=== PATIENT | female | born 1945 | race Caucasian/White ===

== ENCOUNTER → 2016-12-22 | Outpatient (CLI) | payer MEDICARE ==
--- NOTE | 2016-12-23 13:48 | MM ---
Reason for exam: screening (asymptomatic). Last mammogram was performed 1 year and 2 months ago. History: Patient is postmenopausal and is nulliparous. Took hormonal contraceptives for 5 years beginning at age 26. Physical Findings: A clinical breast exam by your physician is recommended on an annual basis and results should be correlated with mammographic findings. MG 3D Screening Mammo W/Cad Bilateral CC and MLO view(s) were taken. Prior study comparison: November 01, 2015, bilateral MG screening mammo w CAD. October 30, 2014, bilateral MG screening mammo w CAD. There are scattered fibroglandular densities. There is no discrete abnormality. No significant changes when compared with prior studies. ASSESSMENT: Negative, BI-RAD 1 RECOMMENDATION: Routine screening mammogram of both breasts in 1 year.
== END | disposition home or self-care (01) ==
LOC: RADMAMWWP 07:40
PROVIDERS: ATTEND Family Medicine
DX: Z12.31 Encounter for screening mammogram for malignant neoplasm of breast (principal)
CPT/HCPCS: 77063; G0202

== ENCOUNTER → 2017-12-09 | Outpatient (CLI) | payer MEDICARE ==
--- NOTE | 2017-12-10 08:26 | XR ---
EXAMINATION TYPE: XR Hip Complete RT DATE OF EXAM: 12/09/2017 COMPARISON: None HISTORY: Inguinal pain, right hip pain TECHNIQUE: 2 view right hip FINDINGS: No acute fractures are evident. Femoral head articulates with the acetabulum. Joint space a ppears preserved. IMPRESSION: 1. Normal 2 view right hip.
== END | disposition home or self-care (01) ==
LOC: RADXRMAIN 15:51
PROVIDERS: ATTEND Family Medicine
DX: R10.2 Pelvic and perineal pain (principal)
CPT/HCPCS: 73502

== ENCOUNTER 2018-01-28 08:49 | Observation (INO) | payer MEDICARE ==
[2018-01-28] MEDS ORDERED: ASPIRIN 81 MG PO STA (09:08)
--- NOTE | 2018-01-28 09:11 | ED ---
General Adult HPI - General Chief complaint: Arrhythmia/Palpitations Stated complaint: irregular heart rate Time Seen by Provider: 01/28/18 09:01 Source: patient, RN notes reviewed Mode of arrival: wheelchair Limitations: no limitations - History of Present Illness Initial comments: Patient is a pleasant 72-year-old female presenting to the emergency department with complaints of reported irregular heartbeat. Patient denies any history of similar symptoms previously. Patient has no complaints except for her chronic lower back pain. Patient denies any palpitations. No chest pain. No dyspnea. No weakness or fatigue. Patient went to orthopedics today and was told to come to the emergency department. Patient was scheduled to have epidural however this was not done today. No change in the patient's chronic back pain. Patient states she just saw her new primary care physician Dr. Pickett yesterday. Patient states there is no mention yesterday as far as irregular heartbeat. Patient states EKG was not done at that time. - Related Data Home Medications Medication Instructions Recorded Confirmed Candesartan/Hydrochlorothiazid 1 tab PO DAILY 07/13/14 01/28/18 [Candesartan-Hctz 32-25 mg Tab] Ibuprofen [Motrin] 800 mg PO TID 07/13/14 01/28/18 Levothyroxine Sodium [Synthroid] 150 mcg PO DAILY 07/13/14 01/28/18 Atorvastatin [Lipitor] 20 mg PO HS 01/28/18 01/28/18 Cholecalciferol [Vitamin D3] 1,000 unit PO DAILY 01/28/18 01/28/18 Cyanocobalamin (Vitamin B-12) 1,000 mcg PO DAILY 01/28/18 01/28/18 [Vitamin B-12] Gabapentin [Neurontin] 100 mg PO TID 01/28/18 01/28/18 Magnesium Oxide [Mag-Ox] 400 mg PO DAILY 01/28/18 01/28/18 amLODIPine [Norvasc] 10 mg PO DAILY 01/28/18 01/28/18 metFORMIN HCL [Glucophage] 500 mg PO W/SUPPER 01/28/18 01/28/18 traMADol HCL [Ultram] 50 mg PO TID 01/28/18 01/28/18 Allergies Allergy/AdvReac Type Severity Reaction Status Date / Time No Known Allergies Allergy Verified 01/28/18 09:19 Review of Systems ROS Statement: Those systems with pertinent positive or pertinent negative responses have been documented in the HPI. ROS Other: All systems not noted in ROS Statement are negative. Constitutional: Denies: fever Eyes: Denies: eye pain ENT: Denies: ear pain, throat pain Respiratory: Denies: cough, dyspnea Cardiovascular: Denies: chest pain, palpitations Endocrine: Denies: fatigue Gastrointestinal: Denies: abdominal pain Genitourinary: Denies: dysuria Musculoskeletal: Reports: back pain (Chronic and unchanged) Skin: Denies: rash Neurological: Denies: weakness Past Medical History Past Medical History: Asthma, Hypertension History of Any Multi-Drug Resistant Organisms: None Reported Past Surgical History: Orthopedic Surgery Additional Past Surgical History / Comment(s): D&C, LEFT HEEL SPUR, LEFT TRIGGER THUMB Past Anesthesia/Blood Transfusion Reactions: Postoperative Nausea & Vomiting ( PONV) Past Psychological History: No Psychological Hx Reported Smoking Status: Never smoker Past Alcohol Use History: None Reported Past Drug Use History: None Reported General Exam Limitations: no limitations General appearance: alert, in no apparent distress, obese Head exam: Present: atraumatic Eye exam: Present: normal appearance, PERRL ENT exam: Present: normal oropharynx Neck exam: Present: normal inspection Respiratory exam: Present: normal lung sounds bilaterally Cardiovascular Exam: Present: regular rate, irregular rhythm, systolic murmur GI/Abdominal exam: Present: soft. Absent: tenderness Extremities exam: Present: normal inspection. Absent: pedal edema, calf tenderness Neurological exam: Present: alert Psychiatric exam: Present: normal affect, normal mood Skin exam: Present: normal color Course Vital Signs 01/28/18 01/28/18 01/28/18 08:56 10:00 10:30 Temperature 97.9 F Pulse Rate 69 60 72 Respiratory 16 12 13 Rate Blood Pressure 114/48 120/60 121/63 O2 Sat by Pulse 99 98 98 Oximetry 01/28/18 11:00 Temperature Pulse Rate 74 Respiratory 10 L Rate Blood Pressure 115/63 O2 Sat by Pulse 98 Oximetry EKG Findings - EKG Comments: EKG Findings:: Atrial fibrillation with rate of 69. QRS 82. QT 404. QTC 432. Left axis. Inferior Q waves. No acute ST change. Medical Decision Making - Medical Decision Making Patient reevaluated and resting comfortably in bed. Patient remains in atrial fibrillation with rate controlled. Patient updated on results and plan. Case was discussed in detail with Dr. Dillard, who will admit for Dr. Pickett. Cardiology will be consult - Lab Data Result diagrams: 01/28/18 09:19 01/28/18 09:19 Lab Results 01/28/18 01/28/18 01/28/18 Range/Units 09:19 09:19 09:19 WBC 13.6 H (3.8-10.6) k/uL RBC 3.99 (3.80-5.40) m/uL Hgb 12.0 (11.4-16.0) gm/dL Hct 36.1 (34.0-46.0) % MCV 90.5 (80.0-100.0) fL MCH 30.1 (25.0-35.0) pg MCHC 33.3 (31.0-37.0) g/dL RDW 13.3 (11.5-15.5) % Plt Count 315 (150-450) k/uL Neutrophils % 74 % Lymphocytes % 20 % Monocytes % 4 % Eosinophils % 1 % Basophils % 1 % Neutrophils # 10.1 H (1.3-7.7) k/uL Lymphocytes # 2.7 (1.0-4.8) k/uL Monocytes # 0.5 (0-1.0) k/uL Eosinophils # 0.1 (0-0.7) k/uL Basophils # 0.1 (0-0.2) k/uL PT (9.0-12.0) sec INR (<1.2) APTT (22.0-30.0) sec Sodium 140 (137-145) mmol/L Potassium 4.4 (3.5-5.1) mmol/L Chloride 106 (98-107) mmol/L Carbon Dioxide 25 (22-30) mmol/L Anion Gap 9 mmol/L BUN 26 H (7-17) mg/dL Creatinine 0.81 (0.52-1.04) mg/dL Est GFR (CKD-EPI)AfAm 85 (>60 ml/min/1.73 sqM) Est GFR (CKD-EPI)NonAf 74 (>60 ml/min/1.73 sqM) Glucose 131 H (74-99) mg/dL Calcium 9.8 (8.4-10.2) mg/dL Magnesium 1.9 (1.6-2.3) mg/dL Total Bilirubin 0.6 (0.2-1.3) mg/dL AST 21 (14-36) U/L ALT 24 (9-52) U/L Alkaline Phosphatase 122 (38-126) U/L Total Creatine Kinase 155 H (30-135) U/L CK-MB (CK-2) 1.5 (0.0-2.4) ng/mL CK-MB (CK-2) Rel Index 1.0 Troponin I <0.012 (0.000-0.034) ng/mL Total Protein 6.9 (6.3-8.2) g/dL Albumin 3.8 (3.5-5.0) g/dL TSH 6.500 H (0.465-4.680) mIU/L Free T4 1.75 (0.78-2.19) ng/dL Free T3 pg/mL 1.9 L (2.8-5.3) pg/ml 01/28/18 Range/Units 09:19 WBC (3.8-10.6) k/uL RBC (3.80-5.40) m/uL Hgb (11.4-16.0) gm/dL Hct (34.0-46.0) % MCV (80.0-100.0) fL MCH (25.0-35.0) pg MCHC (31.0-37.0) g/dL RDW (11.5-15.5) % Plt Count (150-450) k/uL Neutrophils % % Lymphocytes % % Monocytes % % Eosinophils % % Basophils % % Neutrophils # (1.3-7.7) k/uL Lymphocytes # (1.0-4.8) k/uL Monocytes # (0-1.0) k/uL Eosinophils # (0-0.7) k/uL Basophils # (0-0.2) k/uL PT 9.4 (9.0-12.0) sec INR 0.9 (<1.2) APTT 21.6 L (22.0-30.0) sec Sodium (137-145) mmol/L Potassium (3.5-5.1) mmol/L Chloride (98-107) mmol/L Carbon Dioxide (22-30) mmol/L Anion Gap mmol/L BUN (7-17) mg/dL Creatinine (0.52-1.04) mg/dL Est GFR (CKD-EPI)AfAm (>60 ml/min/1.73 sqM) Est GFR (CKD-EPI)NonAf (>60 ml/min/1.73 sqM) Glucose (74-99) mg/dL Calcium (8.4-10.2) mg/dL Magnesium (1.6-2.3) mg/dL Total Bilirubin (0.2-1.3) mg/dL AST (14-36) U/L ALT (9-52) U/L Alkaline Phosphatase (38-126) U/L Total Creatine Kinase (30-135) U/L CK-MB (CK-2) (0.0-2.4) ng/mL CK-MB (CK-2) Rel Index Troponin I (0.000-0.034) ng/mL Total Protein (6.3-8.2) g/dL Albumin (3.5-5.0) g/dL TSH (0.465-4.680) mIU/L Free T4 (0.78-2.19) ng/dL Free T3 pg/mL (2.8-5.3) pg/ml - Radiology Data Radiology results: image reviewed (Chest x-ray shows no acute process) Disposition Clinical Impression: New onset atrial fibrillation Disposition: ADMITTED IP TO THIS HOSP Is patient prescribed a controlled substance at d/c from ED?: No Referrals: Lila Pickett MD [Primary Care Provider] - 1-2 days Decision Time: 11:45
[2018-01-28 09:45] LABS: Basophils # (A) 0.1 k/uL (0-0.2); Basophils % (A) 1 %; Eosinophils # (A) 0.1 k/uL (0-0.7); Eosinophils % (A) 1 %; HCT 36.1 % (34.0-46.0); Lymphocytes # (A) 2.7 k/uL (1.0-4.8); Lymphocytes % (A) 20 %; MCH 30.1 pg (25.0-35.0); MCHC 33.3 g/dL (31.0-37.0); MCV 90.5 fL (80.0-100.0); Monocytes # (A) 0.5 k/uL (0-1.0); Monocytes % (A) 4 %; Neutrophils # (A) 10.1 k/uL (1.3-7.7); Neutrophils % (A) 74 %; Platelet Count 315 k/uL (150-450); RBC 3.99 m/uL (3.80-5.40); RDW 13.3 % (11.5-15.5); WBC 13.6 k/uL (3.8-10.6)
[2018-01-28 09:57] LABS: Albumin 3.8 g/dL (3.5-5.0); Calcium 9.8 mg/dL (8.4-10.2); Magnesium 1.9 mg/dL (1.6-2.3); Potassium 4.4 mmol/L (3.5-5.1); Total Bilirubin 0.6 mg/dL (0.2-1.3); Total Protein 6.9 g/dL (6.3-8.2)
--- NOTE | 2018-01-28 10:03 | XR ---
EXAMINATION TYPE: XR chest 2V DATE OF EXAM: 01/28/2018 COMPARISON: NONE HISTORY: Dysrhythmia TECHNIQUE: Frontal and lateral views of the chest are obtained. FINDINGS: There is no focal air space opacity, pleural effusion, or pneumothorax seen. The cardiac silhouette size is at upper normal limits, patient is rotated. The osseous structures are intact. T here are overlying cardiac leads. Arthropathy noted in the shoulders. IMPRESSION: No acute cardiopulmonary process.
[2018-01-28 10:08] LABS: Creatine Kinase 155 U/L (30-135)
[2018-01-28 10:09] LABS: INR 0.9 (<1.2); Prothrombin Time 9.4 sec (9.0-12.0)
[2018-01-28 10:14] LABS: T4, Free (Free Thyroxine) 1.75 ng/dL (0.78-2.19)
[2018-01-28 10:20] LABS: Creatine Kinase MB 1.5 ng/mL (0.0-2.4); Troponin I <0.012 ng/mL (0.000-0.034)
[2018-01-28 10:25] LABS: Partial Thromboplastin Time 21.6 sec (22.0-30.0)
[2018-01-28] MEDS ORDERED: NITROGLYCERIN SL TABS 0.4 MG TAB SUBLINGUAL PRN (11:46)
[2018-01-28] MEDS ORDERED: HEPARIN SODIUM,PORCINE 5,000 UNIT/ML 1 ML VIAL IV PRN (11:46)
[2018-01-28] MEDS ORDERED: HEPARIN SODIUM,PORCINE 5,000 UNIT/ML 1 ML VIAL IV ONE (11:46)
[2018-01-28] MEDS: HEPARIN SOD,PORK IN 0.45% NACL 25,000 UNIT in 0.45% NACL 1 500ML.BAG IV SCH (12:06)
[2018-01-28 16:15] LABS: Creatine Kinase 137 U/L (30-135)
[2018-01-28] MEDS ORDERED: DOCUSATE 100 MG CAP PO PRN (16:16)
[2018-01-28] MEDS ORDERED: MELATONIN 5 MG TABLET PO PRN (16:16)
[2018-01-28] MEDS ORDERED: ACETAMINOPHEN TAB 325 MG TAB PO PRN (16:16)
[2018-01-28] MEDS ORDERED: ONDANSETRON 4 MG/2 ML VIAL IVP PRN (16:16)
--- NOTE | 2018-01-28 16:21 | ECHOF ---
Referral Reason:New-onset A. fib MEASUREMENTS -------- HEIGHT: 132.1 cm WEIGHT: 104.3 kg BP: IVSd: 1.2 cm (0.6 - 1.1) LVIDd: 4.3 cm (3.9 - 5.3) LVPWd: 1.0 cm (0.6 - 1.1) IVSs: 1.4 cm LVIDs: 2.8 cm LVPWs: 1.4 cm LA Diam: 1.2 cm (2.7 - 3.8) RVIDd: 2.7 cm (< 3.3) Ao Diam: 2.8 cm (2.0 - 3.7) LA Diam: 2.9 cm (2.7 - 3.8) AV Cusp: 1.6 cm (1.5 - 2.6) EPSS: 0.8 cm MV E Cash: 0.87 m/s MV DecT: 142 ms MV A Cash: 0.73 m/s MV E/A Ratio: 1.18 RAP: 5.00 mmHg RVSP: 19.52 mmHg %FS: 54.89 % EDV(Teich): 98.13 ml EF(Teich): 85.63 % ESV(Teich): 14.10 ml IVSd: 1.35 cm (0.6 - 1.1) IVSs: 1.98 cm LVIDd: 4.62 cm (3.9 - 5.3) LVIDs: 2.08 cm LVPWd: 1.21 cm (0.6 - 1.1) LVPWs: 1.77 cm MV EF SLOPE: 105.32 mm/s (70 - 150) MV EXCURSION: 11.11 mm (> 18.000) SV(Teich): 84.03 ml FINDINGS -------- Atrial fibrillation. This was a technically difficult study with suboptimal views. The left ventricular size is normal. There is mild concentric left ventricular hypertrophy. Overa ll left ventricular systolic function is normal with, an EF between 55 - 60 %. The right ventricle is normal in size and function. The left atrium is normal in size. The right atrium is normal in size. 5.0mg of Lumason was utilized for enhancement of images Aortic valve is trileaflet and is mildly thickened. There is trace mitral regurgitation. Trace tricuspid regurgitation present. The right ventricular systolic pressure, as measured by Dopp ler, is 19.52mmHg. Pulmonic valve appears structurally normal. The aortic root size is normal. The pericardium is normal. CONCLUSIONS -------- 1. Atrial fibrillation. 2. This was a technically difficult study with suboptimal views. 3. The left ventricular size is normal. 4. There is mild concentric left ventricular hypertrophy. 5. Overall left ventricular systolic function is normal with, an EF between 55 - 60 %. 6. The right ventricle is normal in size and function. 7. The left atrium is normal in size. 8. The right atrium is normal in size. 9. 5.0mg of Lumason was utilized for enhancement of images 10. Aortic valve is trileaflet and is mildly thickened. 11. There is trace mitral regurgitation. 12. Trace tricuspid regurgitation present. 13. The right ventricular systolic pressure, as measured by Doppler, is 19.52mmHg. 14. Pulmonic valve appears structurally normal. 15. The aortic root size is normal. 16. The pericardium is normal. PERIOPERATIVE EDUCATOR: Bailey Puentes RDCS
[2018-01-28 16:29] LABS: Creatine Kinase MB 1.4 ng/mL (0.0-2.4); Troponin I <0.012 ng/mL (0.000-0.034)
--- NOTE | 2018-01-28 16:35 | P.HPIM ---
History of Present Illness H&P Date: 01/28/18 Chief Complaint: a fib Patient is a 72-year-old female with past medical history of hypertension, diabetes, hypothyroidism, dyslipidemia, and obesity who presented to the ER at the direction [facility] for newly discovered atrial fibrillation. In the ER she underwent an extensive evaluation. On arrival her vital signs were within normal limits. Initial laboratory analysis showed slightly elevated white blood cell count at 13.6. Slightly elevated BUN at 26. Glucose was slightly elevated 131. Initial TSH was slightly elevated at 6.5. On EKG she was found to have atrial fibrillation which was rate controlled. Arrangements were made for placement in observation status. Patient seen and examined at bedside. She denies any known history of atrial fibrillation. She has not noticed any palpitations, chest pain, shortness of breath, lightheadedness, dizziness, unusual fatigue, or decreased exercise tolerance. She's never needed to see a back tender cloth printing in the past. She recently established care with Dr. Pickett. She did decrease her Synthroid dosing approximately 2 weeks ago. She denies any recent cough, cold, fever, flu, nausea, vomiting, diarrhea, constipation, or dysuria. She has been asked anything increasing back pain over the last 2 months. She's been following with [facility]. She had MRI done which she states showed 2 "Pinched" nurse. She was schedule have an epidural injection today when she was noted to be in atrial fibrillation. They sent her to the hospital. They stated that she will need cardiac clearance prior to any future epidural injections. She states the Ultra is not currently helping with pain. She does have some chronic lower extremity edema which is worse in the morning and better at night. Review of Systems Pertinent positives and negatives as discussed in HPI, a complete review of systems was performed and all other systems are negative. Past Medical History Past Medical History: Asthma, Diabetes Mellitus, Hyperlipidemia, Hypertension, Osteoarthritis (OA), Thyroid Disorder History of Any Multi-Drug Resistant Organisms: None Reported Past Surgical History: Orthopedic Surgery Additional Past Surgical History / Comment(s): D&C(hysteroscopy,endometrial polyp removed), LEFT HEEL SPUR, LEFT TRIGGER THUMB, colonoscopy w/bx pt stated was neg. Past Anesthesia/Blood Transfusion Reactions: Motion Sickness, Postoperative Nausea & Vomiting (PONV) Additional Past Anesthesia/Blood Transfusion Reaction / Comment(s): clausterphobia Smoking Status: Former smoker - Past Family History Father History Unknown: Yes Additional Family Medical History / Comment(s): pt was adopted family Additional Family Medical History / Comment(s): 2 cousins with history of heart problems. Patient unable to quantify further. Medications and Allergies Home Medications Medication Instructions Recorded Confirmed Type Candesartan/Hydrochlorothiazid 1 tab PO DAILY 07/13/14 01/28/18 History [Candesartan-Hctz 32-25 mg Tab] Ibuprofen [Motrin] 800 mg PO TID 07/13/14 01/28/18 History Levothyroxine Sodium [Synthroid] 150 mcg PO DAILY 07/13/14 01/28/18 History Atorvastatin [Lipitor] 20 mg PO HS 01/28/18 01/28/18 History Cholecalciferol [Vitamin D3] 1,000 unit PO DAILY 01/28/18 01/28/18 History Cyanocobalamin (Vitamin B-12) 1,000 mcg PO DAILY 01/28/18 01/28/18 History [Vitamin B-12] Gabapentin [Neurontin] 100 mg PO TID 01/28/18 01/28/18 History Magnesium Oxide [Mag-Ox] 400 mg PO DAILY 01/28/18 01/28/18 History amLODIPine [Norvasc] 10 mg PO DAILY 01/28/18 01/28/18 History metFORMIN HCL [Glucophage] 500 mg PO W/SUPPER 01/28/18 01/28/18 History traMADol HCL [Ultram] 50 mg PO TID 01/28/18 01/28/18 History Allergies Allergy/AdvReac Type Severity Reaction Status Date / Time No Known Allergies Allergy Verified 01/28/18 09:19 Physical Exam Osteopathic Statement: *. No significant issues noted on an osteopathic structural exam other than those noted in the History and Physical/Consult. Vitals: Vital Signs Temp Pulse Resp BP Pulse Ox 01/28/18 14:46 98.5 F 01/28/18 14:00 66 13 120/70 01/28/18 13:00 70 107/62 97 01/28/18 12:36 98.7 F 01/28/18 12:00 70 11 L 140/83 98 01/28/18 11:00 74 10 L 115/63 98 01/28/18 10:30 72 13 121/63 98 01/28/18 10:00 60 12 120/60 98 01/28/18 08:56 97.9 F 69 16 114/48 99 Intake and Output 01/28/18 01/28/18 01/28/18 06:59 14:59 22:59 Other: # Voids 1 Weight 104.326 kg General: non toxic, no distress, appears at stated age, normal weight, obese Derm: no unusual rashes/lesions no unusual ecchymoses, warm, dry Head: atraumatic, normocephalic, symmetric Eyes: EOMI, no lid lag, anicteric sclera, pupils equal round reactive to light ENT: Nose and ears atraumatic, no thrush, no pharyngeal erythema Neck: No thyromegaly, no cervical lymphadenopathy, trachea midline, supple Mouth: no lip lesion, mucus membranes moist Cardiovascular: S1-S2 irregularly irregular, no murmur, positive posterior tibial pulse bilateral, trace edema, capillary refill less than 2 seconds Lungs: CTA bilateral, no rhonchi, no rales , no accessory muscle use Abdominal: soft, nontender to palpation, no guarding, no appreciable organomegaly, normal bowel sounds Ext: no gross muscle atrophy, muscle strength 5 out of 5 in all 4 extremities grossly, no contractures, Neuro: CN II-XI grossly intact, light touch intact all 4 extremities, finger to nose within normal limits, Psych: Alert, oriented, appropriate affect Results CBC & Chem 7: 01/28/18 09:19 01/28/18 09:19 Labs: Abnormal Lab Results - Last 24 Hours (Table) 01/28/18 01/28/18 01/28/18 Range/Units 09:19 09:19 09:19 WBC 13.6 H (3.8-10.6) k/uL Neutrophils # 10.1 H (1.3-7.7) k/uL APTT (22.0-30.0) sec BUN 26 H (7-17) mg/dL Glucose 131 H (74-99) mg/dL Total Creatine Kinase 155 H (30-135) U/L TSH 6.500 H (0.465-4.680) mIU/L Free T3 pg/mL 1.9 L (2.8-5.3) pg/ml 01/28/18 Range/Units 09:19 WBC (3.8-10.6) k/uL Neutrophils # (1.3-7.7) k/uL APTT 21.6 L (22.0-30.0) sec BUN (7-17) mg/dL Glucose (74-99) mg/dL Total Creatine Kinase (30-135) U/L TSH (0.465-4.680) mIU/L Free T3 pg/mL (2.8-5.3) pg/ml Chest x-ray: report reviewed Thrombosis Risk Factor Assmnt - DVT/VTE Prophylaxis DVT/VTE Prophylaxis: Mechanical Prophylaxis ordered - Choose All That Apply Each Factor Represents 1 point: Obesity (BMI >25) Each Risk Factor Represents 2 Points: Age 61-74 years Thrombosis Risk Factor Assessment Total Risk Factor Score: 3 Thrombosis Risk Factor Assessment Level: Moderate Risk Assessment and Plan Assessment: Atrial fibrillation, newly discovered -Telemetry -Will not start any rate controlling medications as patient is currently rate controlled -On heparin drip. Plan is transitioned to Xarelto or eliquis once a cough that is verified. -Echocardiogram -Check magnesium level Hypothyroidism -TSH is elevated consistent slightly hypothyroid. She is already on Synthroid and this medication will be adjusted Chronic low back pain -Trial of [place] -Continue outpatient follow-up for epidural injections Diabetes mellitus type 2 -Patient reports last A1c 2 months ago 6.1 -Check blood sugars -Maintain outpatient metformin Hypertension, currently controlled -Continue with home candesartan hydrochlorothiazide Dyslipidemia - Continue with Lipitor Morbid obesity with BMI 48.1 -Outpatient structured weight loss The patient is placed in observation with an anticipated less than 2 per night stay for evaluation of newly discovered atrial fibrillation. Surrogate decision-maker: Friend-John Salinas CODE STATUS: Full but would not want long-term ventilation DVT prophylaxis: Heparin gtt Discussed with: patient, nursing Anticipated discharge date: [address]: home A total of [75] minutes was spent on the care of this complex patient more than 50% of the time was spent in counseling and care coordination.
[2018-01-28 16:41] LABS: Glucose,Whole Blood 112 mg/dL (75-99)
[2018-01-28] MEDS: HYDROcodone/APAP 5-325MG 1 EACH TAB PO PRN (17:27)
[2018-01-28] MEDS ORDERED: metFORMIN 500 MG TAB PO SCH (17:30)
[2018-01-28 20:54] LABS: Creatine Kinase 168 U/L (30-135)
[2018-01-28] MEDS ORDERED: ATORVASTATIN 20 MG TAB PO SCH (21:00)
[2018-01-28 21:04] LABS: Glucose,Whole Blood 114 mg/dL (75-99)
[2018-01-28 21:06] LABS: Creatine Kinase MB 1.5 ng/mL (0.0-2.4); Troponin I <0.012 ng/mL (0.000-0.034)
[2018-01-28] MEDS: GABAPENTIN 100 MG CAP PO SCH (21:26)
[2018-01-29] MEDS: HYDROcodone/APAP 5-325MG 1 EACH TAB PO PRN ×2 (00:27→08:57)
[2018-01-29 05:59] LABS: Glucose,Whole Blood 124 mg/dL (75-99)
[2018-01-29] MEDS ORDERED: LEVOTHYROXINE 100 MCG TAB PO SCH (06:30)
[2018-01-29] MEDS ORDERED: LEVOTHYROXINE 75 MCG TAB PO SCH (06:30)
[2018-01-29] MEDS ORDERED: LEVOTHYROXINE 88 MCG TAB PO SCH (06:30)
[2018-01-29 07:11] LABS: Mean Platelet Volume 7.1; Platelet Count 314 k/uL (150-450)
[2018-01-29 07:21] VITALS: PULSE 61; RESP 16
[2018-01-29 07:46] LABS: Cholesterol 142 mg/dL (<200); HDL Cholesterol 56 mg/dL (40-60); LDL Cholesterol,Calculated 61 mg/dL (0-99); Triglycerides 126 mg/dL (<150)
[2018-01-29] MEDS: GABAPENTIN 100 MG CAP PO SCH (08:56)
[2018-01-29] MEDS ORDERED: LOSARTAN 50 MG TAB PO SCH (09:00)
[2018-01-29] MEDS ORDERED: HYDROCHLOROTHIAZIDE 25 MG TAB PO SCH (09:00)
[2018-01-29] MEDS ORDERED: CYANOCOBALAMIN 500 MCG TAB PO SCH (09:00)
[2018-01-29] MEDS ORDERED: CHOLECALCIFEROL 1,000 UNIT TAB PO SCH (09:00)
[2018-01-29] MEDS ORDERED: MAGNESIUM OXIDE 400 MG TAB PO SCH (09:00)
[2018-01-29] MEDS ORDERED: ASPIRIN 325 MG TAB PO SCH (09:00)
[2018-01-29] MEDS ORDERED: amLODIPine 10 MG TAB PO SCH (09:00)
[2018-01-29 11:09] LABS: HCT 35.4 % (34.0-46.0); HGB 11.8 gm/dL (11.4-16.0); MCH 30.7 pg (25.0-35.0); MCHC 33.4 g/dL (31.0-37.0); Mean Platelet Volume 8.7; Platelet Count 314 k/uL (150-450); RBC 3.85 m/uL (3.80-5.40); RDW 13.2 % (11.5-15.5); WBC 11.1 k/uL (3.8-10.6)
--- NOTE | 2018-01-29 11:23 | P.CRDCN ---
History of Present Illness Consult date: 01/29/18 Requesting physician: Juana Dillard Consult reason: atrial fibrillation History of present illness: this is a pleasant 72-year-old female with past medical history significant for hypertension, deep diabetes, hypothyroidism, hyperlipidemia, obesity, who states that she was scheduled to have an epidural injection, and EKG was performed just prior to that was interpreted to be in atrial fibrillation, therefore the procedure was not performed and patient was 5 to come to the emergency room for observation.EKG performed on arrival here was read as atrial fibrillation, however appears to be in normal sinus rhythm with occasional PACs. Rhythm strips were reviewed which show normal sinus rhythm. Cyclic EKG continues to show normal sinus rhythm, sinus bradycardia with PACs. There is no evidence of atrial fibrillation.blood pressure 125/70 with a heart rate in the 60s, 98% on room air.White blood cell count 13.6, hemoglobin 12, platelet count 314. Sodium 140, potassium 4.4, BUN 26, creatinine 0.8.troponins are negative 3.an echo cardiac gram with Doppler study was performed which revealed an ejection fraction of 55-60%. Chest x-ray does not reveal any acute process.TSH is elevated at 6.5, free T4 is 1.7 and free T3 1.9. Patient's dose of Synthroid has been increased. Past Medical History Past Medical History: Asthma, Diabetes Mellitus, Hyperlipidemia, Hypertension, Osteoarthritis (OA), Thyroid Disorder History of Any Multi-Drug Resistant Organisms: None Reported Past Surgical History: Orthopedic Surgery Additional Past Surgical History / Comment(s): D&C(hysteroscopy,endometrial polyp removed), LEFT HEEL SPUR, LEFT TRIGGER THUMB, colonoscopy w/bx pt stated was neg. Past Anesthesia/Blood Transfusion Reactions: Motion Sickness, Postoperative Nausea & Vomiting (PONV) Additional Past Anesthesia/Blood Transfusion Reaction / Comment(s): clausterphobia Smoking Status: Former smoker - Past Family History Father History Unknown: Yes Additional Family Medical History / Comment(s): pt was adopted family Additional Family Medical History / Comment(s): 2 cousins with history of heart problems. Patient unable to quantify further. Medications and Allergies Home Medications Medication Instructions Recorded Confirmed Type Candesartan/Hydrochlorothiazid 1 tab PO DAILY 07/13/14 01/28/18 History [Candesartan-Hctz 32-25 mg Tab] Ibuprofen [Motrin] 800 mg PO TID 07/13/14 01/28/18 History Levothyroxine Sodium [Synthroid] 150 mcg PO DAILY 07/13/14 01/28/18 History Atorvastatin [Lipitor] 20 mg PO HS 01/28/18 01/28/18 History Cholecalciferol [Vitamin D3] 1,000 unit PO DAILY 01/28/18 01/28/18 History Cyanocobalamin (Vitamin B-12) 1,000 mcg PO DAILY 01/28/18 01/28/18 History [Vitamin B-12] Gabapentin [Neurontin] 100 mg PO TID 01/28/18 01/28/18 History Magnesium Oxide [Mag-Ox] 400 mg PO DAILY 01/28/18 01/28/18 History amLODIPine [Norvasc] 10 mg PO DAILY 01/28/18 01/28/18 History metFORMIN HCL [Glucophage] 500 mg PO W/SUPPER 01/28/18 01/28/18 History traMADol HCL [Ultram] 50 mg PO TID 01/28/18 01/28/18 History Allergies Allergy/AdvReac Type Severity Reaction Status Date / Time No Known Allergies Allergy Verified 01/28/18 09:19 Physical Exam Vitals: Vital Signs Temp Pulse Pulse Resp BP BP Pulse Ox 01/29/18 07:17 97.1 F L 61 16 125/72 98 01/29/18 04:00 97.3 F L 59 L 18 144/67 97 01/29/18 00:00 97.0 F L 64 18 106/54 97 01/28/18 20:00 67 18 01/28/18 19:37 97.3 F L 57 L 18 136/63 95 01/28/18 17:00 55 L 18 01/28/18 16:00 97 F L 55 L 18 133/59 01/28/18 14:46 98.5 F 01/28/18 14:00 66 13 120/70 01/28/18 13:00 70 107/62 97 01/28/18 12:36 98.7 F 01/28/18 12:00 70 11 L 140/83 98 Intake and Output 01/28/18 01/29/18 01/29/18 22:59 06:59 14:59 Intake Total 720 397.782 416.157 Balance 720 397.782 416.157 Intake: IV 180 0.9 180 Intake, IV Titration 217.782 176.157 Amount Heparin Sod,Pork in 0.45% 217.782 176.157 NaCl 25,000 unit In 0.45 % NaCl 1 500ml.bag @ 9.58 UNITS/KG/HR 19.98 mls/hr IV .Q24H [facility] Rx#: [id number] Oral 720 240 Other: Voiding Method Toilet Toilet # Voids 1 2 Weight 103.1 kg PHYSICAL EXAMINATION: GENERAL:72-year-old female in no acute distress at the time of my examination HEENT: Head is atraumatic, normocephalic. Pupils equal, round. Sclera anicteric. Conjunctiva are clear. Mucous membranes of the mouth are moist. Neck is supple. There is no elevated jugular venous pressure.no carotid bruit is heard. HEART EXAMINATION: [Heart S1, S2 normal. No murmur or gallop heard.] CHEST EXAMINATION:[ Lungs are clear to auscultation and precussion. No chest wall tenderness is noted on palpation or with deep breathing.] ABDOMEN: [ Soft, nontender. Bowel sounds are heard. No organomegaly noted]. EXTREMITIES:[ 2+ peripheral pulses with no evidence of peripheral edema and no calf tenderness noted]. NEUROLOGIC [patient is awake, alert and oriented X3.] . Results 01/29/18 06:56 01/28/18 09:19 Cardiac Enzymes 01/28/18 01/28/18 Range/Units 15:29 19:59 CK-MB (CK-2) 1.4 1.5 (0.0-2.4) ng/mL Troponin I <0.012 <0.012 (0.000-0.034) ng/mL Coagulation 01/28/18 01/29/18 Range/Units 19:59 06:56 APTT 43.4 H 38.8 H (22.0-30.0) sec Lipids 01/29/18 Range/Units 06:56 Triglycerides 126 (<150) mg/dL Cholesterol 142 (<200) mg/dL HDL Cholesterol 56 (40-60) mg/dL CBC 01/29/18 01/29/18 Range/Units 06:56 06:56 WBC 11.1 H (3.8-10.6) k/uL RBC 3.85 (3.80-5.40) m/uL Hgb 11.8 (11.4-16.0) gm/dL Hct 35.4 (34.0-46.0) % Plt Count 314 314 (150-450) k/uL Current Medications Generic Name Dose Route Start Last Admin Trade Name Freq PRN Reason Stop Dose Admin Acetaminophen 650 mg 01/28/18 16:16 Tylenol Tab PO Q6HR PRN Fever and/ or Pain Hydrocodone Bitart/Acetaminophen 1 each 01/28/18 16:16 01/29/18 08:57 [place] 5-325 PO 1 each Q6HR PRN Administration Pain Amlodipine Besylate 10 mg 01/29/18 09:00 01/29/18 08:56 Norvasc PO 10 mg DAILY JEF Administration Aspirin 81 mg 01/30/18 09:00 Aspirin PO DAILY JEF Atorvastatin Calcium 20 mg 01/28/18 21:00 01/28/18 21:26 Lipitor PO 20 mg HS JEF Administration Cholecalciferol 1,000 unit 01/29/18 09:00 01/29/18 08:56 Vitamin D3 PO 1,000 unit DAILY JEF Administration Cyanocobalamin 1,000 mcg 01/29/18 09:00 01/29/18 08:56 Vitamin B-12 PO 1,000 mcg DAILY JEF Administration Docusate Sodium 100 mg 01/28/18 16:16 Colace PO BID PRN Constipation Gabapentin 100 mg 01/28/18 22:00 01/29/18 08:56 Neurontin PO 100 mg TID JEF Administration Heparin Sodium (Porcine) 0 unit 01/28/18 11:46 Heparin IV Q6HR PRN Low PTT Protocol Hydrochlorothiazide 25 mg 01/29/18 09:00 01/29/18 08:56 Hydrodiuril PO 25 mg DAILY JEF Administration Heparin Sodium/Sodium Chloride 500 mls @ 19.98 mls/hr 01/28/18 12:00 07:49 25,000 unit/ Sodium Chloride IV 14.58 units/kg/hr .Q24H JEF 30.42 mls/hr Titration Protocol 9.58 UNITS/KG/HR Levothyroxine Sodium 100 mcg 01/29/18 06:30 01/29/18 05:54 Synthroid PO 100 mcg DAILY@0630 JEF Administration Levothyroxine Sodium 88 mcg 01/29/18 06:30 01/29/18 05:54 Synthroid PO 88 mcg DAILY@0630 JEF Administration Losartan Potassium 150 mg 01/29/18 09:00 01/29/18 08:56 Cozaar PO 150 mg DAILY JEF Administration Magnesium Oxide 400 mg 01/29/18 09:00 01/29/18 08:56 Mag-Ox PO 400 mg DAILY JEF Administration Melatonin 5 mg 01/28/18 16:16 Melatonin PO HS PRN Insomnia Metformin HCl 500 mg 01/28/18 17:30 01/28/18 17:24 Glucophage PO 500 mg W/SUPPER JEF Administration Nitroglycerin 0.4 mg 01/28/18 11:46 Nitrostat SUBLINGUAL Q5M PRN Chest Pain Ondansetron HCl 4 mg 01/28/18 16:16 Zofran IVP Q6H PRN Nausea Sodium Chloride 10 ml 01/28/18 21:00 01/29/18 08:59 Saline Flush IV 10 ml BID JEF Administration Intake and Output 01/28/18 01/29/18 01/29/18 22:59 06:59 14:59 Intake Total 720 397.782 416.157 Balance 720 397.782 416.157 Intake: IV 180 0.9 180 Intake, IV Titration 217.782 176.157 Amount Heparin Sod,Pork in 0.45% 217.782 176.157 NaCl 25,000 unit In 0.45 % NaCl 1 500ml.bag @ 9.58 UNITS/KG/HR 19.98 mls/hr IV .Q24H JEF Rx#: [id number] Oral 720 240 Other: Voiding Method Toilet Toilet # Voids 1 2 Weight 103.1 kg 01/29/18 06:56 01/28/18 09:19 EKG Interpretations (text) EKG shows a sinus bradycardia with PACs. Assessment and Plan Plan: Assessment and plan #1 arrhythmia, it was felt that the patient may have atrial fibrillation, however on review of the EKGs it appears the patient is in normal sinus rhythm with PACs. IV heparin will be discontinued. TSH level was also elevated and dose of Synthroid increased. #2 hyperlipidemia #3 hypertension #4 diabetes #5 hypothyroidism #6 chronic back pain Plan Echocardiogram with Doppler study was performed which revealed a normal left ventricular systolic function. TSH level was elevated and dose of Synthroid adjusted. We will discontinue the patient's IV heparin. Patient does have significant cardiac risk factors, we do recommend a follow-up appointment in the office, she does not require anticoagulation, no evidence of atrial fibrillation. DNP note has been reviewed, I agree with a documented findings and plan of care. Patient was seen and examined.
[2018-01-29] MEDS: HEPARIN SOD,PORK IN 0.45% NACL 25,000 UNIT in 0.45% NACL 1 500ML.BAG IV SCH (11:27)
[2018-01-29 11:45] VITALS: BP 136/59; TEMP 98.1
[2018-01-29 12:06] LABS: Glucose,Whole Blood 104 mg/dL (75-99)
--- NOTE | 2018-01-29 18:00 | P.DS ---
Providers Date of admission: 01/28/18 11:46 Expected date of discharge: 01/29/18 Attending physician: Juana Dillard DO Consults: 01/28/18 11:46 Consult Physician Urgent Consulting Provider: Jade Castro Consult Reason/Comments: new onset a fib Do you want consulting provider notified?: Yes Primary care physician: Lila Pickett MD Hospital Course: Discharge Diagnosis: Frequent PACs Hypothyroidism with elevated TSH Chronic low back pain Diabetes mellitus type 2 Hypertension Discussed the management Morbid obesity with BMI 47.5 Hospital Course: Patient is a 72-year-old female with past medical history of hypertension, diabetes, hypothyroidism, dyslipidemia, and obesity who presented to the ER at [facility] for newly discovered atrial fibrillation. In the ER she underwent an extensive evaluation. On arrival her vital signs were within normal limits. Initial laboratory analysis showed slightly elevated white blood cell count at 13.6. Slightly elevated BUN at 26. Glucose was slightly elevated 131. Initial TSH was slightly elevated at 6.5. On EKG she was found to have atrial fibrillation which was rate controlled. Arrangements were made for placement in observation status.je FUrther review of EKG revealed that she was in normal sinus rhythm with PACs. She was monitored on telemetry overnight to ensure there was no evidence of Paroxysmal A. fib. She was seen by cardio the next morning and had no evidence of A. fib. She was taken off heparin gtt. Her TSH was elevated and she was transitioned to Synthroid 188 mcg daily. Her pain was not controlled by ultram and she was tried on [place] which gave her adaquate pain releif. She will stay on this until she has her epidural injection. She was detemined stable for discharge home. She will have repeat TSH in 4-6 weeks. She will also follow with Dr. Bose in the office. Patient seen and examined at bedside. Patient denies any chest pain, shortness breath, nausea, vomiting, dizziness, or lightheadedness. She is feeling fine. Vital signs reviewed and stable. General: non toxic, no distress, appears at stated age, o Derm: warm, dry Head: atraumatic, normocephalic, symmetric Eyes: EOMI, no lid lag, anicteric sclera Mouth: no lip lesion, mucus membranes moist Cardiovascular: S1S2 reg, no murmur, positive posterior tibial pulse bilateral, Lungs: CTA bilateral, no rhonchi, no rales , no accessory muscle use Abdominal: soft, nontender to palpation, no guarding, no appreciable organomegaly Ext: no gross muscle atrophy, no edema, no contractures Neuro: CN II-XI grossly intact, no focal neuro deficits Psych: Alert, oriented, appropriate affect A total of 25 minutes of time were spent preparing this complex discharge summary . Pertinent Studies: Echo- EF 50-55%, no significant valvular dysfunction Patient Condition at Discharge: Good Plan - Discharge Summary Discharge Rx Participant: No New Discharge Prescriptions: New HYDROcodone/APAP 5-325MG [[place] 5-325] 1 each PO Q6HR PRN #28 tab PRN Reason: Pain Levothyroxine Sodium [Synthroid] 88 mcg PO DAILY@0630 #30 tab Levothyroxine Sodium [Synthroid] 100 mcg PO DAILY@0630 #30 tab Continue Ibuprofen [Motrin] 800 mg PO TID Candesartan/Hydrochlorothiazid [Candesartan-Hctz 32-25 mg Tab] 1 tab PO DAILY amLODIPine [Norvasc] 10 mg PO DAILY Cyanocobalamin (Vitamin B-12) [Vitamin B-12] 1,000 mcg PO DAILY metFORMIN HCL [Glucophage] 500 mg PO W/SUPPER Magnesium Oxide [Mag-Ox] 400 mg PO DAILY Gabapentin [Neurontin] 100 mg PO TID Cholecalciferol [Vitamin D3] 1,000 unit PO DAILY Atorvastatin [Lipitor] 20 mg PO HS Discontinued Levothyroxine Sodium [Synthroid] 150 mcg PO DAILY traMADol HCL [Ultram] 50 mg PO TID Discharge Medication List Candesartan/Hydrochlorothiazid [Candesartan-Hctz 32-25 mg Tab] 1 tab PO DAILY [History] Ibuprofen [Motrin] 800 mg PO TID 07/13/14 [History] Atorvastatin [Lipitor] 20 mg PO HS 01/28/18 [History] Cholecalciferol [Vitamin D3] 1,000 unit PO DAILY 01/28/18 [History] Cyanocobalamin (Vitamin B-12) [Vitamin B-12] 1,000 mcg PO DAILY 01/28/18 [ History] Gabapentin [Neurontin] 100 mg PO TID 01/28/18 [History] Magnesium Oxide [Mag-Ox] 400 mg PO DAILY 01/28/18 [History] amLODIPine [Norvasc] 10 mg PO DAILY 01/28/18 [History] metFORMIN HCL [Glucophage] 500 mg PO W/SUPPER 01/28/18 [History] HYDROcodone/APAP 5-325MG [[place] 5-325] 1 each PO Q6HR PRN #28 tab 01/29/18 [Rx] Levothyroxine Sodium [Synthroid] 88 mcg PO DAILY@0630 #30 tab 01/29/18 [Rx] Levothyroxine Sodium [Synthroid] 100 mcg PO DAILY@0630 #30 tab 01/29/18 [Rx] Follow up Appointment(s)/Referral(s): Dereck Bose MD [STAFF PHYSICIAN] - 02/16/18 9:30 am (THURSDAY) Lila Pickett MD [Primary Care Provider] - 1-2 days (Office is closed on Fridays. Please call to schedule appointment) Ambulatory/Diagnostic Orders: TSH, 3rd Generation [LAB.AMB] Time Frame: 6 Weeks, Location: None Selected Activity/Diet/Wound Care/Special Instructions: heart healthy carb consistent diet Activity as tolerated Discharge Disposition: HOME SELF-CARE
[2018-01-30] MEDS ORDERED: ASPIRIN 81 MG PO SCH (09:00)
== END 2018-01-29 13:24 | disposition home or self-care (01) ==
LOC: EC 08:49 → 3SCARD 11:46
PROVIDERS: ADMIT Internal Medicine; ATTEND Internal Medicine
DX: I49.1 Atrial premature depolarization (principal); E03.9 Hypothyroidism, unspecified; G89.29 Other chronic pain; M54.5 Low back pain; E11.9 Type 2 diabetes mellitus without complications; I10 Essential (primary) hypertension; E66.01 Morbid (severe) obesity due to excess calories; Z68.42 Body mass index [BMI] 45.0-49.9, adult; E78.5 Hyperlipidemia, unspecified; D72.829 Elevated white blood cell count, unspecified; R94.4 Abnormal results of kidney function studies; R94.6 Abnormal results of thyroid function studies; J45.909 Unspecified asthma, uncomplicated; M19.90 Unspecified osteoarthritis, unspecified site; Z87.891 Personal history of nicotine dependence; Z79.899 Other long term (current) drug therapy; Z79.890 Hormone replacement therapy; Z79.1 Long term (current) use of non-steroidal anti-inflammatories (NSAID); Z79.84 Long term (current) use of oral hypoglycemic drugs; Z79.891 Long term (current) use of opiate analgesic
CPT/HCPCS: 99285; 96376 ×2; 96365 ×2; 96366 ×5; 36415; 93005; 84439; 84481; 80061; 80053; 82550; 82553; 83735; 84443; 84484; 85025; 85027; 85049; 85610; 85730 ×2; 71046; G0378 ×2; C8929; J1644 ×2; Q9950; 93306

== ENCOUNTER → 2018-03-29 | Outpatient (CLI) | payer MEDICARE ==
--- NOTE | 2018-04-01 11:10 | MM ---
Reason for exam: screening (asymptomatic). Last mammogram was performed 1 year and 3 months ago. History: Patient is postmenopausal and is nulliparous. Took hormonal contraceptives for 5 years beginning at age 26. Physical Findings: A clinical breast exam by your physician is recommended on an annual basis and results should be correlated with mammographic findings. MG Screening Mammo w CAD Bilateral CC and MLO view(s) were taken. Prior study comparison: December 22, 2016, bilateral MG 3d screening mammo w/cad. November 01, 2015, bilateral MG screening mammo w CAD. There are scattered fibroglandular densities. Finding: There are typically benign round, linear calcifications in both breasts. There is a chronic nodularity in the right breast. There is no discrete abnormality. ASSESSMENT: Benign, BI-RAD 2 RECOMMENDATION: Routine screening mammogram of both breasts in 1 year.
== END ==
LOC: RADMAMWWP 08:09
PROVIDERS: ATTEND Family Medicine
DX: Z12.31 Encounter for screening mammogram for malignant neoplasm of breast (principal)
CPT/HCPCS: 77067

== ENCOUNTER → 2018-09-13 | Outpatient (CLI) | payer MEDICARE ==
--- NOTE | 2018-09-13 11:15 | BD ---
EXAMINATION TYPE: Axial Bone Density DATE OF EXAM: 09/13/2018 COMPARISON: NONE CLINICAL HISTORY: Postmenopausal female. Osteoporosis screening. Height: 4 FT 10 IN Weight: 245 FRAX RISK QUESTIONS: History of Fracture in Adulthood: YES Secondary Osteoporosis: 3. Menopause before 45: YES RISK FACTORS HISTORY OF: Active: SOMEWHAT Postmenopausal woman: AGE 51 MEDICATIONS: Thyroid Medications: YES Which medication: LEVOTHYROXINE How Lon PLUS YEARS Additional Medications: LEVOTHYROXINE,ATORVASTATIN, WARFARIN, H2O PILL, Additional History: EXAM MEASUREMENTS: Bone mineral densitometry was performed using the [employer] System. Bone mineral density as measured about the Lumbar spine is: ----- L1-L4(G/cm2): 1.470 T Score Values are as follows: ----- L2: 0.9 ----- L3: 3.4 ----- L4: 4.2 ----- L1-L4: 2.4 BASELINE Bone mineral density about the R hip (g/cm2): 0.991 Bone mineral density about the L hip (g/cm2): 1.025 T Score values are as follows: -----R Neck: -0.3 -----L Neck: -0.1 -----R Total: 0.3 -----L Total: 0.3 BASELINE IMPRESSION: Osteopenia (T Score between -2.5 and -1). There is slightly increased risk of fracture and the patient may be considered for treatment. Re-Screen 2-5 years. Normal (Values between +1 and -1 indicate normal bone mass). Consider repeating this study in 5 years or sooner if there is some new clinical indication. NOTE: T-SCORE=SD OF THE YOUNG ADULT MEAN.
== END ==
LOC: RADBDWWP 07:12
PROVIDERS: ATTEND Family Medicine
DX: M85.80 Other specified disorders of bone density and structure, unspecified site (principal); Z78.0 Asymptomatic menopausal state
CPT/HCPCS: 77080

== ENCOUNTER → 2018-11-15 | Outpatient (CLI) | payer MEDICARE ==
[2018-11-15 18:55] LABS: Hemoglobin A1C 7.2 % (4.0-6.0)
== END | disposition home or self-care (01) ==
LOC: LABWHC1 10:15
PROVIDERS: ATTEND Family Medicine
DX: E11.9 Type 2 diabetes mellitus without complications (principal)
CPT/HCPCS: 36415; 83036

== ENCOUNTER → 2019-03-08 | Outpatient (CLI) | payer MEDICARE ==
[2019-03-08 07:46] LABS: INR 1.2 (<1.2); Partial Thromboplastin Time 26.3 sec (22.0-30.0); Prothrombin Time 12.3 sec (9.0-12.0)
== END | disposition home or self-care (01) ==
LOC: LABWHC1 07:08
PROVIDERS: ATTEND Physical Medicine & Rehabilitation
DX: Z51.81 Encounter for therapeutic drug level monitoring (principal); Z79.01 Long term (current) use of anticoagulants
CPT/HCPCS: 36415; 85610; 85730

== ENCOUNTER → 2019-05-26 | Outpatient (CLI) | payer MEDICARE ==
[2019-05-26 16:23] LABS: HCT 36.4 % (34.0-46.0); HGB 11.7 gm/dL (11.4-16.0); MCH 28.7 pg (25.0-35.0); MCHC 32.1 g/dL (31.0-37.0); MCV 89.5 fL (80.0-100.0); Mean Platelet Volume 7.5; Platelet Count 350 k/uL (150-450); RBC 4.07 m/uL (3.80-5.40); RDW 14.8 % (11.5-15.5); WBC 13.7 k/uL (3.8-10.6)
[2019-05-26 16:33] LABS: Albumin 3.8 g/dL (3.5-5.0); Calcium 9.5 mg/dL (8.4-10.2); Potassium 3.9 mmol/L (3.5-5.1); Total Bilirubin 0.6 mg/dL (0.2-1.3); Total Protein 6.6 g/dL (6.3-8.2)
[2019-05-26 16:50] LABS: Partial Thromboplastin Time 32.1 sec (22.0-30.0); Prothrombin Time 19.1 sec (9.0-12.0)
[2019-05-26 19:47] LABS: Appearance,Urine Clear (Clear); Bilirubin,Urine Negative (Negative); Blood,Urine Negative (Negative); Color,Urine Yellow; Glucose,Urine (UA) Negative (Negative); Hyaline Casts,Urine 3 /lpf (0-2); Ketones,Urine Negative (Negative); Leukocyte Esterase,Urine Small (Negative); Mucus,Urine Occasional /hpf; Nitrite,Urine Negative (Negative); Protein,Urine Negative (Negative); RBC,Urine <1 /hpf (0-5); Squamous Epithelial Cell,Urine 4 /hpf (0-4); WBC,Urine 3 /hpf (0-5)
== END | disposition home or self-care (01) ==
LOC: LABPAT 15:08
PROVIDERS: ATTEND Orthopaedic Surgery
DX: Z01.812 Encounter for preprocedural laboratory examination (principal); M16.11 Unilateral primary osteoarthritis, right hip; Z51.81 Encounter for therapeutic drug level monitoring; Z79.01 Long term (current) use of anticoagulants
CPT/HCPCS: 36415; 80053; 81001; 85027; 85610; 85730; 87070

== ENCOUNTER → 2019-06-03 | Outpatient (CLI) | payer MEDICARE ==
[2019-06-03 10:40] LABS: Appearance,Urine Clear (Clear); Bilirubin,Urine Negative (Negative); Blood,Urine Negative (Negative); Color,Urine Yellow; Glucose,Urine (UA) Negative (Negative); Ketones,Urine Negative (Negative); Leukocyte Esterase,Urine Negative (Negative); Nitrite,Urine Negative (Negative); Protein,Urine Negative (Negative); Specific Gravity,Urine 1.015 (1.001-1.035); Urobilinogen,Urine <2.0 mg/dL (<2.0)
== END | disposition home or self-care (01) ==
LOC: LABPAT 10:09
PROVIDERS: ATTEND Orthopaedic Surgery
DX: Z01.812 Encounter for preprocedural laboratory examination (principal)
CPT/HCPCS: 81003

== ENCOUNTER 2019-06-06 05:37 | Day surgery (SDC) | payer MEDICARE ==
[2019-06-02 15:49] VITALS: BMI 48.6
[~2019-06-06 05:37] MED LIST: ACETAMINOPHEN TAB 500 MG TAB PO ONE; GABAPENTIN 300 MG CAP PO ONE; HYDROmorphone 0.5 MG/0.5 ML SYRINGE IVP PRN; MELOXICAM 7.5 MG TAB PO ONE; ONDANSETRON 4 MG/2 ML VIAL IVP ONE; TRANEXAMIC ACID 1,000 MG in SODIUM CHLORIDE 0.9% 100 ML IVPB ONE
[2019-06-06] MEDS ORDERED: LACTATED RINGERS 1,000 ML IV ONE ×3 (06:08→12:25)
[2019-06-06] MEDS ORDERED: LIDOCAINE 1% (10MG/ML) FOR IV START INTRADERMA ONE (06:08)
[2019-06-06 06:18] LABS: Glucose,Whole Blood 151 mg/dL (75-99)
[2019-06-06 06:49] LABS: INR 0.9 (<1.2); Prothrombin Time 9.8 sec (9.0-12.0)
[2019-06-06] MEDS ORDERED: HEPARIN SODIUM,PORCINE 10,000 UNIT/ML 1 ML VIAL ONE (06:51)
[2019-06-06] MEDS ORDERED: MIDAZOLAM 2 MG/2 ML VIAL ONE (06:51)
[2019-06-06] MEDS ORDERED: TRANEXAMIC ACID 1,000 MG/10 ML VIAL ONE (06:51)
[2019-06-06] MEDS ORDERED: SODIUM CHLORIDE 0.9% 100 ML BAG ONE (06:51)
[2019-06-06] MEDS ORDERED: ePHEDrine SULFATE/0.9% NACL/PF 50 MG/5 ML SYRINGE IV ONE (06:51)
[2019-06-06] MEDS ORDERED: PHENYLEPHRINE-0.9% NACL SYG 1 MG/10 ML SYRINGE ONE (06:51)
[2019-06-06] MEDS ORDERED: fentaNYL (PF) 50 MCG/ML 2 ML AMP ONE (06:51)
[2019-06-06] MEDS ORDERED: LACTATED RINGERS 1,000 ML BAG IV ONE (06:51)
[2019-06-06] MEDS ORDERED: ceFAZolin 3,000 MG in SODIUM CHLORIDE 0.9% IRRIGATIO 3,000 ML IRRIGATION ONE (06:56)
[2019-06-06] MEDS: ROPIVACAINE 246.25 MG, EPINEPHrine 0.5 MG, KETOROLAC 30 MG, cloNIDine HCL/PF 80 MCG, WA... MISCELLANE ONE ×10 (07:15→08:05)
--- NOTE | 2019-06-06 08:22 | P.OP ---
Date of Procedure: 06/06/19 Preoperative Diagnosis: Severe osteoarthritis right hip Postoperative Diagnosis: Severe osteoarthritis right hip Procedure(s) Performed: Right total hip arthroplasty with a direct anterior approach Implants: Rogers and nephew Polarstem size 1 standard Rogers [employer] Nephew R3, 3 hole acetabular shell, 48 mm [employer] Nephew reflection 6.5 mm cancellus screw, 20 mm 2 Rogers [employer]hew R3, XLPE 20 acetabular liner Rogers [employer] Nephew Oxinium femoral head 32 m, +0 All components were press-fit. The articulation is Oxinium on polyethylene. Anesthesia: spinal Surgeon: Rohit Strauss Foreign [employer] Student Coordinator #1: Bailey Glasgow Estimated Blood Loss (ml): 150 Pathology: other (Femoral head) Condition: stable Disposition: PACU Indications for Procedure: After failure of conservative treatment we discussed the surgical and nonsurgical treatment options at length. Patient wishes to proceed with a total hip arthroplasty with a direct anterior approach. Complications specific to this procedure were discussed at length, including but not limited to infection, leg length discrepancy, dislocation, and nerve injury. Patient is aware of all these complications and informed consent was obtained Operative Findings: The operative findings are consistent with severe osteoarthritis of the right hip Description of Procedure: Patient was seen and evaluated in the preoperative area, consent was reviewed, and the surgical site was marked with a skin marker. Patient was then brought to the operating room and given prophylactic antibiotics intravenously. 1 g of Tranexamic acid was also given. A spinal anesthetic was administered by the anesthesia department. The patient was then placed on the [place] table with the bony prominences well-padded. The hip area was then prepped and draped in usual sterile fashion. A universal timeout was then performed, which confirmed the patient's name, surgical site, ALLERGIES, and procedure being performed. Next the incision site was located at 1 cm distal and 1 cm lateral to the anterior superior iliac spine. The skin and subcutaneous tissues were sharply incised. Incision was carefully dissected down to the fascia overlying the tensor fascia marcos muscle. This fascia was then incised in line with the incision. Next, using blunt finger dissection, the tensor fascia marcos muscle was dissected off its investing fascia. The muscle was then carefully retracted laterally with a cobra retractor over the lateral neck of the femur. Next, the circumflex vessels were identified and cauterized using the AquaMantis device. The anterior hip capsule was then exposed. The capsule was then opened and an inverted T fashion. Cobra retractors were then placed intracapsularly. The proximal femur was then visualized. The femoral neck was then osteotomized appropriate level above the lesser trochanter. Small amount of traction was placed with the [place] table. A small wedge of bone was then removed from the remaining femoral head. Next, using a corkscrew femoral head was easily removed from the acetabulum. On gross visual inspection, the femoral head had complete loss of articular cartilage in multiple periarticular osteophytes. Attention was then turned to the acetabulum. the acetabulum was exposed and any remaining labrum was excised. Sequential reaming of the acetabulum was performed using fluoroscopic guidance. When the appropriate size was reached, a trial was then placed. The position and fit of the trial was checked with fluoroscopy. The trial was then removed. Then, using fluoroscopic guidance, the final implant was impacted at 20 of anteversion and 40 of abduction, and fully seated in the acetabulum. 2 screws were then placed in the acetabulum. Again fluoroscopy was used to check position of the screws. Next, the liner was then impacted, with a 20 elevated liner located in the anterior superior quadrant. Component locking was confirmed. Attention was then directed to the femur. With the aid of the [place] table, the femur was externally rotated to approximately 130, extended, and abducted under the opposite leg. A side hook was then placed under the proximal femur, and the side hook elevator was used to elevate the proximal femur. Retractors were then placed. A capsular release was performed, as well as a release of the conjoined tendon, which afforded excellent visualization of the proximal femur. Next, a box osteotome was used to lateralize the proximal femur. A kiss setter hand was then used to locate the femoral canal. Sequential broaching was then performed with appropriate size which afforded excellent fixation in the proximal femur. A trial was then placed with appropriate head and neck, and the hip was gently reduced with the aid of the [place] table. Fluoroscopy was then used to check position of the components, as well as to ensure equal leg lengths. The hip was then gently dislocated and the trials were then removed. Final implants were then impacted and the hip was again reduced. Final fluoroscopic x-rays confirmed that the components were in anatomic position, as well as equal leg lengths. The hip was also taken through range of motion, and found to be s table. The hip was then copiously irrigated with antibiotic solution with pulsatile lavage. The hip was then irrigated with Irrisept solution. The soft tissues were then injected with a ropivacaine solution, which consisted of 246.25 mg of ropivacaine, 0.5 mg of epinephrine, 30 mg of Toradol, 80 g of clonidine, and 48.45 mL of sterile water, for a total of 100 mL of fluid injected. A second d ose of 1 g of Tranexamic acid was also given. the fascia was then closed with 2-0 strata fix suture. The subcutaneous tissue was closed with 3-0 Vicryl. The subcuticular tissue was closed with 3-0 strata fix suture. The skin was then closed with Dermabond glue and a sterile silver dressing. The patient was then transferred to the recovery room in stable condition. The players assistant MERCY Del Rosario was required due to the complexity of surgery, and the need for skilled surgical technology instructor for positioning, draping, exposure, retraction, and closure of the wound.
--- NOTE | 2019-06-06 08:32 | FL ---
EXAMINATION TYPE: FL guidance operating room, XR Hip Limited RT DATE OF EXAM: 06/06/2019 CLINICAL HISTORY: Right hip pain. TECHNIQUE: Fluoroscopy. COMPARISON: None. FINDINGS: Fluoroscopic guidance was provided during pain relief procedure performed by Dr. Strauss . A total of 50 seconds of fluoroscopic time was utilized during the procedure and two spot images a re acquired during right hip arthroplasty. IMPRESSION: As Above.
[2019-06-06] MEDS ORDERED: ONDANSETRON 4 MG/2 ML VIAL IVP PRN (08:41)
[2019-06-06] MEDS ORDERED: HYDROmorphone 0.5 MG/0.5 ML SYRINGE IVP PRN ×3 (08:41)
[2019-06-06] MEDS ORDERED: HYDROcodone/APAP 5-325MG 1 EACH TAB PO PRN (08:41)
[2019-06-06] MEDS ORDERED: ACETAMINOPHEN TAB 325 MG TAB PO PRN (08:41)
[2019-06-06] MEDS ORDERED: NALOXONE 0.4 MG/ML 1 ML VIAL IV PRN (08:41)
[2019-06-06] MEDS ORDERED: MAGNESIUM HYDROXIDE 2,400 MG/10 ML CUP PO PRN (08:41)
--- NOTE | 2019-06-06 09:16 | XR ---
EXAMINATION TYPE: XR Hip Limited RT DATE OF EXAM: 06/06/2019 CLINICAL HISTORY: Right hip pain and osteoarthritis. TECHNIQUE: Single AP portable view of right hip is obtained immediately postoperatively. COMPARISON: None. FINDINGS: Metallic hardware from right hip arthroplasty is seen and appears satisfactory in alignment and position. There is evidence of recent surgery with subcutaneous gas noted laterally. IMPRESSION: Metallic hardware from right hip arthroplasty is satisfactory in position.
[2019-06-06] MEDS: LACTATED RINGERS 1,000 ML IV SCH ×4 (12:57→22:38)
[2019-06-06] MEDS: MELOXICAM 7.5 MG TAB PO SCH (12:57)
[2019-06-06 15:07] VITALS: RESP 18
[2019-06-06] MEDS ORDERED: FUROSEMIDE 20 MG TAB PO PRN (15:09)
--- NOTE | 2019-06-06 16:40 | P.CONS ---
History of Present Illness - Reason for Consult Consult date: 06/06/19 Medical management Requesting physician: Rohit Strauss - Chief Complaint Right hip pain - History of Present Illness 73-year-old female with PMH of hypothyroidism, hypertension, atrial fibrillation, asthma presents to [facility] for elective surgery. She underwent right total hip arthroplasty. [facility] physicians has been consulted for medical management of this patient. Patient reports 5 out of 10 pain in her right hip at this time. Patient states that she has been able to urinate freely after her surgery. She is passing gas but has not had a bowel movement. Patient denies any headache, lower extremity edema, nausea or vomiting, fever chills, cough, chest pain, shortness breath, palpitations, changes in appetite or weight. She denies any dizziness, numbness/weakness/tingling of the extremities. Review of Systems Pertinent positives and negatives as discussed in HPI, a complete review of sys tems was performed and all other systems are negative. ROS unobtainable: due to endotracheal tube Past Medical History Past Medical History: Asthma, Diabetes Mellitus, Hyperlipidemia, Hypertension, Osteoarthritis (OA), Thyroid Disorder Additional Past Medical History / Comment(s): urinary incontinence-wears depends History of Any Multi-Drug Resistant Organisms: None Reported Past Surgical History: Orthopedic Surgery Additional Past Surgical History / Comment(s): D&C(hysteroscopy,endometrial polyp removed), LEFT HEEL SPUR, LEFT TRIGGER THUMB, colonoscopy w/bx pt stated was neg. Past Anesthesia/Blood Transfusion Reactions: Motion Sickness, Postoperative Nausea & Vomiting (PONV) Additional Past Anesthesia/Blood Transfusion Reaction / Comm: clausterphobia Past Psychological History: No Psychological Hx Reported Additional Psychological History / Comment(s): pt lives alone, uses cane when up and has glucometer. Smoking Status: Former smoker Past Alcohol Use History: None Reported Additional Past Alcohol Use History / Comment(s): started smoking age 24 sonly smoked for 6 months then quit Past Drug Use History: None Reported - Past Family History Father History Unknown: Yes Additional Family Medical History / Comment(s): pt was adopted family Additional Family Medical History / Comment(s): 2 cousins with history of heart problems. Patient unable to quantify further. Medications and Allergies Home Medications Medication Instructions Recorded Confirmed Type Albuterol Sulfate [Proair Hfa] 1 - 2 puff INHALATION Q6HR PRN 06/02/19 06/02/19 History Atorvastatin [Lipitor] 20 mg PO HS 06/02/19 06/02/19 History Candesartan/Hydrochlorothiazid 1 each PO DAILY 06/02/19 06/02/19 History [Candesartan/Hydrochlorothiazid 32-25 mg] Cholecalciferol [Vitamin D3 (25 1,000 unit PO DAILY 06/02/19 06/02/19 History Mcg = 1000 Iu)] Cyanocobalamin (Vitamin B-12) 1,000 mcg PO DAILY 06/02/19 06/02/19 History [Vitamin B-12] Furosemide [Lasix] 20 mg PO DAILY PRN 06/02/19 06/02/19 History Levothyroxine Sodium [Synthroid] 175 mcg PO DAILY 06/02/19 06/02/19 History Magnesium 500 mg PO DAILY 06/02/19 06/02/19 History Montelukast Sodium [Singulair] 10 mg PO HS 06/02/19 06/02/19 History Nystatin 100,000 Unit/gm Powd 1 applic TOPICAL BID PRN 06/02/19 06/02/19 History [Mycostatin Powder] Potassium Gluconate 99 mg PO DAILY PRN 06/02/19 06/02/19 History SILVER sulfADIAZINE Cream 1 applic TOPICAL DAILY PRN 06/02/19 06/02/19 History [Silvadene 1% Cream] Warfarin Sodium [Coumadin] 5 mg PO DAILY 06/02/19 06/02/19 History amLODIPine [Norvasc] 10 mg PO DAILY 06/02/19 06/02/19 History metFORMIN HCL [Glucophage] 1,000 mg PO BID 06/02/19 06/02/19 History traMADol HCL [Ultram] 50 mg PO BID PRN 06/02/19 06/02/19 History Meloxicam [Mobic] 1 - 2 tab PO DAILY PRN #30 tab 06/06/19 Rx Sennosides-Docusate Sodium 1 tab PO BID #60 tablet 06/06/19 Rx [Senokot-S] Allergies Allergy/AdvReac Type Severity Reaction Status Date / Time No Known Allergies Allergy Verified 06/02/19 15:35 Physical Exam Vitals: Vital Signs Temp Pulse Pulse Pulse Resp BP Pulse Ox 06/06/19 15:00 98.0 F 88 18 108/61 97 06/06/19 12:55 98.2 F 16 117/55 92 L 06/06/19 12:02 96 24 97/60 94 L 06/06/19 11:01 80 18 110/68 95 06/06/19 10:31 81 18 108/48 96 06/06/19 10:01 82 18 105/54 98 06/06/19 09:32 79 18 111/55 95 06/06/19 09:16 75 18 119/59 95 06/06/19 09:01 71 18 111/60 96 06/06/19 08:46 81 18 115/56 97 06/06/19 08:39 96.8 F L 87 16 118/63 98 06/06/19 06:07 98.1 F 90 20 131/57 98 Intake and Output 06/06/19 06/06/19 06/06/19 06:59 14:59 22:59 Intake Total 1051 800 Output Total 150 200 Balance 1051 650 -200 Intake: IV 1051 800 Output: Urine 200 Estimated Blood Loss 150 Other: # Voids 3 1 Weight 103.6 kg 103.6 kg General: [non toxic], [no distress], [appears at stated age] Derm: [warm], [dry] Head: [atraumatic], [normocephalic], [symmetric] Eyes: [EOMI], [no lid lag], [anicteric sclera] Mouth: [no lip lesion], [mucus membranes moist] Cardiovascular: [S1S2 irreg], [no murmur], [positive DP pulse bilateral], Lungs: [CTA bilateral], [no rhonchi, no rales] , [no accessory muscle use] Abdominal: [soft], [ nontender to palpation], [no guarding], [no appreciable organomegaly] Ext: [no gross muscle atrophy], [no edema], [no contractures], [right hip anterior dressing clean dry and intact] Neuro: [ CN II-XI grossly intact], [no focal neuro deficits] Psych: [Alert], [oriented], [appropriate affect] Results Labs: Abnormal Lab Results - Last 24 Hours (Table) 06/06/19 Range/Units 06:17 POC Glucose (mg/dL) 151 H (75-99) mg/dL Assessment and Plan Assessment: Atrial fibrillation Hypertension Hypothyroidism Asthma Morbid obesity with BMI 47.7 Patient's heart rate is currently controlled. She will be started on Coumadin dosed by pharmacy. Her blood pressure is currently within normal limits. We will restart amlodipine, Lasix, hydrochlorothiazide and losartan for hypertension. Synthroid has been resumed for hypothyroidism. Singulair has been resumed for asthma. She has POD 0 right total hip arthroplasty. PT and OT has been consulted. Plan is for patient to be discharged home tomorrow if she is able to tolerate working with PT. Patient would benefit from structured weight loss program regarding her morbid obesity. DVT prophylaxis: [Coumadin] Discussed with: [Patient] Anticipated discharge: [1-2 days] Anticipated discharge place: [Home] A total of [45] minutes was spent on the care of this complex patient more than 50% of the time was spent in counseling and care coordination. Patient names her friend Geovany decision maker if she can't make decisions for herself. Patient like to be full code.
[2019-06-06] MEDS ORDERED: WARFARIN 5 MG TAB PO SCH (18:00)
[2019-06-06] MEDS: HYDROcodone/APAP 5-325MG 1 EACH TAB PO PRN (20:05)
[2019-06-06] MEDS ORDERED: MONTELUKAST 10 MG TAB PO SCH (21:00)
[2019-06-06] MEDS ORDERED: ATORVASTATIN 20 MG TAB PO SCH (21:00)
[2019-06-06] MEDS ORDERED: SENNOSIDES-DOCUSATE SODIUM 1 EACH TAB PO SCH (21:00)
[2019-06-07 03:20] VITALS: TEMP 98.4
[2019-06-07] MEDS: LACTATED RINGERS 1,000 ML IV SCH (05:31)
[2019-06-07] MEDS: HYDROcodone/APAP 5-325MG 1 EACH TAB PO PRN (05:34)
[2019-06-07] MEDS ORDERED: LEVOTHYROXINE 100 MCG TAB PO SCH (06:30)
[2019-06-07] MEDS ORDERED: LEVOTHYROXINE 75 MCG TAB PO SCH (06:30)
[2019-06-07 07:58] VITALS: BP 119/67; PULSE 67
[2019-06-07 08:03] LABS: Basophils % (A) 0 %; Eosinophils % (A) 0 %; HCT 29.2 % (34.0-46.0); Lymphocytes # (A) 1.8 k/uL (1.0-4.8); Lymphocytes % (A) 14 %; MCHC 32.6 g/dL (31.0-37.0); MCV 89.1 fL (80.0-100.0); Mean Platelet Volume 7.5; Monocytes # (A) 0.5 k/uL (0-1.0); Monocytes % (A) 4 %; Neutrophils # (A) 10.2 k/uL (1.3-7.7); Neutrophils % (A) 81 %; Platelet Count 272 k/uL (150-450); RBC 3.28 m/uL (3.80-5.40); RDW 14.9 % (11.5-15.5); WBC 12.7 k/uL (3.8-10.6)
[2019-06-07 08:06] LABS: HGB 9.5 gm/dL (11.4-16.0)
[2019-06-07] MEDS ORDERED: amLODIPine 10 MG TAB PO SCH (09:00)
[2019-06-07] MEDS ORDERED: LOSARTAN 50 MG TAB PO SCH (09:00)
[2019-06-07] MEDS ORDERED: HYDROCHLOROTHIAZIDE 25 MG TAB PO SCH (09:00)
[2019-06-07] MEDS: MELOXICAM 7.5 MG TAB PO SCH (09:28)
[2019-06-07 10:25] LABS: Prothrombin Time 10.2 sec (9.0-12.0)
--- NOTE | 2019-06-07 12:10 | P.PN ---
Subjective Progress Note Date: 06/07/19 Principal diagnosis: Medical management Patient was seen and examined. No acute events overnight. Patient with no complaints. Patient has been able to work with physical therapy without any difficulties. She denies any chest pain, shortness of breath or palpitations. Objective - Vital Signs Vital signs: Vital Signs Temp 98.4 F 06/07/19 07:35 Pulse 67 06/07/19 07:35 Resp 18 06/07/19 07:35 BP 119/67 06/07/19 07:35 Pulse Ox 97 06/07/19 07:35 Intake & Output 06/06/19 06/07/19 06/07/19 18:59 06:59 18:59 Intake Total 800 Output Total 350 Balance 450 Weight 103.6 kg Intake: IV 800 Output: Urine 200 Estimated Blood Loss 150 Other: # Voids 1 1 - Exam General: [non toxic], [no distress], [appears at stated age] Derm: [warm], [dry] Head: [atraumatic], [normocephalic], [symmetric] Eyes: [EOMI], [no lid lag], [anicteric sclera] Mouth: [no lip lesion], [mucus membranes moist] Cardiovascular: [S1S2 irreg], [no murmur], [positive DP pulse bilateral], Lungs: [CTA bilateral], [no rhonchi, no rales] , [no accessory muscle use] Abdominal: [soft], [ nontender to palpation], [no guarding], [no appreciable organomegaly] Ext: [no gross muscle atrophy], [no edema], [no contractures], [right hip anterior dressing clean dry and intact] Neuro: [ CN II-XI grossly intact], [no focal neuro deficits] Psych: [Alert], [oriented], [appropriate affect] - Labs CBC & Chem 7: 06/07/19 07:18 Labs: Abnormal Lab Results - Last 24 Hours (Table) 06/07/19 Range/Units 07:18 WBC 12.7 H (3.8-10.6) k/uL RBC 3.28 L (3.80-5.40) m/uL Hgb 9.5 L D (11.4-16.0) gm/dL Hct 29.2 L (34.0-46.0) % Neutrophils # 10.2 H (1.3-7.7) k/uL Assessment and Plan Assessment: Leukocytosis Anemia from acute blood loss Atrial fibrillation Hypertension Hypothyroidism Asthma Morbid obesity with BMI 47.7 Her leukocytosis is likely reactive from surgery. There are no signs of infection and she has been afebrile. Hemoglobin this morning is 9.5 which is likely an expected result from acute blood loss from surgery. Patient's heart rate is currently controlled. She will be started on Coumadin dosed by pharmacy. Her blood pressure is currently within normal limits. We will restart amlodipine, Lasix, hydrochlorothiazide and losartan for hypertension. Synthroid has been resumed for hypothyroidism. Singulair has been resumed for asthma. She has POD 1 right total hip arthroplasty. PT and OT has been consulted and has been working with the patient effectively. Patient would benefit from structured weight loss program regarding her morbid obesity. There are plans to discharge patient home today.
[2019-06-07] MEDS ORDERED: TEMAZEPAM 15 MG CAP PO PRN (22:00)
--- NOTE | 2019-06-08 14:19 | P.DS ---
Providers Expected date of discharge: 06/07/19 Attending physician: Rohit Strauss Consults: 06/06/19 08:41 Consult Physician Routine Consulting Provider: Janis Aguilera Consult Reason/Comments: Medical management Do you want consulting provider notified?: Yes Primary care physician: Rafat Mcgee - Discharge Diagnosis(es) (1) Osteoarthritis of right hip Status: Acute (2) S/P total hip arthroplasty Status: Acute Hospital Course: This is a 73-year-old female with known history of degenerative arthritis of the right hip. The patient presents for evaluation. After discussion and consideration patient elects to proceed with total hip arthroplasty. The patient is seen preoperatively by her primary care physician and cleared for surgery. Patient is admitted to [facility] on 06/06/2019 for right anterior total hip arthroplasty. The procedures performed without complication or sequelae. The patient is doing well postoperatively. Labs and vital signs are stable on day of discharge. On day of discharge patient's hip incision is healing well. There is minimal e rythema. There is no drainage noted at this time. There is minimal soft tissue swelling to the hip and thigh. Patient has full foot and ankle motion without difficulty or pain. Neurovascular status to the right lower extremity is intact. Patient was discharged to home in stable condition. Pertinent Studies: Laboratory Tests 06/06/19 06/07/19 06/07/19 06:17 07:18 09:56 WBC 12.7 H RBC 3.28 L Hgb 9.5 L D Hct 29.2 L Neutrophils # 10.2 H PT 10.2 INR 1.0 POC Glucose (mg/dL) 151 H Patient Condition at Discharge: Stable Plan - Discharge Summary Discharge Rx Participant: No New Discharge Prescriptions: New Sennosides-Docusate Sodium [Senokot-S] 1 tab PO BID #60 tablet HYDROcodone/APAP 5-325MG [[place] 5] 1 - 2 each PO Q4-6H PRN #56 tab PRN Reason: Pain Meloxicam [Mobic] 7.5 mg PO DAILY PRN #30 tab PRN Reason: Pain No Action Cholecalciferol [Vitamin D3 (25 Mcg = 1000 Iu)] 1,000 unit PO DAILY traMADol HCL [Ultram] 50 mg PO BID PRN PRN Reason: Pain SILVER sulfADIAZINE Cream [Silvadene 1% Cream] 1 applic TOPICAL DAILY PRN PRN Reason: Skin Irritation Albuterol Sulfate [Proair Hfa] 1 - 2 puff INHALATION Q6HR PRN PRN Reason: Dyspnea metFORMIN HCL [Glucophage] 1,000 mg PO BID Nystatin 100,000 Unit/gm Powd [Mycostatin Powder] 1 applic TOPICAL BID PRN PRN Reason: Skin Irritation Montelukast Sodium [Singulair] 10 mg PO HS Furosemide [Lasix] 20 mg PO DAILY PRN PRN Reason: Edema Atorvastatin [Lipitor] 20 mg PO HS amLODIPine [Norvasc] 10 mg PO DAILY Warfarin Sodium [Coumadin] 5 mg PO DAILY Potassium Gluconate 99 mg PO DAILY PRN PRN Reason: takes w/Lasix only Magnesium 500 mg PO DAILY Levothyroxine Sodium [Synthroid] 175 mcg PO DAILY Cyanocobalamin (Vitamin B-12) [Vitamin B-12] 1,000 mcg PO DAILY Candesartan/Hydrochlorothiazid [Candesartan/Hydrochlorothiazid 32-25 mg] 1 each PO DAILY Discharge Medication List Albuterol Sulfate [Proair Hfa] 1 - 2 puff INHALATION Q6HR PRN 06/02/19 [History] Atorvastatin [Lipitor] 20 mg PO HS 06/02/19 [History] Candesartan/Hydrochlorothiazid [Candesartan/Hydrochlorothiazid 32-25 mg] 1 each PO DAILY 06/02/19 [History] Cholecalciferol [Vitamin D3 (25 Mcg = 1000 Iu)] 1,000 unit PO DAILY 06/02/19 [History] Cyanocobalamin (Vitamin B-12) [Vitamin B-12] 1,000 mcg PO DAILY 06/02/19 [History] Furosemide [Lasix] 20 mg PO DAILY PRN 06/02/19 [History] Levothyroxine Sodium [Synthroid] 175 mcg PO DAILY 06/02/19 [History] Magnesium 500 mg PO DAILY 06/02/19 [History] Montelukast Sodium [Singulair] 10 mg PO HS 06/02/19 [History] Nystatin 100,000 Unit/gm Powd [Mycostatin Powder] 1 applic TOPICAL BID PRN 06/02/19 [History] Potassium Gluconate 99 mg PO DAILY PRN 06/02/19 [History] SILVER sulfADIAZINE Cream [Silvadene 1% Cream] 1 applic TOPICAL DAILY PRN 06/02/19 [History] Warfarin Sodium [Coumadin] 5 mg PO DAILY 06/02/19 [History] amLODIPine [Norvasc] 10 mg PO DAILY 06/02/19 [History] metFORMIN HCL [Glucophage] 1,000 mg PO BID 06/02/19 [History] traMADol HCL [Ultram] 50 mg PO BID PRN 06/02/19 [History] Sennosides-Docusate Sodium [Senokot-S] 1 tab PO BID #60 tablet 06/06/19 [Rx] HYDROcodone/APAP 5-325MG [[place] 5] 1 - 2 each PO Q4-6H PRN #56 tab 06/07/19 [Rx] Meloxicam [Mobic] 7.5 mg PO DAILY PRN #30 tab 06/07/19 [Rx] Follow up Appointment(s)/Referral(s): [facility], [NON-STAFF] - As Needed Rohit Strauss DO [Doctor of Osteopathic Medicine] - 06/17/19 9:25 am Rafat Mcgee [Primary Care Provider] - 06/14/19 10:00 am Patient Instructions/Handouts: Total Hip Replacement (DC) Activity/Diet/Wound Care/Special Instructions: May bear weight as tolerated with walker May shower after 2 days Leave Optifoam dressing in place for 10 days Discharge Disposition: HOME WITH HOME HEALTH SERVICES
== END 2019-06-07 11:07 | disposition home health service (06) ==
LOC: OR 05:37 → EDSTATUS 07:00 → 4SSUR 12:22 → OR 06-07 11:07
PROVIDERS: ATTEND Orthopaedic Surgery
DX: M16.11 Unilateral primary osteoarthritis, right hip (principal); I10 Essential (primary) hypertension; E03.9 Hypothyroidism, unspecified; E78.5 Hyperlipidemia, unspecified; E11.9 Type 2 diabetes mellitus without complications; F40.240 Claustrophobia; E66.01 Morbid (severe) obesity due to excess calories; I48.91 Unspecified atrial fibrillation; D72.829 Elevated white blood cell count, unspecified; D62 Acute posthemorrhagic anemia; J45.909 Unspecified asthma, uncomplicated; Z82.49 Family history of ischemic heart disease and other diseases of the circulatory system; Z79.899 Other long term (current) drug therapy; Z79.891 Long term (current) use of opiate analgesic; Z79.890 Hormone replacement therapy; Z98.890 Other specified postprocedural states; Z87.891 Personal history of nicotine dependence; Z79.01 Long term (current) use of anticoagulants; Z79.84 Long term (current) use of oral hypoglycemic drugs; Z68.42 Body mass index [BMI] 45.0-49.9, adult
CPT/HCPCS: 97116; 97161; 97535; 97165; 86891; 86900; 86901; 85025; 85610 ×2; 86850; 88300; 73501; 27130; C1776; J0171; J0690 ×2; J2405; J1885; J2795; J0735

== ENCOUNTER → 2019-09-19 | Outpatient (CLI) | payer MEDICARE ==
[2019-09-19 14:04] LABS: Prothrombin Time 10.2 sec (9.0-12.0)
== END | disposition home or self-care (01) ==
LOC: LABWHC1 12:16
PROVIDERS: ATTEND Physical Medicine & Rehabilitation
DX: E11.9 Type 2 diabetes mellitus without complications (principal); M47.817 Spondylosis without myelopathy or radiculopathy, lumbosacral region; M43.16 Spondylolisthesis, lumbar region; M48.062 Spinal stenosis, lumbar region with neurogenic claudication; M25.551 Pain in right hip; E78.5 Hyperlipidemia, unspecified; E03.9 Hypothyroidism, unspecified; Z79.01 Long term (current) use of anticoagulants; I48.91 Unspecified atrial fibrillation
CPT/HCPCS: 36415; 85610

== ENCOUNTER → 2019-10-10 | Outpatient (CLI) | payer MEDICARE ==
[2019-10-10 14:21] LABS: Prothrombin Time 10.3 sec (9.0-12.0)
== END | disposition home or self-care (01) ==
LOC: LABWHC1 10:22
PROVIDERS: ATTEND Physical Medicine & Rehabilitation
DX: M25.551 Pain in right hip (principal); M43.16 Spondylolisthesis, lumbar region; M48.062 Spinal stenosis, lumbar region with neurogenic claudication; E11.9 Type 2 diabetes mellitus without complications; I10 Essential (primary) hypertension; E78.5 Hyperlipidemia, unspecified; E03.9 Hypothyroidism, unspecified
CPT/HCPCS: 36415; 85610

== ENCOUNTER → 2019-11-14 | Outpatient (CLI) | payer MEDICARE ==
[2019-11-14 20:30] LABS: INR 1.02 (0.90-1.11); Prothrombin Time 10.9 sec (9.9-11.9)
== END | disposition home or self-care (01) ==
LOC: LABWHC1 11:52
PROVIDERS: ATTEND Physical Medicine & Rehabilitation
DX: E11.9 Type 2 diabetes mellitus without complications (principal); M48.062 Spinal stenosis, lumbar region with neurogenic claudication; M43.16 Spondylolisthesis, lumbar region; M47.817 Spondylosis without myelopathy or radiculopathy, lumbosacral region; M25.551 Pain in right hip; E78.5 Hyperlipidemia, unspecified; E03.9 Hypothyroidism, unspecified; Z79.01 Long term (current) use of anticoagulants
CPT/HCPCS: 36415; 85610

== ENCOUNTER → 2019-12-18 | Outpatient (CLI) | payer MEDICARE ==
[2019-12-18 14:51] LABS: Prothrombin Time 10.5 sec (9.0-12.0)
[2019-12-18 14:52] LABS: Partial Thromboplastin Time 22.8 sec (22.0-30.0)
== END | disposition home or self-care (01) ==
LOC: LABMAIN 14:25
PROVIDERS: ATTEND Physical Medicine & Rehabilitation
DX: I48.91 Unspecified atrial fibrillation (principal); Z79.01 Long term (current) use of anticoagulants; Z86.39 Personal history of other endocrine, nutritional and metabolic disease
CPT/HCPCS: 36415; 85610; 85730

== ENCOUNTER → 2019-12-22 | Outpatient (CLI) | payer MEDICARE ==
--- NOTE | 2019-12-26 09:12 | MM ---
Reason for exam: screening (asymptomatic). Last mammogram was performed 1 year and 9 months ago. History: Patient is postmenopausal and is nulliparous. Took hormonal contraceptives for 5 years beginning at age 26. Physical Findings: A clinical breast exam by your physician is recommended on an annual basis and results should be correlated with mammographic findings. MG 3D Screening Mammo W/Cad Bilateral CC and MLO view(s) were taken. Prior study comparison: March 29, 2018, bilateral MG screening mammo w CAD. December 22, 2016, bilateral MG 3d screening mammo w/cad. There are scattered fibroglandular densities. There is chronic nodularity in the right breast. No significant changes when compared with prior studies. ASSESSMENT: Benign, BI-RAD 2 RECOMMENDATION: Routine screening mammogram of both breasts in 1 year.
== END | disposition home or self-care (01) ==
LOC: RADMAMWWP 09:15
PROVIDERS: ATTEND Family Medicine
DX: Z12.31 Encounter for screening mammogram for malignant neoplasm of breast (principal)
CPT/HCPCS: 77063; 77067

== ENCOUNTER → 2020-05-02 | Outpatient (CLI) | payer MEDICARE ==
[2020-05-02 23:01] LABS: INR 0.98 (0.90-1.11); Prothrombin Time 10.6 sec (9.9-11.9)
== END | disposition home or self-care (01) ==
LOC: LABWHC1 16:09
PROVIDERS: ATTEND Physical Medicine & Rehabilitation
DX: M47.817 Spondylosis without myelopathy or radiculopathy, lumbosacral region (principal); M43.16 Spondylolisthesis, lumbar region; M48.062 Spinal stenosis, lumbar region with neurogenic claudication; E11.9 Type 2 diabetes mellitus without complications; I10 Essential (primary) hypertension; M25.551 Pain in right hip; E78.5 Hyperlipidemia, unspecified; E03.9 Hypothyroidism, unspecified
CPT/HCPCS: 36415; 85610

== ENCOUNTER 2020-07-24 12:56 | Inpatient (IN) | payer MEDICARE ==
[2020-07-24] MEDS ORDERED: ONDANSETRON 4 MG/2 ML VIAL IVP STA (13:08)
[2020-07-24] MEDS: SODIUM CHLORIDE 0.9% 500 ML 500 ML IV SCH (13:18)
--- NOTE | 2020-07-24 13:26 | ED ---
Weakness HPI - General Chief complaint: Weakness Stated complaint: weakness Time Seen by Provider: 07/24/20 13:01 Source: EMS Mode of arrival: EMS Limitations: no limitations - History of Present Illness Initial comments: 74 year-old female patient presents to the emergency department for evaluation of weakness, dizziness, and near syncope. Patient states that she has been feeling poorly for the last three days. States she has had three falls over the last three days. State she has hit her head. Denies any complete loss of consciousness. Denies headache, blurred vision, or double vision. She does take a blood thinning medication. States she has had vomiting for the last three days as well. Denies any diarrhea. Denies any hematochezia, melena, or hematemesis. Denies chest pain or shortness of breath. Patient denies any recent rash, cough, abdominal pain, back pain, numbness, tingling, dizziness, weakness, hematuria, dysuria, urinary urgency, urinary frequency, or any other complaints. - Related Data Home Medications Medication Instructions Recorded Confirmed Atorvastatin [Lipitor] 20 mg PO HS 06/02/19 07/24/20 Candesartan/Hydrochlorothiazid 1 tab PO DAILY 06/02/19 07/24/20 [Candesartan/Hydrochlorothiazid 32-25 mg] Furosemide [Lasix] 20 mg PO DAILY 06/02/19 07/24/20 Levothyroxine Sodium [Synthroid] 175 mcg PO DAILY 06/02/19 07/24/20 Montelukast Sodium [Singulair] 10 mg PO HS 06/02/19 07/24/20 Warfarin Sodium [Coumadin] 5 mg PO SUMOTUTHFRSA 06/02/19 07/24/20 amLODIPine [Norvasc] 10 mg PO DAILY 06/02/19 07/24/20 metFORMIN HCL [Glucophage] 1,000 mg PO BID 06/02/19 07/24/20 traMADol HCL [Ultram] 50 mg PO TID 06/02/19 07/24/20 Gabapentin [Neurontin] 300 mg PO TID 07/24/20 07/24/20 Warfarin [Coumadin] 7.5 mg PO WE 07/24/20 07/24/20 Allergies Allergy/AdvReac Type Severity Reaction Status Date / Time No Known Allergies Allergy Verified 07/24/20 14:07 Review of Systems ROS Statement: Those systems with pertinent positive or pertinent negative responses have been documented in the HPI. ROS Other: All systems not noted in ROS Statement are negative. Past Medical History Past Medical History: Asthma, Diabetes Mellitus, Hyperlipidemia, Hypertension, Osteoarthritis (OA), Thyroid Disorder History of Any Multi-Drug Resistant Organisms: None Reported Past Surgical History: Orthopedic Surgery Additional Past Surgical History / Comment(s): D&C(hysteroscopy,endometrial polyp removed), LEFT HEEL SPUR, LEFT TRIGGER THUMB, colonoscopy w/bx pt stated was neg. Past Anesthesia/Blood Transfusion Reactions: Motion Sickness, Postoperative Nausea & Vomiting (PONV) Additional Past Anesthesia/Blood Transfusion Reaction / Comment(s): clausterphobia Past Psychological History: No Psychological Hx Reported Smoking Status: Former smoker Past Alcohol Use History: None Reported Past Drug Use History: None Reported - Past Family History Father History Unknown: Yes Additional Family Medical History / Comment(s): pt was adopted family Additional Family Medical History / Comment(s): 2 cousins with history of heart problems. Patient unable to quantify further. General Exam Limitations: no limitations General appearance: alert, in no apparent distress, other (This is a well- developed, well-nourished elderly female patient in no acute distress. Vital signs upon presentation are temperature 97.9F, pulse 64, respirations 20, blood pressure 79/50, pulse ox 91% on room air.) Head exam: Present: atraumatic, normocephalic, normal inspection Eye exam: Present: normal appearance, PERRL, EOMI. Absent: scleral icterus, conjunctival injection, nystagmus, periorbital swelling ENT exam: Present: normal exam, normal oropharynx, mucous membranes moist Respiratory exam: Present: normal lung sounds bilaterally. Absent: respiratory distress, wheezes, rales, rhonchi, stridor Cardiovascular Exam: Present: regular rate, normal rhythm, normal heart sounds. Absent: systolic murmur, diastolic murmur, rubs, gallop, clicks GI/Abdominal exam: Present: soft, normal bowel sounds. Absent: distended, tenderness, guarding, rebound, rigid Neurological exam: Present: alert, oriented X3, CN II-XII intact Psychiatric exam: Present: normal affect, normal mood Skin exam: Present: warm, dry, intact, normal color. Absent: rash Course Vital Signs 0407/24/20 07/24/20 12:57 13:20 14:22 Temperature 97.9 F Pulse Rate 64 66 72 Respiratory 20 18 18 Rate Blood Pressure 79/50 103/69 O2 Sat by Pulse 91 L 96 97 Oximetry 07/24/20 16:35 Temperature 97.8 F Pulse Rate 68 Respiratory 18 Rate Blood Pressure 101/45 O2 Sat by Pulse 95 Oximetry - Reevaluation(s) Reevaluation #1: 07/24/20 15:03 Sepsis diagnosed based off wbc, lactic, and initial vital signs. Antibiotics ordered. Fluids infusing. EKG Findings - EKG Comments: EKG Findings:: EKG #1 obtained at 1330 shows A. fib with ventricular rate of 64, QRS duration 94, QT 404, QTC 416. No evidence of ST elevation or depression. #2 obtained at 1517 showed ventricular rate is 67, QRS duration 84, QT 380, QTc 41. Medical Decision Making - Medical Decision Making 74-year-old female patient presents to the emergency department today for evaluation of nausea vomiting, weakness and dizziness. His had 3 falls over the last few days. Labs reviewed and did reveal elevated white blood cell count of 15.0, neutrophils 12.0, d-dimer was 2.22, potassium 3.4. BUN 37, creatinine 6.06, lactic acid 5.8, troponin 0.038. LDH is 952, CRP is 6.9. Acute kidney injury and elevated lactic acid are most likely due to severe dehydration. She did test positive for COVID-19. Patient did go down for VQ scan. Given el evated troponin we will start heparin. She is continued on IV fluids. She will receive bamlanivimab since she is being admitted mainly for the acute kidney injury. Vital signs did improve. She agrees to admission. Case is discussed in my attending Dr. Mccabe. - Lab Data Result diagrams: 07/24/20 13:17 07/24/20 16:44 Lab Results 07/24/20 07/24/20 07/24/20 Range/Units 13:17 13:17 13:17 WBC 15.0 H (3.8-10.6) k/uL RBC 4.46 (3.80-5.40) m/uL Hgb 12.8 (11.4-16.0) gm/dL Hct 39.5 (34.0-46.0) % MCV 88.5 (80.0-100.0) fL MCH 28.8 (25.0-35.0) pg MCHC 32.6 (31.0-37.0) g/dL RDW 16.1 H (11.5-15.5) % Plt Count 302 (150-450) k/uL MPV 7.9 Neutrophils % 80 % Lymphocytes % 11 % Monocytes % 5 % Eosinophils % 2 % Basophils % 1 % Neutrophils # 12.0 H (1.3-7.7) k/uL Lymphocytes # 1.7 (1.0-4.8) k/uL Monocytes # 0.8 (0-1.0) k/uL Eosinophils # 0.3 (0-0.7) k/uL Basophils # 0.1 (0-0.2) k/uL Anisocytosis Slight PT 12.2 H (9.0-12.0) sec INR 1.2 H (<1.2) APTT 21.0 L (22.0-30.0) sec D-Dimer (<0.60) mg/L FEU Sodium 137 (137-145) mmol/L Potassium 3.4 L (3.5-5.1) mmol/L Chloride 103 (98-107) mmol/L Carbon Dioxide 15 L (22-30) mmol/L Anion Gap 19 mmol/L BUN 37 H (7-17) mg/dL Creatinine 6.06 H (0.52-1.04) mg/dL Est GFR (CKD-EPI)AfAm 7 (>60 ml/min/1.73 sqM) Est GFR (CKD-EPI)NonAf 6 (>60 ml/min/1.73 sqM) Glucose 172 H (74-99) mg/dL Lactic Ac Sepsis Rflx Plasma Lactic Acid Humble (0.7-2.0) mmol/L Calcium 9.4 (8.4-10.2) mg/dL Magnesium (1.6-2.3) mg/dL Total Bilirubin 1.1 (0.2-1.3) mg/dL AST 57 H (14-36) U/L ALT 31 (4-34) U/L Alkaline Phosphatase 87 (38-126) U/L Lactate Dehydrogenase (313-618) U/L Troponin I (0.000-0.034) ng/mL C-Reactive Protein (<1.0) mg/dL Total Protein 6.5 (6.3-8.2) g/dL Albumin 3.6 (3.5-5.0) g/dL Urine Color Urine Appearance (Clear) Urine pH (5.0-8.0) Ur Specific Colt (1.001-1.035) Urine Protein (Negative) Urine Glucose (UA) (Negative) Urine Ketones (Negative) Urine Blood (Negative) Urine Nitrite (Negative) Urine Bilirubin (Negative) Urine Urobilinogen (<2.0) mg/dL Ur Leukocyte Esterase (Negative) Urine RBC (0-5) /hpf Urine WBC (0-5) /hpf Amorphous Sediment (None) /hpf Urine Bacteria (None) /hpf Hyaline Casts (0-2) /lpf Urine Mucus (None) /hpf Coronavirus (PCR) (Not Detectd) 07/24/20 07/24/20 07/24/20 Range/Units 13:17 13:17 13:17 WBC (3.8-10.6) k/uL RBC (3.80-5.40) m/uL Hgb (11.4-16.0) gm/dL Hct (34.0-46.0) % MCV (80.0-100.0) fL MCH (25.0-35.0) pg MCHC (31.0-37.0) g/dL RDW (11.5-15.5) % Plt Count (150-450) k/uL MPV Neutrophils % % Lymphocytes % % Monocytes % % Eosinophils % % Basophils % % Neutrophils # (1.3-7.7) k/uL Lymphocytes # (1.0-4.8) k/uL Monocytes # (0-1.0) k/uL Eosinophils # (0-0.7) k/uL Basophils # (0-0.2) k/uL Anisocytosis PT (9.0-12.0) sec INR (<1.2) APTT (22.0-30.0) sec D-Dimer (<0.60) mg/L FEU Sodium (137-145) mmol/L Potassium (3.5-5.1) mmol/L Chloride (98-107) mmol/L Carbon Dioxide (22-30) mmol/L Anion Gap mmol/L BUN (7-17) mg/dL Creatinine (0.52-1.04) mg/dL Est GFR (CKD-EPI)AfAm (>60 ml/min/1.73 sqM) Est GFR (CKD-EPI)NonAf (>60 ml/min/1.73 sqM) Glucose (74-99) mg/dL Lactic Ac Sepsis Rflx Plasma Lactic Acid Humble 5.8 H* (0.7-2.0) mmol/L Calcium (8.4-10.2) mg/dL Magnesium (1.6-2.3) mg/dL Total Bilirubin (0.2-1.3) mg/dL AST (14-36) U/L ALT (4-34) U/L Alkaline Phosphatase (38-126) U/L Lactate Dehydrogenase (313-618) U/L Troponin I 0.038 H* (0.000-0.034) ng/mL C-Reactive Protein (<1.0) mg/dL Total Protein (6.3-8.2) g/dL Albumin (3.5-5.0) g/dL Urine Color Urine Appearance (Clear) Urine pH (5.0-8.0) Ur Specific Colt (1.001-1.035) Urine Protein (Negative) Urine Glucose (UA) (Negative) Urine Ketones (Negative) Urine Blood (Negative) Urine Nitrite (Negative) Urine Bilirubin (Negative) Urine Urobilinogen (<2.0) mg/dL Ur Leukocyte Esterase (Negative) Urine RBC (0-5) /hpf Urine WBC (0-5) /hpf Amorphous Sediment (None) /hpf Urine Bacteria (None) /hpf Hyaline Casts (0-2) /lpf Urine Mucus (None) /hpf Coronavirus (PCR) Detected A (Not Detectd) 07/24/20 07/24/20 07/24/20 Range/Units 13:17 13:17 13:17 WBC (3.8-10.6) k/uL RBC (3.80-5.40) m/uL Hgb (11.4-16.0) gm/dL Hct (34.0-46.0) % MCV (80.0-100.0) fL MCH (25.0-35.0) pg MCHC (31.0-37.0) g/dL RDW (11.5-15.5) % Plt Count (150-450) k/uL MPV Neutrophils % % Lymphocytes % % Monocytes % % Eosinophils % % Basophils % % Neutrophils # (1.3-7.7) k/uL Lymphocytes # (1.0-4.8) k/uL Monocytes # (0-1.0) k/uL Eosinophils # (0-0.7) k/uL Basophils # (0-0.2) k/uL Anisocytosis PT (9.0-12.0) sec INR (<1.2) APTT (22.0-30.0) sec D-Dimer 3.22 H (<0.60) mg/L FEU Sodium (137-145) mmol/L Potassium (3.5-5.1) mmol/L Chloride (98-107) mmol/L Carbon Dioxide (22-30) mmol/L Anion Gap mmol/L BUN (7-17) mg/dL Creatinine (0.52-1.04) mg/dL Est GFR (CKD-EPI)AfAm (>60 ml/min/1.73 sqM) Est GFR (CKD-EPI)NonAf (>60 ml/min/1.73 sqM) Glucose (74-99) mg/dL Lactic Ac Sepsis Rflx Plasma Lactic Acid Humble (0.7-2.0) mmol/L Calcium (8.4-10.2) mg/dL Magnesium 2.0 (1.6-2.3) mg/dL Total Bilirubin (0.2-1.3) mg/dL AST (14-36) U/L ALT (4-34) U/L Alkaline Phosphatase (38-126) U/L Lactate Dehydrogenase 952 H (313-618) U/L Troponin I (0.000-0.034) ng/mL C-Reactive Protein 6.9 H (<1.0) mg/dL Total Protein (6.3-8.2) g/dL Albumin (3.5-5.0) g/dL Urine Color Urine Appearance (Clear) Urine pH (5.0-8.0) Ur Specific Colt (1.001-1.035) Urine Protein (Negative) Urine Glucose (UA) (Negative) Urine Ketones (Negative) Urine Blood (Negative) Urine Nitrite (Negative) Urine Bilirubin (Negative) Urine Urobilinogen (<2.0) mg/dL Ur Leukocyte Esterase (Negative) Urine RBC (0-5) /hpf Urine WBC (0-5) /hpf Amorphous Sediment (None) /hpf Urine Bacteria (None) /hpf Hyaline Casts (0-2) /lpf Urine Mucus (None) /hpf Coronavirus (PCR) (Not Detectd) 07/24/20 07/24/20 07/24/20 Range/Units 14:05 16:34 16:44 WBC (3.8-10.6) k/uL RBC (3.80-5.40) m/uL Hgb (11.4-16.0) gm/dL Hct (34.0-46.0) % MCV (80.0-100.0) fL MCH (25.0-35.0) pg MCHC (31.0-37.0) g/dL RDW (11.5-15.5) % Plt Count (150-450) k/uL MPV Neutrophils % % Lymphocytes % % Monocytes % % Eosinophils % % Basophils % % Neutrophils # (1.3-7.7) k/uL Lymphocytes # (1.0-4.8) k/uL Monocytes # (0-1.0) k/uL Eosinophils # (0-0.7) k/uL Basophils # (0-0.2) k/uL Anisocytosis PT (9.0-12.0) sec INR (<1.2) APTT (22.0-30.0) sec D-Dimer (<0.60) mg/L FEU Sodium 135 L (137-145) mmol/L Potassium 3.2 L (3.5-5.1) mmol/L Chloride 106 (98-107) mmol/L Carbon Dioxide 17 L (22-30) mmol/L Anion Gap 12 mmol/L BUN 35 H (7-17) mg/dL Creatinine 5.56 H (0.52-1.04) mg/dL Est GFR (CKD-EPI)AfAm 8 (>60 ml/min/1.73 sqM) Est GFR (CKD-EPI)NonAf 7 (>60 ml/min/1.73 sqM) Glucose 126 H (74-99) mg/dL Lactic Ac Sepsis Rflx Y Plasma Lactic Acid Humble (0.7-2.0) mmol/L Calcium 8.3 L (8.4-10.2) mg/dL Magnesium (1.6-2.3) mg/dL Total Bilirubin (0.2-1.3) mg/dL AST (14-36) U/L ALT (4-34) U/L Alkaline Phosphatase (38-126) U/L Lactate Dehydrogenase (313-618) U/L Troponin I (0.000-0.034) ng/mL C-Reactive Protein (<1.0) mg/dL Total Protein (6.3-8.2) g/dL Albumin (3.5-5.0) g/dL Urine Color Yellow Urine Appearance Cloudy H (Clear) Urine pH 5.5 (5.0-8.0) Ur Specific Colt 1.020 (1.001-1.035) Urine Protein 1+ H (Negative) Urine Glucose (UA) Negative (Negative) Urine Ketones Negative (Negative) Urine Blood Negative (Negative) Urine Nitrite Negative (Negative) Urine Bilirubin Negative (Negative) Urine Urobilinogen <2.0 (<2.0) mg/dL Ur Leukocyte Esterase Negative (Negative) Urine RBC 1 (0-5) /hpf Urine WBC 3 (0-5) /hpf Amorphous Sediment Rare H (None) /hpf Urine Bacteria Many H (None) /hpf Hyaline Casts 12 H (0-2) /lpf Urine Mucus Rare H (None) /hpf Coronavirus (PCR) (Not Detectd) 07/24/20 Range/Units 16:47 WBC (3.8-10.6) k/uL RBC (3.80-5.40) m/uL Hgb (11.4-16.0) gm/dL Hct (34.0-46.0) % MCV (80.0-100.0) fL MCH (25.0-35.0) pg MCHC (31.0-37.0) g/dL RDW (11.5-15.5) % Plt Count (150-450) k/uL MPV Neutrophils % % Lymphocytes % % Monocytes % % Eosinophils % % Basophils % % Neutrophils # (1.3-7.7) k/uL Lymphocytes # (1.0-4.8) k/uL Monocytes # (0-1.0) k/uL Eosinophils # (0-0.7) k/uL Basophils # (0-0.2) k/uL Anisocytosis PT (9.0-12.0) sec INR (<1.2) APTT (22.0-30.0) sec D-Dimer (<0.60) mg/L FEU Sodium (137-145) mmol/L Potassium (3.5-5.1) mmol/L Chloride (98-107) mmol/L Carbon Dioxide (22-30) mmol/L Anion Gap mmol/L BUN (7-17) mg/dL Creatinine (0.52-1.04) mg/dL Est GFR (CKD-EPI)AfAm (>60 ml/min/1.73 sqM) Est GFR (CKD-EPI)NonAf (>60 ml/min/1.73 sqM) Glucose (74-99) mg/dL Lactic Ac Sepsis Rflx Plasma Lactic Acid Humble 4.0 H* (0.7-2.0) mmol/L Calcium (8.4-10.2) mg/dL Magnesium (1.6-2.3) mg/dL Total Bilirubin (0.2-1.3) mg/dL AST (14-36) U/L ALT (4-34) U/L Alkaline Phosphatase (38-126) U/L Lactate Dehydrogenase (313-618) U/L Troponin I (0.000-0.034) ng/mL C-Reactive Protein (<1.0) mg/dL Total Protein (6.3-8.2) g/dL Albumin (3.5-5.0) g/dL Urine Color Urine Appearance (Clear) Urine pH (5.0-8.0) Ur Specific Colt (1.001-1.035) Urine Protein (Negative) Urine Glucose (UA) (Negative) Urine Ketones (Negative) Urine Blood (Negative) Urine Nitrite (Negative) Urine Bilirubin (Negative) Urine Urobilinogen (<2.0) mg/dL Ur Leukocyte Esterase (Negative) Urine RBC (0-5) /hpf Urine WBC (0-5) /hpf Amorphous Sediment (None) /hpf Urine Bacteria (None) /hpf Hyaline Casts (0-2) /lpf Urine Mucus (None) /hpf Coronavirus (PCR) (Not Detectd) - Radiology Data Radiology results: report reviewed, image reviewed Disposition Clinical Impression: COVID-19, Acute renal failure, Lactic acidosis, Dehydration Disposition: ADMITTED IP TO THIS [facility] Condition: Serious Referrals: Minh Castro MD [Primary Care Provider] - 1-2 days Decision to Admit Reason: Admit from EC Decision Date: 07/24/20 Decision Time: 18:00
[2020-07-24 13:37] LABS: HCT 39.5 % (34.0-46.0); HGB 12.8 gm/dL (11.4-16.0); MCV 88.5 fL (80.0-100.0); RBC 4.46 m/uL (3.80-5.40)
[2020-07-24 13:38] LABS: Anisocytosis Slight; Basophils # (A) 0.1 k/uL (0-0.2); Basophils % (A) 1 %; Eosinophils # (A) 0.3 k/uL (0-0.7); Eosinophils % (A) 2 %; Lymphocytes # (A) 1.7 k/uL (1.0-4.8); Lymphocytes % (A) 11 %; MCH 28.8 pg (25.0-35.0); MCHC 32.6 g/dL (31.0-37.0); Mean Platelet Volume 7.9; Monocytes # (A) 0.8 k/uL (0-1.0); Monocytes % (A) 5 %; Neutrophils % (A) 80 %; Platelet Count 302 k/uL (150-450); RDW 16.1 % (11.5-15.5)
[2020-07-24 13:54] LABS: INR 1.2 (<1.2); Prothrombin Time 12.2 sec (9.0-12.0)
[2020-07-24 14:00] LABS: Albumin 3.6 g/dL (3.5-5.0); Calcium 9.4 mg/dL (8.4-10.2); Potassium 3.4 mmol/L (3.5-5.1); Total Bilirubin 1.1 mg/dL (0.2-1.3); Total Protein 6.5 g/dL (6.3-8.2)
--- NOTE | 2020-07-24 14:54 | CT ---
EXAMINATION TYPE: CT brain debbie cheung DATE OF EXAM: 07/24/2020 COMPARISON: HISTORY: Fall CT DLP: 1639.4 mGycm Automated exposure control for dose reduction was used. TECHNIQUE: CT scan of the head and cervical spine are performed without contrast. FINDINGS: There is no acute intracranial hemorrhage, mass effect, or midline shift identified. The ventricles and sulci are within normal limits in size. The globes are intact and the visualized sin uses are clear. Periventricular white matter shows patchy low attenuation. There are cerebral vascula r and basal ganglia calcifications. Cervical spine is visualized in its entirety from C1 through upper thoracic levels and demonstrates n ear-anatomic alignment without evidence of acute fracture or dislocation. Prevertebral soft tissue a ppears within normal limits. The C1-C2 articulation is unremarkable. There is multilevel spondylosi s. Loss of disc height is present at multiple levels, there is multilevel foraminal encroachment. The re are facet arthropathy changes. IMPRESSION: 1. There is no acute fracture or dislocation evident in the cervical spine. 2. No acute intracranial hemorrhage, mass effect, or midline shift is seen.
--- NOTE | 2020-07-24 14:59 | XR ---
EXAMINATION TYPE: XR chest 1V portable DATE OF EXAM: 07/24/2020 COMPARISON: Chest x-ray dated 01/28/2018 HISTORY: Fever and weakness TECHNIQUE: Single frontal view of the chest is obtained. FINDINGS: There is no focal air space opacity, pleural effusion, or pneumothorax seen. The cardiac silhouette size is within normal limits, heart size may be accentuated by technique. There is persis tent elevation of the right hemidiaphragm. The osseous structures are intact. There are overlying art ifacts. IMPRESSION: No acute process.
[2020-07-24] MEDS ORDERED: cefTRIAXone IN SWFI 1,000 MG/10 ML SYRINGE IVP STA (15:03)
[2020-07-24] MEDS ORDERED: POTASSIUM CHLORIDE ER 20 MEQ TAB.ER PO STA (15:09)
[2020-07-24] MEDS: SODIUM CHLORIDE 0.9% 1,000 ML IV SCH ×2 (16:36→23:00)
[2020-07-24 16:55] LABS: C Reactive Protein 6.9 mg/dL (<1.0)
[2020-07-24 16:55] LABS: Amorphous Sediment,Urine Rare /hpf; Appearance,Urine Cloudy (Clear); Bacteria,Urine Many /hpf; Bilirubin,Urine Negative (Negative); Blood,Urine Negative (Negative); Color,Urine Yellow; Glucose,Urine (UA) Negative (Negative); Hyaline Casts,Urine 12 /lpf (0-2); Ketones,Urine Negative (Negative); Leukocyte Esterase,Urine Negative (Negative); Mucus,Urine Rare /hpf; Nitrite,Urine Negative (Negative); PH, Urine 5.5 (5.0-8.0); Protein,Urine 1+ (Negative); RBC,Urine 1 /hpf (0-5); Urobilinogen,Urine <2.0 mg/dL (<2.0); WBC,Urine 3 /hpf (0-5)
[2020-07-24 17:05] LABS: Calcium 8.3 mg/dL (8.4-10.2); Potassium 3.2 mmol/L (3.5-5.1)
[2020-07-24] MEDS ORDERED: NALOXONE 0.4 MG/ML 1 ML VIAL IV PRN (17:56)
[2020-07-24] MEDS ORDERED: ONDANSETRON 4 MG/2 ML VIAL IVP PRN (17:56)
[2020-07-24] MEDS ORDERED: ACETAMINOPHEN TAB 325 MG TAB PO PRN (17:56)
[2020-07-24] MEDS ORDERED: HEPARIN SODIUM 1,000 UN/ML (10ML VL) IV PRN (17:59)
[2020-07-24] MEDS ORDERED: HEPARIN SODIUM 1,000 UN/ML (10ML VL) IV ONE (17:59)
[2020-07-24] MEDS ORDERED: BAMLANIVIMAB (EUA) 700 MG, ETESEVIMAB (EUA) 1,400 MG in SODIUM CHLORIDE 0.9% 50 ML IVPB ONE (18:30)
[2020-07-24] MEDS: HEPARIN SOD,PORK IN 0.45% NACL 25,000 UNIT in 0.45% NACL 1 250ML.BAG IV SCH (20:11)
--- NOTE | 2020-07-24 20:17 | NM ---
EXAMINATION TYPE: NM pul perfusion DATE OF EXAM: 07/24/2020 COMPARISON: Same day chest radiograph HISTORY: Elevated d-dimer. Covid. Following administration of 5.0 mCi Tc 99m MAA. Images obtained post injection. FINDINGS: Same-day chest radiograph demonstrated low lung volumes accentuating the cardiac silhouette, with no focal airspace opacity or pleural effusion. Perfusion images demonstrate homogenous activity of the bilateral lungs. There are nonsegmental perfu rachel defects of the bilateral lungs in the region of the leroy. IMPRESSION: Perfusion defects appear nonsegmental in the region of the bilateral leroy. Low probability for PE.
[2020-07-25 00:55] LABS: Ferritin 267.6 ng/mL (10.0-291.0)
--- NOTE | 2020-07-25 02:08 | P.HPIM ---
History of Present Illness H&P Date: 07/24/20 Chief Complaint: Weakness and dizziness 74-year-old female with diabetes mellitus, hypertension, hypothyroid, A. fib on Coumadin Patient reports over the past couple weeks she has been feeling progressively weak she had symptoms of decreased smell and taste sensation along with nonproductive cough denies any chest pain or trouble breathing she also been having diarrhea off and on nonbloody no melena. She was also having increased body aches and chills but no fevers. She recalls positive sick contact with Covid patient's one was a coworker who eventually and she also had contact with friends with confirmed Covid. Patient is not vaccinated yet Over the past few days, she's been feeling increasingly dizzy and weak and over the past 3 days she had 3 episodes of near syncope with falls she also noticed decreased urine output. She has not been taking her medications as she spending most of her day sleeping in bed with these falls she denies any loss of con sciousness but she recalls a head injury today when she fell and bumped her head she is on a blood thinner on Coumadin however she denies any focal neuro deficits at this time. Otherwise she denies any recent traveling or recent surgeries. She denies any recent use of antibiotics. She currently denies any chest pain or trouble breathing. In the ED blood work showed acute kidney injury with elevated creatinine, leukocytosis elevated d-dimer hypokalemia and anion gap metabolic acidosis with lactic acidosis. She tested positive for Covid Chest x-ray was unremarkable she had a VQ scan which showed low probability for PE She had elevated troponin for which she was started on heparin drip patient was maintaining at least 95% oxygen saturations on room air Patient was given monoclonal antibodies in ED Review of Systems Pertinent positives as noted in HPI. All other systems were reviewed and are negative Past Medical History Past Medical History: Asthma, Diabetes Mellitus, Hyperlipidemia, Hypertension, Osteoarthritis (OA), Thyroid Disorder History of Any Multi-Drug Resistant Organisms: None Reported Past Surgical History: Orthopedic Surgery Additional Past Surgical History / Comment(s): D&C(hysteroscopy,endometrial polyp removed), LEFT HEEL SPUR, LEFT TRIGGER THUMB, colonoscopy w/bx pt stated was neg. Past Anesthesia/Blood Transfusion Reactions: Motion Sickness, Postoperative Nausea & Vomiting (PONV) Additional Past Anesthesia/Blood Transfusion Reaction / Comment(s): clausterphobia Past Psychological History: No Psychological Hx Reported Smoking Status: Former smoker Past Alcohol Use History: None Reported Past Drug Use History: None Reported - Past Family History Father History Unknown: Yes Additional Family Medical History / Comment(s): pt was adopted family Additional Family Medical History / Comment(s): 2 cousins with history of heart problems. Patient unable to quantify further. Medications and Allergies Home Medications Medication Instructions Recorded Confirmed Type Atorvastatin [Lipitor] 20 mg PO HS 06/02/19 07/24/20 History Candesartan/Hydrochlorothiazid 1 tab PO DAILY 06/02/19 07/24/20 History [Candesartan/Hydrochlorothiazid 32-25 mg] Furosemide [Lasix] 20 mg PO DAILY 06/02/19 07/24/20 History Levothyroxine Sodium [Synthroid] 175 mcg PO DAILY 06/02/19 07/24/20 History Montelukast Sodium [Singulair] 10 mg PO HS 06/02/19 07/24/20 History Warfarin Sodium [Coumadin] 5 mg PO SUMOTUTHFRSA 06/02/19 07/24/20 History amLODIPine [Norvasc] 10 mg PO DAILY 06/02/19 07/24/20 History metFORMIN HCL [Glucophage] 1,000 mg PO BID 06/02/19 07/24/20 History traMADol HCL [Ultram] 50 mg PO TID 06/02/19 07/24/20 History Gabapentin [Neurontin] 300 mg PO TID 07/24/20 07/24/20 History Warfarin [Coumadin] 7.5 mg PO WE 07/24/20 07/24/20 History Allergies Allergy/AdvReac Type Severity Reaction Status Date / Time No Known Allergies Allergy Verified 07/24/20 14:07 Physical Exam Vitals: Vital Signs Temp Pulse Resp BP Pulse Ox 07/24/20 20:07 97.8 F 67 18 96/45 96 07/24/20 16:35 97.8 F 68 18 101/45 95 07/24/20 14:22 72 18 103/69 97 07/24/20 13:20 66 18 96 07/24/20 12:57 97.9 F 64 20 79/50 91 L Intake and Output 07/24/20 07/24/20 07/24/20 06:59 14:59 22:59 Other: Weight 103.419 kg Constitutional: No acute distress, conversant, pleasant Eyes: Anicteric sclerae, moist conjunctiva, Pupils equal round reactive to light ENMT: NC/AT Oropharynx clear, no erythema, or exudates Neck: Supple, FROM, no masses, or JVD No carotid bruits No thyromegaly Lungs: Clear to auscultation Clear to percussion Normal respiratory effort, no accessory muscle use Cardiovascular: Heart regular in rate and rhythm, No murmurs, gallops, or rubs No peripheral edema Abdominal: Soft Nontender, no guarding, rebound or rigidity Abdomen moving with respiration Normoactive bowel sounds No hepatomegaly, No splenomegaly No palpable mass No abdominal wall hernia noted Skin: Normal temperature, tone, texture, turgor No induration No subcutaneous nodules No rash, lesions No ulcers Extremities: No digital cyanosis No clubbing Pedal pulses intact and symmetrical Radial pulses intact and symmetrical No calf tenderness Psychiatric: Alert and oriented to person, place and time Appropriate affect fair judgement Neuro Muscles Strength 4/5 in bilateral upper extremities, 3/5 in bilateral lower extremities Sensation to light touch grossly present throughout Cranial nerves II-XII grossly intact No focal sensory deficits Lymphatics: no palpable cervical or supraclavicular , or inguinal lymph no janee Results CBC & Chem 7: 07/24/20 13:17 07/24/20 16:44 Labs: Abnormal Lab Results - Last 24 Hours (Table) 07/24/20 07/24/20 07/24/20 Range/Units 13:17 13:17 13:17 WBC 15.0 H (3.8-10.6) k/uL RDW 16.1 H (11.5-15.5) % Neutrophils # 12.0 H (1.3-7.7) k/uL PT 12.2 H (9.0-12.0) sec INR 1.2 H (<1.2) APTT 21.0 L (22.0-30.0) sec D-Dimer (<0.60) mg/L FEU Sodium (137-145) mmol/L Potassium 3.4 L (3.5-5.1) mmol/L Carbon Dioxide 15 L (22-30) mmol/L BUN 37 H (7-17) mg/dL Creatinine 6.06 H (0.52-1.04) mg/dL Glucose 172 H (74-99) mg/dL Plasma Lactic Acid Humble (0.7-2.0) mmol/L Calcium (8.4-10.2) mg/dL AST 57 H (14-36) U/L Lactate Dehydrogenase (313-618) U/L Troponin I (0.000-0.034) ng/mL C-Reactive Protein (<1.0) mg/dL Urine Appearance (Clear) Urine Protein (Negative) Amorphous Sediment (None) /hpf Urine Bacteria (None) /hpf Hyaline Casts (0-2) /lpf Urine Mucus (None) /hpf Coronavirus (PCR) (Not Detectd) 07/24/20 07/24/20 07/24/20 Range/Units 13:17 13:17 13:17 WBC (3.8-10.6) k/uL RDW (11.5-15.5) % Neutrophils # (1.3-7.7) k/uL PT (9.0-12.0) sec INR (<1.2) APTT (22.0-30.0) sec D-Dimer (<0.60) mg/L FEU Sodium (137-145) mmol/L Potassium (3.5-5.1) mmol/L Carbon Dioxide (22-30) mmol/L BUN (7-17) mg/dL Creatinine (0.52-1.04) mg/dL Glucose (74-99) mg/dL Plasma Lactic Acid Humble 5.8 H* (0.7-2.0) mmol/L Calcium (8.4-10.2) mg/dL AST (14-36) U/L Lactate Dehydrogenase (313-618) U/L Troponin I 0.038 H* (0.000-0.034) ng/mL C-Reactive Protein (<1.0) mg/dL Urine Appearance (Clear) Urine Protein (Negative) Amorphous Sediment (None) /hpf Urine Bacteria (None) /hpf Hyaline Casts (0-2) /lpf Urine Mucus (None) /hpf Coronavirus (PCR) Detected A (Not Detectd) 07/24/20 07/24/20 07/24/20 Range/Units 13:17 13:17 16:34 WBC (3.8-10.6) k/uL RDW (11.5-15.5) % Neutrophils # (1.3-7.7) k/uL PT (9.0-12.0) sec INR (<1.2) APTT (22.0-30.0) sec D-Dimer 3.22 H (<0.60) mg/L FEU Sodium (137-145) mmol/L Potassium (3.5-5.1) mmol/L Carbon Dioxide (22-30) mmol/L BUN (7-17) mg/dL Creatinine (0.52-1.04) mg/dL Glucose (74-99) mg/dL Plasma Lactic Acid Humble (0.7-2.0) mmol/L Calcium (8.4-10.2) mg/dL AST (14-36) U/L Lactate Dehydrogenase 952 H (313-618) U/L Troponin I (0.000-0.034) ng/mL C-Reactive Protein 6.9 H (<1.0) mg/dL Urine Appearance Cloudy H (Clear) Urine Protein 1+ H (Negative) Amorphous Sediment Rare H (None) /hpf Urine Bacteria Many H (None) /hpf Hyaline Casts 12 H (0-2) /lpf Urine Mucus Rare H (None) /hpf Coronavirus (PCR) (Not Detectd) 07/24/20 07/24/20 07/24/20 Range/Units 16:44 16:47 19:11 WBC (3.8-10.6) k/uL RDW (11.5-15.5) % Neutrophils # (1.3-7.7) k/uL PT (9.0-12.0) sec INR (<1.2) APTT (22.0-30.0) sec D-Dimer (<0.60) mg/L FEU Sodium 135 L (137-145) mmol/L Potassium 3.2 L (3.5-5.1) mmol/L Carbon Dioxide 17 L (22-30) mmol/L BUN 35 H (7-17) mg/dL Creatinine 5.56 H (0.52-1.04) mg/dL Glucose 126 H (74-99) mg/dL Plasma Lactic Acid Humble 4.0 H* 3.6 H* (0.7-2.0) mmol/L Calcium 8.3 L (8.4-10.2) mg/dL AST (14-36) U/L Lactate Dehydrogenase (313-618) U/L Troponin I (0.000-0.034) ng/mL C-Reactive Protein (<1.0) mg/dL Urine Appearance (Clear) Urine Protein (Negative) Amorphous Sediment (None) /hpf Urine Bacteria (None) /hpf Hyaline Casts (0-2) /lpf Urine Mucus (None) /hpf Coronavirus (PCR) (Not Detectd) 07/24/20 Range/Units 19:30 WBC (3.8-10.6) k/uL RDW (11.5-15.5) % Neutrophils # (1.3-7.7) k/uL PT (9.0-12.0) sec INR (<1.2) APTT (22.0-30.0) sec D-Dimer (<0.60) mg/L FEU Sodium (137-145) mmol/L Potassium (3.5-5.1) mmol/L Carbon Dioxide (22-30) mmol/L BUN (7-17) mg/dL Creatinine (0.52-1.04) mg/dL Glucose (74-99) mg/dL Plasma Lactic Acid Humble (0.7-2.0) mmol/L Calcium (8.4-10.2) mg/dL AST (14-36) U/L Lactate Dehydrogenase (313-618) U/L Troponin I 0.035 H* (0.000-0.034) ng/mL C-Reactive Protein (<1.0) mg/dL Urine Appearance (Clear) Urine Protein (Negative) Amorphous Sediment (None) /hpf Urine Bacteria (None) /hpf Hyaline Casts (0-2) /lpf Urine Mucus (None) /hpf Coronavirus (PCR) (Not Detectd) Assessment and Plan Assessment: Near syncope, most likely orthostatic hypotension secondary to dehydration and decreased by mouth intake Covert infection with GI symptoms of vomiting and diarrhea Acute kidney injury and oliguric And gap metabolic acidosis Lactic acidosis Elevated troponins Hypokalemia Hypotension Hypothyroid Diabetes mellitus Chronic A. fib on Coumadin Plan Close monitoring of vital signs Droplet and contact precautions Patient received on a clonal antibodies in the ED Monitor oxygen requirement, supplemental oxygen as needed currently on room air IV fluid hydration with normal saline Follow-up renal function Follow-up urine output Patient was started on heparin drip for elevated troponin Patient has elevated d-dimer most likely inflammatory marker secondary to covert. Patient had a V/Q scan showed low probability for PE Insulin sliding scale for diabetes mellitus Resume levothyroxine Replace potassium follow-up levels Hold ARB and diuretics due to a cataract Hold parameters on Norvasc Check daily orthostatic vital signs IV fluid hydration with normal saline continue to monitor lactic acid Fall precautions PT eval Coumadin dosing by pharmacy for A. fib Check creatinine kinase in the morning follow-up inflammatory markers CODE STATUS: Full code DVT prophylaxis: On heparin drip Discussed with: Patient, ER, RN Anticipated length of stay more than [address]: Home A total of 75 minutes was spent on the care of this complex patient more than 50% of the time was spent in counseling and care coordination.
[2020-07-25] MEDS ORDERED: WARFARIN 5 MG TAB PO ONE (06:00)
[2020-07-25 07:04] LABS: Glucose,Whole Blood 111 mg/dL (75-99)
[2020-07-25 07:24] LABS: D-Dimer 1.78 mg/L FEU (<0.60); INR 1.4 (<1.2); Prothrombin Time 14.2 sec (9.0-12.0)
[2020-07-25] MEDS: LEVOTHYROXINE 88 MCG TAB PO SCH (08:05)
[2020-07-25 08:10] LABS: Glucose,Whole Blood 113 mg/dL (75-99)
[2020-07-25] MEDS: INSULIN ASPART (NovoLOG) 100 UNIT/ML VIAL SQ SCH ×4 (08:11→23:22)
[2020-07-25] MEDS ORDERED: amLODIPine 10 MG TAB PO SCH (09:00)
[2020-07-25 09:53] LABS: Basophils # (A) 0.04 X 10*3/uL (0.00-0.10); Basophils % (A) 0.3 %; Eosinophils # (A) 0.08 X 10*3/uL (0.04-0.35); Eosinophils % (A) 0.6 %; HCT 32.4 % (37.2-46.3); HGB 10.1 g/dL (12.0-15.0); Lymphocytes # (A) 2.19 X 10*3/uL (0.90-5.00); Lymphocytes % (A) 15.5 %; MCHC 31.2 g/dL (32.0-37.0); MCV 89.8 fL (80.0-97.0); Mean Platelet Volume 10.9 fL (9.5-12.2); Monocytes # (A) 0.91 X 10*3/uL (0.20-1.00); Monocytes % (A) 6.4 %; Neutrophils # (A) 10.87 X 10*3/uL (1.80-7.70); Neutrophils % (A) 76.8 %; Platelet Count 281 X 10*3/uL (140-440); RBC 3.61 X 10*6/uL (4.10-5.20); RDW 16.8 % (11.5-14.5); WBC 14.15 X 10*3/uL (4.50-10.00)
[2020-07-25 10:24] LABS: Ferritin 207.4 ng/mL (10.0-291.0)
--- NOTE | 2020-07-25 10:37 | P.CRDCN ---
History of Present Illness Consult date: 07/25/20 Chief complaint: Shortness of breath History of present illness: This is a 74-year-old female patient who requested to see in the emergency depar [facility] for further evaluation of abnormal cardiac enzymes. She was tested positive for COVID-19 infection. The patient is a 74-year-old with a past medical history significant for diabetes and hypertension and dyslipidemia and paroxysmal atrial fibrillation. She presented mainly because of progressive weakness and fatigue. The symptoms started a few weeks ago. For the last several days she has not been able to keep anything down. She has been experiencing intermittent episodes of diarrhea as well as nausea and vomiting but no abdominal pain or abdominal discomfort or cramping. No blood in the stool and no melena. She was definitely in contact with one her friend who was positive for COVID-19 infection. And the patient was not vaccinated yet. She was feeling dizzy and lightheaded but no presyncope or syncope. No chest pain or chest discomfort. She was feeling also slightly short of breath. When she presented to the emergency department she was in acute renal failure with a c reatinine about 5 and she was dehydrated. She was started on IV fluid with a slight improvement in the creatinine. The EKG showed what it seems to be sinus rhythm with diffuse nonspecific ST and T wave abnormalities. The cardiac enzymes were checked and came in to be slightly abnormal. As a mentioned earlier no sign of ischemia clinically or by EKG. We'll obtain an echocardiogram to assess the ejection fraction and assess for any wall motion abnormalities concerning for severe underlying coronary artery disease. D-dimer came in to be elevated but VQ scan came in to be unremarkable for PE and the patient was already receiving Coumadin for anticoagulation for the atrial fibrillation. Past Medical History Past Medical History: Asthma, Diabetes Mellitus, Hyperlipidemia, Hypertension, Osteoarthritis (OA), Thyroid Disorder History of Any Multi-Drug Resistant Organisms: None Reported Past Surgical History: Orthopedic Surgery Additional Past Surgical History / Comment(s): D&C(hysteroscopy,endometrial polyp removed), LEFT HEEL SPUR, LEFT TRIGGER THUMB, colonoscopy w/bx pt stated was neg. Past Anesthesia/Blood Transfusion Reactions: Motion Sickness, Postoperative Nausea & Vomiting (PONV) Additional Past Anesthesia/Blood Transfusion Reaction / Comment(s): clausterphobia Past Psychological History: No Psychological Hx Reported Smoking Status: Former smoker Past Alcohol Use History: None Reported Past Drug Use History: None Reported - Past Family History Father History Unknown: Yes Additional Family Medical History / Comment(s): pt was adopted family Additional Family Medical History / Comment(s): 2 cousins with history of heart problems. Patient unable to quantify further. Medications and Allergies Home Medications Medication Instructions Recorded Confirmed Type Atorvastatin [Lipitor] 20 mg PO HS 06/02/19 07/24/20 History Candesartan/Hydrochlorothiazid 1 tab PO DAILY 06/02/19 07/24/20 History [Candesartan/Hydrochlorothiazid 32-25 mg] Furosemide [Lasix] 20 mg PO DAILY 06/02/19 07/24/20 History Levothyroxine Sodium [Synthroid] 175 mcg PO DAILY 06/02/19 07/24/20 History Montelukast Sodium [Singulair] 10 mg PO HS 06/02/19 07/24/20 History Warfarin Sodium [Coumadin] 5 mg PO SUMOTUTHFRSA 06/02/19 07/24/20 History amLODIPine [Norvasc] 10 mg PO DAILY 06/02/19 07/24/20 History metFORMIN HCL [Glucophage] 1,000 mg PO BID 06/02/19 07/24/20 History traMADol HCL [Ultram] 50 mg PO TID 06/02/19 07/24/20 History Gabapentin [Neurontin] 300 mg PO TID 07/24/20 07/24/20 History Warfarin [Coumadin] 7.5 mg PO WE 07/24/20 07/24/20 History Allergies Allergy/AdvReac Type Severity Reaction Status Date / Time No Known Allergies Allergy Verified 07/24/20 14:07 Physical Exam Vitals: Vital Signs Temp Pulse Resp BP Pulse Ox 07/25/20 10:10 76 20 128/74 97 07/25/20 07:57 98.3 F 70 22 128/74 97 07/25/20 06:00 78 16 97/38 97 07/24/20 23:26 98.1 F 78 18 110/64 97 07/24/20 21:41 66 18 93/68 99 07/24/20 20:07 97.8 F 67 18 96/45 96 07/24/20 16:35 97.8 F 68 18 101/45 95 07/24/20 14:22 72 18 103/69 97 07/24/20 13:20 66 18 96 04/20/21 12:57 97.9 F 64 20 79/50 91 L Intake and Output 07/24/20 07/25/20 07/25/20 22:59 06:59 14:59 Intake Total 64.768 Balance 64.768 Intake: Intake, IV Titration 64.768 Amount Heparin Sod,Pork in 0.45% 64.768 NaCl 25,000 unit In 0.45 % NaCl 1 250ml.bag @ 9.66 UNITS/KG/HR 9.99 mls/hr IV .Q24H [facility] Rx#: [id number] - Constitutional General appearance: no acute distress - Respiratory Respiratory: bilateral: diminished - Cardiovascular Rhythm: regular Heart sounds: normal: S1, S2 Results 07/25/20 05:55 07/24/20 16:44 Cardiac Enzymes 07/24/20 07/24/20 07/24/20 Range/Units 13:17 13:17 13:17 AST 57 H (14-36) U/L Lactate Dehydrogenase 952 H (313-618) U/L Troponin I 0.038 H* (0.000-0.034) ng/mL 07/24/20 07/24/20 Range/Units 19:30 20:11 AST (14-36) U/L Lactate Dehydrogenase (313-618) U/L Troponin I 0.035 H* 0.034 (0.000-0.034) ng/mL Coagulation 07/24/20 07/25/20 07/25/20 Range/Units 13:17 01:15 05:55 PT 12.2 H 14.2 H (9.0-12.0) sec APTT 21.0 L 120.3 H* (22.0-30.0) sec CBC 07/24/20 07/25/20 Range/Units 13:17 05:55 WBC 15.0 H 14.15 H (3.8-10.6) k/uL RBC 4.46 3.61 L (3.80-5.40) m/uL Hgb 12.8 10.1 L (11.4-16.0) gm/dL Hct 39.5 32.4 L (34.0-46.0) % Plt Count 302 281 (150-450) k/uL Comprehensive Metabolic Panel 07/24/20 07/24/20 Range/Units 13:17 16:44 Sodium 137 135 L (137-145) mmol/L Potassium 3.4 L 3.2 L (3.5-5.1) mmol/L Chloride 103 106 (98-107) mmol/L Carbon Dioxide 15 L 17 L (22-30) mmol/L BUN 37 H 35 H (7-17) mg/dL Creatinine 6.06 H 5.56 H (0.52-1.04) mg/dL Glucose 172 H 126 H (74-99) mg/dL Calcium 9.4 8.3 L (8.4-10.2) mg/dL AST 57 H (14-36) U/L ALT 31 (4-34) U/L Alkaline Phosphatase 87 (38-126) U/L Total Protein 6.5 (6.3-8.2) g/dL Albumin 3.6 (3.5-5.0) g/dL Current Medications Generic Name Dose Route Start Last Admin Trade Name Freq PRN Reason Stop Dose Admin Acetaminophen 650 mg 07/24/20 17:56 Acetaminophen Tab 325 Mg Tab PO Q6HR PRN Mild Pain or Fever > 100.5 Atorvastatin Calcium 20 mg 07/25/20 21:00 Atorvastatin 20 Mg Tab PO HS JEF Gabapentin 300 mg 07/25/20 09:00 Gabapentin 300 Mg Cap PO TID JEF Heparin Sodium (Porcine) 0 unit 07/24/20 17:59 Heparin Sodium 1,000 Un/Ml (10ml Vl) IV PER PROTOCOL PRN Low PTT Protocol Sodium Chloride 1,000 mls @ 130 mls/hr 07/24/20 15:15 07/24/20 23:00 Saline 0.9% IV 130 mls/hr .[id number] JEF Administration Heparin Sodium/Sodium Chloride 250 mls @ 9.99 mls/hr 07/24/20 18:00 07/25/20 03:56 25,000 unit/ Sodium Chloride IV 6.66 units/kg/hr .Q24H JEF 6.888 mls/hr Titration Protocol 9.66 UNITS/KG/HR Insulin Aspart 0 unit 07/25/20 07:30 07/25/20 08:11 Insulin Aspart (Novolog) 100 Unit/Ml Vial SQ Not Given ACHS [facility] Protocol Levothyroxine Sodium 176 mcg 07/25/20 06:30 07/25/20 08:05 Levothyroxine 88 Mcg Tab PO 176 mcg DAILY@0630 [facility] Administration Miscellaneous Information 1 each 07/25/20 02:02 Warfarin Per Pharmacy MISCELLANE DIRECTED PRN Per Protocol Protocol Montelukast Sodium 10 mg 07/25/20 21:00 Montelukast 10 Mg Tab PO HS [facility] Naloxone HCl 0.2 mg 07/24/20 17:56 Naloxone 0.4 Mg/Ml 1 Ml Vial IV Q2M PRN Opioid Reversal Ondansetron HCl 4 mg 07/24/20 17:56 Ondansetron 4 Mg/2 Ml Vial IVP Q8HR PRN Nausea And Vomiting Warfarin Sodium 7.5 mg 07/25/20 18:00 Warfarin 7.5 Mg Tab PO 07/25/20 18:01 ONCE ONE Intake and Output 07/24/20 07/25/20 07/25/20 22:59 06:59 14:59 Intake Total 64.768 Balance 64.768 Intake: Intake, IV Titration 64.768 Amount Heparin Sod,Pork in 0.45% 64.768 NaCl 25,000 unit In 0.45 % NaCl 1 250ml.bag @ 9.66 UNITS/KG/HR 9.99 mls/hr IV .Q24H [facility] Rx#: [id number] 07/25/20 05:55 07/24/20 16:44 Assessment and Plan Assessment: Assessment #1 COVID-19 infection with a predominantly gastrointestinal symptoms #2 dehydration secondary to nausea and vomiting and diarrhea #3 acute renal failure secondary to dehydration #4 elevated troponin/cardiac injury without any evidence of ischemia clinically or by EKG #5 electrolytes imbalance #6 paroxysmal atrial fibrillation Plan #1 continue monitor the kidney function and electrolytes #2 she is on droplet and contact isolation #3 COVID-19 treatment #4 medical treatment for the abnormal troponin #5 obtain an echocardiogram was Doppler #6 IV hydration was 0.9 normal saline #7 multiple comorbid conditions #8 follow-up with the patient
[2020-07-25 11:40] LABS: African American GFR (CKD) 6.4 (60.0-200.0); Anion Gap 13.2 mmol/L (4.00-12.00); BUN/Creat Ratio 5.59 Ratio (12.00-20.00); Calcium 8.4 mg/dL (8.7-10.3); Carbon Dioxide 19.8 mmol/L (21.6-31.8); Non-African American GFR(CKD) 5.5 (60.0-200.0); Potassium 3.5 mmol/L (3.5-5.5)
[2020-07-25] MEDS: SODIUM CHLORIDE 0.9% 1,000 ML IV SCH (12:06)
[2020-07-25] MEDS: GABAPENTIN 300 MG CAP PO SCH ×3 (12:13→23:17)
[2020-07-25 12:18] LABS: Glucose,Whole Blood 210 mg/dL (75-99)
--- NOTE | 2020-07-25 12:24 | US ---
EXAMINATION TYPE: US kidneys/renal and bladder DATE OF EXAM: 07/25/2020 COMPARISON: NONE CLINICAL HISTORY: rf. Renal Failure EXAM MEASUREMENTS: Right Kidney: 9.9 x 4.47 x 4.9 cm Left Kidney: 10.3 x 5.7 x 5.0 cm Morbidly obese, immobile pt/ very difficult, limited exam Right Kidney: Limited views show no evidence of hydro, difficult to visualize due to overlying bowel gas and large pt body habitus Left Kidney: Limited views show no evidence of hydro, difficult to visualize due to overlying bowel g as and large pt body habitus Bladder: Unable to visualize There is no evidence for hydronephrosis at this point in time. No nephrolithiasis is seen. No topher s are identified. IMPRESSION: Limited examination without definite hydronephrosis seen.
[2020-07-25] MEDS: DEXTROSE 5% IN WATER 1,000 ML with SODIUM BICARB (1 MEQ/ML) 150 ML IV SCH (13:15)
--- NOTE | 2020-07-25 14:39 | CONS ---
CONSULTATION REASON FOR CONSULT: Renal failure. HISTORY OF PRESENT ILLNESS: Patient is a 74-year-old female who was admitted to the hospital yesterday with complaints of increased weakness, not feeling well. She was dizzy and lightheaded as well. The patient has been having diarrhea on and off. She admits to decreased oral intake for 4-5 days prior to admission. She did admit to decreased smell and taste sensation and has tested positive for coronavirus PCR. The patient denies any previous history of kidney diseases. Serum creatinine was 6.8 mg/dL. The patient's previous creatinine is noted to be 1.1 on 09/22/2019. The patient has not taken any nonsteroidal anti-inflammatory agents prior to admission. When she was admitted, her blood pressure was significantly low with systolic in the 70s. Currently maintained on IV fluids and blood pressure has improved to a systolic of about 128 mmHg. The patient's troponin was elevated and she is maintained on heparin drip. She states she has not voided at all today. PAST MEDICAL HISTORY: Significant for type 2 diabetes, hypertension, hyperlipidemia, osteoarthritis, asthma, hypothyroidism. PAST SURGICAL HISTORY: D and C, left heel spur surgery, colonoscopy. SOCIAL HISTORY: Negative for smoking, drug abuse or alcohol abuse. Patient is a former smoker. MEDICATIONS: Medications prior to admission included Lipitor, candesartan, hydrochlorothiazide, Lasix, Synthroid, Coumadin, Norvasc, Singulair, Glucophage, Ultram, Neurontin, Coumadin. ALLERGIES: None. PHYSICAL EXAMINATION: Patient is comfortable, awake, alert, oriented x3. She is not in any acute distress. Blood pressure was 128/74, heart rate 76 per minute. She is afebrile. Examination of the lower extremities shows no significant edema. Abdomen is soft, obese, nontender. [employer] exam grossly intact. Lungs and heart are not examined. LABS: Labs show sodium 140, potassium 3.5, chloride 107, CO2 is 19.8, BUN 38, serum creatinine 6.8, hemoglobin 10.1 g/dL. Troponin 0.042. ASSESSMENT: 1. Acute kidney injury, acute tubular necrosis, secondary to hypotension, underlying COVID infection, use of angiotensin receptor blockers in the setting of significant hypotension and volume depletion. Rule out urine retention. A bladder scan will be done. We will check ultrasound of the kidneys. Maintain IV hydration. Avoid any nephrotoxic medications and monitor urine output closely. The patient does not need dialysis at this point. We will continue to monitor on a daily basis. 2. COVID-19 infection with chest x-ray showing no acute process. 3. Severe volume depletion. 4. Metabolic acidosis secondary to renal failure and diarrhea. 5. Anemia, rule out iron deficiency. 6. Elevated troponin being followed by Cardiology, maintained on IV heparin. PLAN: Continue IV fluids. I will change IV fluids to IV bicarb. Repeat labs in a.m. Monitor urine output accurately. Check bladder scan. Check ultrasound of the kidneys. Avoid any nephrotoxic medications. Thank you for this consultation. Will continue to follow the patient with you during her hospitalization. MMODL / IJN: [id number] /
--- NOTE | 2020-07-25 14:40 | P.PN ---
Subjective Progress Note Date: 07/25/20 Patient is doing fairly well today. She denies any chest pain or shortness of breath. No acute events overnight. Objective - Vital Signs Vital signs: Vital Signs Temp 98.3 F 07/25/20 07:57 Pulse 76 07/25/20 10:10 Resp 20 07/25/20 10:10 BP 128/74 07/25/20 10:10 Pulse Ox 97 07/25/20 10:10 Intake & Output 07/24/20 07/25/20 07/25/20 18:59 06:59 18:59 Intake Total 64.768 55.334 Balance 64.768 55.334 Weight 103.419 kg Intake: Intake, IV Titration 64.768 55.334 Amount Heparin Sod,Pork in 0.45% 64.768 55.334 NaCl 25,000 unit In 0.45 % NaCl 1 250ml.bag @ 9.66 UNITS/KG/HR 9.99 mls/hr IV .Q24H [facility] Rx#: [id number] - Exam General: The patient is awake and alert, in no distress Eye: there is normal conjunctiva bilaterally. Neck: The neck is supple, there is no JVD. Cardiovascular: Normal S1-S2, no S3-S4, no murmurs. Respiratory: Lungs clear to auscultation bilaterally Gastrointestinal: Abdomen is soft, nontender Musculoskeletal: There is no pedal edema. Neurological:. Speech is normal. Skin: Skin is warm and dry - Labs CBC & Chem 7: 07/25/20 05:55 07/25/20 05:55 Labs: Abnormal Lab Results - Last 24 Hours (Table) 07/24/20 07/24/20 07/24/20 Range/Units 13:17 13:17 13:17 WBC (4.50-10.00) X 10*3/uL RBC (4.10-5.20) X 10*6/uL Hgb (12.0-15.0) g/dL Hct (37.2-46.3) % MCHC (32.0-37.0) g/dL RDW (11.5-14.5) % Immature Gran # (0.00-0.04) X 10*3/uL Neutrophils # (1.80-7.70) X 10*3/uL PT (9.0-12.0) sec INR (<1.2) APTT (22.0-30.0) sec D-Dimer 3.22 H (<0.60) mg/L FEU Sodium (137-145) mmol/L Potassium (3.5-5.1) mmol/L Carbon Dioxide (22-30) mmol/L Anion Gap (4.00-12.00) mmol/L BUN (7-17) mg/dL Creatinine (0.52-1.04) mg/dL Est GFR (CKD-EPI)AfAm (60.0-200.0) Est GFR (CKD-EPI)NonAf (60.0-200.0) BUN/Creatinine Ratio (12.00-20.00) Ratio Glucose (74-99) mg/dL POC Glucose (mg/dL) (75-99) mg/dL Plasma Lactic Acid Humble (0.7-2.0) mmol/L Calcium (8.4-10.2) mg/dL Lactate Dehydrogenase (313-618) U/L Creatine Kinase (26-186) U/L Troponin I 0.038 H* (0.000-0.034) ng/mL C-Reactive Protein (<1.0) mg/dL Urine Appearance (Clear) Urine Protein (Negative) Amorphous Sediment (None) /hpf Urine Bacteria (None) /hpf Hyaline Casts (0-2) /lpf Urine Mucus (None) /hpf Coronavirus (PCR) Detected A (Not Detectd) 07/24/20 07/24/20 07/24/20 Range/Units 13:17 16:34 16:44 WBC (4.50-10.00) X 10*3/uL RBC (4.10-5.20) X 10*6/uL Hgb (12.0-15.0) g/dL Hct (37.2-46.3) % MCHC (32.0-37.0) g/dL RDW (11.5-14.5) % Immature Gran # (0.00-0.04) X 10*3/uL Neutrophils # (1.80-7.70) X 10*3/uL PT (9.0-12.0) sec INR (<1.2) APTT (22.0-30.0) sec D-Dimer (<0.60) mg/L FEU Sodium 135 L (137-145) mmol/L Potassium 3.2 L (3.5-5.1) mmol/L Carbon Dioxide 17 L (22-30) mmol/L Anion Gap (4.00-12.00) mmol/L BUN 35 H (7-17) mg/dL Creatinine 5.56 H (0.52-1.04) mg/dL Est GFR (CKD-EPI)AfAm (60.0-200.0) Est GFR (CKD-EPI)NonAf (60.0-200.0) BUN/Creatinine Ratio (12.00-20.00) Ratio Glucose 126 H (74-99) mg/dL POC Glucose (mg/dL) (75-99) mg/dL Plasma Lactic Acid Humble (0.7-2.0) mmol/L Calcium 8.3 L (8.4-10.2) mg/dL Lactate Dehydrogenase 952 H (313-618) U/L Creatine Kinase (26-186) U/L Troponin I (0.000-0.034) ng/mL C-Reactive Protein 6.9 H (<1.0) mg/dL Urine Appearance Cloudy H (Clear) Urine Protein 1+ H (Negative) Amorphous Sediment Rare H (None) /hpf Urine Bacteria Many H (None) /hpf Hyaline Casts 12 H (0-2) /lpf Urine Mucus Rare H (None) /hpf Coronavirus (PCR) (Not Detectd) 07/24/20 07/24/20 07/24/20 Range/Units 16:47 19:11 19:30 WBC (4.50-10.00) X 10*3/uL RBC (4.10-5.20) X 10*6/uL Hgb (12.0-15.0) g/dL Hct (37.2-46.3) % MCHC (32.0-37.0) g/dL RDW (11.5-14.5) % Immature Gran # (0.00-0.04) X 10*3/uL Neutrophils # (1.80-7.70) X 10*3/uL PT (9.0-12.0) sec INR (<1.2) APTT (22.0-30.0) sec D-Dimer (<0.60) mg/L FEU Sodium (137-145) mmol/L Potassium (3.5-5.1) mmol/L Carbon Dioxide (22-30) mmol/L Anion Gap (4.00-12.00) mmol/L BUN (7-17) mg/dL Creatinine (0.52-1.04) mg/dL Est GFR (CKD-EPI)AfAm (60.0-200.0) Est GFR (CKD-EPI)NonAf (60.0-200.0) BUN/Creatinine Ratio (12.00-20.00) Ratio Glucose (74-99) mg/dL POC Glucose (mg/dL) (75-99) mg/dL Plasma Lactic Acid Humble 4.0 H* 3.6 H* (0.7-2.0) mmol/L Calcium (8.4-10.2) mg/dL Lactate Dehydrogenase (313-618) U/L Creatine Kinase (26-186) U/L Troponin I 0.035 H* (0.000-0.034) ng/mL C-Reactive Protein (<1.0) mg/dL Urine Appearance (Clear) Urine Protein (Negative) Amorphous Sediment (None) /hpf Urine Bacteria (None) /hpf Hyaline Casts (0-2) /lpf Urine Mucus (None) /hpf Coronavirus (PCR) (Not Detectd) 07/24/20 07/25/20 07/25/20 Range/Units 22:03 01:15 05:55 WBC 14.15 H (4.50-10.00) X 10*3/uL RBC 3.61 L (4.10-5.20) X 10*6/uL Hgb 10.1 L (12.0-15.0) g/dL Hct 32.4 L (37.2-46.3) % MCHC 31.2 L (32.0-37.0) g/dL RDW 16.8 H (11.5-14.5) % Immature Gran # 0.06 H (0.00-0.04) X 10*3/uL Neutrophils # 10.87 H (1.80-7.70) X 10*3/uL PT (9.0-12.0) sec INR (<1.2) APTT 120.3 H* (22.0-30.0) sec D-Dimer (<0.60) mg/L FEU Sodium (137-145) mmol/L Potassium (3.5-5.1) mmol/L Carbon Dioxide (22-30) mmol/L Anion Gap (4.00-12.00) mmol/L BUN (7-17) mg/dL Creatinine (0.52-1.04) mg/dL Est GFR (CKD-EPI)AfAm (60.0-200.0) Est GFR (CKD-EPI)NonAf (60.0-200.0) BUN/Creatinine Ratio (12.00-20.00) Ratio Glucose (74-99) mg/dL POC Glucose (mg/dL) (75-99) mg/dL Plasma Lactic Acid Humble 2.5 H* (0.7-2.0) mmol/L Calcium (8.4-10.2) mg/dL Lactate Dehydrogenase (313-618) U/L Creatine Kinase (26-186) U/L Troponin I (0.000-0.034) ng/mL C-Reactive Protein (<1.0) mg/dL Urine Appearance (Clear) Urine Protein (Negative) Amorphous Sediment (None) /hpf Urine Bacteria (None) /hpf Hyaline Casts (0-2) /lpf Urine Mucus (None) /hpf Coronavirus (PCR) (Not Detectd) 07/25/20 07/25/20 07/25/20 Range/Units 05:55 05:55 07:02 WBC (4.50-10.00) X 10*3/uL RBC (4.10-5.20) X 10*6/uL Hgb (12.0-15.0) g/dL Hct (37.2-46.3) % MCHC (32.0-37.0) g/dL RDW (11.5-14.5) % Immature Gran # (0.00-0.04) X 10*3/uL Neutrophils # (1.80-7.70) X 10*3/uL PT 14.2 H (9.0-12.0) sec INR 1.4 H (<1.2) APTT (22.0-30.0) sec D-Dimer 1.78 H (<0.60) mg/L FEU Sodium (137-145) mmol/L Potassium (3.5-5.1) mmol/L Carbon Dioxide 19.8 L (22-30) mmol/L Anion Gap 13.20 H (4.00-12.00) mmol/L BUN 38.0 H (7-17) mg/dL Creatinine 6.8 H (0.52-1.04) mg/dL Est GFR (CKD-EPI)AfAm 6.4 L (60.0-200.0) Est GFR (CKD-EPI)NonAf 5.5 L (60.0-200.0) BUN/Creatinine Ratio 5.59 L (12.00-20.00) Ratio Glucose 125 H (74-99) mg/dL POC Glucose (mg/dL) 111 H (75-99) mg/dL Plasma Lactic Acid Humble (0.7-2.0) mmol/L Calcium 8.4 L (8.4-10.2) mg/dL Lactate Dehydrogenase 316 H (313-618) U/L Creatine Kinase 750 H (26-186) U/L Troponin I (0.000-0.034) ng/mL C-Reactive Protein (<1.0) mg/dL Urine Appearance (Clear) Urine Protein (Negative) Amorphous Sediment (None) /hpf Urine Bacteria (None) /hpf Hyaline Casts (0-2) /lpf Urine Mucus (None) /hpf Coronavirus (PCR) (Not Detectd) 07/25/20 07/25/20 07/25/20 Range/Units 08:08 10:05 10:05 WBC (4.50-10.00) X 10*3/uL RBC (4.10-5.20) X 10*6/uL Hgb (12.0-15.0) g/dL Hct (37.2-46.3) % MCHC (32.0-37.0) g/dL RDW (11.5-14.5) % Immature Gran # (0.00-0.04) X 10*3/uL Neutrophils # (1.80-7.70) X 10*3/uL PT (9.0-12.0) sec INR (<1.2) APTT 69.6 H (22.0-30.0) sec D-Dimer (<0.60) mg/L FEU Sodium (137-145) mmol/L Potassium (3.5-5.1) mmol/L Carbon Dioxide (22-30) mmol/L Anion Gap (4.00-12.00) mmol/L BUN (7-17) mg/dL Creatinine (0.52-1.04) mg/dL Est GFR (CKD-EPI)AfAm (60.0-200.0) Est GFR (CKD-EPI)NonAf (60.0-200.0) BUN/Creatinine Ratio (12.00-20.00) Ratio Glucose (74-99) mg/dL POC Glucose (mg/dL) 113 H (75-99) mg/dL Plasma Lactic Acid Humble (0.7-2.0) mmol/L Calcium (8.4-10.2) mg/dL Lactate Dehydrogenase (313-618) U/L Creatine Kinase (26-186) U/L Troponin I 0.042 H* (0.000-0.034) ng/mL C-Reactive Protein (<1.0) mg/dL Urine Appearance (Clear) Urine Protein (Negative) Amorphous Sediment (None) /hpf Urine Bacteria (None) /hpf Hyaline Casts (0-2) /lpf Urine Mucus (None) /hpf Coronavirus (PCR) (Not Detectd) 07/25/20 Range/Units 12:12 WBC (4.50-10.00) X 10*3/uL RBC (4.10-5.20) X 10*6/uL Hgb (12.0-15.0) g/dL Hct (37.2-46.3) % MCHC (32.0-37.0) g/dL RDW (11.5-14.5) % Immature Gran # (0.00-0.04) X 10*3/uL Neutrophils # (1.80-7.70) X 10*3/uL PT (9.0-12.0) sec INR (<1.2) APTT (22.0-30.0) sec D-Dimer (<0.60) mg/L FEU Sodium (137-145) mmol/L Potassium (3.5-5.1) mmol/L Carbon Dioxide (22-30) mmol/L Anion Gap (4.00-12.00) mmol/L BUN (7-17) mg/dL Creatinine (0.52-1.04) mg/dL Est GFR (CKD-EPI)AfAm (60.0-200.0) Est GFR (CKD-EPI)NonAf (60.0-200.0) BUN/Creatinine Ratio (12.00-20.00) Ratio Glucose (74-99) mg/dL POC Glucose (mg/dL) 210 H (75-99) mg/dL Plasma Lactic Acid Humble (0.7-2.0) mmol/L Calcium (8.4-10.2) mg/dL Lactate Dehydrogenase (313-618) U/L Creatine Kinase (26-186) U/L Troponin I (0.000-0.034) ng/mL C-Reactive Protein (<1.0) mg/dL Urine Appearance (Clear) Urine Protein (Negative) Amorphous Sediment (None) /hpf Urine Bacteria (None) /hpf Hyaline Casts (0-2) /lpf Urine Mucus (None) /hpf Coronavirus (PCR) (Not Detectd) Assessment and Plan Assessment: 74-year-old female with past medical history noted below that presented to the emergency room with generalized weakness and presyncope. Patient was evaluated in the hospital for further management of her medical problems noted below. 1. Acute kidney injury, may be related to dehydration with possible ATN. Patient was started on IV fluid hydration. Nephrology consulted for further evaluation. Hold nephrotoxic secluding diuretics and ARB 2. COVID-19 positive screening test: Patient is a symptomatic. Patient was given monoclonal antibodies in the ER. Continue droplet precautions 3. Troponin elevation, most likely non-thrombolytic leak secondary to kidney failure and dehydration. 12-lead EKG showed no acute ischemic changes. Patient denies any chest pain. She was seen and evaluated by cardiology. Echocardiogram for further evaluation. 4. Acute metabolic acidosis secondary to #1: Started on bicarb drip as directed by nephrology 5. Elevated d-dimer, VQ scan with low probability for PE 6. Chronic atrial fibrillation on anticoagulation with Coumadin. Subtherapeutic INR. Coumadin dose managed by pharmacy 7. Essential hypertension: Blood pressure borderline low. Continue to hold home medications for now and monitor 8. Chronic medical problems, hypothyroidism, type 2 diabetes Today, I reviewed her medication list and lab work results. Patient is currently on IV heparin. ACS ruled out. INR subtherapeutic. Continue supportive care otherwise. His lab work in the morning. PT/OT evaluation. Appreciate telecommunications consultant's recommendations.
--- NOTE | 2020-07-25 16:39 | ECHOF ---
Referral Reason:abnormal troponin MEASUREMENTS -------- HEIGHT: 147.3 cm WEIGHT: 103.4 kg BP: 128/74 RVIDd: 3.0 cm (< 3.3) IVSd: 1.4 cm (0.6 - 1.1) LVIDd: 3.6 cm (3.9 - 5.3) LVPWd: 1.3 cm (0.6 - 1.1) IVSs: 1.8 cm LVIDs: 2.2 cm LVPWs: 1.6 cm LA Diam: 3.1 cm (2.7 - 3.8) LAESV Index (A-L): 21.06 ml/m Ao Diam: 2.5 cm (2.0 - 3.7) AV Cusp: 1.8 cm (1.5 - 2.6) MV EXCURSION: 18.525 mm (> 18.000) MV EF SLOPE: 108 mm/s (70 - 150) EPSS: 0.3 cm MV E Cash: 1.12 m/s MV DecT: 188 ms MV A Cash: 0.76 m/s MV E/A Ratio: 1.49 AV maxP.87 mmHg AV meanP.71 mmHg RAP: 5.00 mmHg RVSP: 29.49 mmHg FINDINGS -------- Sinus rhythm. This was a technically difficult study with suboptimal apical views. The left ventricular size is normal. There is moderate concentric left ventricular hypertrophy. O verall left ventricular systolic function is mildly impaired with, an EF between 45 - 50 %. Basal i nferior LV wall motion is hypokinetic. The right ventricle is normal in size. Normal LA size by volume 22+/-6 ml/m2. The right atrium is normal in size. 4 ml of Lumason was utilized for enhancement of images. Interatrial and interventricular septum intact. There is mild aortic valve sclerosis. Mild mitral annular calcification present. Mild mitral regurgitation is present. Mild tricuspid regurgitation present. Right ventricular systolic pressure is normal at < 35 mmHg. Trace/mild (physiologic) pulmonic regurgitation. The aortic root size is normal. IVC Not well visulized. There is no pericardial effusion. CONCLUSIONS -------- 1. The left ventricular size is normal. 2. There is moderate concentric left ventricular hypertrophy. 3. Overall left ventricular systolic function is mildly impaired with, an EF between 45 - 50 %. 4. Basal inferior LV wall motion is hypokinetic. 5. 4 ml of Lumason was utilized for enhancement of images. 6. There is mild aortic valve sclerosis. 7. Mild mitral annular calcification present. 8. Mild mitral regurgitation is present. 9. Mild tricuspid regurgitation present. 10. Trace/mild (physiologic) pulmonic regurgitation. 11. There is no pericardial effusion. [employer]OR: Margo Khan RDCS
[2020-07-25 16:49] LABS: Glucose,Whole Blood 166 mg/dL (75-99)
[2020-07-25] MEDS ORDERED: WARFARIN 7.5 MG TAB PO ONE (18:00)
[2020-07-25] MEDS: HEPARIN SOD,PORK IN 0.45% NACL 25,000 UNIT in 0.45% NACL 1 250ML.BAG IV SCH (23:17)
[2020-07-25] MEDS: MONTELUKAST 10 MG TAB PO SCH (23:17)
[2020-07-25] MEDS: ATORVASTATIN 20 MG TAB PO SCH (23:17)
[2020-07-25 23:24] LABS: Glucose,Whole Blood 138 mg/dL (75-99)
[2020-07-26] MEDS: DEXTROSE 5% IN WATER 1,000 ML with SODIUM BICARB (1 MEQ/ML) 150 ML IV SCH ×2 (02:49→12:13)
[2020-07-26] MEDS: LEVOTHYROXINE 88 MCG TAB PO SCH (06:25)
[2020-07-26 07:44] LABS: Glucose,Whole Blood 151 mg/dL (75-99)
[2020-07-26] MEDS: ZINC SULFATE 220 MG CAP PO SCH (07:48)
[2020-07-26] MEDS: INSULIN ASPART (NovoLOG) 100 UNIT/ML VIAL SQ SCH ×4 (07:48→20:51)
[2020-07-26] MEDS: CHOLECALCIFEROL 25 MCG (1000 IU) TABLET PO SCH (07:48)
[2020-07-26] MEDS: ASCORBIC ACID 500 MG TAB PO SCH (07:49)
[2020-07-26] MEDS: GABAPENTIN 100 MG CAP PO SCH ×3 (07:49→21:18)
[2020-07-26 07:51] LABS: Anisocytosis Slight; Basophils % (A) 0 %; Eosinophils # (A) 0.1 k/uL (0-0.7); Eosinophils % (A) 1 %; HCT 28.6 % (34.0-46.0); Lymphocytes # (A) 1.6 k/uL (1.0-4.8); Lymphocytes % (A) 14 %; MCH 28.4 pg (25.0-35.0); MCHC 32.7 g/dL (31.0-37.0); Mean Platelet Volume 7.8; Monocytes # (A) 0.6 k/uL (0-1.0); Monocytes % (A) 5 %; Neutrophils # (A) 9.3 k/uL (1.3-7.7); Neutrophils % (A) 80 %; Platelet Count 222 k/uL (150-450); RBC 3.29 m/uL (3.80-5.40); RDW 17.2 % (11.5-15.5); WBC 11.7 k/uL (3.8-10.6)
[2020-07-26 08:06] LABS: Calcium 7.8 mg/dL (8.4-10.2); INR 1.4 (<1.2); Magnesium 1.6 mg/dL (1.6-2.3); Phosphorus 4.7 mg/dL (2.5-4.5); Potassium 3.5 mmol/L (3.5-5.1)
[2020-07-26 08:10] LABS: HGB 9.3 gm/dL (11.4-16.0)
[2020-07-26 11:10] LABS: Glucose,Whole Blood 137 mg/dL (75-99)
[2020-07-26] MEDS: MIDODRINE 5 MG TAB PO SCH ×2 (12:14→16:48)
[2020-07-26] MEDS: HEPARIN SOD,PORK IN 0.45% NACL 25,000 UNIT in 0.45% NACL 1 250ML.BAG IV SCH (12:15)
--- NOTE | 2020-07-26 14:16 | P.PN ---
Subjective Progress Note Date: 07/26/20 Patient is awake and alert today. She does not have any complaints. Her creatinine is worsening and patient is not making any urine. Objective - Vital Signs Vital signs: Vital Signs Temp 97.6 F 07/26/20 13:22 Pulse 73 07/26/20 13:22 Resp 16 07/26/20 13:22 BP 94/43 07/26/20 13:22 Pulse Ox 98 07/26/20 13:22 Intake & Output 07/25/20 07/26/20 07/26/20 18:59 06:59 18:59 Intake Total 55.334 1574.535 74.019 Output Total 0 Balance 55.334 1574.535 74.019 Weight 103.419 kg Intake: Intake, IV Titration 55.334 1254.535 74.019 Amount Dextrose 5% in Water 1, 1200 000 ml @ 100 mls/hr IV . [id number] [facility] with Sodium Bicarb (1 Meq/ml) 150 ml Rx#:[id number] Heparin Sod,Pork in 0.45% 55.334 54.535 74.019 NaCl 25,000 unit In 0.45 % NaCl 1 250ml.bag @ 9.66 UNITS/KG/HR 9.99 mls/hr IV .Q24H [facility] Rx#: [id number] Oral 320 Output: Urine 0 - Exam General: The patient is awake and alert, in no distress Eye: there is normal conjunctiva bilaterally. Neck: The neck is supple, there is no JVD. Cardiovascular: Normal S1-S2, no S3-S4, no murmurs. Respiratory: Lungs clear to auscultation bilaterally Gastrointestinal: Abdomen is soft, nontender Musculoskeletal: There is no pedal edema. Neurological:. Speech is normal. Skin: Skin is warm and dry - Labs CBC & Chem 7: 07/26/20 07:30 07/26/20 07:30 Labs: Abnormal Lab Results - Last 24 Hours (Table) 07/24/20 07/25/20 07/25/20 Range/Units 13:17 16:48 18:15 WBC (3.8-10.6) k/uL RBC (3.80-5.40) m/uL Hgb (11.4-16.0) gm/dL Hct (34.0-46.0) % RDW (11.5-15.5) % Neutrophils # (1.3-7.7) k/uL PT (9.0-12.0) sec INR (<1.2) APTT 46.9 H (22.0-30.0) sec Sodium (137-145) mmol/L BUN (7-17) mg/dL Creatinine (0.52-1.04) mg/dL Glucose (74-99) mg/dL POC Glucose (mg/dL) 166 H (75-99) mg/dL Calcium (8.4-10.2) mg/dL Phosphorus (2.5-4.5) mg/dL Procalcitonin 0.43 H (0.02-0.09) ng/mL 07/25/20 07/26/20 07/26/20 Range/Units 23:16 07:30 07:30 WBC 11.7 H (3.8-10.6) k/uL RBC 3.29 L (3.80-5.40) m/uL Hgb 9.3 L D (11.4-16.0) gm/dL Hct 28.6 L (34.0-46.0) % RDW 17.2 H (11.5-15.5) % Neutrophils # 9.3 H (1.3-7.7) k/uL PT 14.0 H (9.0-12.0) sec INR 1.4 H (<1.2) APTT (22.0-30.0) sec Sodium (137-145) mmol/L BUN (7-17) mg/dL Creatinine (0.52-1.04) mg/dL Glucose (74-99) mg/dL POC Glucose (mg/dL) 138 H (75-99) mg/dL Calcium (8.4-10.2) mg/dL Phosphorus (2.5-4.5) mg/dL Procalcitonin (0.02-0.09) ng/mL 07/26/20 07/26/20 07/26/20 Range/Units 07:30 07:30 07:38 WBC (3.8-10.6) k/uL RBC (3.80-5.40) m/uL Hgb (11.4-16.0) gm/dL Hct (34.0-46.0) % RDW (11.5-15.5) % Neutrophils # (1.3-7.7) k/uL PT (9.0-12.0) sec INR (<1.2) APTT 32.9 H (22.0-30.0) sec Sodium 132 L (137-145) mmol/L BUN 45 H (7-17) mg/dL Creatinine 8.31 H* (0.52-1.04) mg/dL Glucose 147 H (74-99) mg/dL POC Glucose (mg/dL) 151 H (75-99) mg/dL Calcium 7.8 L (8.4-10.2) mg/dL Phosphorus 4.7 H (2.5-4.5) mg/dL Procalcitonin (0.02-0.09) ng/mL 07/26/20 Range/Units 11:02 WBC (3.8-10.6) k/uL RBC (3.80-5.40) m/uL Hgb (11.4-16.0) gm/dL Hct (34.0-46.0) % RDW (11.5-15.5) % Neutrophils # (1.3-7.7) k/uL PT (9.0-12.0) sec INR (<1.2) APTT (22.0-30.0) sec Sodium (137-145) mmol/L BUN (7-17) mg/dL Creatinine (0.52-1.04) mg/dL Glucose (74-99) mg/dL POC Glucose (mg/dL) 137 H (75-99) mg/dL Calcium (8.4-10.2) mg/dL Phosphorus (2.5-4.5) mg/dL Procalcitonin (0.02-0.09) ng/mL Microbiology - Last 24 Hours (Table) 07/24/20 14:59 Blood Culture - Preliminary Blood No Growth after 24 hours 07/24/20 14:59 Blood Culture - Preliminary Blood No Growth after 24 hours Assessment and Plan Assessment: 74-year-old female with past medical history noted below that presented to the emergency room with generalized weakness and presyncope. Patient was evaluated in the hospital for further management of her medical problems noted below. 1. Acute kidney injury, oliguric, may be related to dehydration with possible ATN. Plan for dialysis tomorrow. Patient was started on IV fluid hydration with no improvement. Nephrology consulted for further evaluation. Hold nephrotoxic secluding diuretics and ARB. Kidney ultrasound with no evidence of hydronephrosis 2. COVID-19 positive screening test: Patient is a symptomatic. Patient was given monoclonal antibodies in the ER. Continue droplet precautions and vitamins 3. Troponin elevation, most likely non-thrombolytic leak secondary to kidney failure and dehydration. 12-lead EKG showed no acute ischemic changes. Patient denies any chest pain. She was seen and evaluated by cardiology, appreciate recommendation. Echocardiogram showed mildly impaired ejection fraction of 45- 50% 4. Acute metabolic acidosis secondary to #1: Started on bicarb drip as directed by nephrology 5. Elevated d-dimer, VQ scan with low probability for PE 6. Chronic atrial fibrillation on anticoagulation with Coumadin. Subtherapeutic INR. Coumadin dose managed by pharmacy 7. Essential hypertension: Blood pressure borderline low. Continue to hold home medications for now and monitor 8. Chronic medical problems, hypothyroidism, type 2 diabetes Today, I reviewed her medication list and lab work results. Patient is currently on IV heparin. ACS ruled out. INR subtherapeutic. Continue supportive care otherwise. His lab work in the morning. PT/OT evaluation. Appreciate siebel consultant's recommendations.
--- NOTE | 2020-07-26 15:17 | P.PN ---
Subjective This is a 74-year-old female with a past medical history significant for diabetes and hypertension and dyslipidemia and paroxysmal atrial fibrillation (on coumadin). She follows in the office with Dr. Bose. . We are on consult for elevated troponin. She was tested positive for COVID-19 infection. She presented mainly because of progressive weakness and fatigue. The symptoms started a few weeks ago. For the last several days she has not been able to keep anything down. She has been experiencing intermittent episodes of diarrhea, nausea and vomiting, feeling dizzy and lightheaded but no presyncope or syncope. No chest pain or chest discomfort. When she presented to the emergency department she was in acute renal failure with a creatinine about 5 and she was dehydrated. She was started on IV fluid with a slight improvement in the creatinine. 09/2019 serum creatinine was 1.1 -Covid-19 positive -Cdiff negative -EKG sinus rhythm with diffuse nonspecific ST and T wave abnormalities. No sign of ischemia clinically or by EKG -Troponin 0.03-->0.035-->0.03--0.04 -D-dimer came in to be elevated but VQ scan came in to be unremarkable for PE -Echocardiogram 07/25/20: EF between 45-50%, basal inferior LV wall motion is hypokinetic, mild MR, mild TR -Previous echocardiogram in the office 05/2019: EF 55%, no regional wall motion abnormalities, mild TR, mild MR. -07/26/19- ultrasound the kidneys- Limited exam due to patient being immobile, unable to visualize bladder, Limited exam without definite hydronephrosis seen. 07/26/20: Patient seen and examined at bedside, no complaints. states her breathing has improved. BP 94/43, heart rate 73, afebrile, oxygen saturation is 98% on 2 L nasal cannula. Laboratory data reviewed, sodium 132, potassium 3.5, renal function worsening serum creatinine 8.3, BUN 45, magnesium 1.6, WBC 11.7, hemoglobin 9.3 (10.1 yesterday) platelets 222 GENERAL: Well-appearing, well-nourished and in no acute distress. NECK: Supple without JVD or thyromegaly. LUNGS: Breath sounds diminished to auscultation bilaterally. HEART: Regular rate and rhythm without murmurs, rubs or gallops. S1 and S2 heard. EXTREMITIES: Normal range of motion, no edema. No clubbing or cyanosis. Peripheral pulses intact. ASSESSMENT: Covid-19 Acute kidney injury, nephrology is following Decreased EF most likely related to Covid-19 infection Mildly elevated troponin- acute coronary syndrome not likely, most likely rel ated to covid-19 infection and acute renal failure Type 2 Diabetes History Hypertension- currently hypotensive, started on midodrine Dyslipidemia Paroxysmal atrial fibrillation- on coumadin outpatient, currently on heparin drip PLAN: -Nephrology following for [place] -Plan for patient to have dialysis catheter placed tomorrow, coumadin on hold for tonight -Covid-19 treatment per primary -Medical treatment for abnormal troponin Objective - Vital Signs Vital signs: Vital Signs Temp 97.6 F 07/26/20 13:22 Pulse 73 07/26/20 13:22 Resp 16 07/26/20 13:22 BP 94/43 07/26/20 13:22 Pulse Ox 98 07/26/20 13:22 Intake & Output 07/25/20 07/26/20 07/26/20 18:59 06:59 18:59 Intake Total 55.334 1574.535 74.019 Output Total 0 Balance 55.334 1574.535 74.019 Weight 103.419 kg Intake: Intake, IV Titration 55.334 1254.535 74.019 Amount Dextrose 5% in Water 1, 1200 000 ml @ 100 mls/hr IV . [id number] [facility] with Sodium Bicarb (1 Meq/ml) 150 ml Rx#:[id number] Heparin Sod,Pork in 0.45% 55.334 54.535 74.019 NaCl 25,000 unit In 0.45 % NaCl 1 250ml.bag @ 9.66 UNITS/KG/HR 9.99 mls/hr IV .Q24H [facility] Rx#: [id number] Oral 320 Output: Urine 0 - Labs CBC & Chem 7: 07/26/20 07:30 07/26/20 07:30 Labs: Abnormal Lab Results - Last 24 Hours (Table) 07/24/20 07/25/20 07/25/20 Range/Units 13:17 16:48 18:15 WBC (3.8-10.6) k/uL RBC (3.80-5.40) m/uL Hgb (11.4-16.0) gm/dL Hct (34.0-46.0) % RDW (11.5-15.5) % Neutrophils # (1.3-7.7) k/uL PT (9.0-12.0) sec INR (<1.2) APTT 46.9 H (22.0-30.0) sec Sodium (137-145) mmol/L BUN (7-17) mg/dL Creatinine (0.52-1.04) mg/dL Glucose (74-99) mg/dL POC Glucose (mg/dL) 166 H (75-99) mg/dL Calcium (8.4-10.2) mg/dL Phosphorus (2.5-4.5) mg/dL Procalcitonin 0.43 H (0.02-0.09) ng/mL 07/25/20 07/26/20 07/26/20 Range/Units 23:16 07:30 07:30 WBC 11.7 H (3.8-10.6) k/uL RBC 3.29 L (3.80-5.40) m/uL Hgb 9.3 L D (11.4-16.0) gm/dL Hct 28.6 L (34.0-46.0) % RDW 17.2 H (11.5-15.5) % Neutrophils # 9.3 H (1.3-7.7) k/uL PT 14.0 H (9.0-12.0) sec INR 1.4 H (<1.2) APTT (22.0-30.0) sec Sodium (137-145) mmol/L BUN (7-17) mg/dL Creatinine (0.52-1.04) mg/dL Glucose (74-99) mg/dL POC Glucose (mg/dL) 138 H (75-99) mg/dL Calcium (8.4-10.2) mg/dL Phosphorus (2.5-4.5) mg/dL Procalcitonin (0.02-0.09) ng/mL 07/26/20 07/26/20 07/26/20 Range/Units 07:30 07:30 07:38 WBC (3.8-10.6) k/uL RBC (3.80-5.40) m/uL Hgb (11.4-16.0) gm/dL Hct (34.0-46.0) % RDW (11.5-15.5) % Neutrophils # (1.3-7.7) k/uL PT (9.0-12.0) sec INR (<1.2) APTT 32.9 H (22.0-30.0) sec Sodium 132 L (137-145) mmol/L BUN 45 H (7-17) mg/dL Creatinine 8.31 H* (0.52-1.04) mg/dL Glucose 147 H (74-99) mg/dL POC Glucose (mg/dL) 151 H (75-99) mg/dL Calcium 7.8 L (8.4-10.2) mg/dL Phosphorus 4.7 H (2.5-4.5) mg/dL Procalcitonin (0.02-0.09) ng/mL 07/26/20 Range/Units 11:02 WBC (3.8-10.6) k/uL RBC (3.80-5.40) m/uL Hgb (11.4-16.0) gm/dL Hct (34.0-46.0) % RDW (11.5-15.5) % Neutrophils # (1.3-7.7) k/uL PT (9.0-12.0) sec INR (<1.2) APTT (22.0-30.0) sec Sodium (137-145) mmol/L BUN (7-17) mg/dL Creatinine (0.52-1.04) mg/dL Glucose (74-99) mg/dL POC Glucose (mg/dL) 137 H (75-99) mg/dL Calcium (8.4-10.2) mg/dL Phosphorus (2.5-4.5) mg/dL Procalcitonin (0.02-0.09) ng/mL Microbiology - Last 24 Hours (Table) 07/24/20 14:59 Blood Culture - Preliminary Blood No Growth after 24 hours 07/24/20 14:59 Blood Culture - Preliminary Blood No Growth after 24 hours
--- NOTE | 2020-07-26 16:16 | PN ---
PROGRESS NOTE Patient is seen for followup for acute kidney injury. She was admitted to the hospital with weakness, shortness of breath with history of some diarrhea. She was found to be COVID-positive. Serum creatinine was at 6.0 mg/dL on admission. The patient has been maintained on IV fluids. Her creatinine has actually worsened and is up to 8.3 today. Patient denies any previous history of kidney diseases. She has not had any urine retention. Her ultrasound was unremarkable. There is no history of use of NSAIDs prior to admission. The patient was maintained on angiotensin receptor blockers. Her blood pressure is currently on the lower side with systolic in the 80s and 90s. Patient is maintained on 2 L nasal cannula. Her O2 sats are about 98%. PHYSICAL EXAMINATION: On examination today, blood pressure 94/43, heart rate 73 per minute. She is afebrile. Examination of lower extremities shows no evidence of edema. Abdomen is soft, obese, nontender. MACHINE PECAN GATHERER exam grossly intact. LABS: Labs show sodium of 132, potassium 3.5, chloride 102, BUN 45, creatinine 8.3, hemoglobin 9.3 g/dL. ASSESSMENT: 1. Acute kidney injury most likely acute tubular necrosis associated with decreased blood pressure, hypoperfusion in the setting of use of angiotensin receptor blockers as well as underlying COVID infection currently nonoliguric. No evidence of retention. Given the significant increase in creatinine, patient will likely need renal replacement therapy. At this time her potassium is within range and she is not severely acidotic. We will continue to monitor on a daily basis for need for dialysis. I will also add midodrine to help with the hypotension. 2. COVID infection with chest x-ray not showing any significant abnormalities on initial admission. 3. Elevated troponins being followed by Cardiology. The patient was maintained on IV heparin. 4. Metabolic acidosis currently maintained on sodium bicarb. PLAN: Continue with the sodium bicarb for now. Consult Vascular Surgery for dialysis catheter placement. However, patient does not need to be dialyzed at this time. She may need a treatment tomorrow since her creatinine has increased significantly. Continue to avoid nephrotoxic agents. Add midodrine to help with the hypotension. Check random cortisol level. MMODL / IJN: [id number] /
[2020-07-26] MEDS ORDERED: SODIUM CHLORIDE 0.9% 500 ML 500 ML IV ONE (16:20)
--- NOTE | 2020-07-26 16:38 | P.GSCN ---
History of Present Illness History of present illness: 74-year-old old white female, I was consulted for placement of dialysis catheter. Patient has history of acute tubular necrosis and also patient has been on Coumadin INR is 1.4 and patient is on a heparin. Her be on is 45 creatinine is 8.3 potassium 3.5 sodium 132 Neck examination neck is supple no bruit appreciated Chest patient has a crackles bilateral pulses second sound normal Abdomen soft nontender Vascular brachial radial 1+ femorals are 1+ and Plan is we will repeat the T INR in the morning and hold the heparin in the morning we will arrange for dialysis catheter placement follow with you thank you Past Medical History Past Medical History: Asthma, Diabetes Mellitus, Hyperlipidemia, Hypertension, Osteoarthritis (OA), Thyroid Disorder History of Any Multi-Drug Resistant Organisms: None Reported Past Surgical History: Orthopedic Surgery Additional Past Surgical History / Comment(s): D&C(hysteroscopy,endometrial polyp removed), LEFT HEEL SPUR, LEFT TRIGGER THUMB, colonoscopy w/bx pt stated was neg. Past Anesthesia/Blood Transfusion Reactions: Motion Sickness, Postoperative Nausea & Vomiting (PONV) Additional Past Anesthesia/Blood Transfusion Reaction / Comm: clausterphobia Past Psychological History: No Psychological Hx Reported Additional Psychological History / Comment(s): pt lives alone, uses cane when up and has glucometer. Smoking Status: Former smoker Past Alcohol Use History: None Reported Additional Past Alcohol Use History / Comment(s): started smoking age 24 sonly smoked for 6 months then quit Past Drug Use History: None Reported - Past Family History Father History Unknown: Yes Additional Family Medical History / Comment(s): pt was adopted family Additional Family Medical History / Comment(s): 2 cousins with history of heart problems. Patient unable to quantify further. Medications and Allergies Home Medications Medication Instructions Recorded Confirmed Type Atorvastatin [Lipitor] 20 mg PO HS 06/02/19 07/24/20 History Candesartan/Hydrochlorothiazid 1 tab PO DAILY 06/02/19 07/24/20 History [Candesartan/Hydrochlorothiazid 32-25 mg] Furosemide [Lasix] 20 mg PO DAILY 06/02/19 07/24/20 History Levothyroxine Sodium [Synthroid] 175 mcg PO DAILY 06/02/19 07/24/20 History Montelukast Sodium [Singulair] 10 mg PO HS 06/02/19 07/24/20 History Warfarin Sodium [Coumadin] 5 mg PO SUMOTUTHFRSA 06/02/19 07/24/20 History amLODIPine [Norvasc] 10 mg PO DAILY 06/02/19 07/24/20 History metFORMIN HCL [Glucophage] 1,000 mg PO BID 06/02/19 07/24/20 History traMADol HCL [Ultram] 50 mg PO TID 06/02/19 07/24/20 History Gabapentin [Neurontin] 300 mg PO TID 07/24/20 07/24/20 History Warfarin [Coumadin] 7.5 mg PO WE 07/24/20 07/24/20 History Allergies Allergy/AdvReac Type Severity Reaction Status Date / Time No Known Allergies Allergy Verified 07/24/20 14:07 Surgical - Exam Vital Signs Temp Pulse Resp BP Pulse Ox 97.9 F 64 20 79/50 91 L 07/24/20 12:57 07/24/20 12:57 07/24/20 12:57 07/24/20 12:57 07/24/20 12:57 Results - Labs 07/26/20 07:30 07/26/20 07:30 Abnormal Lab Results - Last 24 Hours (Table) 07/24/20 07/25/20 07/25/20 Range/Units 13:17 16:48 18:15 WBC (3.8-10.6) k/uL RBC (3.80-5.40) m/uL Hgb (11.4-16.0) gm/dL Hct (34.0-46.0) % RDW (11.5-15.5) % Neutrophils # (1.3-7.7) k/uL PT (9.0-12.0) sec INR (<1.2) APTT 46.9 H (22.0-30.0) sec Sodium (137-145) mmol/L BUN (7-17) mg/dL Creatinine (0.52-1.04) mg/dL Glucose (74-99) mg/dL POC Glucose (mg/dL) 166 H (75-99) mg/dL Calcium (8.4-10.2) mg/dL Phosphorus (2.5-4.5) mg/dL Procalcitonin 0.43 H (0.02-0.09) ng/mL 07/25/20 07/26/20 07/26/20 Range/Units 23:16 07:30 07:30 WBC 11.7 H (3.8-10.6) k/uL RBC 3.29 L (3.80-5.40) m/uL Hgb 9.3 L D (11.4-16.0) gm/dL Hct 28.6 L (34.0-46.0) % RDW 17.2 H (11.5-15.5) % Neutrophils # 9.3 H (1.3-7.7) k/uL PT 14.0 H (9.0-12.0) sec INR 1.4 H (<1.2) APTT (22.0-30.0) sec Sodium (137-145) mmol/L BUN (7-17) mg/dL Creatinine (0.52-1.04) mg/dL Glucose (74-99) mg/dL POC Glucose (mg/dL) 138 H (75-99) mg/dL Calcium (8.4-10.2) mg/dL Phosphorus (2.5-4.5) mg/dL Procalcitonin (0.02-0.09) ng/mL 07/26/20 07/26/20 07/26/20 Range/Units 07:30 07:30 07:38 WBC (3.8-10.6) k/uL RBC (3.80-5.40) m/uL Hgb (11.4-16.0) gm/dL Hct (34.0-46.0) % RDW (11.5-15.5) % Neutrophils # (1.3-7.7) k/uL PT (9.0-12.0) sec INR (<1.2) APTT 32.9 H (22.0-30.0) sec Sodium 132 L (137-145) mmol/L BUN 45 H (7-17) mg/dL Creatinine 8.31 H* (0.52-1.04) mg/dL Glucose 147 H (74-99) mg/dL POC Glucose (mg/dL) 151 H (75-99) mg/dL Calcium 7.8 L (8.4-10.2) mg/dL Phosphorus 4.7 H (2.5-4.5) mg/dL Procalcitonin (0.02-0.09) ng/mL 07/26/20 07/26/20 Range/Units 11:02 15:19 WBC (3.8-10.6) k/uL RBC (3.80-5.40) m/uL Hgb (11.4-16.0) gm/dL Hct (34.0-46.0) % RDW (11.5-15.5) % Neutrophils # (1.3-7.7) k/uL PT (9.0-12.0) sec INR (<1.2) APTT 51.3 H (22.0-30.0) sec Sodium (137-145) mmol/L BUN (7-17) mg/dL Creatinine (0.52-1.04) mg/dL Glucose (74-99) mg/dL POC Glucose (mg/dL) 137 H (75-99) mg/dL Calcium (8.4-10.2) mg/dL Phosphorus (2.5-4.5) mg/dL Procalcitonin (0.02-0.09) ng/mL Microbiology - Last 24 Hours (Table) 07/24/20 14:59 Blood Culture - Preliminary Blood No Growth after 24 hours 07/24/20 14:59 Blood Culture - Preliminary Blood No Growth after 24 hours Diabetes panel 07/26/20 Range/Units 07:30 Sodium 132 L (137-145) mmol/L Potassium 3.5 (3.5-5.1) mmol/L Chloride 102 (98-107) mmol/L Carbon Dioxide 23 (22-30) mmol/L BUN 45 H (7-17) mg/dL Creatinine 8.31 H* (0.52-1.04) mg/dL Glucose 147 H (74-99) mg/dL Calcium 7.8 L (8.4-10.2) mg/dL Calcium panel 07/26/20 Range/Units 07:30 Calcium 7.8 L (8.4-10.2) mg/dL Phosphorus 4.7 H (2.5-4.5) mg/dL Pituitary panel 07/26/20 Range/Units 07:30 Sodium 132 L (137-145) mmol/L Potassium 3.5 (3.5-5.1) mmol/L Chloride 102 (98-107) mmol/L Carbon Dioxide 23 (22-30) mmol/L BUN 45 H (7-17) mg/dL Creatinine 8.31 H* (0.52-1.04) mg/dL Glucose 147 H (74-99) mg/dL Calcium 7.8 L (8.4-10.2) mg/dL Adrenal panel 07/26/20 Range/Units 07:30 Sodium 132 L (137-145) mmol/L Potassium 3.5 (3.5-5.1) mmol/L Chloride 102 (98-107) mmol/L Carbon Dioxide 23 (22-30) mmol/L BUN 45 H (7-17) mg/dL Creatinine 8.31 H* (0.52-1.04) mg/dL Glucose 147 H (74-99) mg/dL Calcium 7.8 L (8.4-10.2) mg/dL
[2020-07-26 16:42] LABS: Glucose,Whole Blood 264 mg/dL (75-99)
[2020-07-26] MEDS ORDERED: WARFARIN 5 MG TAB PO ONE (18:00)
[2020-07-26 20:39] LABS: Glucose,Whole Blood 120 mg/dL (75-99)
[2020-07-26] MEDS: MONTELUKAST 10 MG TAB PO SCH (21:18)
[2020-07-26] MEDS: ATORVASTATIN 20 MG TAB PO SCH (21:18)
[2020-07-27] MEDS: DEXTROSE 5% IN WATER 1,000 ML with SODIUM BICARB (1 MEQ/ML) 150 ML IV SCH ×2 (02:22→10:58)
[2020-07-27] MEDS: LEVOTHYROXINE 88 MCG TAB PO SCH (06:26)
[2020-07-27 06:34] LABS: Glucose,Whole Blood 133 mg/dL (75-99)
[2020-07-27] MEDS: INSULIN ASPART (NovoLOG) 100 UNIT/ML VIAL SQ SCH ×4 (07:49→20:25)
[2020-07-27] MEDS: MIDODRINE 5 MG TAB PO SCH ×3 (07:49→16:52)
[2020-07-27] MEDS: CHOLECALCIFEROL 25 MCG (1000 IU) TABLET PO SCH (07:57)
[2020-07-27] MEDS: ASCORBIC ACID 500 MG TAB PO SCH (07:57)
[2020-07-27] MEDS: ZINC SULFATE 220 MG CAP PO SCH (07:57)
[2020-07-27] MEDS: GABAPENTIN 100 MG CAP PO SCH ×3 (07:57→20:26)
[2020-07-27 10:02] LABS: Calcium 7.8 mg/dL (8.4-10.2); Magnesium 1.6 mg/dL (1.6-2.3); Potassium 3.3 mmol/L (3.5-5.1)
[2020-07-27 10:03] LABS: INR 1.6 (<1.2); Partial Thromboplastin Time 46.4 sec (22.0-30.0); Prothrombin Time 15.9 sec (9.0-12.0)
[2020-07-27 11:24] LABS: Glucose,Whole Blood 131 mg/dL (75-99)
--- NOTE | 2020-07-27 13:46 | P.PN ---
Subjective This is a 74-year-old female with a past medical history significant for diabetes and hypertension and dyslipidemia and paroxysmal atrial fibrillation (on coumadin). She follows in the office with Dr. Bose. . We are on consult for elevated troponin. She was tested positive for COVID-19 infection. She presented mainly because of progressive weakness and fatigue. The symptoms started a few weeks ago. For the last several days she has not been able to keep anything down. She has been experiencing intermittent episodes of diarrhea, nausea and vomiting, feeling dizzy and lightheaded but no presyncope or syncope. No chest pain or chest discomfort. When she presented to the emergency department she was in acute renal failure with a creatinine about 5 and she was dehydrated. She was started on IV fluid with a slight improvement in the creatinine. 09/2019 serum creatinine was 1.1 -Covid-19 positive -Cdiff negative -EKG sinus rhythm with diffuse nonspecific ST and T wave abnormalities. No sign of ischemia clinically or by EKG -Troponin 0.03-->0.035-->0.03--0.04 -D-dimer came in to be elevated but VQ scan came in to be unremarkable for PE -Echocardiogram 07/25/20: EF between 45-50%, basal inferior LV wall motion is hypokinetic, mild MR, mild TR -Previous echocardiogram in the office 05/2019: EF 55%, no regional wall motion abnormalities, mild TR, mild MR. -07/26/19- ultrasound the kidneys- Limited exam due to patient being immobile, unable to visualize bladder, Limited exam without definite hydronephrosis seen. 07/27/20: Patient seen and examined at bedside, no complaints. states her breathing has improved. She is currently rate controlled. BP 100/67, heart rate 50-70s on monitor, afebrile, oxygen saturation is 99% on 2 L nasal cannula. Laboratory data reviewed, sodium 131, potassium 3.3, renal function worsening serum creatinine 8.56, BUN 55, magnesium 1.6 GENERAL: no acute distress. NECK: Supple without JVD or thyromegaly. LUNGS: Breath sounds diminished to auscultation bilaterally. HEART: Regular rate and rhythm without murmurs, rubs or gallops. S1 and S2 heard. EXTREMITIES: Normal range of motion, no edema. No clubbing or cyanosis. Peripheral pulses intact. ASSESSMENT: Covid-19 Acute kidney injury, nephrology is following Decreased EF most likely related to Covid-19 infection Mildly elevated troponin- acute coronary syndrome not likely, most likely related to covid-19 infection and acute renal failure Type 2 Diabetes History Hypertension- currently hypotensive, started on midodrine Dyslipidemia Paroxysmal atrial fibrillation- on coumadin outpatient, currently on heparin drip PLAN: -Nephrology following, Plan for patient to have dialysis catheter today, coumadin and heparin on hold -Covid-19 treatment per primary -Elevated troponin, acute coronary sydrome not likely, patient continues to have no chest pain, no ischemic changes on EKG. Will treat medically -Recommend restarting coumadin for thromboembolic protection for patient's atrial fibrillation when nephrology approves -We will sign off at this time, Please reach out with any further questions or c oncerns -Patient can follow up with Dr. Bose outpatient Objective - Vital Signs Vital signs: Vital Signs Temp 98.3 F 07/27/20 08:00 Pulse 55 L 07/27/20 08:00 Resp 18 07/27/20 08:00 BP 128/72 07/27/20 08:00 Pulse Ox 98 07/27/20 08:00 Intake & Output 07/26/20 07/27/20 07/27/20 18:59 06:59 18:59 Intake Total 74.019 1400 Output Total 50 190 Balance 24.019 1210 Intake: Intake, IV Titration 74.019 1200 Amount Dextrose 5% in Water 1, 1000 000 ml @ 100 mls/hr IV . [id number] JEF with Sodium Bicarb (1 Meq/ml) 150 ml Rx#:[id number] Heparin Sod,Pork in 0.45% 74.019 NaCl 25,000 unit In 0.45 % NaCl 1 250ml.bag @ 9.66 UNITS/KG/HR 9.99 mls/hr IV .Q24H JEF Rx#: [id number] Sodium Chloride 0.9% 500 200 ml 500 ml @ 999 mls/hr IV .Q31M ONE Rx#:[id number] Oral 200 Output: Urine 50 190 - Labs CBC & Chem 7: 07/26/20 07:30 07/27/20 08:53 Labs: Abnormal Lab Results - Last 24 Hours (Table) 07/26/20 07/26/20 07/26/20 Range/Units 15:19 16:40 20:37 PT (9.0-12.0) sec INR (<1.2) APTT 51.3 H (22.0-30.0) sec Sodium (137-145) mmol/L Potassium (3.5-5.1) mmol/L Chloride (98-107) mmol/L BUN (7-17) mg/dL Creatinine (0.52-1.04) mg/dL Glucose (74-99) mg/dL POC Glucose (mg/dL) 264 H 120 H (75-99) mg/dL Calcium (8.4-10.2) mg/dL 07/27/20 07/27/20 07/27/20 Range/Units 06:32 08:53 08:53 PT 15.9 H (9.0-12.0) sec INR 1.6 H (<1.2) APTT 46.4 H (22.0-30.0) sec Sodium 131 L (137-145) mmol/L Potassium 3.3 L (3.5-5.1) mmol/L Chloride 95 L (98-107) mmol/L BUN 55 H (7-17) mg/dL Creatinine 8.56 H* (0.52-1.04) mg/dL Glucose 111 H (74-99) mg/dL POC Glucose (mg/dL) 133 H (75-99) mg/dL Calcium 7.8 L (8.4-10.2) mg/dL 07/27/20 Range/Units 11:17 PT (9.0-12.0) sec INR (<1.2) APTT (22.0-30.0) sec Sodium (137-145) mmol/L Potassium (3.5-5.1) mmol/L Chloride (98-107) mmol/L BUN (7-17) mg/dL Creatinine (0.52-1.04) mg/dL Glucose (74-99) mg/dL POC Glucose (mg/dL) 131 H (75-99) mg/dL Calcium (8.4-10.2) mg/dL Microbiology - Last 24 Hours (Table) 07/24/20 14:59 Blood Culture - Preliminary Blood No Growth after 48 hours 07/24/20 14:59 Blood Culture - Preliminary Blood No Growth after 48 hours
--- NOTE | 2020-07-27 13:57 | P.PN ---
Subjective Progress Note Date: 07/27/20 Patient is doing fairly well today. She is complaining of constipation as she did not have a bowel movement for the past couple of days. She denies any abdominal pain. Minimal urine output. Creatinine is not improving. Plan for dialysis today. Objective - Vital Signs Vital signs: Vital Signs Temp 97.7 F 07/27/20 12:34 Pulse 50 L 07/27/20 12:34 Resp 18 07/27/20 08:00 BP 105/67 07/27/20 12:34 Pulse Ox 99 07/27/20 12:34 Intake & Output 07/26/20 07/27/20 07/27/20 18:59 06:59 18:59 Intake Total 74.019 1400 Output Total 50 190 Balance 24.019 1210 Intake: Intake, IV Titration 74.019 1200 Amount Dextrose 5% in Water 1, 1000 000 ml @ 100 mls/hr IV . [id number] JEF with Sodium Bicarb (1 Meq/ml) 150 ml Rx#:[id number] Heparin Sod,Pork in 0.45% 74.019 NaCl 25,000 unit In 0.45 % NaCl 1 250ml.bag @ 9.66 UNITS/KG/HR 9.99 mls/hr IV .Q24H JEF Rx#: [id number] Sodium Chloride 0.9% 500 200 ml 500 ml @ 999 mls/hr IV .Q31M ONE Rx#:[id number] Oral 200 Output: Urine 50 190 - Exam General: The patient is awake and alert, in no distress Eye: there is normal conjunctiva bilaterally. Neck: The neck is supple, there is no JVD. Cardiovascular: Normal S1-S2, no S3-S4, no murmurs. Respiratory: Lungs clear to auscultation bilaterally Gastrointestinal: Abdomen is soft, nontender Musculoskeletal: There is no pedal edema. Neurological:. Speech is normal. Skin: Skin is warm and dry - Labs CBC & Chem 7: 07/26/20 07:30 07/27/20 08:53 Labs: Abnormal Lab Results - Last 24 Hours (Table) 07/26/20 07/26/20 07/26/20 Range/Units 15:19 16:40 20:37 PT (9.0-12.0) sec INR (<1.2) APTT 51.3 H (22.0-30.0) sec Sodium (137-145) mmol/L Potassium (3.5-5.1) mmol/L Chloride (98-107) mmol/L BUN (7-17) mg/dL Creatinine (0.52-1.04) mg/dL Glucose (74-99) mg/dL POC Glucose (mg/dL) 264 H 120 H (75-99) mg/dL Calcium (8.4-10.2) mg/dL 07/27/20 07/27/20 07/27/20 Range/Units 06:32 08:53 08:53 PT 15.9 H (9.0-12.0) sec INR 1.6 H (<1.2) APTT 46.4 H (22.0-30.0) sec Sodium 131 L (137-145) mmol/L Potassium 3.3 L (3.5-5.1) mmol/L Chloride 95 L (98-107) mmol/L BUN 55 H (7-17) mg/dL Creatinine 8.56 H* (0.52-1.04) mg/dL Glucose 111 H (74-99) mg/dL POC Glucose (mg/dL) 133 H (75-99) mg/dL Calcium 7.8 L (8.4-10.2) mg/dL 07/27/20 Range/Units 11:17 PT (9.0-12.0) sec INR (<1.2) APTT (22.0-30.0) sec Sodium (137-145) mmol/L Potassium (3.5-5.1) mmol/L Chloride (98-107) mmol/L BUN (7-17) mg/dL Creatinine (0.52-1.04) mg/dL Glucose (74-99) mg/dL POC Glucose (mg/dL) 131 H (75-99) mg/dL Calcium (8.4-10.2) mg/dL Microbiology - Last 24 Hours (Table) 07/24/20 14:59 Blood Culture - Preliminary Blood No Growth after 48 hours 07/24/20 14:59 Blood Culture - Preliminary Blood No Growth after 48 hours Assessment and Plan Assessment: 74-year-old female with past medical history noted below that presented to the emergency room with generalized weakness and presyncope. Patient was evaluated in the hospital for further management of her medical problems noted below. 1. Acute kidney injury, oliguric, may be related to dehydration with possible ATN. Plan for dialysis per nephrology. Patient was started on IV fluid hydration with no improvement. Nephrology consulted for further evaluation. Hold nephrotoxic secluding diuretics and ARB. Kidney ultrasound with no evidence of hydronephrosis 2. COVID-19 positive screening test: Patient is asymptomatic. Patient was given monoclonal antibodies in the ER. Continue droplet precautions and vitamins 3. Troponin elevation, most likely non-thrombolytic leak secondary to kidney failure and dehydration. 12-lead EKG showed no acute ischemic changes. Patient denies any chest pain. She was seen and evaluated by cardiology, appreciate recommendation. Echocardiogram showed mildly impaired ejection fraction of 45- 50% 4. Acute metabolic acidosis secondary to #1: Started on bicarb drip as directed by nephrology 5. Elevated d-dimer, VQ scan with low probability for PE 6. Chronic atrial fibrillation on anticoagulation with Coumadin. Subtherapeutic INR. Coumadin dose managed by pharmacy 7. Essential hypertension: Blood pressure borderline low. Continue to hold home medications for now and monitor 8. Chronic medical problems, hypothyroidism, type 2 diabetes Today, I reviewed her medication list and lab work results. Patient is currently on IV heparin. ACS ruled out. INR subtherapeutic. Continue supportive care otherwise. lab work in the morning. PT/OT evaluation. Appreciate system sales consultant's recommendations.
[2020-07-27] MEDS ORDERED: IV FLUID CONTINUATION 1,000 ML IV ONE (14:25)
[2020-07-27] MEDS ORDERED: fentaNYL (PF) 50 MCG/ML 2 ML AMP IVP ONE (14:31)
[2020-07-27] MEDS: LIDOCAINE 1% INJ 10MG/ML (20 ML MDV) SQ ONE ×2 (14:31→14:45)
[2020-07-27] MEDS ORDERED: MIDAZOLAM 2 MG/2 ML VIAL IVP ONE (14:31)
--- NOTE | 2020-07-27 15:51 | XR ---
EXAMINATION TYPE: XR chest 1V portable DATE OF EXAM: 07/27/2020 HISTORY: Hemodialysis placement COMPARISON: 07/24/2020 TECHNIQUE: Single view of the chest is submitted. FINDINGS: Right-sided IJ hemodialysis catheter is noted to be in place with its distal tip overlying the SVC. N o evidence for pneumothorax. Pulmonary venous congestion noted. Cardiomegaly seen. There is no evidence for focal infiltrate. Hilar and mediastinal structures are within normal limits. Degenerative changes are seen of the dorsal spine. IMPRESSION: 1. Right-sided IJ hemodialysis catheter is noted to be in place with its distal tip overlying the SV C. No evidence for pneumothorax.
[2020-07-27 16:23] LABS: Glucose,Whole Blood 136 mg/dL (75-99)
--- NOTE | 2020-07-27 17:35 | PN ---
PROGRESS NOTE Patient is seen for followup for acute kidney injury. The patient is a 74-year-old female. She was admitted to the hospital with complaints of weakness, history of vomiting and diarrhea prior to admission with no previous history of kidney disease. She tested positive for coronavirus. Her creatinine was 6.8 on initial admission and increased to 8 yesterday. Previous creatinine was 1.1 on 09/22/2019. Patient has been voiding. There is no evidence of urine retention. Her blood pressure had been on the lower side on initial admission. Currently it is improved. She is maintained on IV fluids. There is no evidence of obstruction on the ultrasound. Patient is scheduled for hemodialysis today since her serum creatinine continues to worsen and she does have asterixis. PHYSICAL EXAMINATION: On examination today, patient this morning was comfortable, awake, not in any acute distress. Blood pressure 128/72, heart rate 55 per minute. She is afebrile. Examination shows no evidence of edema in bilateral lower extremities. Abdomen is soft, nontender. Asterixis noted. GROUP DIRECTOR exam is otherwise intact. LABS: Sodium 131, potassium 3.3, chloride 95, BUN 55, serum creatinine 8.56. ASSESSMENT: 1. Acute kidney injury, most likely acute tubular necrosis associated with severe hypotension, hypovolemia. No evidence of obstruction. Patient also has underlying COVID-19 infection. She is currently nonoliguric. Urine output seems to have improved. I will continue with the IV fluids. However, given the significant increase in the creatinine and the asterixis, I will proceed with dialysis. Patient will have her first treatment today. She is agreeable. We will plan for another treatment tomorrow as well. 2. Hypovolemia, maintained on IV fluids. 3. Hypokalemia associated with decreased intake and GI loss, status post replacement. 4. COVID-19 infection with chest x-ray not showing any significant abnormalities on initial admission. 5. Elevated troponins, being followed by Cardiology, maintained on IV heparin. 6. Metabolic acidosis associated with acute kidney injury, maintained on IV bicarb. PLAN: Continue with IV bicarb for now. Continue with the midodrine. Hemodialysis today and then again in a.m. Continue to avoid nephrotoxic agents. Monitor respiratory status. MMODL / IJN: [id number] /
[2020-07-27] MEDS: WARFARIN 5 MG TAB PO SCH (18:20)
--- NOTE | 2020-07-27 18:34 | IR ---
Fluoroscopy HISTORY: Renal failure 0.2 minutes fluoroscopy time supplied to the referring clinician. 137 intraoperative C-arm images do cument the procedure. See dictated report from vascular surgery.
[2020-07-27 20:22] LABS: Glucose,Whole Blood 168 mg/dL (75-99)
[2020-07-27] MEDS: ATORVASTATIN 20 MG TAB PO SCH (20:27)
[2020-07-27] MEDS: MONTELUKAST 10 MG TAB PO SCH (20:27)
[2020-07-27] MEDS: polyethylene glycoL 3350 17 GM POWD.PACK PO SCH (21:01)
[2020-07-28] MEDS: DEXTROSE 5% IN WATER 1,000 ML with SODIUM BICARB (1 MEQ/ML) 150 ML IV SCH ×2 (01:24→04:49)
[2020-07-28] MEDS: LEVOTHYROXINE 88 MCG TAB PO SCH (05:25)
[2020-07-28 06:35] LABS: Hepatitis B Surface AB- Quant 3.5 mIU/mL; Hepatitis B Surface Antibody Non-Reactive (Non-Reactive); Hepatitis B Surface Antigen Non-Reactive (Non-Reactive)
[2020-07-28 07:23] LABS: Glucose,Whole Blood 171 mg/dL (75-99)
[2020-07-28] MEDS: ASCORBIC ACID 500 MG TAB PO SCH (07:45)
[2020-07-28] MEDS: CHOLECALCIFEROL 25 MCG (1000 IU) TABLET PO SCH ×2 (07:45→07:46)
[2020-07-28] MEDS: GABAPENTIN 100 MG CAP PO SCH ×3 (07:45→20:32)
[2020-07-28] MEDS: ZINC SULFATE 220 MG CAP PO SCH (07:45)
[2020-07-28] MEDS: INSULIN ASPART (NovoLOG) 100 UNIT/ML VIAL SQ SCH ×4 (07:47→20:26)
[2020-07-28 09:59] LABS: INR 1.9 (<1.2); Prothrombin Time 18.3 sec (9.0-12.0)
[2020-07-28 10:20] LABS: Calcium 7.8 mg/dL (8.4-10.2); Potassium 2.8 mmol/L (3.5-5.1)
[2020-07-28] MEDS: MIDODRINE 5 MG TAB PO SCH ×3 (10:32→17:10)
[2020-07-28 12:03] LABS: Glucose,Whole Blood 164 mg/dL (75-99)
--- NOTE | 2020-07-28 14:18 | P.PN ---
Subjective Progress Note Date: 07/28/20 Principal diagnosis: Viridiana Baker is a 74-year-old female seen in consultation because of acute kidney injury secondary to COVID 19. She is on dialysis started yesterday, and further had dialysis this morning She is feeling much better no fever chills cough no nausea vomiting. Her appetite is good No dizziness. Patient was admitted for somnolence for the last 2-3 weeks prior to admission generalized weakness and decreased intake and dry cough. Although chest x-ray has been normal both on admission and more recently yesterday She didn't make urine output of 15 25 mL yesterday and 550 earlier this morning shift. Objective - Vital Signs Vital signs: Vital Signs Temp 98.6 F 07/28/20 13:54 Pulse 70 07/28/20 13:54 Resp 16 07/28/20 13:54 BP 90/66 07/28/20 13:54 Pulse Ox 96 07/28/20 13:54 Intake & Output 07/27/20 07/28/20 07/28/20 18:59 06:59 18:59 Intake Total 700 400 300 Output Total 425 1100 1850 Balance 275 -700 -1550 Intake: IV 700 Dextrose 5% in Water 1, 600 000 ml @ 100 mls/hr IV . [id number] JEF with Sodium Bicarb (1 Meq/ml) 150 ml Rx#:[id number] Intake, IV Titration 400 Amount IV Fluid Continuation 1, 400 000 ml @ 0 mls/hr IV .STK -MED ONE Rx#:[id number] Hemodialysis 300 Output: Urine 425 1100 550 Hemodialysis 0 1300 Examination she is awake alert oriented comfortable on nasal cannula HEENT exam no JVP neck is supple no facial asymmetry Lungs are clear to auscultation good air entry bilaterally Heart sounds unremarkable for any murmur rub or gallop Abdomen soft nontender somewhat obese Extreme exam was trace edema Neurologically awake alert oriented no evidence of any encephalopathy - Labs CBC & Chem 7: 07/26/20 07:30 07/28/20 09:34 Labs: Abnormal Lab Results - Last 24 Hours (Table) 07/27/20 07/27/20 07/28/20 Range/Units 16:20 20:20 07:19 PT (9.0-12.0) sec INR (<1.2) Sodium (137-145) mmol/L Potassium (3.5-5.1) mmol/L Carbon Dioxide (22-30) mmol/L BUN (7-17) mg/dL Creatinine (0.52-1.04) mg/dL Glucose (74-99) mg/dL POC Glucose (mg/dL) 136 H 168 H 171 H (75-99) mg/dL Calcium (8.4-10.2) mg/dL 07/28/20 07/28/20 07/28/20 Range/Units 09:34 09:34 12:01 PT 18.3 H (9.0-12.0) sec INR 1.9 H (<1.2) Sodium 135 L (137-145) mmol/L Potassium 2.8 L (3.5-5.1) mmol/L Carbon Dioxide 35 H (22-30) mmol/L BUN 28 H (7-17) mg/dL Creatinine 3.49 H (0.52-1.04) mg/dL Glucose 141 H (74-99) mg/dL POC Glucose (mg/dL) 164 H (75-99) mg/dL Calcium 7.8 L (8.4-10.2) mg/dL Microbiology - Last 24 Hours (Table) 07/24/20 14:59 Blood Culture - Preliminary Blood No Growth after 72 hours 07/24/20 14:59 Blood Culture - Preliminary Blood No Growth after 72 hours Assessment and Plan Assessment: Impression 1. Acute kidney injury with ATN requiring dialysis had dialysis twice now yesterday and today is making urine therefore probably recovering 2. Covid positive but normal chest x-ray. 3. History of diabetes. 4 history of asthma 5. Obesity 6. Hypertension Recommendation We will hold off dialysis and reassess tomorrow and on a daily basis regarding need for dialysis. She may be recovering we'll monitor her labs also
--- NOTE | 2020-07-28 15:31 | P.PN ---
Subjective Progress Note Date: 07/28/20 Patient received dialysis this morning. She is doing fairly well. She started making more urine Objective - Vital Signs Vital signs: Vital Signs Temp 98.8 F 07/28/20 14:10 Pulse 67 07/28/20 14:10 Resp 18 07/28/20 14:10 BP 117/53 07/28/20 14:10 Pulse Ox 97 07/28/20 14:10 Intake & Output 07/27/20 07/28/20 07/28/20 18:59 06:59 18:59 Intake Total 700 400 300 Output Total 425 1100 1850 Balance 275 -700 -1550 Intake: IV 700 Dextrose 5% in Water 1, 600 000 ml @ 100 mls/hr IV . [id number] JEF with Sodium Bicarb (1 Meq/ml) 150 ml Rx#:[id number] Intake, IV Titration 400 Amount IV Fluid Continuation 1, 400 000 ml @ 0 mls/hr IV .STK -MED ONE Rx#:[id number] Hemodialysis 300 Output: Urine 425 1100 550 Hemodialysis 0 1300 - Exam General: The patient is awake and alert, in no distress Eye: there is normal conjunctiva bilaterally. Neck: The neck is supple, there is no JVD. Cardiovascular: Normal S1-S2, no S3-S4, no murmurs. Respiratory: Lungs clear to auscultation bilaterally Gastrointestinal: Abdomen is soft, nontender Musculoskeletal: There is no pedal edema. Neurological:. Speech is normal. Skin: Skin is warm and dry - Labs CBC & Chem 7: 07/26/20 07:30 07/28/20 09:34 Labs: Abnormal Lab Results - Last 24 Hours (Table) 07/27/20 07/27/20 07/28/20 Range/Units 16:20 20:20 07:19 PT (9.0-12.0) sec INR (<1.2) Sodium (137-145) mmol/L Potassium (3.5-5.1) mmol/L Carbon Dioxide (22-30) mmol/L BUN (7-17) mg/dL Creatinine (0.52-1.04) mg/dL Glucose (74-99) mg/dL POC Glucose (mg/dL) 136 H 168 H 171 H (75-99) mg/dL Calcium (8.4-10.2) mg/dL 07/28/20 07/28/20 07/28/20 Range/Units 09:34 09:34 12:01 PT 18.3 H (9.0-12.0) sec INR 1.9 H (<1.2) Sodium 135 L (137-145) mmol/L Potassium 2.8 L (3.5-5.1) mmol/L Carbon Dioxide 35 H (22-30) mmol/L BUN 28 H (7-17) mg/dL Creatinine 3.49 H (0.52-1.04) mg/dL Glucose 141 H (74-99) mg/dL POC Glucose (mg/dL) 164 H (75-99) mg/dL Calcium 7.8 L (8.4-10.2) mg/dL Microbiology - Last 24 Hours (Table) 07/24/20 14:59 Blood Culture - Preliminary Blood No Growth after 72 hours 07/24/20 14:59 Blood Culture - Preliminary Blood No Growth after 72 hours Assessment and Plan Assessment: 74-year-old female with past medical history noted below that presented to the emergency room with generalized weakness and presyncope. Patient was evaluated in the hospital for further management of her medical problems noted below. 1. Acute kidney injury, oliguric, requiring initiation of hemodialysis during this admission. may be related to dehydration with possible ATN. Nephrology following closely. Started on midodrine to help with her blood pressure. Hold nephrotoxic secluding diuretics and ARB. Kidney ultrasound with no evidence of hydronephrosis 2. COVID-19 positive screening test: Patient is asymptomatic. Patient was given monoclonal antibodies in the ER. Continue droplet precautions and vitamins 3. Troponin elevation, most likely non-thrombolytic leak secondary to kidney failure and dehydration. 12-lead EKG showed no acute ischemic changes. Patient denies any chest pain. She was seen and evaluated by cardiology, appreciate recommendation. Echocardiogram showed mildly impaired ejection fraction of 45- 50% 4. Acute metabolic acidosis secondary to #1: Started on bicarb drip as directed by nephrology 5. Elevated d-dimer, VQ scan with low probability for PE 6. Chronic atrial fibrillation on anticoagulation with Coumadin. Continue to monitor INR daily 7. Essential hypertension: Blood pressure borderline low. Continue to hold home medications for now and monitor 8. Chronic medical problems, hypothyroidism, type 2 diabetes Today, I reviewed her medication list and lab work results. Awaiting repeat potassium and magnesium level and replace as needed. Patient has dialysis this morning. Continue supportive care otherwise. lab work in the morning. PT/OT evaluation. Appreciate application support consultant's recommendations.
[2020-07-28 15:58] LABS: Magnesium 1.6 mg/dL (1.6-2.3); Potassium 3.5 mmol/L (3.5-5.1)
[2020-07-28 16:38] LABS: Glucose,Whole Blood 308 mg/dL (75-99)
[2020-07-28] MEDS ORDERED: POTASSIUM CHLORIDE ER 20 MEQ TAB.ER PO STA (17:08)
[2020-07-28] MEDS: WARFARIN 5 MG TAB PO SCH (17:10)
[2020-07-28] MEDS: MAGNESIUM SULFATE-D5W PMX 1 GM in DEXTROSE/WATER 1 100ML.BAG IVPB SCH ×2 (17:18→19:45)
[2020-07-28] MEDS: MONTELUKAST 10 MG TAB PO SCH (19:46)
[2020-07-28] MEDS: ATORVASTATIN 20 MG TAB PO SCH (19:46)
[2020-07-28] MEDS: polyethylene glycoL 3350 17 GM POWD.PACK PO SCH (19:46)
[2020-07-28 20:26] LABS: Glucose,Whole Blood 139 mg/dL (75-99)
[2020-07-29] MEDS: LEVOTHYROXINE 88 MCG TAB PO SCH (06:09)
[2020-07-29 07:02] LABS: Glucose,Whole Blood 142 mg/dL (75-99)
[2020-07-29] MEDS: MIDODRINE 5 MG TAB PO SCH ×3 (07:25→17:10)
[2020-07-29] MEDS: INSULIN ASPART (NovoLOG) 100 UNIT/ML VIAL SQ SCH ×4 (07:25→20:58)
[2020-07-29] MEDS: ASCORBIC ACID 500 MG TAB PO SCH (07:25)
[2020-07-29] MEDS: GABAPENTIN 100 MG CAP PO SCH ×3 (07:25→20:57)
[2020-07-29] MEDS: ZINC SULFATE 220 MG CAP PO SCH (07:25)
[2020-07-29 07:54] LABS: Anisocytosis Slight; Basophils % (A) 0 %; Eosinophils # (A) 0.2 k/uL (0-0.7); Eosinophils % (A) 2 %; HGB 9.8 gm/dL (11.4-16.0); Lymphocytes # (A) 1.8 k/uL (1.0-4.8); Lymphocytes % (A) 19 %; MCH 29.4 pg (25.0-35.0); MCHC 33.8 g/dL (31.0-37.0); MCV 87.1 fL (80.0-100.0); Mean Platelet Volume 7.5; Monocytes # (A) 0.8 k/uL (0-1.0); Monocytes % (A) 9 %; Neutrophils # (A) 6.3 k/uL (1.3-7.7); Neutrophils % (A) 67 %; Platelet Count 222 k/uL (150-450); RBC 3.33 m/uL (3.80-5.40); RDW 16.5 % (11.5-15.5); WBC 9.5 k/uL (3.8-10.6)
[2020-07-29 08:04] LABS: African American GFR (CKD) 20 (>60 ml/min/1.73 sqM); Anion Gap 3 mmol/L; Blood Urea Nitrogen 24 mg/dL (7-17); Calcium 8.1 mg/dL (8.4-10.2); Carbon Dioxide 33 mmol/L (22-30); Chloride 100 mmol/L (98-107); Glucose 118 mg/dL (74-99); INR 1.5 (<1.2); Non-African American GFR(CKD) 18 (>60 ml/min/1.73 sqM); Potassium 3.7 mmol/L (3.5-5.1); Prothrombin Time 15.5 sec (9.0-12.0); Sodium 136 mmol/L (137-145)
[2020-07-29] MEDS ORDERED: LACTULOSE 20 GM/30 ML CUP PO ONE (11:33)
--- NOTE | 2020-07-29 11:38 | P.PN ---
Subjective Progress Note Date: 07/29/20 Patient is doing well today. She is having good urine output. She did not have a bowel movement as of yet. She denies abdominal pain and is having good appetite. She is not getting out of bed Objective - Vital Signs Vital signs: Vital Signs Temp 98.5 F 07/29/20 10:00 Pulse 55 L 07/29/20 10:00 Resp 16 07/29/20 10:00 BP 112/58 07/29/20 10:00 Pulse Ox 96 07/29/20 10:00 Intake & Output 07/28/20 07/29/20 07/29/20 18:59 06:59 18:59 Intake Total 300 Output Total 1850 1450 300 Balance -1550 -1450 -300 Intake: Hemodialysis 300 Output: Urine 550 1450 300 Hemodialysis 1300 Other: Voiding Method Indwelling Catheter - Exam General: The patient is awake and alert, in no distress Eye: there is normal conjunctiva bilaterally. Neck: The neck is supple, there is no JVD. Cardiovascular: Normal S1-S2, no S3-S4, no murmurs. Respiratory: Lungs clear to auscultation bilaterally Gastrointestinal: Abdomen is soft, nontender Musculoskeletal: There is no pedal edema. Neurological:. Speech is normal. Skin: Skin is warm and dry - Labs CBC & Chem 7: 07/29/20 07:15 07/29/20 07:15 Labs: Abnormal Lab Results - Last 24 Hours (Table) 07/28/20 07/28/20 07/28/20 Range/Units 12:01 16:33 20:25 RBC (3.80-5.40) m/uL Hgb (11.4-16.0) gm/dL Hct (34.0-46.0) % RDW (11.5-15.5) % PT (9.0-12.0) sec INR (<1.2) Sodium (137-145) mmol/L Carbon Dioxide (22-30) mmol/L BUN (7-17) mg/dL Creatinine (0.52-1.04) mg/dL Glucose (74-99) mg/dL POC Glucose (mg/dL) 164 H 308 H 139 H (75-99) mg/dL Calcium (8.4-10.2) mg/dL 07/29/20 07/29/20 07/29/20 Range/Units 07:01 07:15 07:15 RBC (3.80-5.40) m/uL Hgb (11.4-16.0) gm/dL Hct (34.0-46.0) % RDW (11.5-15.5) % PT 15.5 H (9.0-12.0) sec INR 1.5 H (<1.2) Sodium 136 L (137-145) mmol/L Carbon Dioxide 33 H (22-30) mmol/L BUN 24 H (7-17) mg/dL Creatinine 2.59 H (0.52-1.04) mg/dL Glucose 118 H (74-99) mg/dL POC Glucose (mg/dL) 142 H (75-99) mg/dL Calcium 8.1 L (8.4-10.2) mg/dL 07/29/20 Range/Units 07:15 RBC 3.33 L (3.80-5.40) m/uL Hgb 9.8 L (11.4-16.0) gm/dL Hct 29.0 L (34.0-46.0) % RDW 16.5 H (11.5-15.5) % PT (9.0-12.0) sec INR (<1.2) Sodium (137-145) mmol/L Carbon Dioxide (22-30) mmol/L BUN (7-17) mg/dL Creatinine (0.52-1.04) mg/dL Glucose (74-99) mg/dL POC Glucose (mg/dL) (75-99) mg/dL Calcium (8.4-10.2) mg/dL Microbiology - Last 24 Hours (Table) 07/24/20 14:59 Blood Culture - Preliminary Blood No Growth after 96 hours 07/24/20 14:59 Blood Culture - Preliminary Blood No Growth after 96 hours Assessment and Plan Assessment: 74-year-old female with past medical history noted below that presented to the emergency room with generalized weakness and presyncope. Patient was evaluated in the hospital for further management of her medical problems noted below. 1. Acute kidney injury, oliguric, requiring initiation of hemodialysis during this admission. may be related to dehydration with possible ATN. Nephrology following closely. Started on midodrine to help with her blood pressure. Hold nephrotoxic secluding diuretics and ARB. Kidney ultrasound with no evidence of hydronephrosis 2. COVID-19 positive screening test: Patient is asymptomatic. Patient was given monoclonal antibodies in the ER. Continue droplet precautions and vitamins 3. Troponin elevation, most likely non-thrombolytic leak secondary to kidney failure and dehydration. 12-lead EKG showed no acute ischemic changes. Patient denies any chest pain. She was seen and evaluated by cardiology, appreciate recommendation. Echocardiogram showed mildly impaired ejection fraction of 45- 50% 4. Acute metabolic acidosis secondary to #1: Started on bicarb drip as directed by nephrology 5. Elevated d-dimer, VQ scan with low probability for PE 6. Chronic atrial fibrillation on anticoagulation with Coumadin. Continue to monitor INR daily 7. Essential hypertension: Blood pressure borderline low. Continue to hold home medications for now and monitor 8. Chronic medical problems, hypothyroidism, type 2 diabetes Today, I reviewed her medication list and lab work results. Patient has dialysis this morning. Continue supportive care otherwise. lab work in the morning. PT/OT evaluation. Appreciate fashion consultant sales's recommendations.
[2020-07-29 11:46] LABS: Glucose,Whole Blood 160 mg/dL (75-99)
--- NOTE | 2020-07-29 13:49 | P.PN ---
Subjective Progress Note Date: 07/29/20 Principal diagnosis: Viridiana Baker is a 74-year-old female seen in consultation because of acute kidney injury secondary to COVID 19. She is on dialysis started on 423 and on for 24 yesterday. She is doing very well she is on room air. She is feeling much better no fever chills cough no nausea vomiting. Her appetite is good No dizziness. Patient was admitted for somnolence for the last 2-3 weeks prior to admission generalized weakness and decreased intake and dry cough. Although chest x-ray has been normal both on admission and more recently yesterday Objective - Vital Signs Vital signs: Vital Signs Temp 98.5 F 07/29/20 10:00 Pulse 55 L 07/29/20 10:00 Resp 16 07/29/20 10:00 BP 112/58 07/29/20 10:00 Pulse Ox 96 07/29/20 10:00 Intake & Output 07/28/20 07/29/20 07/29/20 18:59 06:59 18:59 Intake Total 300 Output Total 1850 1450 300 Balance -1550 -1450 -300 Intake: Hemodialysis 300 Output: Urine 550 1450 300 Hemodialysis 1300 Other: Voiding Method Indwelling Catheter Exam general awake alert oriented comfortable HEENT exam no JVP neck is supple no facial asymmetry Lungs clear to auscultation good air entry bilaterally Heart sounds unremarkable for any murmur rub gallop or abdomen soft nontender Extreme exam was no edema Neurologically awake alert oriented comfortable. - Labs CBC & Chem 7: 07/29/20 07:15 07/29/20 07:15 Labs: Abnormal Lab Results - Last 24 Hours (Table) 07/28/20 07/28/20 07/29/20 Range/Units 16:33 20:25 07:01 RBC (3.80-5.40) m/uL Hgb (11.4-16.0) gm/dL Hct (34.0-46.0) % RDW (11.5-15.5) % PT (9.0-12.0) sec INR (<1.2) Sodium (137-145) mmol/L Carbon Dioxide (22-30) mmol/L BUN (7-17) mg/dL Creatinine (0.52-1.04) mg/dL Glucose (74-99) mg/dL POC Glucose (mg/dL) 308 H 139 H 142 H (75-99) mg/dL Calcium (8.4-10.2) mg/dL 07/29/20 07/29/20 07/29/20 Range/Units 07:15 07:15 07:15 RBC 3.33 L (3.80-5.40) m/uL Hgb 9.8 L (11.4-16.0) gm/dL Hct 29.0 L (34.0-46.0) % RDW 16.5 H (11.5-15.5) % PT 15.5 H (9.0-12.0) sec INR 1.5 H (<1.2) Sodium 136 L (137-145) mmol/L Carbon Dioxide 33 H (22-30) mmol/L BUN 24 H (7-17) mg/dL Creatinine 2.59 H (0.52-1.04) mg/dL Glucose 118 H (74-99) mg/dL POC Glucose (mg/dL) (75-99) mg/dL Calcium 8.1 L (8.4-10.2) mg/dL 07/29/20 Range/Units 11:45 RBC (3.80-5.40) m/uL Hgb (11.4-16.0) gm/dL Hct (34.0-46.0) % RDW (11.5-15.5) % PT (9.0-12.0) sec INR (<1.2) Sodium (137-145) mmol/L Carbon Dioxide (22-30) mmol/L BUN (7-17) mg/dL Creatinine (0.52-1.04) mg/dL Glucose (74-99) mg/dL POC Glucose (mg/dL) 160 H (75-99) mg/dL Calcium (8.4-10.2) mg/dL Microbiology - Last 24 Hours (Table) 07/24/20 14:59 Blood Culture - Preliminary Blood No Growth after 96 hours 07/24/20 14:59 Blood Culture - Preliminary Blood No Growth after 96 hours Assessment and Plan Assessment: Impression 1. Acute kidney injury with ATN requiring dialysis had dialysis twice on 423 and 07/28/2020. She is making fair amount of urine and may be able to come off of dialysis 2. Covid positive but normal chest x-ray. 3. History of diabetes. 4 history of asthma 5. Obesity 6. Hypertension Recommendation We will hold off dialysis and reassess tomorrow and on a daily basis regarding need for dialysis. She may be recovering we'll monitor her labs also
[2020-07-29 16:46] LABS: Glucose,Whole Blood 190 mg/dL (75-99)
[2020-07-29] MEDS ORDERED: WARFARIN 7.5 MG TAB PO ONE (18:00)
[2020-07-29 20:28] LABS: Glucose,Whole Blood 178 mg/dL (75-99)
[2020-07-29] MEDS: ATORVASTATIN 20 MG TAB PO SCH (20:57)
[2020-07-29] MEDS: MONTELUKAST 10 MG TAB PO SCH (20:58)
[2020-07-29] MEDS: polyethylene glycoL 3350 17 GM POWD.PACK PO SCH (20:58)
[2020-07-30] MEDS: LEVOTHYROXINE 88 MCG TAB PO SCH (06:22)
[2020-07-30 06:50] LABS: Glucose,Whole Blood 126 mg/dL (75-99)
[2020-07-30] MEDS: INSULIN ASPART (NovoLOG) 100 UNIT/ML VIAL SQ SCH ×4 (07:17→20:32)
[2020-07-30] MEDS: ZINC SULFATE 220 MG CAP PO SCH (07:32)
[2020-07-30] MEDS: ASCORBIC ACID 500 MG TAB PO SCH (07:32)
[2020-07-30] MEDS: MIDODRINE 5 MG TAB PO SCH ×2 (07:32→13:23)
[2020-07-30] MEDS: GABAPENTIN 100 MG CAP PO SCH ×3 (07:32→20:33)
[2020-07-30] MEDS: CHOLECALCIFEROL 25 MCG (1000 IU) TABLET PO SCH (07:33)
[2020-07-30 09:00] LABS: African American GFR (CKD) 30 (>60 ml/min/1.73 sqM); Carbon Dioxide 25 mmol/L (22-30); Non-African American GFR(CKD) 26 (>60 ml/min/1.73 sqM)
[2020-07-30 09:05] LABS: Anion Gap 5 mmol/L; Blood Urea Nitrogen 27 mg/dL (7-17); Calcium 8.2 mg/dL (8.4-10.2); Chloride 105 mmol/L (98-107); Glucose 89 mg/dL (74-99); Sodium 135 mmol/L (137-145)
[2020-07-30 09:09] LABS: INR 1.7 (<1.2); Prothrombin Time 17.2 sec (9.0-12.0)
[2020-07-30 09:11] LABS: Potassium 4.9 mmol/L (3.5-5.1)
[2020-07-30 11:43] LABS: Glucose,Whole Blood 165 mg/dL (75-99)
--- NOTE | 2020-07-30 13:51 | P.PN ---
Subjective Patient is seen in follow-up for acute kidney injury. Last hemodialysis on 07/28/2020. Urine output. Creatinine 1.87 today. Oral intake fair. No vomiting or diarrhea. Vital signs are stable. General: The patient appeared well nourished and normally developed. HEENT: Head exam is unremarkable. Neck is without jugular venous distension. LUNGS: Breath sounds decreased. HEART: Rate and Rhythm are regular. ABDOMEN: Soft, nontender. EXTREMITITES: Trace edema. Objective - Vital Signs Vital signs: Vital Signs Temp 98.3 F 07/30/20 10:00 Pulse 54 L 07/30/20 10:00 Resp 17 07/30/20 10:00 BP 153/61 07/30/20 10:00 Pulse Ox 97 07/30/20 10:00 Intake & Output 07/29/20 07/30/20 07/30/20 18:59 06:59 18:59 Intake Total 354 200 Output Total 500 1200 Balance -146 -1000 Intake: Oral 354 200 Output: Urine 500 1200 Other: Voiding Method Indwelling Catheter Indwelling Catheter Indwelling Catheter - Labs CBC & Chem 7: 07/29/20 07:15 07/30/20 07:30 Labs: Abnormal Lab Results - Last 24 Hours (Table) 07/29/20 07/29/20 07/30/20 Range/Units 16:45 20:27 06:48 PT (9.0-12.0) sec INR (<1.2) Sodium (137-145) mmol/L BUN (7-17) mg/dL Creatinine (0.52-1.04) mg/dL POC Glucose (mg/dL) 190 H 178 H 126 H (75-99) mg/dL Calcium (8.4-10.2) mg/dL 07/30/20 07/30/20 07/30/20 Range/Units 07:30 07:30 11:39 PT 17.2 H (9.0-12.0) sec INR 1.7 H (<1.2) Sodium 135 L (137-145) mmol/L BUN 27 H (7-17) mg/dL Creatinine 1.87 H (0.52-1.04) mg/dL POC Glucose (mg/dL) 165 H (75-99) mg/dL Calcium 8.2 L (8.4-10.2) mg/dL Microbiology - Last 24 Hours (Table) 07/24/20 14:59 Blood Culture - Preliminary Blood No Growth after 120 hours 07/24/20 14:59 Blood Culture - Preliminary Blood No Growth after 120 hours Assessment and Plan Plan: Assessment: 1. Acute kidney injury secondary to ATN secondary to COVID-19 infection. Last hemodialysis 07/28/2020. Creatinine 1.87 today. Baseline creatinine near 1. Nonoliguric. 2. COVID-19 infection. 3. Benign hypertension. 4. Diabetes mellitus. Plan: Hold off on hemodialysis. If renal function continues to improve, will discontinue dialysis catheter tomorrow. Encouraged oral intake. Avoid nephrotoxins. Stop midodrine.
[2020-07-30 16:26] LABS: Glucose,Whole Blood 161 mg/dL (75-99)
--- NOTE | 2020-07-30 17:23 | P.PN ---
Subjective Progress Note Date: 07/30/20 Patient is doing well today. She is having good urine output. She did have a bowel movement this morning. Creatinine is trending down. Objective - Vital Signs Vital signs: Vital Signs Temp 98.5 F 07/30/20 13:52 Pulse 61 07/30/20 13:52 Resp 17 07/30/20 13:52 BP 143/56 07/30/20 13:52 Pulse Ox 98 07/30/20 13:52 Intake & Output 07/29/20 07/30/20 07/30/20 18:59 06:59 18:59 Intake Total 354 200 Output Total 500 1200 850 Balance -146 -1000 -850 Intake: Oral 354 200 Output: Urine 500 1200 850 Other: Voiding Method Indwelling Catheter Indwelling Catheter Indwelling Catheter - Exam General: The patient is awake and alert, in no distress Eye: there is normal conjunctiva bilaterally. Neck: The neck is supple, there is no JVD. Cardiovascular: Normal S1-S2, no S3-S4, no murmurs. Respiratory: Lungs clear to auscultation bilaterally Gastrointestinal: Abdomen is soft, nontender Musculoskeletal: There is no pedal edema. Neurological:. Speech is normal. Skin: Skin is warm and dry - Labs CBC & Chem 7: 07/29/20 07:15 07/30/20 07:30 Labs: Abnormal Lab Results - Last 24 Hours (Table) 07/29/20 07/30/20 07/30/20 Range/Units 20:27 06:48 07:30 PT 17.2 H (9.0-12.0) sec INR 1.7 H (<1.2) Sodium (137-145) mmol/L BUN (7-17) mg/dL Creatinine (0.52-1.04) mg/dL POC Glucose (mg/dL) 178 H 126 H (75-99) mg/dL Calcium (8.4-10.2) mg/dL 07/30/20 07/30/20 07/30/20 Range/Units 07:30 11:39 16:24 PT (9.0-12.0) sec INR (<1.2) Sodium 135 L (137-145) mmol/L BUN 27 H (7-17) mg/dL Creatinine 1.87 H (0.52-1.04) mg/dL POC Glucose (mg/dL) 165 H 161 H (75-99) mg/dL Calcium 8.2 L (8.4-10.2) mg/dL Microbiology - Last 24 Hours (Table) 07/24/20 14:59 Blood Culture - Final Blood No Growth after 144 hours 07/24/20 14:59 Blood Culture - Final Blood No Growth after 144 hours Assessment and Plan Assessment: 74-year-old female with past medical history noted below that presented to the emergency room with generalized weakness and presyncope. Patient was evaluated in the hospital for further management of her medical problems noted below. 1. Acute kidney injury, oliguric, requiring initiation of hemodialysis during this admission. may be related to dehydration with possible ATN. Nephrology following closely. Started on midodrine to help with her blood pressure. Hold nephrotoxic secluding diuretics and ARB. Kidney ultrasound with no evidence of hydronephrosis 2. COVID-19 positive screening test: Patient is asymptomatic. Patient was given monoclonal antibodies in the ER. Continue droplet precautions and vitamins 3. Troponin elevation, most likely non-thrombolytic leak secondary to kidney failure and dehydration. 12-lead EKG showed no acute ischemic changes. Patient denies any chest pain. She was seen and evaluated by cardiology, appreciate recommendation. Echocardiogram showed mildly impaired ejection fraction of 45- 50% 4. Acute metabolic acidosis secondary to #1: Started on bicarb drip as directed by nephrology 5. Elevated d-dimer, VQ scan with low probability for PE 6. Chronic atrial fibrillation on anticoagulation with Coumadin. Continue to monitor INR daily 7. Essential hypertension: Blood pressure borderline low. Continue to hold home medications for now and monitor 8. Chronic medical problems, hypothyroidism, type 2 diabetes Today, I reviewed her medication list and lab work results. Kidney function and urine output improving daily. Dialysis on hold. May discontinue dialysis catheter tomorrow if continued to improve. Discharge planning.
[2020-07-30] MEDS ORDERED: WARFARIN 7.5 MG TAB PO ONE (18:00)
[2020-07-30] MEDS: polyethylene glycoL 3350 17 GM POWD.PACK PO SCH (20:07)
[2020-07-30 20:26] LABS: Glucose,Whole Blood 150 mg/dL (75-99)
[2020-07-30] MEDS: MONTELUKAST 10 MG TAB PO SCH (20:33)
[2020-07-30] MEDS: ATORVASTATIN 20 MG TAB PO SCH (20:33)
[2020-07-31] MEDS: LEVOTHYROXINE 88 MCG TAB PO SCH (06:03)
[2020-07-31 08:19] LABS: Glucose,Whole Blood 142 mg/dL (75-99)
[2020-07-31 08:19] LABS: INR 2.2 (<1.2); Prothrombin Time 21.5 sec (9.0-12.0)
[2020-07-31] MEDS: ASCORBIC ACID 500 MG TAB PO SCH (08:47)
[2020-07-31] MEDS: INSULIN ASPART (NovoLOG) 100 UNIT/ML VIAL SQ SCH ×4 (08:47→20:34)
[2020-07-31] MEDS: ZINC SULFATE 220 MG CAP PO SCH (08:48)
[2020-07-31] MEDS: GABAPENTIN 100 MG CAP PO SCH ×3 (08:48→20:15)
[2020-07-31] MEDS: CHOLECALCIFEROL 25 MCG (1000 IU) TABLET PO SCH (08:48)
[2020-07-31 11:43] LABS: Glucose,Whole Blood 108 mg/dL (75-99)
--- NOTE | 2020-07-31 12:19 | P.PN ---
Subjective Patient is seen in follow-up for acute kidney injury. Last hemodialysis on 07/28/2020. Good urine output. Creatinine 1.87 as of yesterday. Oral intake fair. No vomiting or diarrhea. Vital signs are stable. General: The patient appeared well nourished and normally developed. HEENT: Head exam is unremarkable. Neck is without jugular venous distension. LUNGS: Breath sounds decreased. HEART: Rate and Rhythm are regular. ABDOMEN: Soft, nontender. EXTREMITITES: Trace edema. Objective - Vital Signs Vital signs: Vital Signs Temp 98.8 F 07/31/20 09:55 Pulse 68 07/31/20 09:55 Resp 18 07/31/20 09:55 BP 127/76 07/31/20 09:55 Pulse Ox 96 07/31/20 09:55 Intake & Output 07/30/20 07/31/20 07/31/20 18:59 06:59 18:59 Output Total 850 750 Balance -850 -750 Output: Urine 850 750 Other: Voiding Method Indwelling Catheter Indwelling Catheter Indwelling Catheter - Labs CBC & Chem 7: 07/29/20 07:15 07/30/20 07:30 Labs: Abnormal Lab Results - Last 24 Hours (Table) 07/30/20 07/30/20 07/31/20 Range/Units 16:24 20:25 06:54 PT 21.5 H (9.0-12.0) sec INR 2.2 H (<1.2) POC Glucose (mg/dL) 161 H 150 H (75-99) mg/dL 07/31/20 07/31/20 Range/Units 06:57 11:41 PT (9.0-12.0) sec INR (<1.2) POC Glucose (mg/dL) 142 H 108 H (75-99) mg/dL Microbiology - Last 24 Hours (Table) 07/24/20 14:59 Blood Culture - Final Blood No Growth after 144 hours 07/24/20 14:59 Blood Culture - Final Blood No Growth after 144 hours Assessment and Plan Plan: Assessment: 1. Acute kidney injury secondary to ATN secondary to COVID-19 infection. Last hemodialysis 07/28/2020. Creatinine 1.87 as of yesterday. Baseline creatinine near 1. Nonoliguric. 2. COVID-19 infection. 3. Benign hypertension. Controlled. 4. Diabetes mellitus. Plan: Hold off on hemodialysis. Encouraged oral intake. Avoid nephrotoxins. Follow-up morning labs. If renal function improving, discontinue dialysis catheter.
[2020-07-31 13:34] VITALS: BMI 47.6
[2020-07-31 14:49] LABS: African American GFR (CKD) 40 (>60 ml/min/1.73 sqM); Anion Gap 5 mmol/L; Blood Urea Nitrogen 26 mg/dL (7-17); Calcium 8.1 mg/dL (8.4-10.2); Carbon Dioxide 26 mmol/L (22-30); Chloride 107 mmol/L (98-107); Glucose 177 mg/dL (74-99); Magnesium 1.2 mg/dL (1.6-2.3); Non-African American GFR(CKD) 35 (>60 ml/min/1.73 sqM); Potassium 4.1 mmol/L (3.5-5.1); Sodium 138 mmol/L (137-145)
--- NOTE | 2020-07-31 14:55 | P.PN ---
Subjective Progress Note Date: 07/31/20 Patient is doing well today. She is having good urine output. Creatinine is trending down. Objective - Vital Signs Vital signs: Vital Signs Temp 99 F 07/31/20 13:37 Pulse 69 07/31/20 13:37 Resp 19 07/31/20 13:37 BP 120/78 07/31/20 13:37 Pulse Ox 96 07/31/20 13:37 Intake & Output 07/30/20 07/31/20 07/31/20 18:59 06:59 18:59 Output Total 850 750 Balance -850 -750 Weight 103.419 kg Output: Urine 850 750 Other: Voiding Method Indwelling Catheter Indwelling Catheter Indwelling Catheter - Exam General: The patient is awake and alert, in no distress Eye: there is normal conjunctiva bilaterally. Neck: The neck is supple, there is no JVD. Cardiovascular: Normal S1-S2, no S3-S4, no murmurs. Respiratory: Lungs clear to auscultation bilaterally Gastrointestinal: Abdomen is soft, nontender Musculoskeletal: There is no pedal edema. Neurological:. Speech is normal. Skin: Skin is warm and dry - Labs CBC & Chem 7: 07/29/20 07:15 07/31/20 14:02 Labs: Abnormal Lab Results - Last 24 Hours (Table) 07/30/20 07/30/20 07/31/20 Range/Units 16:24 20:25 06:54 PT 21.5 H (9.0-12.0) sec INR 2.2 H (<1.2) BUN (7-17) mg/dL Creatinine (0.52-1.04) mg/dL Glucose (74-99) mg/dL POC Glucose (mg/dL) 161 H 150 H (75-99) mg/dL Calcium (8.4-10.2) mg/dL Magnesium (1.6-2.3) mg/dL 07/31/20 07/31/20 07/31/20 Range/Units 06:57 11:41 14:02 PT (9.0-12.0) sec INR (<1.2) BUN 26 H (7-17) mg/dL Creatinine 1.49 H (0.52-1.04) mg/dL Glucose 177 H (74-99) mg/dL POC Glucose (mg/dL) 142 H 108 H (75-99) mg/dL Calcium 8.1 L (8.4-10.2) mg/dL Magnesium 1.2 L (1.6-2.3) mg/dL Microbiology - Last 24 Hours (Table) 07/24/20 14:59 Blood Culture - Final Blood No Growth after 144 hours 07/24/20 14:59 Blood Culture - Final Blood No Growth after 144 hours Assessment and Plan Assessment: 74-year-old female with past medical history noted below that presented to the emergency room with generalized weakness and presyncope. Patient was evaluated in the hospital for further management of her medical problems noted below. 1. Acute kidney injury, oliguric, requiring initiation of hemodialysis during this admission. may be related to dehydration with possible ATN. Nephrology following closely. Started on midodrine to help with her blood pressure. Hold nephrotoxic secluding diuretics and ARB. Kidney ultrasound with no evidence of hydronephrosis 2. COVID-19 positive screening test: Patient is asymptomatic. Patient was given monoclonal antibodies in the ER. Continue droplet precautions and vitamins 3. Troponin elevation, most likely non-thrombolytic leak secondary to kidney failure and dehydration. 12-lead EKG showed no acute ischemic changes. Patient denies any chest pain. She was seen and evaluated by cardiology, appreciate recommendation. Echocardiogram showed mildly impaired ejection fraction of 45- 50% 4. Acute metabolic acidosis secondary to #1: Started on bicarb drip as directed by nephrology 5. Elevated d-dimer, VQ scan with low probability for PE 6. Chronic atrial fibrillation on anticoagulation with Coumadin. Continue to monitor INR daily 7. Essential hypertension: Blood pressure borderline low. Continue to hold home medications for now and monitor 8. Chronic medical problems, hypothyroidism, type 2 diabetes Today, I reviewed her medication list and lab work results. Kidney function and urine output improving daily. Dialysis on hold. May discontinue dialysis catheter. Discharge planning.
[2020-07-31] MEDS: MAGNESIUM SULFATE-D5W PMX 1 GM in DEXTROSE/WATER 1 100ML.BAG IVPB SCH ×2 (15:18→17:04)
[2020-07-31 16:39] LABS: Glucose,Whole Blood 156 mg/dL (75-99)
[2020-07-31 17:48] LABS: African American GFR (CKD) 39.6 (60.0-200.0); Anion Gap 8.1 mmol/L (4.00-12.00); BUN/Creat Ratio 16.67 Ratio (12.00-20.00); Calcium 7.8 mg/dL (8.7-10.3); Carbon Dioxide 24.9 mmol/L (21.6-31.8); Magnesium 1.1 mg/dL (1.5-2.4); Non-African American GFR(CKD) 34.2 (60.0-200.0); Potassium 4.5 mmol/L (3.5-5.5)
[2020-07-31] MEDS ORDERED: WARFARIN 5 MG TAB PO ONE (18:00)
[2020-07-31] MEDS: polyethylene glycoL 3350 17 GM POWD.PACK PO SCH (20:14)
[2020-07-31] MEDS: MONTELUKAST 10 MG TAB PO SCH (20:15)
[2020-07-31] MEDS: ATORVASTATIN 20 MG TAB PO SCH (20:15)
[2020-07-31 20:21] LABS: Glucose,Whole Blood 173 mg/dL (75-99)
[2020-08-01] MEDS: LEVOTHYROXINE 88 MCG TAB PO SCH (05:50)
[2020-08-01 07:09] LABS: African American GFR (CKD) 44 (>60 ml/min/1.73 sqM); Anion Gap 4 mmol/L; Blood Urea Nitrogen 24 mg/dL (7-17); Carbon Dioxide 26 mmol/L (22-30); Chloride 108 mmol/L (98-107); Glucose 171 mg/dL (74-99); Magnesium 1.5 mg/dL (1.6-2.3); Non-African American GFR(CKD) 38 (>60 ml/min/1.73 sqM); Sodium 138 mmol/L (137-145)
[2020-08-01 07:12] LABS: Prothrombin Time 19.4 sec (9.0-12.0)
[2020-08-01 07:38] LABS: Glucose,Whole Blood 154 mg/dL (75-99)
[2020-08-01] MEDS ORDERED: MAGNESIUM SULFATE-D5W PMX 1 GM in DEXTROSE/WATER 1 100ML.BAG IVPB SCH (07:45)
[2020-08-01] MEDS: GABAPENTIN 100 MG CAP PO SCH ×2 (08:05→15:55)
[2020-08-01] MEDS: CHOLECALCIFEROL 25 MCG (1000 IU) TABLET PO SCH (08:05)
[2020-08-01] MEDS: INSULIN ASPART (NovoLOG) 100 UNIT/ML VIAL SQ SCH ×3 (08:05→16:52)
[2020-08-01] MEDS: ASCORBIC ACID 500 MG TAB PO SCH (08:05)
[2020-08-01] MEDS: ZINC SULFATE 220 MG CAP PO SCH (08:05)
[2020-08-01] MEDS ORDERED: MAGNESIUM OXIDE 400 MG TAB PO SCH (09:00)
[2020-08-01 10:03] VITALS: RESP 17
[2020-08-01 11:49] LABS: Glucose,Whole Blood 128 mg/dL (75-99)
--- NOTE | 2020-08-01 12:26 | P.PN ---
Subjective Patient is seen in follow-up for acute kidney injury. Last hemodialysis on 07/28/2020. Good urine output. Renal function improving. Creatinine 1.3 today. Oral intake fair. No vomiting or diarrhea. Vital signs are stable. General: The patient appeared well nourished and normally developed. HEENT: Head exam is unremarkable. Neck is without jugular venous distension. LUNGS: Breath sounds decreased. HEART: Rate and Rhythm are regular. ABDOMEN: Soft, nontender. EXTREMITITES: Trace edema. Objective - Vital Signs Vital signs: Vital Signs Temp 98.4 F 08/01/20 10:00 Pulse 76 08/01/20 10:00 Resp 17 08/01/20 10:00 BP 123/60 08/01/20 10:00 Pulse Ox 96 08/01/20 10:00 Intake & Output 07/31/20 08/01/20 08/01/20 18:59 06:59 18:59 Weight 103.419 kg Other: Voiding Method Indwelling Catheter Toilet Diaper # Voids 5 1 2 # Bowel Movements 1 - Labs CBC & Chem 7: 07/29/20 07:15 08/01/20 06:40 Labs: Abnormal Lab Results - Last 24 Hours (Table) 07/31/20 07/31/20 07/31/20 Range/Units 06:54 14:02 16:37 PT (9.0-12.0) sec INR (<1.2) Chloride (98-107) mmol/L BUN 26 H (7-17) mg/dL Creatinine 1.49 H (0.52-1.04) mg/dL Est GFR (CKD-EPI)AfAm 39.6 L (60.0-200.0) Est GFR (CKD-EPI)NonAf 34.2 L (60.0-200.0) Glucose 113 H 177 H (70-110) mg/dL POC Glucose (mg/dL) 156 H (75-99) mg/dL Calcium 7.8 L 8.1 L (8.7-10.3) mg/dL Magnesium 1.1 L 1.2 L (1.5-2.4) mg/dL 07/31/20 08/01/20 08/01/20 Range/Units 20:20 06:40 06:40 PT 19.4 H (9.0-12.0) sec INR 2.0 H (<1.2) Chloride 108 H (98-107) mmol/L BUN 24 H (7-17) mg/dL Creatinine 1.38 H (0.52-1.04) mg/dL Est GFR (CKD-EPI)AfAm (60.0-200.0) Est GFR (CKD-EPI)NonAf (60.0-200.0) Glucose 171 H (70-110) mg/dL POC Glucose (mg/dL) 173 H (75-99) mg/dL Calcium 8.0 L (8.7-10.3) mg/dL Magnesium 1.5 L (1.5-2.4) mg/dL 08/01/20 08/01/20 Range/Units 07:27 11:48 PT (9.0-12.0) sec INR (<1.2) Chloride (98-107) mmol/L BUN (7-17) mg/dL Creatinine (0.52-1.04) mg/dL Est GFR (CKD-EPI)AfAm (60.0-200.0) Est GFR (CKD-EPI)NonAf (60.0-200.0) Glucose (70-110) mg/dL POC Glucose (mg/dL) 154 H 128 H (75-99) mg/dL Calcium (8.7-10.3) mg/dL Magnesium (1.5-2.4) mg/dL Assessment and Plan Plan: Assessment: 1. Acute kidney injury secondary to ATN secondary to COVID-19 infection. Last hemodialysis 07/28/2020. Creatinine 1.87 as of yesterday. Baseline creatinine near 1. Nonoliguric. 2. COVID-19 infection. 3. Benign hypertension. Controlled. 4. Diabetes mellitus.1.38 today. 5. Hypomagnesemia from poor intake. Plan: No further need for renal replacement therapy. Dialysis catheter to be discontinued today. Encouraged oral intake. Avoid nephrotoxins. Add oral magnesium oxide. Repeat BMP and magnesium level to 3 days postdischarge. Follow up outpatient in 1 week.
[2020-08-01 14:08] VITALS: BP 120/66; PULSE 98; TEMP 98.3
--- NOTE | 2020-08-01 14:45 | P.DS ---
Providers Date of admission: 07/24/20 18:39 Expected date of discharge: 08/01/20 Attending physician: Parviz Paris Consults: 07/24/20 17:58 Consult Physician Routine Consulting Provider: [facility] Consult Reason/Comments: elevated trop Do you want consulting provider notified?: Yes 07/25/20 08:04 Consult Physician Routine Consulting Provider: Shreya Arita Consult Reason/Comments: [place] Do you want consulting provider notified?: Yes 07/26/20 08:59 Consult Physician Urgent Consulting Provider: Maans Gutierrez Consult Reason/Comments: Hemodiaylsis catheter Do you want consulting provider notified?: Yes Primary care physician: [facility] Course: Hospital course: Chief Complaint: Weakness and dizziness 74-year-old female with diabetes mellitus, hypertension, hypothyroid, A. fib on Coumadin Patient reports over the past couple weeks she has been feeling progressively weak she had symptoms of decreased smell and taste sensation along with nonproductive cough denies any chest pain or trouble breathing she also been having diarrhea off and on nonbloody no melena. She was also having increased body aches and chills but no fevers. She recalls positive sick contact with Covid patient's one was a coworker who eventually and she also had contact with friends with confirmed Covid. Patient is not vaccinated yet Over the past few days, she's been feeling increasingly dizzy and weak and over the past 3 days she had 3 episodes of near syncope with falls she also noticed decreased urine output. She has not been taking her medications as she spending most of her day sleeping in bed with these falls she denies any loss of consciousness but she recalls a head injury today when she fell and bumped her head she is on a blood thinner on Coumadin however she denies any focal neuro deficits at this time. Otherwise she denies any recent traveling or recent surgeries. She denies any recent use of antibiotics. She currently denies any chest pain or trouble breathing. Admitted with acute kidney injury secondary to ATN secondary to COVID 19 infection. She was hemodialyzed. Last hemodialysis on July 28. Creatinine had climbed up to 8.56 now down to 1.38. Elevated troponin is felt to be from a number dilated mismatch. No acute coronary syndrome. Patient received monoclonal antibodies in the ER. Today: Sitting up in a chair. Oral intake fair. Good urine output. Hemodialysis catheter will be removed. We'll go to rehab. Care was discussed with the patient. Discussion and discharge planning more than 35 minutes Consultation: [facility] Dr. Abran Gutierrez from vascular Investigations: INR 2 potassium 4 bun 24 creatinine 1.38 WBC 9.5 hemoglobin 9.8 platelets 222 2-D echo: EF 45-50%. Moderate concentric LVH. Assessment and Plan 1. Acute kidney injury, oliguric, requiring initiation of hemodialysis during this admission./ ATN. Nephrology following closely. Started on midodrine . Last hemodialysis on July 28. 2. COVID-19 positive screening test: Patient is asymptomatic. Patient was given monoclonal antibodies in the ER. Continue droplet precautions and vitamins 3. Troponin elevation, most likely non-thrombolytic leak secondary to kidney failure and dehydration. 12-lead EKG showed no acute ischemic changes. Patient denies any chest pain. She was seen and evaluated by cardiology, appreciate recommendation. Echocardiogram showed mildly impaired ejection fraction of 45- 50% 4. Acute metabolic acidosis secondary to #1: Started on bicarb drip as directed by nephrology. Improved 5. Elevated d-dimer, VQ scan with low probability for PE 6. Persistent atrial fibrillation on anticoagulation with Coumadin. Continue to monitor INR daily 7. Essential hypertension: Continue current medications 8. Chronic medical problems, hypothyroidism, type 2 diabetes Disposition: ECF/[facility] Plan - Discharge Summary Discharge Rx Participant: No New Discharge Prescriptions: New polyethylene glycoL 3350 [Miralax] 17 gm PO HS powd.pack Cholecalciferol [Vitamin D3 (25 Mcg = 1000 Iu)] 50 mcg PO DAILY tablet Zinc Sulfate [Orazinc] 220 mg PO DAILY cap Acetaminophen Tab [Tylenol] 650 mg PO Q6HR PRN tab PRN Reason: Mild Pain Or Fever > 100.5 Ascorbic Acid [Vitamin C] 1,000 mg PO DAILY tab Continue metFORMIN HCL [Glucophage] 1,000 mg PO BID Montelukast Sodium [Singulair] 10 mg PO HS Atorvastatin [Lipitor] 20 mg PO HS Warfarin Sodium [Coumadin] 5 mg PO SUMOTUTHFRSA Levothyroxine Sodium [Synthroid] 175 mcg PO DAILY Warfarin [Coumadin] 7.5 mg PO WE Changed Gabapentin [Neurontin] 300 mg PO HS #3 Discontinued traMADol HCL [Ultram] 50 mg PO TID Furosemide [Lasix] 20 mg PO DAILY amLODIPine [Norvasc] 10 mg PO DAILY Candesartan/Hydrochlorothiazid [Candesartan/Hydrochlorothiazid 32-25 mg] 1 tab PO DAILY Discharge Medication List Atorvastatin [Lipitor] 20 mg PO HS 06/02/19 [History] Levothyroxine Sodium [Synthroid] 175 mcg PO DAILY 06/02/19 [History] Montelukast Sodium [Singulair] 10 mg PO HS 06/02/19 [History] Warfarin Sodium [Coumadin] 5 mg PO SUMOTUTHFRSA 06/02/19 [History] metFORMIN HCL [Glucophage] 1,000 mg PO BID 06/02/19 [History] Warfarin [Coumadin] 7.5 mg PO WE 07/24/20 [History] Acetaminophen Tab [Tylenol] 650 mg PO Q6HR PRN tab 08/01/20 [Rx] Ascorbic Acid [Vitamin C] 1,000 mg PO DAILY tab 08/01/20 [Rx] Cholecalciferol [Vitamin D3 (25 Mcg = 1000 Iu)] 50 mcg PO DAILY tablet 08/01/20 [Rx] Gabapentin [Neurontin] 300 mg PO HS #3 08/01/20 [Rx] Zinc Sulfate [Orazinc] 220 mg PO DAILY cap 08/01/20 [Rx] polyethylene glycoL 3350 [Miralax] 17 gm PO HS powd.pack 08/01/20 [Rx] Follow up Appointment(s)/Referral(s): Lan Cantu MD [STAFF PHYSICIAN] - 1-2 Days Minh Castro MD [Primary Care Provider] - As Needed
[2020-08-01] MEDS ORDERED: WARFARIN 7.5 MG TAB PO ONE (18:00)
--- NOTE | 2020-08-01 21:58 | PCN ---
PROCEDURE NOTE PROCEDURE: Removal of dialysis catheter, right jugular approach. PROCEDURE DESCRIPTION: The patient was seen. The right side of the neck was prepped and drapes were applied in usual sterile manner. Stitches were removed and dialysis catheter was removed. Pressure dressing was applied. Patient tolerated the procedure. WILIAM / VLADIMIR: [id number] /
--- NOTE | 2020-08-02 14:11 | CDI ---
Documentation Clarification Form Date: 08/02/20 From: Kimmy Steven Phone: Admit Date: 07/24/2020 06:39:00 PM Patient Name: Viridiana Baker Visit Number: [id number] Discharge Date: 08/01/2020 05:29:00 PM ATTENTION: The Clinical Documentation Specialists (CDI) and [facility] Coding Staff appreciate your assistance in clarifying documentation. Please respond to the clarification below the line at the bottom and electronically sign. The CDI & [facility] Coding staff will review the response and follow-up if needed. Please note: Queries are made part of the Legal Health Record. If you have any questions, please contact the author of this message via ITS. Dr. Parviz Paris, The patient presented with the following clinical indicators: lactic acid 5.8, WBC 15.0, Neutrophils 12.0, BP-79/50, R-20, O2 sat 91 & Temp 97.9 with chills. Additional clarification regarding the etiology/cause of the clinical indicators is requested. History/Risk Factors: COVID w diarrhea, ATN, acidosis Clinical Indicators: She was also having increased body aches and chills but no fevers. WBC: 15.0 Lactic acid: 5.8 Blood cultures: no growth Vitals signs: BP-79/50, R-20, O2 sat 91 & Temp 97.9 with chills Treatment: IV Rocephin, IV fluids In your professional opinion, please clarify if these findings signify one of the following conditions: [ ] Sepsis POA [ ] Sepsis, Not POA [ ] Sepsis ruled out [ ] Severe Sepsis with organ failure [ ] Septic Shock [ ] SIRS, without underlying infectious process [ ] Other, please specify [ ] Unable to determine SIRS Criteria: 2 or more of the following may indicate SIRS -Temperature < 96.8F (36C) or > 101.0F (38.3C) -Heart Rate > 90 bpm -Respiratory Rate > 20 breaths/min or PaCO2 < 32 mmHg -White Blood Cell Count > 12,000 or < 4,000 cells/mm3 or > 10% bands _Sepsis ruled out MTDD
--- NOTE | 2020-08-16 10:55 | PCN ---
PROCEDURE NOTE DATE OF SERVICE: 07/27/2020 PREOPERATIVE DIAGNOSIS: Acute on chronic renal failure. POSTOPERATIVE DIAGNOSIS: Acute on chronic renal failure. PROCEDURE PERFORMED: Ultrasound-guided dialysis catheter created right jugular approach. SEDATION TIME: 20 minute. PROCEDURE: This patient brought to the lab head. Right side of the neck and chest was prepped and draped in a sterile manner. 1% lidocaine was infiltrated into the neck area and IV sedation was given. Ultrasound-guided micropuncture into the right jugular vein. Micropuncture guidewire was passed and 4-Latvian dilator advanced on top of the guidewire. After that, we passed a regular guidewire which was parked in the inferior vena cava. Dilator was advanced on the top of the guidewire. A tunnel was created. Through the tunnel we brought the dialysis catheter. Sheath was advanced on the top of the guidewire. Through the sheath we introduced the dialysis catheter. Tip of the catheter was in the superior vena cava at the atrial junction, flushed with heparin saline and hep-locked, secured with 3-0 nylon and Vicryl. Dressing applied. Patient tolerated the procedure well. MMODL / IJN: [id number] /
== END 2020-08-01 17:29 | DRG 177 ==
LOC: EC 12:56 → 4SSUR 18:39 → 1SOBS 07-25 18:18 → 4SSUR 07-28 13:38
PROVIDERS: ADMIT Hospitalist; ATTEND Hospitalist
PROC: XW033F6 Introduction of Bamlanivimab Monoclonal Antibody into Peripheral Vein, Percutaneous Approach, New Technology Group 6 (ICD-10-PCS; principal; 2020-07-24)
PROC: 5A1D70Z Performance of Urinary Filtration, Intermittent, Less than 6 Hours Per Day (ICD-10-PCS; 2020-07-26)
PROC: 02HV33Z Insertion of Infusion Device into Superior Vena Cava, Percutaneous Approach (ICD-10-PCS; 2020-07-27 22:00)
PROC: 05PYX3Z Removal of Infusion Device from Upper Vein, External Approach (ICD-10-PCS; 2020-08-01)
DX: U07.1 COVID-19 (principal); N17.0 Acute kidney failure with tubular necrosis; E87.2 Acidosis; A08.39 Other viral enteritis; I48.19 Other persistent atrial fibrillation; Z68.42 Body mass index [BMI] 45.0-49.9, adult; E11.36 Type 2 diabetes mellitus with diabetic cataract; S09.90XA Unspecified injury of head, initial encounter; I95.9 Hypotension, unspecified; I95.1 Orthostatic hypotension; E66.9 Obesity, unspecified; I10 Essential (primary) hypertension; E86.0 Dehydration; E87.6 Hypokalemia; E86.1 Hypovolemia; E83.42 Hypomagnesemia; K59.00 Constipation, unspecified; E78.5 Hyperlipidemia, unspecified; J45.909 Unspecified asthma, uncomplicated; E03.9 Hypothyroidism, unspecified; R77.8 Other specified abnormalities of plasma proteins; H26.9 Unspecified cataract; R79.1 Abnormal coagulation profile; T45.515A Adverse effect of anticoagulants, initial encounter; T50.916A Underdosing of multiple unspecified drugs, medicaments and biological substances, initial encounter; Z91.128 Patient's intentional underdosing of medication regimen for other reason; M19.90 Unspecified osteoarthritis, unspecified site; Z79.890 Hormone replacement therapy; Z79.01 Long term (current) use of anticoagulants; Z79.84 Long term (current) use of oral hypoglycemic drugs; Z79.891 Long term (current) use of opiate analgesic; Z79.899 Other long term (current) drug therapy; Z87.39 Personal history of other diseases of the musculoskeletal system and connective tissue; Z87.891 Personal history of nicotine dependence; Z87.42 Personal history of other diseases of the female genital tract; Z91.81 History of falling; Z98.890 Other specified postprocedural states; W19.XXXA Unspecified fall, initial encounter; Z82.49 Family history of ischemic heart disease and other diseases of the circulatory system; D72.829 Elevated white blood cell count, unspecified
CPT/HCPCS: 36415; 36558; 70450; 71045; 72125; 76770; 76937; 77001; 78580; 80048; 80053; 81001; 82272; 82533; 82550; 82728; 83605; 83615; 83735; 84100; 84132; 84145; 84484; 85025; 85379; 85610; 85730; 86140; 86706; 87040; 87324; 87340; 87635; 90935; 93005; 93306; 94760; 96361; 96374; 96375; 99285

== ENCOUNTER → 2020-10-10 | Outpatient (CLI) | payer MEDICARE ==
[2020-10-10 12:49] LABS: INR 2.49 (0.90-1.11); Prothrombin Time 25.6 sec (9.9-11.9)
== END | disposition home or self-care (01) ==
LOC: LABWHC1 07:42
PROVIDERS: ATTEND Physical Medicine & Rehabilitation
DX: M48.062 Spinal stenosis, lumbar region with neurogenic claudication (principal); M47.817 Spondylosis without myelopathy or radiculopathy, lumbosacral region; M43.16 Spondylolisthesis, lumbar region; E11.9 Type 2 diabetes mellitus without complications; E78.5 Hyperlipidemia, unspecified; E03.9 Hypothyroidism, unspecified; Z79.01 Long term (current) use of anticoagulants; I10 Essential (primary) hypertension
CPT/HCPCS: 36415; 85610

== ENCOUNTER → 2020-10-15 | Outpatient (CLI) | payer MEDICARE ==
[2020-10-15 19:12] LABS: INR 0.94 (0.90-1.11); Prothrombin Time 10.3 sec (9.9-11.9)
== END | disposition home or self-care (01) ==
LOC: LABWHC1 10:34
PROVIDERS: ATTEND Physical Medicine & Rehabilitation
DX: I10 Essential (primary) hypertension (principal); E11.9 Type 2 diabetes mellitus without complications; E78.5 Hyperlipidemia, unspecified; E03.9 Hypothyroidism, unspecified; M48.062 Spinal stenosis, lumbar region with neurogenic claudication; M43.16 Spondylolisthesis, lumbar region; M47.817 Spondylosis without myelopathy or radiculopathy, lumbosacral region; M25.551 Pain in right hip; Z79.01 Long term (current) use of anticoagulants
CPT/HCPCS: 36415; 85610

== ENCOUNTER → 2020-11-26 | Outpatient (CLI) | payer MEDICARE ==
[2020-11-26 10:33] VITALS: BP 110/64; PULSE 66; RESP 18; TEMP 98.1
--- NOTE | 2020-11-26 10:37 | P.PAINCN ---
History of Present Illness - Reason for Consult Consult date: 11/26/20 - History of Present Illness This is a 74-year-old patient referred by Dr. Eagle. Has a past medical history of DM, atrial fibrillation on coumadin, and CKD after recent COVID19 induced [place]. Pain is located in her low back with radiation into the right lateral thigh and henao and occasional bilateral lower extremity weakness. She walks with a 4 wheeled walker and is only really able to walk for about half a block before she needs to stop and rest. Pain is described as sharp and stabbing mostly constantly aching. There are really no alleviating factors outside of her tramadol and exacerbating factors include physical activity. Currently a 5 out of 10. In terms of management, patient takes Tramadol 50 mg TID. She has been seeing Dr. Caldwell and most recently got a right L5 transforaminal epidural steroid injection in October of this year with 70% relief. She also got radiofrequency ablations bilaterally in December of last year with greater than 80% relief. Patient denies adverse drug effects from medications. Patient also denies new- onset weakness, bowel/bladder incontinence, or any other signs or symptoms of cauda equina syndrome. There are no signs of acute intoxication, and no indications of medication diversion or overuse. In addition to above, 13-point review of systems is also negative for chest pain, shortness of breath, changes in vision, changes in hearing, new onset weakness, abdominal pain, diarrhea, extreme fatigue, malaise, fever, skin changes, homicidal or suicidal ideation, or bowel or bladder incontinence. Physical exam: Vital Signs: Reviewed in EMR GENERAL: Well appearing, in no acute distress PSYCH: Mood and affect is appropriate. Awake, alert, and oriented SKIN: Skin color, texture, turgor normal, no rashes or lesions HEENT: Normocephalic, atraumatic. EOM intact CV: No pedal edema RESP: Respirations are unlabored, no audible wheezing GI: Abdomen non-distended MUSCULOSKELETAL: Bilateral plantarflexion 3/5, right EHL 4/5.. Lumbar muscle atr ophy present Lumbar spine: Straight leg raising in the sitting position is negative for radicular pain. pain to palpation over the lumbar spine and paraspinous muscles. positive for pain with facet loading and back extension/rotation. Limited lumbar extension due to pain Extremities: Peripheral joint ROM is full and pain free without obvious instability or laxity in all four extremities. No edema or skin discolorations noted. Gait: Gait is antalgic, uses walker NEUR: Bilateral upper and lower extremity coordination and muscle stretch reflexes are physiologic and symmetric. Negative clonus. No loss of sensation is noted. Cranial nerves are grossly intact. Imaging: Lumbar MRI [facility], she had an MRI done last year which showed central stenosis which is moderate to severe L3-L4 with contacting of the left L4 nerve root. Also severe canal stenosis with bilateral foraminal narrowing at L4-L5 contacting bilateral L4 nerve roots. Also small moderate emy tral canal and severe foraminal narrowing at L5-S1. Assessment: 1. Lumbar spondylosis 2. Lumbar disc herniation Plan: - We will perform a bilateral L4-L5 and L5-S1 conceivably ablation for her. She is on Coumadin so she will have to hold this for 5 days as well as establish normal INR level. We can repeat L5 transforaminal epidural steroid injections for her in the future. I spent 50 minutes on patient care today. The time was used to review medical records including relevant urine studies and prescription history (MAPs), review of the available imaging, evaluation and examination the patient, coordination of care at the medical staff and if applicable referring physicians, as well as creation of the medical record. Past Medical History Past Medical History: Atrial Fibrillation, Asthma, Diabetes Mellitus, Hyperlipidemia, Hypertension, Osteoarthritis (OA), Thyroid Disorder Additional Past Medical History / Comment(s): HAD COVID VACCINE-MODERNA AUGUST/SEP 2020 History of Any Multi-Drug Resistant Organisms: None Reported Past Surgical History: Orthopedic Surgery Additional Past Surgical History / Comment(s): D&C(hysteroscopy,endometrial polyp removed), LEFT HEEL SPUR, LEFT TRIGGER THUMB, colonoscopy w/bx pt stated was neg., BILAT CATARACTS REMOVED WITH LENS IMPLANTS Past Anesthesia/Blood Transfusion Reactions: Motion Sickness, Postoperative Nausea & Vomiting (PONV) Additional Past Anesthesia/Blood Transfusion Reaction / Comm: claustrophobia Smoking Status: Former smoker - Past Family History Father History Unknown: Yes Additional Family Medical History / Comment(s): pt was adopted family Additional Family Medical History / Comment(s): 2 cousins with history of heart problems. Patient unable to quantify further. Medications and Allergies Home Medications Medication Instructions Recorded Confirmed Type Atorvastatin [Lipitor] 20 mg PO HS 06/02/19 11/21/20 History Levothyroxine Sodium [Synthroid] 175 mcg PO DAILY 06/02/19 11/21/20 History Montelukast Sodium [Singulair] 10 mg PO HS 06/02/19 11/21/20 History Warfarin Sodium [Coumadin] 5 mg PO SUMOTUTHFRSA 06/02/19 11/21/20 History metFORMIN HCL [Glucophage] 1,000 mg PO BID 06/02/19 11/21/20 History Warfarin [Coumadin] 7.5 mg PO WE 07/24/20 11/21/20 History Acetaminophen Tab [Tylenol] 650 mg PO Q6HR PRN tab 08/01/20 11/21/20 Rx Ascorbic Acid [Vitamin C] 1,000 mg PO DAILY tab 08/01/20 11/21/20 Rx Cholecalciferol [Vitamin D3 (25 50 mcg PO DAILY tablet 08/01/20 11/21/20 Rx Mcg = 1000 Iu)] Gabapentin [Neurontin] 300 mg PO HS #3 08/01/20 11/21/20 Rx Zinc Sulfate [Orazinc] 220 mg PO DAILY cap 08/01/20 11/21/20 Rx polyethylene glycoL 3350 [Miralax] 17 gm PO HS powd.pack 08/01/20 11/21/20 Rx Allergies Allergy/AdvReac Type Severity Reaction Status Date / Time No Known Allergies Allergy Verified 11/21/20 11:52 PQRS Measure Charge Sheet PQRS Narrative: Smoking Status Former smoker Pain Intensity [Lower Back] 6 Scale Used Numeric (1 - 10) Hx Alcohol Use (MH) No Home Medications: Ambulatory Orders Atorvastatin [Lipitor] 20 mg PO HS 06/02/19 Levothyroxine Sodium [Synthroid] 175 mcg PO DAILY 06/02/19 Montelukast Sodium [Singulair] 10 mg PO HS 06/02/19 Warfarin Sodium [Coumadin] 5 mg PO SUMOTUTHFRSA 06/02/19 metFORMIN HCL [Glucophage] 1,000 mg PO BID 06/02/19 Warfarin [Coumadin] 7.5 mg PO WE 07/24/20 Acetaminophen Tab [Tylenol] 650 mg PO Q6HR PRN tab 08/01/20 Ascorbic Acid [Vitamin C] 1,000 mg PO DAILY tab 08/01/20 Cholecalciferol [Vitamin D3 (25 Mcg = 1000 Iu)] 50 mcg PO DAILY tablet 08/01/20 Gabapentin [Neurontin] 300 mg PO HS #3 08/01/20 Zinc Sulfate [Orazinc] 220 mg PO DAILY cap 08/01/20 polyethylene glycoL 3350 [Miralax] 17 gm PO HS powd.pack 08/01/20
== END | disposition home or self-care (01) ==
LOC: PNWHC3 10:13
PROVIDERS: ATTEND Anesthesiology
DX: M47.896 Other spondylosis, lumbar region (principal); M51.26 Other intervertebral disc displacement, lumbar region
CPT/HCPCS: 99211

== ENCOUNTER → 2020-12-25 | Outpatient (CLI) | payer MEDICARE ==
--- NOTE | 2020-12-25 13:45 | MM ---
Reason for exam: screening (asymptomatic). Last mammogram was performed 1 year ago. History: Patient is postmenopausal and is nulliparous. Took hormonal contraceptives for 5 years beginning at age 26. Physical Findings: A clinical breast exam by your physician is recommended on an annual basis and results should be correlated with mammographic findings. MG 3D Screening Mammo W/Cad Bilateral CC and MLO view(s) were taken. Prior study comparison: December 22, 2019, bilateral MG 3d screening mammo w/cad. March 29, 2018, bilateral MG screening mammo w CAD. There are scattered fibroglandular densities. There are benign appearing round, linear, vascular calcifications bilaterally. There is no discrete abnormality. ASSESSMENT: Benign, BI-RAD 2 RECOMMENDATION: Routine screening mammogram of both breasts in 1 year.
== END | disposition home or self-care (01) ==
LOC: RADMAMWWP 10:55
PROVIDERS: ATTEND Family Medicine
DX: Z12.31 Encounter for screening mammogram for malignant neoplasm of breast (principal)
CPT/HCPCS: 77063; 77067

== ENCOUNTER 2021-01-04 11:47 | Day surgery (SDC) | payer MEDICARE ==
[2021-01-02 14:06] VITALS: BMI 42.3
[~2021-01-04 11:47] MED LIST changes: -ACETAMINOPHEN TAB 500 MG TAB PO ONE; -GABAPENTIN 300 MG CAP PO ONE; -HYDROmorphone 0.5 MG/0.5 ML SYRINGE IVP PRN; +LACTATED RINGERS 1,000 ML IV SCH; -MELOXICAM 7.5 MG TAB PO ONE; -ONDANSETRON 4 MG/2 ML VIAL IVP ONE; -TRANEXAMIC ACID 1,000 MG in SODIUM CHLORIDE 0.9% 100 ML IVPB ONE
[2021-01-04 12:17] VITALS: TEMP 98.2
[2021-01-04 12:27] LABS: Glucose,Whole Blood 121 mg/dL (75-99)
[2021-01-04 12:49] LABS: INR 1.1 (<1.2); Prothrombin Time 11.6 sec (9.0-12.0)
[2021-01-04] MEDS ORDERED: LACTATED RINGERS 1,000 ML IV ONE (13:00)
[2021-01-04] MEDS ORDERED: MIDAZOLAM 2 MG/2 ML VIAL ONE (13:22)
[2021-01-04] MEDS ORDERED: fentaNYL (PF) 50 MCG/ML 2 ML AMP ONE (13:22)
[2021-01-04] MEDS ORDERED: TRIAMCINOLONE ACETONIDE 40 MG/ML 1 ML VIAL ONE (13:23)
[2021-01-04] MEDS ORDERED: ROPIVACAINE 5MG/ML 20ML VIAL ONE (13:23)
--- NOTE | 2021-01-04 14:03 | P.PCN ---
Date of Procedure: 01/04/21 Procedure(s) Performed: PREOPERATIVE DIAGNOSIS: 1-Lumbar Spondylosis with Facet Arthropathy without myelopathy. 2- Lumber degenerative disc disease. POSTOPERATIVE DIAGNOSIS: 1- Lumbar Spondylosis with Facet Arthropathy without myelopathy. 2- Lumber degenerative disc disease. PROCEDURES : Bilateral Radiofrequency thermocoagulation, L3 , L4 , and L5 medial branch, with fluoroscopic guidance (fluoroscopy images available in the radiology department) ( to denervate the facet joint at Bilateral L4-5 ,and L5-S1 levels ). ANESTHESIA: Monitored anesthesia care . EBL: Minimal PROCEDURE INDICATION: The patient with low back pain secondary to lumbar facet arthropathy who had more than 50% relief of her pain with previous diagnostic lumbar medial branch block with bupivacaine. PROCEDURE DESCRIPTION / TECHNIQUE: The patient was seen and identified in the preoperative area. Risks, benefits, complications, including but not limited to risk of infection ,bleeding , allergic reactions to the medications and no complete pain releife , and alternatives were discussed with the patient, the patient agreed to proceed with the procedure and signed the consent. IV was started. Vital signs remained stable throughout the procedure. Patient was taken to the OR and time out was completed. The patient was placed in the prone position on the procedure table. The lumber area was prepped and draped in the usual sterile fashion. . Vital signs were closely monitored during the procedure .IV sedation was used during the procedure to decrease patients anxiety. Using AP and then oblique fluoroscopy, the ``eye of the Didier dog corresponding to the connection between the superior and transverse articular processes of right L3, L4, and L5 were identified, marked, and localized with 1% lidocaine. Subsequently, a 18 [id number] (VENUM )radiofrequency cannula with a 10-mm active tip was advanced guided by fluoroscopy to each of the``eyes of the Didier dog at right L3, L4, and L5. Each site then underwent sensory testing at 50 Hz and 0 to 1 volt and motor testing at 2.5 Hz and 0 to 3 volt with local stimulation, but no radicular symptoms down the legs. Thereafter each sites underwent radiofrequency thermocoagulation at 80 degrees celsius for 90 seconds after injecting 0.5 ml of PF Ropivacaine 1ml, then after the thermocoagulation done , 1 ml of the block solution containing Kenalog 20 mg and 3 ml of Ropivacaine 0.5% was injected at the right L3 , L4 , and L5 , levels after negative aspiration of CSF and blood and with no paresthesias. Cannulas were retracted while injecting lidocaine 1% until the needle is out. The same procedure was repeated at the level of Left L3, L4, and L5 levels. At the end of the procedure, the skin was cleansed and bandages were applied. COMPLICATIONS: No acute complications. DISPOSITION / PLANS: The patient was placed in a supine position and transferred to the recovery area in a stable condition for observation and was discharged from the recovery room after meeting discharge criteria. Home discharge instructions given to the patient by the staff. The patient was reexamined prior to discharge. The patient will schedule a follow up in the clinic in 2-4 weeks.
[2021-01-04] MEDS ORDERED: FLUID CONTINUATION IV ONE (14:04)
[2021-01-04 14:08] VITALS: RESP 16
[2021-01-04 14:29] VITALS: BP 109/70; PULSE 71
--- NOTE | 2021-01-04 14:32 | FL ---
Fluoroscopy INDICATION: Pain FINDINGS: Fluoroscopy time: 1 minute 19 seconds. Images obtained: 6. IMPRESSIONS: 1. Documentation of fluoroscopy.
[2021-01-04] MEDS ORDERED: ONDANSETRON 4 MG/2 ML VIAL ONE (14:39)
[2021-01-04] MEDS ORDERED: ONDANSETRON 4 MG/2 ML VIAL IVP ONE (14:41)
== END 2021-01-04 15:07 | disposition home or self-care (01) ==
LOC: ORPAIN 11:47
PROVIDERS: ATTEND Specialist
DX: M47.816 Spondylosis without myelopathy or radiculopathy, lumbar region (principal); I48.91 Unspecified atrial fibrillation; E11.9 Type 2 diabetes mellitus without complications; I10 Essential (primary) hypertension; J45.909 Unspecified asthma, uncomplicated
CPT/HCPCS: 85610; 64635; 64636; J2250; J3301; J2405; J3010; J2795

== ENCOUNTER → 2021-01-30 | Outpatient (CLI) | payer MEDICARE ==
[2021-01-30 15:04] VITALS: BP 109/68; PULSE 89; RESP 18; TEMP 98.2
--- NOTE | 2021-01-30 15:42 | P.PN ---
Subjective Progress Note Date: 01/30/21 Principal diagnosis: Lumbar spondylosis with arthropathy without myelopathy Mr. Baker is a 75-year-old male presenting to clinic today for follow-up appointment after his 01/04/2021 lumbar radiofrequency ablation. He had a bilateral radiofrequency ablation at L4 5 and L5-S1. Since that procedure is reported greater than 50% relief in his pain reduction as well as increased activity during the day. When he does have pain he describes a pain in his lower back that is worse with bending over. Pain is relieved with rest today he rates his pain as 2 out of 10 on a 0-to-10 scale. Consider future phase if his pain returns for significant amount. He denies any bowel or bladder dysfunction, saddle anesthesia, oriented red flag symptoms. Objective - Vital Signs Vital signs: Vital Signs Temp 98.2 F 01/30/21 13:15 Pulse 89 01/30/21 13:15 Resp 18 01/30/21 13:15 BP 109/68 01/30/21 13:15 Pulse Ox - Exam Physical Examinations : -Constitutiona : Cooperative , not in acute distress . -HEENT : nech : supple , no Lymphadenopathy , normal thyroid size . : eyes : no ptosis , no icterus, no photophobia . - neurologic : Cranial nerve II to XII intact , no focal neurological deffecit . -psychatric : alert , oriented X 3 , appropriate affect , intact judgment and insight . -Lymphatic : no Lymphadenopathy . - musculoskeltal : moter stegnth lower extremities ,thigh and legs 5/5 Right side , 5/5 Left side deep tendon reflexes : normal Knee Jerk , normal ankle Jerk lumber facet Loading Test =positive Right , positive Left Range of motion of the lumbar spine Flexion 30 degrees, extension 10 degrees strait leg raising test = positive at 40 degree Assessment and Plan Assessment: Assessment: Lumbar spondylosis and arthropathy without myelopathy Plan: Consider repeat bilateral RFA at L4 5 and L5-S1 in the future if his pain returns to significant levels. - PQRS measures = - Patient's medications are documented in the chart. -Tobacco use is negative -Patient's has received pneumococcal vaccine. -Advanced care planning discussed, patient not eligible. -Opiate contract not signed. -Pain positive and follow-up visit/procedure is scheduled. -Patient's blood pressure measured [109/68 ] , and documented in the record ,and patient will follow up with the primary care. -Patient was not identified as an unhealthy alcohol user Time with Patient: Less than 30
== END | disposition home or self-care (01) ==
LOC: PNWHC3 12:10
PROVIDERS: ATTEND Family Medicine
DX: M47.896 Other spondylosis, lumbar region (principal); M46.96 Unspecified inflammatory spondylopathy, lumbar region
CPT/HCPCS: 99211

== ENCOUNTER → 2021-07-24 | Outpatient (CLI) | payer MEDICARE ==
[2021-07-24 21:23] LABS: INR 0.94 (0.90-1.11); Prothrombin Time 10.7 sec (9.9-11.9)
== END | disposition home or self-care (01) ==
LOC: LABWHC1 11:32
PROVIDERS: ATTEND Physical Medicine & Rehabilitation
DX: M43.16 Spondylolisthesis, lumbar region (principal); M47.817 Spondylosis without myelopathy or radiculopathy, lumbosacral region; M48.062 Spinal stenosis, lumbar region with neurogenic claudication; E11.9 Type 2 diabetes mellitus without complications; M25.551 Pain in right hip; I10 Essential (primary) hypertension; E78.5 Hyperlipidemia, unspecified; E03.9 Hypothyroidism, unspecified; Z79.01 Long term (current) use of anticoagulants; Z68.41 Body mass index [BMI] 40.0-44.9, adult
CPT/HCPCS: 36415; 85610

== ENCOUNTER → 2021-10-30 | Outpatient (CLI) | payer MEDICARE ==
[2021-10-30 15:32] LABS: INR 1.08 (0.90-1.11); Prothrombin Time 11.8 sec (9.9-11.9)
== END | disposition home or self-care (01) ==
LOC: LABWHC1 09:23
PROVIDERS: ATTEND Physical Medicine & Rehabilitation
DX: M47.817 Spondylosis without myelopathy or radiculopathy, lumbosacral region (principal); M43.16 Spondylolisthesis, lumbar region; E11.9 Type 2 diabetes mellitus without complications; E78.5 Hyperlipidemia, unspecified; M48.062 Spinal stenosis, lumbar region with neurogenic claudication; E03.9 Hypothyroidism, unspecified
CPT/HCPCS: 36415; 85610

== ENCOUNTER → 2022-03-20 | Outpatient (CLI) | payer MEDICARE ==
--- NOTE | 2022-03-21 09:22 | MM ---
Reason for Exam: Screening (asymptomatic). Last mammogram was performed 1 year(s) and 3 month(s) ago. Patient History: Menarche at age 10. Patient has no children. Postmenopausal. Hormonal Contraceptives, starting at age 26 for 5 years. Risk Values: Allison 5 year model risk: 2.2%. NCI Lifetime model risk: 4.7%. Prior Study Comparison: 03/29/2018 Bilateral Screening Mammogram, [facility]. 12/22/2019 Bilateral Screening Mammogram, [facility]. 12/25/2020 Bilateral Screening Mammogram, [facility]. Tissue Density: There are scattered fibroglandular densities. Findings: Analyzed By CAD. Benign vascular punctate and round calcifications are present bilaterally. No significant interval change is evident No suspicious groups of microcalcifications, spiculated or lobular masses, architectural distortion or other secondary signs of malignancy are mammographically apparent. Overall Assessment: Benign, BI-RAD 2 Management: Screening Mammogram of both breasts in 1 year. A negative mammogram report should not preclude additional follow up of suspicious palpable abnormalities. Patient should continue monthly self breast exam. A clinical breast exam by your physician is recommended on an annual basis and results should be correlated with mammographic findings. Electronically signed and approved by: Matthew He D.O. Radiologis
== END | disposition home or self-care (01) ==
LOC: RADMAMWWP 08:00
PROVIDERS: ATTEND Family Medicine
DX: Z12.31 Encounter for screening mammogram for malignant neoplasm of breast (principal); Z78.0 Asymptomatic menopausal state
CPT/HCPCS: 77063; 77067

== ENCOUNTER 2023-02-24 12:27 | Emergency (ER) | payer MEDICARE ==
[2023-02-24 12:49] LABS: Glucose,Whole Blood 182 mg/dL (70-110)
--- NOTE | 2023-02-24 13:08 | ED ---
General Adult HPI - General Chief complaint: Weakness Stated complaint: WEAKNESS Time Seen by Provider: 02/24/23 12:39 Source: patient, RN notes reviewed Mode of arrival: EMS Limitations: no limitations - History of Present Illness Initial comments: Patient is a pleasant 77-year-old female presenting to the emergency department with concerns with general weakness. Onset of symptoms was yesterday. Patient was unable to get out of her recliner. Patient is still unable to get out of it today without assistance. Patient feels weak all over. No history of similar symptoms previously. Patient was in the recliner all night. Patient amiss to having mild upper respiratory symptoms. No fevers. Mild cough. Patient does not feel short of breath. - Related Data Home Medications Medication Instructions Recorded Confirmed Atorvastatin [Lipitor] 20 mg PO HS 06/02/19 05/16/21 Levothyroxine Sodium [Synthroid] 175 mcg PO DAILY 06/02/19 05/16/21 Montelukast Sodium [Singulair] 10 mg PO HS 06/02/19 05/16/21 Warfarin Sodium [Coumadin] 5 mg PO SUMOTUTHFRSA 06/02/19 05/16/21 metFORMIN HCL [Glucophage] 1,000 mg PO BID 06/02/19 05/16/21 Warfarin [Coumadin] 7.5 mg PO WE 07/24/20 05/16/21 Gabapentin [Neurontin] 300 mg PO BID 01/02/21 05/16/21 Previous Rx's Medication Instructions Recorded Acetaminophen Tab [Tylenol] 650 mg PO Q6HR PRN tab 08/01/20 Ascorbic Acid [Vitamin C] 1,000 mg PO DAILY tab 08/01/20 Cholecalciferol [Vitamin D3 (25 50 mcg PO DAILY tablet 08/01/20 Mcg = 1000 Iu)] Allergies Allergy/AdvReac Type Severity Reaction Status Date / Time No Known Allergies Allergy Verified 02/24/23 12:33 Review of Systems ROS Statement: Those systems with pertinent positive or pertinent negative responses have been documented in the HPI. ROS Other: All systems not noted in ROS Statement are negative. Constitutional: Denies: fever, chills Eyes: Denies: eye pain ENT: Reports: congestion Respiratory: Reports: cough. Denies: dyspnea Cardiovascular: Denies: chest pain Endocrine: Reports: fatigue Gastrointestinal: Denies: abdominal pain Musculoskeletal: Denies: back pain Skin: Denies: rash Neurological: Reports: as per HPI, weakness. Denies: headache, confusion Past Medical History Past Medical History: Atrial Fibrillation, Asthma, Diabetes Mellitus, Hyp erlipidemia, Hypertension, Osteoarthritis (OA), Thyroid Disorder Additional Past Medical History / Comment(s): HAD COVID VACCINE-MODERNA SEP 2020 History of Any Multi-Drug Resistant Organisms: None Reported Past Surgical History: Orthopedic Surgery Additional Past Surgical History / Comment(s): D&C(hysteroscopy,endometrial polyp removed), LEFT HEEL SPUR, LEFT TRIGGER THUMB, colonoscopy w/bx pt stated was neg., BILAT CATARACTS REMOVED WITH LENS IMPLANTS Past Anesthesia/Blood Transfusion Reactions: Motion Sickness, Postoperative Nausea & Vomiting (PONV) Additional Past Anesthesia/Blood Transfusion Reaction / Comment(s): claustrophobia Past Psychological History: No Psychological Hx Reported Smoking Status: Former smoker Past Alcohol Use History: None Reported Past Drug Use History: None Reported - Past Family History Father History Unknown: Yes Additional Family Medical History / Comment(s): Pt was adopted. family Additional Family Medical History / Comment(s): 2 cousins with history of heart problems. Patient unable to quantify further. General Exam Limitations: no limitations General appearance: alert, in no apparent distress Head exam: Present: normocephalic Eye exam: Present: normal appearance ENT exam: Present: normal oropharynx Neck exam: Present: normal inspection. Absent: tenderness, meningismus Respiratory exam: Present: rhonchi Cardiovascular Exam: Present: regular rate, irregular rhythm GI/Abdominal exam: Present: soft. Absent: tenderness Extremities exam: Present: normal inspection. Absent: pedal edema, calf tenderness Neurological exam: Present: alert Psychiatric exam: Present: normal affect, normal mood Skin exam: Present: normal color Course Vital Signs 02/24/23 02/24/23 12:31 14:29 Temperature 98 F Pulse Rate 88 Respiratory 18 Rate Blood Pressure 157/82 O2 Sat by Pulse 86 L 96 Oximetry EKG Findings - EKG Results: EKG: interpreted by ERMD (Superior axis. Precordial Q waves. Inferior Q waves. No acute ST change.) EKG shows: atrial fibrillation Medical Decision Making - Medical Decision Making Was pt. sent in by a medical professional or institution (, PA, UNIT AIDE, urgent care, hospital, or senior living...) When possible be specific @ -No Did you speak to anyone other than the patient for history (EMS, parent, family, police, friend...)? What history was obtained from this source @ -No Did you review nursing and triage notes (agree or disagree)? Why? @ -I reviewed and agree with nursing and triage notes Were old charts reviewed (outside hosp., previous admission, EMS record, old EK G, old radiological studies, urgent care reports/EKG's, senior living records)? Report findings @ -No old charts were reviewed Differential Diagnosis (chest pain, altered mental status, abdominal pain women, abdominal pain men, vaginal bleeding, weakness, fever, dyspnea, syncope, headache, dizziness, GI bleed, back pain, seizure, CVA, palpatations, mental health, musculoskeletal)? @ -Differential Weakness: Hypoglycemia, shock, sepsis, hyponatremia, anemia, infection, NE, ETOH, adverse medicine reaction, overdose, stroke, this is not meant to be an all-inclusive list. EKG interpreted by me (3pts min.). @ -As above X-rays interpreted by me (1pt min.). @ -Chest x-ray shows minimal interstitial changes, nonspecific CT interpreted by me (1pt min.). @ -CT brain without obvious large mass or hemorrhage U/S interpreted by me (1pt. min.). @ -None done What testing was considered but not performed or refused? (CT, X-rays, U/S, labs)? Why? @ -None What meds were considered but not given or refused? Why? @ -Considered antiviral therapy however patient states her symptoms have been actually over a week with upper respiratory cough and therefore patient is not a candidate. Did you discuss the management of the patient with other professionals (professionals i.e. , PA, UNIT AIDE, lab, RT, psych nurse, social service worker, senior enlisted advisor, teacher, crime prevention police officer, correctional casework specialist)? Give summary @ -No Was smoking cessation discussed for >3mins.? @ -No Was critical care preformed (if so, how long)? @ -No Were there social determinants of health that impacted care today? How? (Homelessness, low income, unemployed, alcoholism, drug addiction, transportation, low edu. Level, literacy, decrease access to med. care, long term, rehab)? @ -No Was there de-escalation of care discussed even if they declined (Discuss DNR or withdrawal of care, Hospice)? DNR status @ -No What co-morbidities impacted this encounter? (DM, HTN, Smoking, COPD, CAD, Cancer, CVA, ARF, Chemo, Hep., AIDS, mental health diagnosis, sleep apnea, morbid obesity)? @ -None Was patient admitted / discharged? Hospital course, mention meds given and route, prescriptions, significant lab abnormalities, going to OR and other pertinent info. @ -Patient reevaluated and feeling much better. Repeat pulse ox by myself 98% on room air. Patient is unable to get up and ambulate without difficulty. Althea ron states she is comfortable with discharge home. Patient does normally use a walker at home. Patient is made aware of results. Undiagnosed new problem with uncertain prognosis? @ -No Drug Therapy requiring intensive monitoring for toxicity (Heparin, Nitro, Insulin, Cardizem)? @ -No Were any procedures done? @ -No Diagnosis/symptom? @ -COVID-19 Acute, or Chronic, or Acute on Chronic? @ -Acute Uncomplicated (without systemic symptoms) or Complicated (systemic symptoms)? @ -default Side effects of treatment? @ -No Exacerbation, Progression, or Severe Exacerbation? @ -No Poses a threat to life or bodily function? How? (Chest pain, USA, NE, pneumonia, PE, COPD, DKA, ARF, appy, cholecystitis, CVA, Diverticulitis, Homicidal, Suicidal, threat to staff... and all critical care pts) @ -No - Lab Data Result diagrams: 02/24/23 13:08 02/24/23 13:08 Lab Results 02/24/23 02/24/23 02/24/23 Range/Units 12:48 13:08 13:08 WBC 8.3 (3.8-10.6) k/uL RBC 3.78 L (3.80-5.40) m/uL Hgb 11.4 (11.4-16.0) gm/dL Hct 34.7 (34.0-46.0) % MCV 92.0 (80.0-100.0) fL MCH 30.2 (25.0-35.0) pg MCHC 32.8 (31.0-37.0) g/dL RDW 14.3 (11.5-15.5) % Plt Count 269 (150-450) k/uL MPV 7.8 Neutrophils % 79 % Lymphocytes % 11 % Monocytes % 8 % Eosinophils % 0 % Basophils % 0 % Neutrophils # 6.5 (1.3-7.7) k/uL Lymphocytes # 0.9 L (1.0-4.8) k/uL Monocytes # 0.6 (0-1.0) k/uL Eosinophils # 0.0 (0-0.7) k/uL Basophils # 0.0 (0-0.2) k/uL PT 15.9 H (10.0-12.5) sec INR 1.5 H (<1.2) APTT 28.9 (22.0-30.0) sec Sodium (137-145) mmol/L Potassium (3.5-5.1) mmol/L Chloride (98-107) mmol/L Carbon Dioxide (22-30) mmol/L Anion Gap mmol/L BUN (7-17) mg/dL Creatinine (0.52-1.04) mg/dL Est GFR (CKD-EPI)AfAm (>60 ml/min/1.73 sqM) Est GFR (CKD-EPI)NonAf (>60 ml/min/1.73 sqM) Glucose (74-99) mg/dL POC Glucose (mg/dL) 182 H (70-110) mg/dL POC Glu Page Makeup System Operator ID Dominique Flores Lactic Ac Sepsis Rflx Plasma Lactic Acid Humble (0.7-2.0) mmol/L Calcium (8.4-10.2) mg/dL Magnesium (1.6-2.3) mg/dL Total Bilirubin (0.2-1.3) mg/dL AST (14-36) U/L ALT (4-34) U/L Alkaline Phosphatase (38-126) U/L Creatine Kinase (30-135) U/L Troponin I (0.000-0.034) ng/mL NT-Pro-B Natriuret Pep pg/mL Total Protein (6.3-8.2) g/dL Albumin (3.5-5.0) g/dL TSH (0.465-4.680) mIU/L Free T4 (0.78-2.19) ng/dL Free T3 pg/mL (2.8-5.3) pg/ml Urine Color Urine Appearance (Clear) Urine pH (5.0-8.0) Ur Specific [place] (1.001-1.035) Urine Protein (Negative) Urine Glucose (UA) (Negative) Urine Ketones (Negative) Urine Blood (Negative) Urine Nitrite (Negative) Urine Bilirubin (Negative) Urine Urobilinogen (<2.0) mg/dL Ur Leukocyte Esterase (Negative) Urine RBC (0-5) /hpf Urine WBC (0-5) /hpf Ur Squamous Epith Cells (0-4) /hpf Urine Mucus (None) /hpf Influenza Type A (PCR) (Not Detectd) Influenza Type B (PCR) (Not Detectd) RSV (PCR) (Not Detectd) SARS-CoV-2 (PCR) (Not Detectd) 02/24/23 02/24/23 02/24/23 Range/Units 13:08 13:08 13:08 WBC (3.8-10.6) k/uL RBC (3.80-5.40) m/uL Hgb (11.4-16.0) gm/dL Hct (34.0-46.0) % MCV (80.0-100.0) fL MCH (25.0-35.0) pg MCHC (31.0-37.0) g/dL RDW (11.5-15.5) % Plt Count (150-450) k/uL MPV Neutrophils % % Lymphocytes % % Monocytes % % Eosinophils % % Basophils % % Neutrophils # (1.3-7.7) k/uL Lymphocytes # (1.0-4.8) k/uL Monocytes # (0-1.0) k/uL Eosinophils # (0-0.7) k/uL Basophils # (0-0.2) k/uL PT (10.0-12.5) sec INR (<1.2) APTT (22.0-30.0) sec Sodium 139 (137-145) mmol/L Potassium 4.3 (3.5-5.1) mmol/L Chloride 103 (98-107) mmol/L Carbon Dioxide 22 (22-30) mmol/L Anion Gap 14 mmol/L BUN 32 H (7-17) mg/dL Creatinine 1.15 H (0.52-1.04) mg/dL Est GFR (CKD-EPI)AfAm 54 (>60 ml/min/1.73 sqM) Est GFR (CKD-EPI)NonAf 46 (>60 ml/min/1.73 sqM) Glucose 175 H (74-99) mg/dL POC Glucose (mg/dL) (70-110) mg/dL POC Glu Page Makeup System Operator ID Lactic Ac Sepsis Rflx Plasma Lactic Acid Humble 2.1 H* (0.7-2.0) mmol/L Calcium 9.5 (8.4-10.2) mg/dL Magnesium 2.0 (1.6-2.3) mg/dL Total Bilirubin 0.7 (0.2-1.3) mg/dL AST 36 (14-36) U/L ALT 23 (4-34) U/L Alkaline Phosphatase 128 H (38-126) U/L Creatine Kinase 464 H (30-135) U/L Troponin I 0.026 (0.000-0.034) ng/mL NT-Pro-B Natriuret Pep 999 pg/mL Total Protein 6.9 (6.3-8.2) g/dL Albumin 4.0 (3.5-5.0) g/dL TSH 4.660 (0.465-4.680) mIU/L Free T4 1.59 (0.78-2.19) ng/dL Free T3 pg/mL 1.9 L (2.8-5.3) pg/ml Urine Color Urine Appearance (Clear) Urine pH (5.0-8.0) Ur Specific [place] (1.001-1.035) Urine Protein (Negative) Urine Glucose (UA) (Negative) Urine Ketones (Negative) Urine Blood (Negative) Urine Nitrite (Negative) Urine Bilirubin (Negative) Urine Urobilinogen (<2.0) mg/dL Ur Leukocyte Esterase (Negative) Urine RBC (0-5) /hpf Urine WBC (0-5) /hpf Ur Squamous Epith Cells (0-4) /hpf Urine Mucus (None) /hpf Influenza Type A (PCR) (Not Detectd) Influenza Type B (PCR) (Not Detectd) RSV (PCR) (Not Detectd) SARS-CoV-2 (PCR) (Not Detectd) 02/24/23 02/24/23 02/24/23 Range/Units 13:08 13:38 15:17 WBC (3.8-10.6) k/uL RBC (3.80-5.40) m/uL Hgb (11.4-16.0) gm/dL Hct (34.0-46.0) % MCV (80.0-100.0) fL MCH (25.0-35.0) pg MCHC (31.0-37.0) g/dL RDW (11.5-15.5) % Plt Count (150-450) k/uL MPV Neutrophils % % Lymphocytes % % Monocytes % % Eosinophils % % Basophils % % Neutrophils # (1.3-7.7) k/uL Lymphocytes # (1.0-4.8) k/uL Monocytes # (0-1.0) k/uL Eosinophils # (0-0.7) k/uL Basophils # (0-0.2) k/uL PT (10.0-12.5) sec INR (<1.2) APTT (22.0-30.0) sec Sodium (137-145) mmol/L Potassium (3.5-5.1) mmol/L Chloride (98-107) mmol/L Carbon Dioxide (22-30) mmol/L Anion Gap mmol/L BUN (7-17) mg/dL Creatinine (0.52-1.04) mg/dL Est GFR (CKD-EPI)AfAm (>60 ml/min/1.73 sqM) Est GFR (CKD-EPI)NonAf (>60 ml/min/1.73 sqM) Glucose (74-99) mg/dL POC Glucose (mg/dL) (70-110) mg/dL POC Glu Page Makeup System Operator ID Lactic Ac Sepsis Rflx Y Plasma Lactic Acid Humble (0.7-2.0) mmol/L Calcium (8.4-10.2) mg/dL Magnesium (1.6-2.3) mg/dL Total Bilirubin (0.2-1.3) mg/dL AST (14-36) U/L ALT (4-34) U/L Alkaline Phosphatase (38-126) U/L Creatine Kinase (30-135) U/L Troponin I (0.000-0.034) ng/mL NT-Pro-B Natriuret Pep pg/mL Total Protein (6.3-8.2) g/dL Albumin (3.5-5.0) g/dL TSH (0.465-4.680) mIU/L Free T4 (0.78-2.19) ng/dL Free T3 pg/mL (2.8-5.3) pg/ml Urine Color Light Yellow Urine Appearance Clear (Clear) Urine pH 6.0 (5.0-8.0) Ur Specific [place] 1.019 (1.001-1.035) Urine Protein 1+ H (Negative) Urine Glucose (UA) Negative (Negative) Urine Ketones Trace H (Negative) Urine Blood Small H (Negative) Urine Nitrite Negative (Negative) Urine Bilirubin Negative (Negative) Urine Urobilinogen <2.0 (<2.0) mg/dL Ur Leukocyte Esterase Moderate H (Negative) Urine RBC 10 H (0-5) /hpf Urine WBC 24 H (0-5) /hpf Ur Squamous Epith Cells 2 (0-4) /hpf Urine Mucus Rare H (None) /hpf Influenza Type A (PCR) Not Detected (Not Detectd) Influenza Type B (PCR) Not Detected (Not Detectd) RSV (PCR) Not Detected (Not Detectd) SARS-CoV-2 (PCR) Detected A (Not Detectd) Disposition Clinical Impression: COVID-19 Disposition: HOME SELF-CARE Condition: Stable Instructions (If sedation given, give patient instructions): COVID-19 (Coronavirus Disease 2019) (ED) Additional Instructions: Please do follow-up with your primary care physician in the next couple days for recheck. [id number] vitamin C, vitamin D, and zinc. Return for increased weakness, difficulty breathing, worsening or changing symptoms or any other concerns. [id number] Tylenol as needed. Is patient prescribed a controlled substance at d/c from ED?: No Referrals: Minh Castro MD [Primary Care Provider] - 1-2 days Time of Disposition: 16:35
[2023-02-24 13:19] LABS: Basophils % (A) 0 %; Eosinophils % (A) 0 %; HCT 34.7 % (34.0-46.0); HGB 11.4 gm/dL (11.4-16.0); Lymphocytes # (A) 0.9 k/uL (1.0-4.8); Lymphocytes % (A) 11 %; MCH 30.2 pg (25.0-35.0); MCHC 32.8 g/dL (31.0-37.0); Mean Platelet Volume 7.8; Monocytes # (A) 0.6 k/uL (0-1.0); Monocytes % (A) 8 %; Neutrophils # (A) 6.5 k/uL (1.3-7.7); Neutrophils % (A) 79 %; Platelet Count 269 k/uL (150-450); RBC 3.78 m/uL (3.80-5.40); RDW 14.3 % (11.5-15.5); WBC 8.3 k/uL (3.8-10.6)
[2023-02-24 13:37] LABS: INR 1.5 (<1.2); Partial Thromboplastin Time 28.9 sec (22.0-30.0); Prothrombin Time 15.9 sec (10.0-12.5)
[2023-02-24 13:38] LABS: ALT 23 U/L (4-34); AST 36 U/L (14-36); African American GFR (CKD) 54 (>60 ml/min/1.73 sqM); Alkaline Phosphatase 128 U/L (38-126); Anion Gap 14 mmol/L; Blood Urea Nitrogen 32 mg/dL (7-17); Calcium 9.5 mg/dL (8.4-10.2); Carbon Dioxide 22 mmol/L (22-30); Chloride 103 mmol/L (98-107); Creatine Kinase 464 U/L (30-135); Glucose 175 mg/dL (74-99); Non-African American GFR(CKD) 46 (>60 ml/min/1.73 sqM); Potassium 4.3 mmol/L (3.5-5.1); Sodium 139 mmol/L (137-145); Total Bilirubin 0.7 mg/dL (0.2-1.3); Total Protein 6.9 g/dL (6.3-8.2)
--- NOTE | 2023-02-24 13:42 | XR ---
EXAMINATION TYPE: XR chest 2V DATE OF EXAM: 02/24/2023 COMPARISON: 07/27/2020 HISTORY: 77-year-old female with weakness TECHNIQUE: AP and lateral views FINDINGS: Heart borderline in size. Interstitial prominence may be technical due to magnification from large nirmal dy habitus. No consolidation or pleural effusion. IMPRESSION: Borderline heart size. Interstitial prominence which may be technical due to body habitus and AP tech nique. No focal infiltrate or pulmonary edema seen.
[2023-02-24 13:45] LABS: NT-Pro-B-Type Natriuretic Pept 999 pg/mL
[2023-02-24 13:54] LABS: T4, Free (Free Thyroxine) 1.59 ng/dL (0.78-2.19)
--- NOTE | 2023-02-24 14:06 | CT ---
EXAMINATION TYPE: CT brain wo con DATE OF EXAM: 02/24/2023 COMPARISON: 07/24/2020 HISTORY: 77-year-old female Weakness TECHNIQUE: Examination was done in axial plane without intravenous contrast. Coronal and sagittal r econstructions performed. CT DLP: 1148.4 mGycm Automated exposure control for dose reduction was used. FINDINGS: There is no evidence of acute intracranial hemorrhage, acute ischemic changes, mass, mass-effect, or extra-axial fluid collection. There is no effacement of cerebral sulci or basal subarachnoid cister ns. Mild ventricular prominence likely due to central cerebral atrophy remains unchanged. Moderate co nfluent periventricular white matter hypodensities in both cerebral hemispheres. Benign basal ganglio piotr calcifications. There is no midline shift. Kennedy-white matter distinction is preserved. Paranasal sinuses and mastoid air cells well pneumatized. Orbits and globes are intact. IMPRESSION: Unchanged mild cerebral atrophy and moderate burden of chronic small vessel ischemic disease. No acut e intracranial abnormality seen.
[2023-02-24 15:38] LABS: Appearance,Urine Clear (Clear); Bilirubin,Urine Negative (Negative); Blood,Urine Small (Negative); Color,Urine Light Yellow; Glucose,Urine (UA) Negative (Negative); Ketones,Urine Trace (Negative); Leukocyte Esterase,Urine Moderate (Negative); Mucus,Urine Rare /hpf; Nitrite,Urine Negative (Negative); Protein,Urine 1+ (Negative); RBC,Urine 10 /hpf (0-5); Specific Gravity,Urine 1.019 (1.001-1.035); Squamous Epithelial Cell,Urine 2 /hpf (0-4); Urobilinogen,Urine <2.0 mg/dL (<2.0); WBC,Urine 24 /hpf (0-5)
[2023-02-24] MEDS ORDERED: SODIUM CHLORIDE 0.9% 1,000 ML IV STA (16:04)
[2023-02-24] MEDS ORDERED: ACETAMINOPHEN TAB 500 MG TAB PO STA (16:32)
[2023-02-24 18:19] VITALS: BP 118/68; PULSE 91; RESP 22; TEMP 98.3
== END 2023-02-24 17:56 | disposition home or self-care (01) ==
LOC: EC 12:27
DX: U07.1 COVID-19 (principal); E78.5 Hyperlipidemia, unspecified; I10 Essential (primary) hypertension; I48.91 Unspecified atrial fibrillation; J45.909 Unspecified asthma, uncomplicated; E07.9 Disorder of thyroid, unspecified; Z87.891 Personal history of nicotine dependence; Z79.84 Long term (current) use of oral hypoglycemic drugs; Z79.890 Hormone replacement therapy; Z79.02 Long term (current) use of antithrombotics/antiplatelets
CPT/HCPCS: 36415; 70450; 71046; 80053; 81001; 82550; 83605; 83735; 83880; 84439; 84443; 84481; 84484; 85025; 85610; 85730; 87636; 93005; 96360; 99285

== ENCOUNTER 2023-06-03 12:45 | Observation (INO) | payer MEDICARE ==
--- NOTE | 2023-06-03 14:06 | ED ---
Weakness HPI - General Chief complaint: Weakness Stated complaint: weakness Time Seen by Provider: 06/03/23 12:52 Source: EMS, RN notes reviewed, old records reviewed Mode of arrival: EMS Limitations: altered mental status, physical limitation - History of Present Illness Initial comments: This is a 77-year-old female to the ER for evaluation of severe weakness. Patient comes from home with inability to get out of bed states this is an ongoing issue for this person. Patient has had this issue for some time and symptoms are progressive, today she was unable to get out of bed secondary to severe weakness and believes that she is having difficulty accomplishing any activities of daily living. Patient has no injuries no other complaints no travel history or sick contacts no fever cough or congestion. MD Complaint: generalized weakness, focal weakness, lack of energy, difficulty walking -: unknown Location: generalized Severity: severe Consistency: constant Improves with: none Worsens with: none Context: recent illness, history of similar Associated Symptoms: denies other symptoms - Related Data Home Medications Medication Instructions Recorded Confirmed Atorvastatin [Lipitor] 20 mg PO HS 06/02/19 06/03/23 Montelukast Sodium [Singulair] 10 mg PO HS 06/02/19 06/03/23 Warfarin Sodium [Coumadin] 2.5 mg PO MOWEFR@209906/02/19 06/03/23 Warfarin [Coumadin] 5 mg PO SUTUTHSA@209907/24/20 06/03/23 Gabapentin [Neurontin] 600 mg PO DAILY 01/02/21 06/03/23 Furosemide [Lasix] 40 mg PO MOTUWETHFRSA 06/03/23 06/03/23 Levothyroxine Sodium [Synthroid] 150 mcg PO DAILY 06/03/23 06/03/23 Losartan [Cozaar] 25 mg PO DAILY 06/03/23 06/03/23 Magnesium Oxide [Mag-Ox] 400 mg PO HS 06/03/23 06/03/23 allopurinoL 100 mg PO HS 06/03/23 06/03/23 metFORMIN HCL [Glucophage] 500 mg PO BID 06/03/23 06/03/23 Previous Rx's Medication Instructions Recorded Gabapentin [Neurontin] 300 mg PO HS #3 cap 06/08/23 Gabapentin [Neurontin] 600 mg PO DAILY #3 cap 06/08/23 Allergies Allergy/AdvReac Type Severity Reaction Status Date / Time lisinopril AdvReac Cough Verified 06/03/23 14:52 Review of Systems ROS Statement: Those systems with pertinent positive or pertinent negative responses have been documented in the HPI. ROS Other: All systems not noted in ROS Statement are negative. Past Medical History Past Medical History: Atrial Fibrillation, Asthma, Diabetes Mellitus, Hyperlipidemia, Hypertension, Osteoarthritis (OA), Thyroid Disorder Additional Past Medical History / Comment(s): HAD COVID VACCINE-MODERNA SEP 2020 History of Any Multi-Drug Resistant Organisms: None Reported Past Surgical History: Orthopedic Surgery Additional Past Surgical History / Comment(s): D&C(hysteroscopy,endometrial polyp removed), LEFT HEEL SPUR, LEFT TRIGGER THUMB, colonoscopy w/bx pt stated was neg., BILAT CATARACTS REMOVED WITH LENS IMPLANTS Past Anesthesia/Blood Transfusion Reactions: Motion Sickness, Postoperative Nausea & Vomiting (PONV) Additional Past Anesthesia/Blood Transfusion Reaction / Comment(s): claustrophobia Past Psychological History: No Psychological Hx Reported Smoking Status: Former smoker Past Alcohol Use History: None Reported Past Drug Use History: None Reported - Past Family History Father History Unknown: Yes Additional Family Medical History / Comment(s): Pt was adopted. family Additional Family Medical History / Comment(s): 2 cousins with history of heart problems. Patient unable to quantify further. General Exam Limitations: altered mental status, physical limitation General appearance: alert, in no apparent distress Head exam: Present: atraumatic, normocephalic, normal inspection Eye exam: Present: normal appearance, PERRL, EOMI. Absent: scleral icterus, conjunctival injection, periorbital swelling ENT exam: Present: normal exam, mucous membranes moist Neck exam: Present: normal inspection. Absent: tenderness, meningismus, ly mphadenopathy Respiratory exam: Present: normal lung sounds bilaterally. Absent: respiratory distress, wheezes, rales, rhonchi, stridor Cardiovascular Exam: Present: regular rate, normal rhythm, normal heart sounds. Absent: systolic murmur, diastolic murmur, rubs, gallop, clicks GI/Abdominal exam: Present: soft, normal bowel sounds. Absent: distended, tenderness, guarding, rebound, rigid Extremities exam: Present: normal inspection, full ROM, normal capillary refill. Absent: tenderness, pedal edema, joint swelling, calf tenderness Back exam: Present: normal inspection Neurological exam: Present: alert, oriented X3, CN II-XII intact Psychiatric exam: Present: normal affect, normal mood Skin exam: Present: warm, dry, intact, normal color. Absent: rash Course Vital Signs 06/03/23 06/03/23 06/03/23 12:52 20:00 20:40 Temperature 98.2 F 98.7 F Pulse Rate 76 Pulse Rate [ 81 Pulse Oximetery ] Respiratory 18 18 15 Rate Blood Pressure 131/66 Blood Pressure 151/82 [Left Arm] O2 Sat by Pulse 95 94 L Oximetry - Reevaluation(s) Reevaluation #1: 06/03/23 14:05 Medical records reviewed Reevaluation #2: 06/03/23 14:05 Patient symptoms unchanged Reevaluation #3: 06/03/23 18:02 Patient informed of results and questions answered Reevaluation #4: Was pt. sent in by a medical professional or institution (, PA, AXLE INSPECTOR, urgent care, hospital, or assisted...) When possible be specific @ -no Did you speak to anyone other than the patient for history (EMS, parent, family, police, friend...)? What history was obtained from this source @ -no Did you review nursing and triage notes (agree or disagree)? Why? @ -agree Are old charts reviewed (outside hosp., previous admission, EMS record, old EKG, old radiological studies, urgent care reports/EKG's, assisted records)? Report findings @ -yes Differential Diagnosis (chest pain, altered mental status, abdominal pain women, abdominal pain men, vaginal bleeding, weakness, fever, dyspnea, syncope, headache, dizziness, GI bleed, back pain, seizure, CVA, palpatations, mental health, musculoskeletal)? @ -prior EKG interpreted by me (3pts min.). @ -yes X-rays interpreted by me (1pt min.). @ -yes negative for acute disease CT interpreted by me (1pt min.). @ -Yes negative for acute disease U/S interpreted by me (1pt. min.). @ -no What testing was considered but not performed or refused? (CT, X-rays, U/S, lab s)? Why? @ -none What meds were considered but not given or refused? Why? @ -none Did you discuss the management of the patient with other professionals (professionals i.e. , PA, AXLE INSPECTOR, lab, RT, psych nurse, social worker psychiatric, case managers, teacher, banking services officer, pillowcase folder)? Give summary @ -no Was smoking cessation discussed for >3mins.? @ -no Was critical care preformed (if so, how long)? @ -no Were there social determinants of health that impacted care today? How? (Homelessness, low income, unemployed, alcoholism, drug addiction, transportation, low edu. Level, literacy, decrease access to med. care, fdc, rehab)? @ -none Was there de-escalation of care discussed even if they declined (Discuss DNR or withdrawal of care, Hospice)? DNR status @ -no What co-morbidities impacted this encounter? (DM, HTN, Smoking, COPD, CAD, Cancer, CVA, ARF, Chemo, Hep., AIDS, mental health diagnosis, sleep apnea, morbid obesity)? @ -none Was patient admitted / discharged? Hospital course, mention meds given and route, prescriptions, significant lab abnormalities, going to OR and other pertinent info. @ - 77 female will be admitted for significant debility. Unable to ambulate or take care of herself at home unable to get out of bed without lift assist Admitted Undiagnosed new problem with uncertain prognosis? @ -no Drug Therapy requiring intensive monitoring for toxicity (Heparin, Nitro, In sulin, Cardizem)? @ -no Were any procedures done? @ -no Diagnosis/symptom? @ -Debility weakness failure to thrive Acute, or Chronic, or Acute on Chronic? @ -Acute Uncomplicated (without systemic symptoms) or Complicated (systemic symptoms)? @ -Complicated Side effects of treatment? @ -no Exacerbation, Progression, or Severe Exacerbation? @ -exacerbation Poses a threat to life or bodily function? How? (Chest pain, USA, ME, pneumonia, PE, COPD, DKA, ARF, appy, cholecystitis, CVA, Diverticulitis, Homicidal, Suicidal, threat to staff... and all critical care pts) @ -yes significant extremes of age Reevaluation #5: Differential Weakness: Hypoglycemia, shock, sepsis, hyponatremia, anemia, infection, ME, ETOH, adverse medicine reaction, overdose, stroke, this is not meant to be an all-inclusive list. - Consultations Consultation #1: Spoke with hiral who agrees to admit this patient EKG Findings - EKG Comments: EKG Findings:: EKG A-fib 80 QRS 91 QTc 412 Medical Decision Making - Medical Decision Making 77 female will be admitted for significant debility. Unable to ambulate or take care of herself at home unable to get out of bed without lift assist - Lab Data Result diagrams: 06/04/23 06:18 06/04/23 06:18 Lab Results 06/03/23 06/03/23 06/03/23 Range/Units 13:07 14:03 14:03 WBC 12.3 H (3.8-10.6) k/uL RBC 3.31 L (3.80-5.40) m/uL Hgb 10.2 L (11.4-16.0) gm/dL Hct 30.9 L (34.0-46.0) % MCV 93.2 (80.0-100.0) fL MCH 30.7 (25.0-35.0) pg MCHC 32.9 (31.0-37.0) g/dL RDW 15.3 (11.5-15.5) % Plt Count 240 (150-450) k/uL MPV 8.1 Neutrophils % 76 % Lymphocytes % 16 % Monocytes % 6 % Eosinophils % 1 % Basophils % 1 % Neutrophils # 9.3 H (1.3-7.7) k/uL Lymphocytes # 1.9 (1.0-4.8) k/uL Monocytes # 0.7 (0-1.0) k/uL Eosinophils # 0.1 (0-0.7) k/uL Basophils # 0.1 (0-0.2) k/uL PT 26.7 H (10.0-12.5) sec INR 2.7 H (<1.2) APTT 46.3 H (22.0-30.0) sec Sodium (137-145) mmol/L Potassium (3.5-5.1) mmol/L Chloride (98-107) mmol/L Carbon Dioxide (22-30) mmol/L Anion Gap mmol/L BUN (7-17) mg/dL Creatinine (0.52-1.04) mg/dL Est GFR (CKD-EPI)AfAm (>60 ml/min/1.73 sqM) Est GFR (CKD-EPI)NonAf (>60 ml/min/1.73 sqM) Glucose (74-99) mg/dL Plasma Lactic Acid Humble (0.7-2.0) mmol/L Calcium (8.4-10.2) mg/dL Phosphorus (2.5-4.5) mg/dL Magnesium (1.6-2.3) mg/dL Total Bilirubin (0.2-1.3) mg/dL AST (14-36) U/L ALT (4-34) U/L Alkaline Phosphatase (38-126) U/L Troponin I (0.000-0.034) ng/mL NT-Pro-B Natriuret Pep pg/mL Total Protein (6.3-8.2) g/dL Albumin (3.5-5.0) g/dL TSH (0.465-4.680) mIU/L Free T4 (0.78-2.19) ng/dL Urine Color Colorless Urine Appearance Cloudy H (Clear) Urine pH 8.0 (5.0-8.0) Ur Specific [place] 1.016 (1.001-1.035) Urine Protein Negative (Negative) Urine Glucose (UA) Negative (Negative) Urine Ketones Negative (Negative) Urine Blood Negative (Negative) Urine Nitrite Negative (Negative) Urine Bilirubin Negative (Negative) Urine Urobilinogen <2.0 (<2.0) mg/dL Ur Leukocyte Esterase Negative (Negative) Urine RBC 2 (0-5) /hpf Urine WBC 3 (0-5) /hpf Ur Squamous Epith Cells 20 H (0-4) /hpf Urine Bacteria Rare H (None) /hpf 06/03/23 06/03/23 06/03/23 Range/Units 14:03 14:03 14:03 WBC (3.8-10.6) k/uL RBC (3.80-5.40) m/uL Hgb (11.4-16.0) gm/dL Hct (34.0-46.0) % MCV (80.0-100.0) fL MCH (25.0-35.0) pg MCHC (31.0-37.0) g/dL RDW (11.5-15.5) % Plt Count (150-450) k/uL MPV Neutrophils % % Lymphocytes % % Monocytes % % Eosinophils % % Basophils % % Neutrophils # (1.3-7.7) k/uL Lymphocytes # (1.0-4.8) k/uL Monocytes # (0-1.0) k/uL Eosinophils # (0-0.7) k/uL Basophils # (0-0.2) k/uL PT (10.0-12.5) sec INR (<1.2) APTT (22.0-30.0) sec Sodium 142 (137-145) mmol/L Potassium 4.4 (3.5-5.1) mmol/L Chloride 109 H (98-107) mmol/L Carbon Dioxide 29 (22-30) mmol/L Anion Gap 4 mmol/L BUN 35 H (7-17) mg/dL Creatinine 1.14 H (0.52-1.04) mg/dL Est GFR (CKD-EPI)AfAm 54 (>60 ml/min/1.73 sqM) Est GFR (CKD-EPI)NonAf 47 (>60 ml/min/1.73 sqM) Glucose 138 H (74-99) mg/dL Plasma Lactic Acid Humble 1.1 (0.7-2.0) mmol/L Calcium 9.4 (8.4-10.2) mg/dL Phosphorus 3.8 (2.5-4.5) mg/dL Magnesium 2.1 (1.6-2.3) mg/dL Total Bilirubin 0.7 (0.2-1.3) mg/dL AST 26 (14-36) U/L ALT 31 (4-34) U/L Alkaline Phosphatase 137 H (38-126) U/L Troponin I <0.012 (0.000-0.034) ng/mL NT-Pro-B Natriuret Pep 3600 pg/mL Total Protein 6.4 (6.3-8.2) g/dL Albumin 3.4 L (3.5-5.0) g/dL TSH 9.570 H (0.465-4.680) mIU/L Free T4 (0.78-2.19) ng/dL Urine Color Urine Appearance (Clear) Urine pH (5.0-8.0) Ur Specific [place] (1.001-1.035) Urine Protein (Negative) Urine Glucose (UA) (Negative) Urine Ketones (Negative) Urine Blood (Negative) Urine Nitrite (Negative) Urine Bilirubin (Negative) Urine Urobilinogen (<2.0) mg/dL Ur Leukocyte Esterase (Negative) Urine RBC (0-5) /hpf Urine WBC (0-5) /hpf Ur Squamous Epith Cells (0-4) /hpf Urine Bacteria (None) /hpf 06/03/23 Range/Units 14:03 WBC (3.8-10.6) k/uL RBC (3.80-5.40) m/uL Hgb (11.4-16.0) gm/dL Hct (34.0-46.0) % MCV (80.0-100.0) fL MCH (25.0-35.0) pg MCHC (31.0-37.0) g/dL RDW (11.5-15.5) % Plt Count (150-450) k/uL MPV Neutrophils % % Lymphocytes % % Monocytes % % Eosinophils % % Basophils % % Neutrophils # (1.3-7.7) k/uL Lymphocytes # (1.0-4.8) k/uL Monocytes # (0-1.0) k/uL Eosinophils # (0-0.7) k/uL Basophils # (0-0.2) k/uL PT (10.0-12.5) sec INR (<1.2) APTT (22.0-30.0) sec Sodium (137-145) mmol/L Potassium (3.5-5.1) mmol/L Chloride (98-107) mmol/L Carbon Dioxide (22-30) mmol/L Anion Gap mmol/L BUN (7-17) mg/dL Creatinine (0.52-1.04) mg/dL Est GFR (CKD-EPI)AfAm (>60 ml/min/1.73 sqM) Est GFR (CKD-EPI)NonAf (>60 ml/min/1.73 sqM) Glucose (74-99) mg/dL Plasma Lactic Acid Humble (0.7-2.0) mmol/L Calcium (8.4-10.2) mg/dL Phosphorus (2.5-4.5) mg/dL Magnesium (1.6-2.3) mg/dL Total Bilirubin (0.2-1.3) mg/dL AST (14-36) U/L ALT (4-34) U/L Alkaline Phosphatase (38-126) U/L Troponin I (0.000-0.034) ng/mL NT-Pro-B Natriuret Pep pg/mL Total Protein (6.3-8.2) g/dL Albumin (3.5-5.0) g/dL TSH (0.465-4.680) mIU/L Free T4 1.51 (0.78-2.19) ng/dL Urine Color Urine Appearance (Clear) Urine pH (5.0-8.0) Ur Specific [place] (1.001-1.035) Urine Protein (Negative) Urine Glucose (UA) (Negative) Urine Ketones (Negative) Urine Blood (Negative) Urine Nitrite (Negative) Urine Bilirubin (Negative) Urine Urobilinogen (<2.0) mg/dL Ur Leukocyte Esterase (Negative) Urine RBC (0-5) /hpf Urine WBC (0-5) /hpf Ur Squamous Epith Cells (0-4) /hpf Urine Bacteria (None) /hpf - EKG Data -: EKG Interpreted by Mo - Radiology Data Radiology results: report reviewed (CT brain and chest and pelvis x-ray are negative for acute disease), image reviewed Disposition Clinical Impression: Acute renal failure, Dehydration, Weakness, Debility Disposition: ADMITTED IP TO THIS [facility] Condition: Stable Is patient prescribed a controlled substance at d/c from ED?: No Time of Disposition: 16:00
[2023-06-03 14:17] LABS: Basophils # (A) 0.1 k/uL (0-0.2); Basophils % (A) 1 %; Eosinophils # (A) 0.1 k/uL (0-0.7); Eosinophils % (A) 1 %; HCT 30.9 % (34.0-46.0); HGB 10.2 gm/dL (11.4-16.0); Lymphocytes # (A) 1.9 k/uL (1.0-4.8); Lymphocytes % (A) 16 %; MCH 30.7 pg (25.0-35.0); MCHC 32.9 g/dL (31.0-37.0); MCV 93.2 fL (80.0-100.0); Mean Platelet Volume 8.1; Monocytes # (A) 0.7 k/uL (0-1.0); Monocytes % (A) 6 %; Neutrophils # (A) 9.3 k/uL (1.3-7.7); Neutrophils % (A) 76 %; Platelet Count 240 k/uL (150-450); RBC 3.31 m/uL (3.80-5.40); RDW 15.3 % (11.5-15.5); WBC 12.3 k/uL (3.8-10.6)
[2023-06-03 14:30] LABS: INR 2.7 (<1.2); Partial Thromboplastin Time 46.3 sec (22.0-30.0); Prothrombin Time 26.7 sec (10.0-12.5)
--- NOTE | 2023-06-03 15:29 | CT ---
EXAMINATION TYPE: CT brain wo con DATE OF EXAM: 06/03/2023 COMPARISON: 02/24/2023 HISTORY: 77-year-old female Weakness. TECHNIQUE: Examination was done in axial plane without intravenous contrast. Coronal and sagittal r econstructions performed. CT DLP: 1058.4 mGycm Automated exposure control for dose reduction was used. FINDINGS: There is no evidence of acute intracranial hemorrhage, acute ischemic changes, mass, mass-effect, or extra-axial fluid collection. There is no effacement of cerebral sulci or basal subarachnoid cister ns. There is no hydrocephalus. There is no midline shift. Kennedy-white matter distinction is preserv ed. Moderate to severe confluent white matter hypodensities in both cerebral hemispheres. Benign bilatera l basal ganglionic calcifications. Atherosclerotic calcifications in the bilateral carotid siphons. Mild ventriculomegaly, and integration calculated at 0.35 remains unchanged. Trace mucosal thickening ethmoid air cells. Mastoid air cells are well pneumatized. Orbits and globes are intact. IMPRESSION: 1. Similar moderate to severe confluent burden of chronic small vessel ischemic disease. 2. Similar mild hydrocephalus probably on an ex vacuo basis from central cerebral atrophy. Correlate to exclude a component of NPH. 3. Otherwise, no acute intracranial abnormality seen.
--- NOTE | 2023-06-03 15:40 | XR ---
EXAMINATION TYPE: XR pelvis AP view DATE OF EXAM: 06/03/2023 COMPARISON: None HISTORY: Weakness TECHNIQUE: AP pelvis FINDINGS: Right hip prosthesis is present. Vascular calcification is present. Femoral heads articulat e with the acetabulum. Symphysis pubis and sacroiliac joints are normal bowel gas is unremarkable. IMPRESSION: 1. Right hip prosthesis. 2. No acute osseous abnormality. Pelvis
--- NOTE | 2023-06-03 15:42 | XR ---
EXAMINATION TYPE: XR chest 2V DATE OF EXAM: 06/03/2023 COMPARISON: 02/24/2023 INDICATION: Weakness TECHNIQUE: Frontal and lateral views of the chest are obtained. FINDINGS: The heart size is mildly prominent. The pulmonary vasculature is normal. Minimal posterior pleural effusion may be present. No suspicious infiltrates are evident. IMPRESSION: 1. Suggestion of minimal posterior pleural effusion. 2. Mild cardiomegaly
[2023-06-03 15:47] LABS: ALT 31 U/L (4-34); AST 26 U/L (14-36); African American GFR (CKD) 54 (>60 ml/min/1.73 sqM); Albumin 3.4 g/dL (3.5-5.0); Alkaline Phosphatase 137 U/L (38-126); Anion Gap 4 mmol/L; Blood Urea Nitrogen 35 mg/dL (7-17); Calcium 9.4 mg/dL (8.4-10.2); Carbon Dioxide 29 mmol/L (22-30); Chloride 109 mmol/L (98-107); Glucose 138 mg/dL (74-99); Magnesium 2.1 mg/dL (1.6-2.3); Non-African American GFR(CKD) 47 (>60 ml/min/1.73 sqM); Phosphorus 3.8 mg/dL (2.5-4.5); Potassium 4.4 mmol/L (3.5-5.1); Sodium 142 mmol/L (137-145); Total Bilirubin 0.7 mg/dL (0.2-1.3); Total Protein 6.4 g/dL (6.3-8.2)
[2023-06-03 15:55] LABS: NT-Pro-B-Type Natriuretic Pept 3600 pg/mL
[2023-06-03] MEDS ORDERED: ONDANSETRON 4 MG/2 ML VIAL IVP PRN (16:02)
[2023-06-03] MEDS ORDERED: MORPHINE SULFATE 4 MG/ML SYRINGE IV PRN (16:02)
[2023-06-03] MEDS ORDERED: NALOXONE 0.4 MG/ML 1 ML VIAL IV PRN (16:02)
[2023-06-03] MEDS: SODIUM CHLORIDE 0.9% 1,000 ML IV SCH (16:25)
--- NOTE | 2023-06-03 18:56 | P.HPIM ---
History of Present Illness H&P Date: 06/03/23 77 year old F with PMH of AFib, HTN, hypothyroidism, Asthma presents to the ED. Patient reports progressive weakness ongoing for many weeks. Today, she couldnt get out of bed which prompted her to call EMS. States that she was supposed to see a Wound care doctor for her bilateral lower extremity wounds. Denies any fever or chills. Denies chest pain, shortness of breath, dizziness, or palpitations. No LOC or head trauma. In the ED, she underwent extensive evaluation. Vital signs stable. CBC WBC 12.3 Hg 10.2 Hct 30.9. INR 2.7. CMP Cl 109, BUN 35, Cr 1.14, glu 138, alk phos 137, alb 3.4. TSH 9.570. EKG A-Fib Brain CT moderate to severe small vessel ischemic disease, mild hydrocephalus. Hip XR no osseous abnormalities. CXR minimal posterior pleural effusion, mild cardiomegaly. General: non toxic, no distress, appears at stated age Derm: warm, dry Head: atraumatic, normocephalic, symmetric Eyes: EOMI, no lid lag, anicteric sclera Mouth: no lip lesion, mucus membranes moist Cardiovascular: S1S2 irreg, no murmur Lungs: CTA bilateral, no rhonchi, no rales , no accessory muscle use Abdominal: soft, nontender to palpation, no guarding, no appreciable organomegaly Ext: no gross muscle atrophy, no edema, no contractures, bilateral lower extremity ROBERTO wrapped. Neuro: no focal neuro deficits Psych: Alert, oriented, appropriate affect Based on my assessment of this patient, this patient meets a high complexity level of care. Patient has an acute diagnosis of generalized weakness with inability to take care of her ADLs and IADLs that poses a threat to life or bodily function. Generalized weakness: PT/OT consult. Fall precautions. Lower extremity wounds: Wound care consult. Leukocytosis: Possibly cellulitis related to lower extremity wounds. Start Keflex 500 mg PO BID. UA pending. Normocytic anemia: Possibly related to CKD. No signs of active bleeding. Elevated TSH: Obtain free T4. Elevated alkaline phosphatase: Obtain 25-Vit D. Chronic: CKD, AFib, HTN, hypothyroidism, Asthma CODE STATUS: FULL CODE DVT Prophylaxis: Warfarin GI Prophylaxis: Designated medical POA if patient is not able to make medical decisions for themselves: Friend I have reviewed the following oracle ebs consultant notes: ED note. I have reviewed the results of the following tests: As above. I have ordered the following tests: As above. I have discussed the care of this patient with the following independent historian: I have independently interpreted the following test below: CXR as above. I have discussed the management of this patient with the following physician: Past Medical History Past Medical History: Atrial Fibrillation, Asthma, Diabetes Mellitus, Hyperlipidemia, Hypertension, Osteoarthritis (OA), Thyroid Disorder Additional Past Medical History / Comment(s): HAD COVID VACCINE-MODERNA SEP 2020 History of Any Multi-Drug Resistant Organisms: None Reported Past Surgical History: Orthopedic Surgery Additional Past Surgical History / Comment(s): D&C(hysteroscopy,endometrial polyp removed), LEFT HEEL SPUR, LEFT TRIGGER THUMB, colonoscopy w/bx pt stated was neg., BILAT CATARACTS REMOVED WITH LENS IMPLANTS Past Anesthesia/Blood Transfusion Reactions: Motion Sickness, Postoperative Nausea & Vomiting (PONV) Additional Past Anesthesia/Blood Transfusion Reaction / Comment(s): claustrophobia Past Psychological History: No Psychological Hx Reported Smoking Status: Former smoker Past Alcohol Use History: None Reported Past Drug Use History: None Reported - Past Family History Father History Unknown: Yes Additional Family Medical History / Comment(s): Pt was adopted. family Additional Family Medical History / Comment(s): 2 cousins with history of heart problems. Patient unable to quantify further. Medications and Allergies Home Medications Medication Instructions Recorded Confirmed Type Atorvastatin [Lipitor] 20 mg PO HS 06/02/19 06/03/23 History Montelukast Sodium [Singulair] 10 mg PO 06/02/19 06/03/23 History Warfarin Sodium [Coumadin] 2.5 mg PO MOWEFR@209906/02/19 06/03/23 History Warfarin [Coumadin] 5 mg PO SUTUTHSA@209907/24/20 06/03/23 History Gabapentin [Neurontin] 600 mg PO DAILY 01/02/21 06/03/23 History Furosemide [Lasix] 40 mg PO MOTUWETHFRSA 06/03/23 06/03/23 History Gabapentin [Neurontin] 300 mg PO HS 06/03/23 06/03/23 History Levothyroxine Sodium [Synthroid] 150 mcg PO DAILY 06/03/23 06/03/23 History Losartan [Cozaar] 25 mg PO DAILY 06/03/23 06/03/23 History Magnesium Oxide [Mag-Ox] 400 mg PO HS 06/03/23 06/03/23 History allopurinoL 100 mg PO HS 06/03/23 06/03/23 History metFORMIN HCL [Glucophage] 500 mg PO BID 06/03/23 06/03/23 History Allergies Allergy/AdvReac Type Severity Reaction Status Date / Time lisinopril AdvReac Cough Verified 06/03/23 14:52 Physical Exam Vitals: Vital Signs Temp Pulse Resp BP Pulse Ox 06/03/23 12:52 98.2 F 76 18 131/66 95 Intake and Output 06/03/23 06/03/23 06/03/23 06:59 14:59 22:59 Other: Weight 95.254 kg Results CBC & Chem 7: 06/03/23 14:03 06/03/23 14:03 Labs: Abnormal Lab Results - Last 24 Hours (Table) 06/03/23 06/03/23 06/03/23 Range/Units 14:03 14:03 14:03 WBC 12.3 H (3.8-10.6) k/uL RBC 3.31 L (3.80-5.40) m/uL Hgb 10.2 L (11.4-16.0) gm/dL Hct 30.9 L (34.0-46.0) % Neutrophils # 9.3 H (1.3-7.7) k/uL PT 26.7 H (10.0-12.5) sec INR 2.7 H (<1.2) APTT 46.3 H (22.0-30.0) sec Chloride 109 H (98-107) mmol/L BUN 35 H (7-17) mg/dL Creatinine 1.14 H (0.52-1.04) mg/dL Glucose 138 H (74-99) mg/dL Alkaline Phosphatase 137 H (38-126) U/L Albumin 3.4 L (3.5-5.0) g/dL TSH 9.570 H (0.465-4.680) mIU/L
[2023-06-03 20:25] LABS: Appearance,Urine Cloudy (Clear); Bacteria,Urine Rare /hpf; Bilirubin,Urine Negative (Negative); Blood,Urine Negative (Negative); Color,Urine Colorless; Glucose,Urine (UA) Negative (Negative); Ketones,Urine Negative (Negative); Leukocyte Esterase,Urine Negative (Negative); Nitrite,Urine Negative (Negative); Protein,Urine Negative (Negative); RBC,Urine 2 /hpf (0-5); Specific Gravity,Urine 1.016 (1.001-1.035); Squamous Epithelial Cell,Urine 20 /hpf (0-4); Urobilinogen,Urine <2.0 mg/dL (<2.0); WBC,Urine 3 /hpf (0-5)
[2023-06-03] MEDS: ATORVASTATIN 20 MG TAB PO SCH (20:34)
[2023-06-03] MEDS: GABAPENTIN 300 MG CAP PO SCH (20:34)
[2023-06-03] MEDS: allopurinoL 100 MG TAB PO SCH (20:34)
[2023-06-03] MEDS: MAGNESIUM OXIDE 400 MG TAB PO SCH (20:34)
[2023-06-03] MEDS: WARFARIN 2.5 MG TAB PO SCH (20:35)
[2023-06-03] MEDS: MONTELUKAST 10 MG TAB PO SCH (20:35)
[2023-06-04] MEDS: LEVOTHYROXINE 75 MCG TAB PO SCH (05:35)
[2023-06-04 07:26] LABS: INR 2.3 (<1.2); Prothrombin Time 22.6 sec (10.0-12.5)
[2023-06-04 07:49] LABS: ALT 27 U/L (4-34); AST 26 U/L (14-36); African American GFR (CKD) 46 (>60 ml/min/1.73 sqM); Albumin/Globulin Ratio 1.1; Alkaline Phosphatase 124 U/L (38-126); Anion Gap 3 mmol/L; Blood Urea Nitrogen 33 mg/dL (7-17); Calcium 8.9 mg/dL (8.4-10.2); Carbon Dioxide 25 mmol/L (22-30); Chloride 114 mmol/L (98-107); Globulin 2.8 g/dL; Glucose 155 mg/dL (74-99); Magnesium 2.2 mg/dL (1.6-2.3); Non-African American GFR(CKD) 40 (>60 ml/min/1.73 sqM); Phosphorus 3.9 mg/dL (2.5-4.5); Potassium 4.7 mmol/L (3.5-5.1); Sodium 142 mmol/L (137-145); Total Bilirubin 0.8 mg/dL (0.2-1.3); Total Protein 5.8 g/dL (6.3-8.2)
[2023-06-04] MEDS: GABAPENTIN 300 MG CAP PO SCH (08:26)
[2023-06-04] MEDS: LOSARTAN 25 MG TAB PO SCH (08:26)
[2023-06-04] MEDS: FUROSEMIDE 40 MG TAB PO SCH (08:27)
--- NOTE | 2023-06-04 11:04 | P.CONS ---
History of Present Illness - Reason for Consult Consult date: 06/04/23 wound care - History of Present Illness This is a 77-year-old patient with past medical history significant for atrial fibrillation, diabetes mellitus, hyperlipidemia, hypertension, osteoarthritis. Patient was scheduled to be seen in the wound care center yesterday however she was feeling weak and unable to get out of bed and was sent to the emergency room for evaluation from home. Patient has been following with Dr. Castro who has been doing a Unna boot to bilateral lower extremities with absorptive silver. Patient has multiple small ulcerations to the left anterior and medial lower extremity. The right lower extremity has larger ulcerations to the dorsal foot lateral calf and medial lower extremity. Ulcerations have significant amount of slough and nonviable tissue present with little to no granulation seen within the wound bed. The wound edges are attached to the wound base no tunneling or undermining noted. The periwound does show hemosiderin staining and dry flaky skin. Review Of Systems: Constitutional: No fever, no chills, no night sweats. No weight change. No weakness, fatigue or lethargy. No daytime sleepiness. Integumentary:reports wounds, no lesions. No rash or pruritus. No unusual bruising. No change in hair or nails. Physical exam: General Appearance: Alert, cooperative, no distress, appears stated age. Skin: See HPI all other Skin color, texture, tugor normal, no rashes or lesions. Neurologic: Alert oriented x3 Assessment: 1. Nonhealing ulceration with fat layer exposed right foot 2. Nonhealing ulceration with fat layer exposed right calf 3. Nonhealing ulceration with fat layer exposed left lower extremity other site 4. Chronic venous hypertension with inflammation and ulceration bilateral lower extremities 5. Diabetes with skin ulceration 6. Diabetes with foot ulceration Plan: 1. Apply honey gel dry gauze roll gauze and secure with paper tape to all ul cerations. Wrap with Keyur wrap for compression and a figure 8 configuration. Elevate legs 30 minutes a day greater then heart level. Avoid having legs dependent while sitting. patient will be seen in the wound care center once she is discharged. Thank you for the consultation any questions please contact the wound care center DNP note has been reviewed and discussed with Dr. Rocha and the impression and plan of care has been directed as dictated. Past Medical History Past Medical History: Atrial Fibrillation, Asthma, Diabetes Mellitus, Hyperlipi demia, Hypertension, Osteoarthritis (OA), Thyroid Disorder Additional Past Medical History / Comment(s): HAD COVID VACCINE-MODERNA SEP 2020 History of Any Multi-Drug Resistant Organisms: None Reported Past Surgical History: Orthopedic Surgery Additional Past Surgical History / Comment(s): D&C(hysteroscopy,endometrial polyp removed), LEFT HEEL SPUR, LEFT TRIGGER THUMB, colonoscopy w/bx pt stated was neg., BILAT CATARACTS REMOVED WITH LENS IMPLANTS Past Anesthesia/Blood Transfusion Reactions: Motion Sickness, Postoperative Nausea & Vomiting (PONV) Additional Past Anesthesia/Blood Transfusion Reaction / Comm: claustrophobia Past Psychological History: No Psychological Hx Reported Additional Psychological History / Comment(s): pt lives alone, uses walker when up and has glucometer. Smoking Status: Former smoker Past Alcohol Use History: None Reported Additional Past Alcohol Use History / Comment(s): started smoking age 24 only smoked for 6 months then quit Past Drug Use History: None Reported - Past Family History Father History Unknown: Yes Additional Family Medical History / Comment(s): Pt was adopted. family Additional Family Medical History / Comment(s): 2 cousins with history of heart problems. Patient unable to quantify further. Medications and Allergies Home Medications Medication Instructions Recorded Confirmed Type Atorvastatin [Lipitor] 20 mg PO HS 06/02/19 06/03/23 History Montelukast Sodium [Singulair] 10 mg PO HS 06/02/19 06/03/23 History Warfarin Sodium [Coumadin] 2.5 mg PO MOWEFR@209906/02/19 06/03/23 History Warfarin [Coumadin] 5 mg PO SUTUTHSA@209907/24/20 06/03/23 History Gabapentin [Neurontin] 600 mg PO DAILY 01/02/21 06/03/23 History Furosemide [Lasix] 40 mg PO [id number] 06/03/23 06/03/23 History Gabapentin [Neurontin] 300 mg PO 06/03/23 06/03/23 History Levothyroxine Sodium [Synthroid] 150 mcg PO DAILY 06/03/23 06/03/23 History Losartan [Cozaar] 25 mg PO DAILY 06/03/23 06/03/23 History Magnesium Oxide [Mag-Ox] 400 mg PO HS 06/03/23 06/03/23 History allopurinoL 100 mg PO HS 06/03/23 06/03/23 History metFORMIN HCL [Glucophage] 500 mg PO BID 06/03/23 06/03/23 History Allergies Allergy/AdvReac Type Severity Reaction Status Date / Time lisinopril AdvReac Cough Verified 06/03/23 14:52 Physical Exam Vitals: Vital Signs Temp Pulse Pulse Resp BP BP Pulse Ox 06/04/23 08:00 20 06/04/23 07:00 98.9 F 78 20 150/76 92 L 06/04/23 02:17 97.5 F L 78 15 125/60 95 06/03/23 20:40 98.7 F 81 15 151/82 94 L 06/03/23 20:00 18 06/03/23 12:52 98.2 F 76 18 131/66 95 Intake and Output 06/03/23 06/04/23 06/04/23 22:59 06:59 14:59 Other: Voiding Method External Catheter External Catheter # Voids 2 3 Weight 95.254 kg Results CBC & Chem 7: 06/03/23 14:03 06/04/23 06:18 Labs: Abnormal Lab Results - Last 24 Hours (Table) 06/03/23 06/03/23 06/03/23 Range/Units 13:07 14:03 14:03 WBC 12.3 H (3.8-10.6) k/uL RBC 3.31 L (3.80-5.40) m/uL Hgb 10.2 L (11.4-16.0) gm/dL Hct 30.9 L (34.0-46.0) % Neutrophils # 9.3 H (1.3-7.7) k/uL PT 26.7 H (10.0-12.5) sec INR 2.7 H (<1.2) APTT 46.3 H (22.0-30.0) sec Chloride (98-107) mmol/L BUN (7-17) mg/dL Creatinine (0.52-1.04) mg/dL Glucose (74-99) mg/dL Alkaline Phosphatase (38-126) U/L Total Protein (6.3-8.2) g/dL Albumin (3.5-5.0) g/dL TSH (0.465-4.680) mIU/L Urine Appearance Cloudy H (Clear) Ur Squamous Epith Cells 20 H (0-4) /hpf Urine Bacteria Rare H (None) /hpf 06/03/23 06/04/23 06/04/23 Range/Units 14:03 06:18 06:18 WBC (3.8-10.6) k/uL RBC (3.80-5.40) m/uL Hgb (11.4-16.0) gm/dL Hct (34.0-46.0) % Neutrophils # (1.3-7.7) k/uL PT 22.6 H (10.0-12.5) sec INR 2.3 H (<1.2) APTT (22.0-30.0) sec Chloride 109 H 114 H (98-107) mmol/L BUN 35 H 33 H (7-17) mg/dL Creatinine 1.14 H 1.30 H (0.52-1.04) mg/dL Glucose 138 H 155 H (74-99) mg/dL Alkaline Phosphatase 137 H (38-126) U/L Total Protein 5.8 L (6.3-8.2) g/dL Albumin 3.4 L 3.0 L (3.5-5.0) g/dL TSH 9.570 H (0.465-4.680) mIU/L Urine Appearance (Clear) Ur Squamous Epith Cells (0-4) /hpf Urine Bacteria (None) /hpf Assessment and Plan (1) Non-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 exposed Current Visit: Yes Status: Acute Code(s): L97.212 - NON-PRESSURE CHRONIC ULCER OF RIGHT CALF W FAT LAYER EXPOSED SNOMED Code(s): 52256554794395454 (2) Non-pressure chronic ulcer of other part of right foot with fat layer exposed Current Visit: Yes Status: Acute Code(s): L97.512 - NON-PRS CHRONIC ULCER OTH PRT RIGHT FOOT W FAT LAYER EXPOSED SNOMED Code(s): 39390466884206923 (3) Non-pressure chronic ulcer of other part of left lower leg with fat layer exposed Current Visit: Yes Status: Acute Code(s): L97.822 - NON-PRS CHRONIC ULCER OTH PRT L LOW LEG W FAT LAYER EXPOSED SNOMED Code(s): 49275560202543402 (4) Type 2 diabetes mellitus with foot ulcer Current Visit: Yes Status: Acute Code(s): E11.621 - TYPE 2 DIABETES MELLITUS WITH FOOT ULCER; L97.509 - NON-PRESSURE CHRONIC ULCER OTH PRT UNSP FOOT W UNSP SEVERITY SNOMED Code(s): 706466935 (5) Type 2 diabetes mellitus with other skin ulcer Current Visit: Yes Status: Acute Code(s): E11.622 - TYPE 2 DIABETES MELLITUS WITH OTHER SKIN ULCER; L98.499 - NON-PRESSURE CHRONIC ULCER OF SKIN OF SITES W UNSP SEVERITY SNOMED Code(s): 220319764 (6) Chronic venous hypertension (idiopathic) with ulcer and inflammation of bilateral lower extremity Current Visit: Yes Status: Acute Code(s): I87.333 - CHRONIC VENOUS HTN W ULCER AND INFLAM OF BILATERAL LOW EXTRM SNOMED Code(s): 402059014692279
[2023-06-04 11:06] LABS: Basophils # (A) 0.05 X 10*3/uL (0.00-0.10); Basophils % (A) 0.4 %; Eosinophils # (A) 0.02 X 10*3/uL (0.04-0.35); Eosinophils % (A) 0.2 %; HCT 27.8 % (37.2-46.3); HGB 8.8 g/dL (12.0-15.0); Lymphocytes # (A) 2.11 X 10*3/uL (0.90-5.00); MCH 29.5 pg (27.0-32.0); MCHC 31.7 g/dL (32.0-37.0); MCV 93.3 FL (80.0-97.0); Mean Platelet Volume 11.4 FL (9.5-12.2); Monocytes % (A) 10.2 %; NRBC Per 100 WBC 0 X 10*3/uL (0.00-0.01); Neutrophils # (A) 8.28 X 10*3/uL (1.80-7.70); Neutrophils % (A) 70.7 %; Platelet Count 253 X 10*3/uL (140-440); RBC 2.98 X 10*6/uL (4.10-5.20); RDW 15.8 % (11.5-14.5); WBC 11.72 X 10*3/uL (4.50-10.00)
--- NOTE | 2023-06-04 11:42 | P.PN ---
Subjective Progress Note Date: 06/04/23 77 year old F with PMH of AFib, HTN, hypothyroidism, Asthma presents to the ED. Patient reports progressive weakness ongoing for many weeks. Today, she couldnt get out of bed which prompted her to call EMS. States that she was supposed to see a Wound care doctor for her bilateral lower extremity wounds. Denies any fever or chills. Denies chest pain, shortness of breath, dizziness, or palpitations. No LOC or head trauma. In the ED, she underwent extensive evaluation. Vital signs stable. CBC WBC 12.3 Hg 10.2 Hct 30.9. INR 2.7. CMP Cl 109, BUN 35, Cr 1.14, glu 138, alk phos 137, alb 3.4. TSH 9.570. EKG A-Fib Brain CT moderate to severe small vessel ischemic disease, mild hydrocephalus. Hip XR no osseous abnormalities. CXR minimal posterior pleural effusion, mild cardiomegaly. Patient was seen and examined. No complaints. Seen by wound care, honey gel dry gauze roll to all ulcerations, ROBERTO wrap for compression and a figure 8 configuration recommended. CBC WBC 11.72 Hg 8.8 Hct 27.8. INR 2.3. CMP Cl 114, BUN 33, Cr 1.3, glu 155, alb 3. UA negative for LE or nitrite. FT4 1.51. Pending SNF. General: non toxic, no distress, appears at stated age Derm: warm, dry Head: atraumatic, normocephalic, symmetric Eyes: EOMI, no lid lag, anicteric sclera Mouth: no lip lesion, mucus membranes moist Cardiovascular: S1S2 irreg, no murmur Lungs: CTA bilateral, no rhonchi, no rales , no accessory muscle use Abdominal: soft, nontender to palpation, no guarding, no appreciable organomegaly Ext: no gross muscle atrophy, no edema, no contractures, bilateral lower extremity ROBERTO wrapped. Neuro: no focal neuro deficits Psych: Alert, oriented, appropriate affect Based on my assessment of this patient, this patient meets a high complexity level of care. Patient has an acute diagnosis of generalized weakness with inability to take care of her ADLs and IADLs that poses a threat to life or bodily function. Generalized weakness: PT/OT consult. Fall precautions. Lower extremity wounds: Wound care on board. Leukocytosis: Possibly cellulitis related to lower extremity wounds. Start Keflex 500 mg PO BID. UA negative for LE or nitrite. Normocytic anemia: Possibly related to CKD. No signs of active bleeding. Subclinical hypothyroidism: Increase Synthroid to 175 mcg PO QD. Elevated alkaline phosphatase: Obtain 25-Vit D. Chronic: CKD, AFib, HTN, hypothyroidism, Asthma CODE STATUS: FULL CODE DVT Prophylaxis: Warfarin GI Prophylaxis: Designated medical POA if patient is not able to make medical decisions for themselves: Friend I have reviewed the following education consultant notes: Wound care. I have reviewed the results of the following tests: CBC, CMP, UA, FT4. I have ordered the following tests: Vit D pending. I have discussed the care of this patient with the following independent hist orian: I have independently interpreted the following test below: I have discussed the management of this patient with the following physician: Objective - Vital Signs Vital signs: Vital Signs Temp 98.9 F 06/04/23 07:00 Pulse 78 06/04/23 07:00 Resp 20 06/04/23 08:00 BP 150/76 06/04/23 07:00 Pulse Ox 92 L 06/04/23 07:00 FiO2 Intake & Output 06/03/23 06/04/23 06/04/23 18:59 06:59 18:59 Weight 95.254 kg 95.254 kg Other: Voiding Method External Catheter External Catheter # Voids 3 - Labs CBC & Chem 7: 06/04/23 06:18 06/04/23 06:18 Labs: Abnormal Lab Results - Last 24 Hours (Table) 06/03/23 06/03/23 06/03/23 Range/Units 13:07 14:03 14:03 WBC 12.3 H (3.8-10.6) k/uL RBC 3.31 L (3.80-5.40) m/uL Hgb 10.2 L (11.4-16.0) gm/dL Hct 30.9 L (34.0-46.0) % MCHC (32.0-37.0) g/dL RDW (11.5-14.5) % Immature Gran # (0.00-0.04) X 10*3/uL Neutrophils # 9.3 H (1.3-7.7) k/uL Monocytes # (0.20-1.00) X 10*3/uL Eosinophils # (0.04-0.35) X 10*3/uL PT 26.7 H (10.0-12.5) sec INR 2.7 H (<1.2) APTT 46.3 H (22.0-30.0) sec Chloride (98-107) mmol/L BUN (7-17) mg/dL Creatinine (0.52-1.04) mg/dL Glucose (74-99) mg/dL Alkaline Phosphatase (38-126) U/L Total Protein (6.3-8.2) g/dL Albumin (3.5-5.0) g/dL TSH (0.465-4.680) mIU/L Urine Appearance Cloudy H (Clear) Ur Squamous Epith Cells 20 H (0-4) /hpf Urine Bacteria Rare H (None) /hpf 06/03/23 06/04/23 06/04/23 Range/Units 14:03 06:18 06:18 WBC 11.72 H (3.8-10.6) k/uL RBC 2.98 L (3.80-5.40) m/uL Hgb 8.8 L (11.4-16.0) gm/dL Hct 27.8 L (34.0-46.0) % MCHC 31.7 L (32.0-37.0) g/dL RDW 15.8 H (11.5-14.5) % Immature Gran # 0.06 H (0.00-0.04) X 10*3/uL Neutrophils # 8.28 H (1.3-7.7) k/uL Monocytes # 1.20 H (0.20-1.00) X 10*3/uL Eosinophils # 0.02 L (0.04-0.35) X 10*3/uL PT (10.0-12.5) sec INR (<1.2) APTT (22.0-30.0) sec Chloride 109 H 114 H (98-107) mmol/L BUN 35 H 33 H (7-17) mg/dL Creatinine 1.14 H 1.30 H (0.52-1.04) mg/dL Glucose 138 H 155 H (74-99) mg/dL Alkaline Phosphatase 137 H (38-126) U/L Total Protein 5.8 L (6.3-8.2) g/dL Albumin 3.4 L 3.0 L (3.5-5.0) g/dL TSH 9.570 H (0.465-4.680) mIU/L Urine Appearance (Clear) Ur Squamous Epith Cells (0-4) /hpf Urine Bacteria (None) /hpf 06/04/23 Range/Units 06:18 WBC (3.8-10.6) k/uL RBC (3.80-5.40) m/uL Hgb (11.4-16.0) gm/dL Hct (34.0-46.0) % MCHC (32.0-37.0) g/dL RDW (11.5-14.5) % Immature Gran # (0.00-0.04) X 10*3/uL Neutrophils # (1.3-7.7) k/uL Monocytes # (0.20-1.00) X 10*3/uL Eosinophils # (0.04-0.35) X 10*3/uL PT 22.6 H (10.0-12.5) sec INR 2.3 H (<1.2) APTT (22.0-30.0) sec Chloride (98-107) mmol/L BUN (7-17) mg/dL Creatinine (0.52-1.04) mg/dL Glucose (74-99) mg/dL Alkaline Phosphatase (38-126) U/L Total Protein (6.3-8.2) g/dL Albumin (3.5-5.0) g/dL TSH (0.465-4.680) mIU/L Urine Appearance (Clear) Ur Squamous Epith Cells (0-4) /hpf Urine Bacteria (None) /hpf
[2023-06-04] MEDS: WARFARIN 5 MG TAB PO SCH (20:41)
[2023-06-05 06:04] LABS: INR 1.7 (<1.2)
[2023-06-05] MEDS: LEVOTHYROXINE 88 MCG TAB PO SCH (06:30)
--- NOTE | 2023-06-05 11:20 | P.PN ---
Subjective Progress Note Date: 06/05/23 77 year old F with PMH of AFib, HTN, hypothyroidism, Asthma presents to the ED. Patient reports progressive weakness ongoing for many weeks. Today, she couldnt get out of bed which prompted her to call EMS. States that she was supposed to see a Wound care doctor for her bilateral lower extremity wounds. Denies any fever or chills. Denies chest pain, shortness of breath, dizziness, or palpitations. No LOC or head trauma. In the ED, she underwent extensive evaluation. Vital signs stable. CBC WBC 12.3 Hg 10.2 Hct 30.9. INR 2.7. CMP Cl 109, BUN 35, Cr 1.14, glu 138, alk phos 137, alb 3.4. TSH 9.570. EKG A-Fib Brain CT moderate to severe small vessel ischemic disease, mild hydrocephalus. Hip XR no osseous abnormalities. CXR minimal posterior pleural effusion, mild cardiomegaly. Patient was seen and examined. No complaints. Seen by wound care, honey gel dry gauze roll to all ulcerations, ROBERTO wrap for compression and a figure 8 configuration recommended. CBC WBC 11.72 Hg 8.8 Hct 27.8. INR 2.3. CMP Cl 114, BUN 33, Cr 1.3, glu 155, alb 3. UA negative for LE or nitrite. FT4 1.51. Pending SNF. 06/04 Patient was seen and examined. No complaints. Discussed with case management. Vit D 25 low at 15.1. She is awaiting SNF. General: non toxic, no distress, appears at stated age Derm: warm, dry Head: atraumatic, normocephalic, symmetric Eyes: EOMI, no lid lag, anicteric sclera Mouth: no lip lesion, mucus membranes moist Cardiovascular: S1S2 irreg, no murmur Lungs: CTA bilateral, no rhonchi, no rales , no accessory muscle use Abdominal: soft, nontender to palpation, no guarding, no appreciable organomegaly Ext: no gross muscle atrophy, no edema, no contractures, bilateral lower extremity ROBERTO wrapped. Neuro: no focal neuro deficits Psych: Alert, oriented, appropriate affect Based on my assessment of this patient, this patient meets a high complexity level of care. Patient has an acute diagnosis of generalized weakness with inability to take care of her ADLs and IADLs that poses a threat to life or bodily function. Generalized weakness: PT/OT consult. Fall precautions. Lower extremity wounds: Wound care on board. Leukocytosis: Possibly cellulitis related to lower extremity wounds. Keflex 500 mg PO BID. UA negative for LE or nitrite. Normocytic anemia: Possibly related to CKD. No signs of active bleeding. Subclinical hypothyroidism: Increase Synthroid to 175 mcg PO QD. Elevated alkaline phosphatase: Low0 25-Vit D. Start Vitamin D3 25 mcg PO QD. Chronic: CKD, AFib, HTN, hypothyroidism, Asthma CODE STATUS: FULL CODE DVT Prophylaxis: Warfarin GI Prophylaxis: Designated medical POA if patient is not able to make medical decisions for themselves: Friend I have reviewed the following insurance consultant notes: I have reviewed the results of the following tests: Vit D. I have ordered the following tests: I have discussed the care of this patient with the following independent historian: Case management. SAMANTHA. I have independently interpreted the following test below: I have discussed the management of this patient with the following physician: Objective - Vital Signs Vital signs: Vital Signs Temp 99.2 F 06/05/23 07:00 Pulse 85 06/05/23 07:00 Resp 18 06/05/23 07:00 BP 149/75 06/05/23 07:00 Pulse Ox 91 L 06/05/23 07:00 FiO2 Intake & Output 06/04/23 06/05/23 06/05/23 18:59 06:59 18:59 Intake Total 120 Balance 120 Intake: Oral 120 Other: Voiding Method External Catheter External Catheter # Voids 1 - Labs CBC & Chem 7: 06/04/23 06:18 06/04/23 06:18 Labs: Abnormal Lab Results - Last 24 Hours (Table) 06/04/23 06/05/23 Range/Units 06:18 05:10 PT 17.0 H (10.0-12.5) sec INR 1.7 H (<1.2) Vitamin D 25-Hydroxy 15.1 L (30.0-100.0) ng/mL
[2023-06-05] MEDS: WARFARIN 5 MG TAB PO ONE (20:34)
[2023-06-06 06:49] LABS: INR 1.7 (<1.2)
[2023-06-06] MEDS: CHOLECALCIFEROL 25 MCG (1000 IU) TABLET PO SCH (08:39)
--- NOTE | 2023-06-06 11:08 | P.PN ---
Subjective Progress Note Date: 06/06/23 77 year old F with PMH of AFib, HTN, hypothyroidism, Asthma presents to the ED. Patient reports progressive weakness ongoing for many weeks. Today, she couldnt get out of bed which prompted her to call EMS. States that she was supposed to see a Wound care doctor for her bilateral lower extremity wounds. Denies any fever or chills. Denies chest pain, shortness of breath, dizziness, or palpitations. No LOC or head trauma. In the ED, she underwent extensive evaluation. Vital signs stable. CBC WBC 12.3 Hg 10.2 Hct 30.9. INR 2.7. CMP Cl 109, BUN 35, Cr 1.14, glu 138, alk phos 137, alb 3.4. TSH 9.570. EKG A-Fib Brain CT moderate to severe small vessel ischemic disease, mild hydrocephalus. Hip XR no osseous abnormalities. CXR minimal posterior pleural effusion, mild cardiomegaly. Patient was seen and examined. No complaints. Seen by wound care, honey gel dry gauze roll to all ulcerations, ROBERTO wrap for compression and a figure 8 configuration recommended. CBC WBC 11.72 Hg 8.8 Hct 27.8. INR 2.3. CMP Cl 114, BUN 33, Cr 1.3, glu 155, alb 3. UA negative for LE or nitrite. FT4 1.51. Pending SNF. 06/04 Patient was seen and examined. No complaints. Discussed with case management. Vit D 25 low at 15.1. INR is 1.7. She is awaiting SNF. 06/05 Patient was seen and examined. No complaints. Pending insurance authorization for SNF. INR is 1.7. General: non toxic, no distress, appears at stated age Derm: warm, dry Head: atraumatic, normocephalic, symmetric Eyes: EOMI, no lid lag, anicteric sclera Mouth: no lip lesion, mucus membranes moist Cardiovascular: S1S2 irreg, no murmur Lungs: CTA bilateral, no rhonchi, no rales , no accessory muscle use Abdominal: soft, nontender to palpation, no guarding, no appreciable organomegaly Ext: no gross muscle atrophy, no edema, no contractures, bilateral lower extremity ROBERTO wrapped. Neuro: no focal neuro deficits Psych: Alert, oriented, appropriate affect Based on my assessment of this patient, this patient meets a high complexity level of care. Patient has an acute diagnosis of generalized weakness with inability to take care of her ADLs and IADLs that poses a threat to life or bodily function. Generalized weakness: PT/OT consult. Fall precautions. Lower extremity wounds: Wound care on board. Leukocytosis: Possibly cellulitis related to lower extremity wounds. Keflex 500 mg PO BID. UA negative for LE or nitrite. Normocytic anemia: Possibly related to CKD. No signs of active bleeding. Subclinical hypothyroidism: Increase Synthroid to 175 mcg PO QD. Repeat TSH and FT4 in 6 weeks with PCP. Vit D deficiency: Start Vitamin D3 25 mcg PO QD. Chronic: CKD, AFib, HTN, hypothyroidism, Asthma CODE STATUS: FULL CODE DVT Prophylaxis: Warfarin GI Prophylaxis: Designated medical POA if patient is not able to make medical decisions for themselves: Friend I have reviewed the following [employer] ascp consultant notes: I have reviewed the results of the following tests: INR. I have ordered the following tests: I have discussed the care of this patient with the following independent historian: I have independently interpreted the following test below: I have discussed the management of this patient with the following physician: Objective - Vital Signs Vital signs: Vital Signs Temp 98.4 F 06/06/23 02:19 Pulse 86 06/06/23 02:19 Resp 15 06/06/23 02:19 BP 132/77 06/06/23 02:19 Pulse Ox 96 06/06/23 02:19 FiO2 Intake & Output 06/05/23 06/06/23 06/06/23 18:59 06:59 18:59 Intake Total 0 Output Total 500 900 Balance -500 -900 Intake: Oral 0 Output: Urine 500 900 Other: Voiding Method External Catheter External Catheter # Bowel Movements 0 - Labs CBC & Chem 7: 06/04/23 06:18 06/04/23 06:18 Labs: Abnormal Lab Results - Last 24 Hours (Table) 06/06/23 Range/Units 06:07 PT 17.0 H (10.0-12.5) sec INR 1.7 H (<1.2)
[2023-06-06] MEDS: WARFARIN 5 MG TAB PO ONE (22:22)
[2023-06-07 08:20] LABS: INR 2.2 (<1.2); Prothrombin Time 22.1 sec (10.0-12.5)
--- NOTE | 2023-06-07 13:00 | P.PN ---
Subjective Progress Note Date: 06/07/23 77 year old F with PMH of AFib, HTN, hypothyroidism, Asthma presents to the ED. Patient reports progressive weakness ongoing for many weeks. Today, she couldnt get out of bed which prompted her to call EMS. States that she was supposed to see a Wound care doctor for her bilateral lower extremity wounds. Denies any fever or chills. Denies chest pain, shortness of breath, dizziness, or palpitations. No LOC or head trauma. In the ED, she underwent extensive evaluation. Vital signs stable. CBC WBC 12.3 Hg 10.2 Hct 30.9. INR 2.7. CMP Cl 109, BUN 35, Cr 1.14, glu 138, alk phos 137, alb 3.4. TSH 9.570. EKG A-Fib Brain CT moderate to severe small vessel ischemic disease, mild hydrocephalus. Hip XR no osseous abnormalities. CXR minimal posterior pleural effusion, mild cardiomegaly. Patient was seen and examined. No complaints. Seen by wound care, honey gel dry gauze roll to all ulcerations, ROBERTO wrap for compression and a figure 8 configuration recommended. CBC WBC 11.72 Hg 8.8 Hct 27.8. INR 2.3. CMP Cl 114, BUN 33, Cr 1.3, glu 155, alb 3. UA negative for LE or nitrite. FT4 1.51. Pending SNF. 06/04 Patient was seen and examined. No complaints. Discussed with case management. Vit D 25 low at 15.1. INR is 1.7. She is awaiting SNF. 06/05 Patient was seen and examined. No complaints. Pending insurance authorization for SNF. INR is 1.7. 06/06 Patient was seen and examined. No complaints. Pending insurance authorization for SNF. INR is 2.2. General: non toxic, no distress, appears at stated age Derm: warm, dry Head: atraumatic, normocephalic, symmetric Eyes: EOMI, no lid lag, anicteric sclera Mouth: no lip lesion, mucus membranes moist Cardiovascular: S1S2 irreg, no murmur Lungs: CTA bilateral, no rhonchi, no rales , no accessory muscle use Abdominal: soft, nontender to palpation, no guarding, no appreciable organomegaly Ext: no gross muscle atrophy, no edema, no contractures, bilateral lower extremity ROBERTO wrapped. Neuro: no focal neuro deficits Psych: Alert, oriented, appropriate affect Based on my assessment of this patient, this patient meets a high complexity level of care. Patient has an acute diagnosis of generalized weakness with inability to take care of her ADLs and IADLs that poses a threat to life or bodily function. Generalized weakness: PT/OT consult. Fall precautions. Lower extremity wounds: Wound care on board. Leukocytosis: Possibly cellulitis related to lower extremity wounds. Keflex 500 mg PO BID. UA negative for LE or nitrite. Normocytic anemia: Possibly related to CKD. No signs of active bleeding. Subclinical hypothyroidism: Increase Synthroid to 175 mcg PO QD. Repeat TSH and FT4 in 6 weeks with PCP. Vit D deficiency: Start Vitamin D3 25 mcg PO QD. Chronic: CKD, AFib, HTN, hypothyroidism, Asthma CODE STATUS: FULL CODE DVT Prophylaxis: Warfarin GI Prophylaxis: Designated medical POA if patient is not able to make medical decisions for the mselves: Friend I have reviewed the following internal audit consultant notes: I have reviewed the results of the following tests: INR. I have ordered the following tests: I have discussed the care of this patient with the following independent historian: I have independently interpreted the following test below: I have discussed the management of this patient with the following physician: Objective - Vital Signs Vital signs: Vital Signs Temp 98.3 F 06/07/23 07:00 Pulse 64 06/07/23 07:00 Resp 15 06/07/23 08:42 BP 149/64 06/07/23 07:00 Pulse Ox 94 L 06/07/23 07:00 FiO2 Intake & Output 06/06/23 06/07/23 06/07/23 18:59 06:59 18:59 Output Total 900 Balance -900 Output: Urine 900 Other: Voiding Method External Catheter External Catheter External Catheter # Bowel Movements 0 - Labs CBC & Chem 7: 06/04/23 06:18 06/04/23 06:18 Labs: Abnormal Lab Results - Last 24 Hours (Table) 06/07/23 Range/Units 06:53 PT 22.1 H (10.0-12.5) sec INR 2.2 H (<1.2)
[2023-06-07] MEDS: WARFARIN 2.5 MG TAB PO ONE (17:42)
[2023-06-08 04:31] LABS: INR 2.3 (<1.2); Prothrombin Time 23.2 sec (10.0-12.5)
--- NOTE | 2023-06-08 11:38 | P.DS ---
Providers Date of admission: 06/03/23 16:03 Expected date of discharge: 06/08/23 Attending physician: Juana Dillard DO Primary care physician: Minh Gonzales [facility] Course: 77 year old F with PMH of AFib, HTN, hypothyroidism, Asthma presents to the ED. Patient reports progressive weakness ongoing for many weeks. Today, she couldnt get out of bed which prompted her to call EMS. States that she was supposed to see a Wound care doctor for her bilateral lower extremity wounds. Denies any fever or chills. Denies chest pain, shortness of breath, dizziness, or palpitations. No LOC or head trauma. In the ED, she underwent extensive evaluation. Vital signs stable. CBC WBC 12.3 Hg 10.2 Hct 30.9. INR 2.7. CMP Cl 109, BUN 35, Cr 1.14, glu 138, alk phos 137, alb 3.4. TSH 9.570. EKG A-Fib Brain CT moderate to severe small vessel ischemic disease, mild hydrocephalus. Hip XR no osseous abnormalities. CXR minimal posterior pleural effusion, mild cardiomegaly. Patient was seen and examined. No complaints. Seen by wound care, honey gel dry gauze roll to all ulcerations, ROBERTO wrap for compression and a figure 8 configuration recommended. CBC WBC 11.72 Hg 8.8 Hct 27.8. INR 2.3. CMP Cl 114, BUN 33, Cr 1.3, glu 155, alb 3. UA negative for LE or nitrite. FT4 1.51. Pending SNF. 06/04 Patient was seen and examined. No complaints. Discussed with case management. Vit D 25 low at 15.1. INR is 1.7. She is awaiting SNF. 06/05 Patient was seen and examined. No complaints. Pending insurance authorization for SNF. INR is 1.7. 06/06 Patient was seen and examined. No complaints. Pending insurance authorization for SNF. INR is 2.2. 06/07 Patient was seen and examined. No complaints. Hopeful plans for SNF today. INR is 2.3. General: non toxic, no distress, appears at stated age Derm: warm, dry Head: atraumatic, normocephalic, symmetric Eyes: EOMI, no lid lag, anicteric sclera Mouth: no lip lesion, mucus membranes moist Cardiovascular: S1S2 irreg, no murmur Lungs: CTA bilateral, no rhonchi, no rales , no accessory muscle use Abdominal: soft, nontender to palpation, no guarding, no appreciable organomegaly Ext: no gross muscle atrophy, no edema, no contractures, bilateral lower extremity ROBERTO wrapped. Neuro: no focal neuro deficits Psych: Alert, oriented, appropriate affect Discharge Diagnosis: Generalized weakness Lower extremity wounds Leukocytosis Normocytic anemia Subclinical hypothyroidism Vit D deficiency Chronic: CKD, AFib, HTN, hypothyroidism, Asthma This complex discharge took 35 minutes to complete. Patient Condition at Discharge: Stable Plan - Discharge Summary New Discharge Prescriptions: New Gabapentin [Neurontin] 600 mg PO DAILY #3 cap Continue Montelukast Sodium [Singulair] 10 mg PO HS Atorvastatin [Lipitor] 20 mg PO HS Warfarin Sodium [Coumadin] 2.5 mg PO [id number] Gabapentin [Neurontin] 600 mg PO DAILY Levothyroxine Sodium [Synthroid] 150 mcg PO DAILY Warfarin [Coumadin] 5 mg PO SUTUTHSA@2099 allopurinoL 100 mg PO HS Furosemide [Lasix] 40 mg PO [id number] Magnesium Oxide [Mag-Ox] 400 mg PO HS Losartan [Cozaar] 25 mg PO DAILY metFORMIN HCL [Glucophage] 500 mg PO BID Gabapentin [Neurontin] 300 mg PO HS #3 cap Discharge Medication List Atorvastatin [Lipitor] 20 mg PO HS 06/02/19 [History] Montelukast Sodium [Singulair] 10 mg PO HS 06/02/19 [History] Warfarin Sodium [Coumadin] 2.5 mg PO MOWEFR@209906/02/19 [History] Warfarin [Coumadin] 5 mg PO SUTUTHSA@209907/24/20 [History] Gabapentin [Neurontin] 600 mg PO DAILY 01/02/21 [History] Furosemide [Lasix] 40 mg PO MOTUWETHFRSA 06/03/23 [History] Levothyroxine Sodium [Synthroid] 150 mcg PO DAILY 06/03/23 [History] Losartan [Cozaar] 25 mg PO DAILY 06/03/23 [History] Magnesium Oxide [Mag-Ox] 400 mg PO HS 06/03/23 [History] allopurinoL 100 mg PO HS 06/03/23 [History] metFORMIN HCL [Glucophage] 500 mg PO BID 06/03/23 [History] Gabapentin [Neurontin] 300 mg PO HS #3 cap 06/08/23 [Rx] Gabapentin [Neurontin] 600 mg PO DAILY #3 cap 06/08/23 [Rx] Follow up Appointment(s)/Referral(s): Minh Castro MD [Primary Care Provider] - 1-2 days [facility] [NON-STAFF] - 1 Week Discharge Disposition: TRANSFER TO SNF/ECF
[2023-06-08 14:52] VITALS: BP 115/63; PULSE 61; RESP 16; TEMP 98.6
[2023-06-08] MEDS ORDERED: WARFARIN 2.5 MG TAB PO ONE (18:00)
== END 2023-06-08 17:45 ==
LOC: EC 12:45 → 6NMEDSUR 16:03
PROVIDERS: ADMIT Internal Medicine; ATTEND Internal Medicine
DX: R53.1 Weakness (principal); N17.9 Acute kidney failure, unspecified; E86.0 Dehydration; I48.91 Unspecified atrial fibrillation; I87.333 Chronic venous hypertension (idiopathic) with ulcer and inflammation of bilateral lower extremity; E11.621 Type 2 diabetes mellitus with foot ulcer; E11.622 Type 2 diabetes mellitus with other skin ulcer; L97.512 Non-pressure chronic ulcer of other part of right foot with fat layer exposed; L97.212 Non-pressure chronic ulcer of right calf with fat layer exposed; L97.922 Non-pressure chronic ulcer of unspecified part of left lower leg with fat layer exposed; E78.5 Hyperlipidemia, unspecified; J45.909 Unspecified asthma, uncomplicated; D72.829 Elevated white blood cell count, unspecified; R74.8 Abnormal levels of other serum enzymes; I12.9 Hypertensive chronic kidney disease with stage 1 through stage 4 chronic kidney disease, or unspecified chronic kidney disease; N18.9 Chronic kidney disease, unspecified; E11.22 Type 2 diabetes mellitus with diabetic chronic kidney disease; D63.1 Anemia in chronic kidney disease; E03.8 Other specified hypothyroidism; E55.9 Vitamin D deficiency, unspecified; Z87.891 Personal history of nicotine dependence; Z79.899 Other long term (current) drug therapy; Z79.01 Long term (current) use of anticoagulants; Z79.890 Hormone replacement therapy; Z79.84 Long term (current) use of oral hypoglycemic drugs
CPT/HCPCS: 96360; 96361; 99285; 36415; 93005; 97162; 97166; 84439; 83880; 80053 ×2; 83605; 83735 ×2; 84100 ×2; 84443; 84484; 85025 ×2; 85610 ×6; 85730; 81001; 82306; 72170; 71046; 70450; G0378 ×6

== ENCOUNTER → 2023-08-10 | Outpatient (CLI) | payer MEDICARE ==
--- NOTE | 2023-08-10 12:11 | XR ---
EXAMINATION TYPE: XR foot complete RT DATE OF EXAM: 08/10/2023 11:52 AM CLINICAL INDICATION:Female, 77 years old with history of L97.512CHRONIC ULCER OTH PRT RIGHT FOOT W FA T LAYE; [facility] COMPARISON: None TECHNIQUE: XR foot complete RT examined in the AP, oblique, and lateral projections. FINDINGS: Diffuse osseous demineralization most pronounced over the metatarsal heads. No evidence of any acute osseous pathology. No evidence of soft tissue swelling. Multifocal degenera tion changes throughout the joints of the foot with osteophyte formation and joint space narrowing. Calcaneal plantar spurring and Achilles enthesophyte formation. Severe atherosclerotic arterial vascu lature. No evidence for osseous erosion. No subcutaneous gas in the visualized. IMPRESSION: 1. No evidence of acute fracture. 2. Moderate to severe multifocal degeneration changes throughout the joints of the foot. 3. No evidence of osseous erosion.
== END | disposition home or self-care (01) ==
LOC: RADXRMAIN 10:36
PROVIDERS: ATTEND Thoracic Surgery (Cardiothoracic Vascular Surgery)
DX: E11.621 Type 2 diabetes mellitus with foot ulcer (principal); L97.512 Non-pressure chronic ulcer of other part of right foot with fat layer exposed; L97.312 Non-pressure chronic ulcer of right ankle with fat layer exposed; I87.311 Chronic venous hypertension (idiopathic) with ulcer of right lower extremity

== ENCOUNTER 2023-11-01 14:33 | Emergency (ER) | payer MEDICARE ==
[2023-11-01] MEDS: SODIUM CHLORIDE 0.9% 1,000 ML IV STA (15:34)
--- NOTE | 2023-11-01 15:34 | ED ---
General Adult HPI - General Chief complaint: Weakness Stated complaint: AMS Time Seen by Provider: 11/01/23 14:51 Source: patient, EMS, RN notes reviewed Mode of arrival: EMS Limitations: no limitations - History of Present Illness Initial comments: This is a 77-year-old female who presents to the emergency department for an episode of altered mental status. States that she was standing outside waiting for someone to help her get into her house. Her granddaughter saw her on the ring camera and called family to help her in. When they arrived with the agrawal, family states that she appeared altered. She was not answering questions appropriately and was unsure where he was. This has since resolved and family states that she is back to baseline. Patient does not have much recollection of this event. Denies any history of similar symptoms in the past. Denies any dizziness, chest pain, or shortness of breath. - Related Data Home Medications Medication Instructions Recorded Confirmed Atorvastatin [Lipitor] 20 mg PO HS 06/02/19 11/01/23 Montelukast Sodium [Singulair] 10 mg PO HS 06/02/19 11/01/23 Warfarin [Coumadin] 5 mg PO DAILY 07/24/20 11/01/23 Furosemide [Lasix] 40 mg PO DAILY 06/03/23 11/01/23 Levothyroxine Sodium [Synthroid] 150 mcg PO DAILY 06/03/23 11/01/23 Losartan [Cozaar] 25 mg PO DAILY 06/03/23 11/01/23 Magnesium Oxide [Mag-Ox] 400 mg PO HS 06/03/23 11/01/23 allopurinoL 100 mg PO DAILY 06/03/23 11/01/23 metFORMIN HCL [Glucophage] 500 mg PO BID 06/03/23 11/01/23 Ferrous Sulfate [Feosol] 325 mg PO MOWEFR 11/01/23 11/01/23 Metamucil Gummy 1 cap PO DAILY 11/01/23 11/01/23 Pregabalin [Lyrica] 50 mg PO HS 11/01/23 11/01/23 Allergies Allergy/AdvReac Type Severity Reaction Status Date / Time lisinopril AdvReac Cough Verified 11/01/23 17:46 Review of Systems ROS Statement: Those systems with pertinent positive or pertinent negative responses have been documented in the HPI. ROS Other: All systems not noted in ROS Statement are negative. Past Medical History Past Medical History: Atrial Fibrillation, Asthma, Diabetes Mellitus, Hyperlipidemia, Hypertension, Osteoarthritis (OA), Thyroid Disorder Additional Past Medical History / Comment(s): HAD COVID VACCINE-MODERNA SEP 2020 History of Any Multi-Drug Resistant Organisms: None Reported Past Surgical History: Orthopedic Surgery Additional Past Surgical History / Comment(s): D&C(hysteroscopy,endometrial polyp removed), LEFT HEEL SPUR, LEFT TRIGGER THUMB, colonoscopy w/bx pt stated was neg., BILAT CATARACTS REMOVED WITH LENS IMPLANTS Past Anesthesia/Blood Transfusion Reactions: Motion Sickness, Postoperative Nausea & Vomiting (PONV) Additional Past Anesthesia/Blood Transfusion Reaction / Comment(s): claustr ophobia Past Psychological History: No Psychological Hx Reported Smoking Status: Former smoker Past Alcohol Use History: None Reported Past Drug Use History: None Reported - Past Family History Father History Unknown: Yes Additional Family Medical History / Comment(s): Pt was adopted. family Additional Family Medical History / Comment(s): 2 cousins with history of heart problems. Patient unable to quantify further. General Exam Limitations: no limitations General appearance: alert, in no apparent distress Head exam: Present: atraumatic, normocephalic, normal inspection Eye exam: Present: normal appearance, PERRL, EOMI. Absent: scleral icterus, conjunctival injection, periorbital swelling Respiratory exam: Present: normal lung sounds bilaterally. Absent: respiratory distress, wheezes, rales, rhonchi, stridor Cardiovascular Exam: Present: regular rate, normal rhythm, normal heart sounds. Absent: systolic murmur, diastolic murmur, rubs, gallop, clicks Neurological exam: Present: alert, oriented X3, CN II-XII intact Psychiatric exam: Present: normal affect, normal mood Skin exam: Present: warm, dry, intact, normal color. Absent: rash Course Vital Signs 11/01/23 11/01/23 11/01/23 14:44 16:25 17:27 Temperature 99 F Pulse Rate 69 78 81 Respiratory 18 17 17 Rate Blood Pressure 98/45 135/61 122/85 O2 Sat by Pulse 97 98 97 Oximetry 11/01/23 18:18 Temperature 98.9 F Pulse Rate 76 Respiratory 18 Rate Blood Pressure 114/69 O2 Sat by Pulse 98 Oximetry Medical Decision Making - Medical Decision Making This is a 77 year old female who presents to the emergency department an episode of altered mental status. Was pt. sent in by a medical professional or institution? @ -No Did you speak to anyone other than the patient for history? @ -Her friends provided the majority of the history. Did you review nursing and triage notes? @ -Yes, and I agree, it is accurate with regards to the patient's symptoms. Were old charts reviewed? @ -No Differential Diagnosis? @ -Differential Altered Mental Status: Hypoglycemia, DKA, hypercapnia, ETOH, overdose, CO poisoning, trauma, myxedema coma, HTN encephalopathy, infection, encephalitis, psychosis, intercranial hemorrhage, hepatic encephalopathy, meningitis, CVA, this is not meant to be an all-inclusive list EKG interpreted by me (3pts min.)? @ -EKG interpreted by me demonstrating the following: Atrial fibrillation. Ventricular rate 82 bpm, QRS duration 97 ms, QTc 435 ms. X-rays interpreted by me (1pt min.)? @ -Chest x-ray obtained, my interpretation identifies no localized consolidations or infiltrates. CT interpreted by me (1pt min.)? @ -CT scan of the brain obtained. My interpretation identifies no evidence of an acute intracranial hemorrhage. U/S interpreted by me (1pt. min.)? @ -Not obtained What testing was considered but not performed? (CT, X-rays, U/S, labs)? Why? @ -None What meds were considered but not given? Why? @ -None Did you discuss the management of the patient with other professionals? @ -No Did you reconcile home meds? @ -No Was smoking cessation discussed for >3mins.? @ -No Was critical care preformed (if so, how long)? @ -No Were there social determinants of health that impacted care today? How? (Homelessness, low income, unemployed, alcoholism, drug addiction, transportation, low edu. Level, literacy, decrease access to med. care, alf, rehab)? @ -No Was there de-escalation of care discussed even if they declined? (Discuss DNR or withdrawal of care, Hospice)? @ -No What co-morbidities impacted this encounter? (DM, HTN, Smoking, COPD, CAD, Cancer, CVA, Hep., AIDS, mental health diagnosis, sleep apnea, morbid obesity)? @ -A-fib, DM, HLD, HTN Was patient admitted / discharged? @ -Discharged. Lab work demonstrates mild leukocytosis and signs of dehydration. Urinalysis negative for signs of infection. Chest x-ray reveals low lung volumes with hazy appearance that could represent atelectasis versus pulmonary edema. Patient denies any difficulty breathing or chest pain. CT scan of the brain reveals no acute process. She is given a liter bolus of IV fluids. Symptoms may have been related to dehydration as well as the patient sitting in the extreme heat for almost an hour. Given that she was back to baseline, she and family were comfortable with discharge home. They were given strict return parameters and advised to have close follow-up with her primary care provider. Case discussed with ED attending Dr. Jameson Return precautions reviewed in depth, the patient is instructed to return to the emergency department with any new, worsening, or concerning symptoms. Patient verbalized understanding. Undiagnosed new problem with uncertain prognosis? @ -None Drug Therapy requiring intensive monitoring for toxicity (Heparin, Nitro, Insulin, Cardizem)? @ -None Were any procedures done? @ -None Diagnosis/symptom? @ -Dehydration, episode of confusion Acute, or Chronic, or Acute on Chronic? @ -Acute Uncomplicated (without systemic symptoms) or Complicated (systemic symptoms)? @ -Uncomplicated Side effects of treatment? @ -None Exacerbation, Progression, or Severe Exacerbation] @ -Not applicable Poses a threat to life or bodily function? @ -Unlikely - Lab Data Result diagrams: 11/01/23 15:36 11/01/23 15:36 Lab Results 11/01/23 11/01/23 11/01/23 Range/Units 15:36 15:36 15:36 WBC 10.8 H (3.8-10.6) k/uL RBC 3.71 L (3.80-5.40) m/uL Hgb 11.0 L (11.4-16.0) gm/dL Hct 33.7 L (34.0-46.0) % MCV 90.9 (80.0-100.0) fL MCH 29.7 (25.0-35.0) pg MCHC 32.7 (31.0-37.0) g/dL RDW 16.1 H (11.5-15.5) % Plt Count 318 (150-450) k/uL MPV 7.6 Neutrophils % 68 % Lymphocytes % 23 % Monocytes % 5 % Eosinophils % 3 % Basophils % 1 % Neutrophils # 7.3 (1.3-7.7) k/uL Lymphocytes # 2.5 (1.0-4.8) k/uL Monocytes # 0.5 (0-1.0) k/uL Eosinophils # 0.3 (0-0.7) k/uL Basophils # 0.1 (0-0.2) k/uL Hypochromasia Slight Anisocytosis Slight PT 16.9 H (10.0-12.5) sec INR 1.7 H (<1.2) APTT 28.9 (22.0-30.0) sec Sodium 137 (137-145) mmol/L Potassium 4.2 (3.5-5.1) mmol/L Chloride 106 (98-107) mmol/L Carbon Dioxide 24 (22-30) mmol/L Anion Gap 7 mmol/L BUN 33 H (7-17) mg/dL Creatinine 1.25 H (0.52-1.04) mg/dL Est GFR (CKD-EPI)AfAm 48 (>60 ml/min/1.73 sqM) Est GFR (CKD-EPI)NonAf 42 (>60 ml/min/1.73 sqM) Glucose 155 H (74-99) mg/dL Lactic Ac Sepsis Rflx Plasma Lactic Acid Humble (0.7-2.0) mmol/L Calcium 9.2 (8.4-10.2) mg/dL Phosphorus 3.7 (2.5-4.5) mg/dL Magnesium 1.8 (1.6-2.3) mg/dL Total Bilirubin 0.5 (0.2-1.3) mg/dL AST 21 (14-36) U/L ALT 16 (4-34) U/L Alkaline Phosphatase 106 (38-126) U/L Troponin I (0.000-0.034) ng/mL Total Protein 6.0 L (6.3-8.2) g/dL Albumin 3.6 (3.5-5.0) g/dL Urine Color Urine Appearance (Clear) Urine pH (5.0-8.0) Ur Specific [place] (1.001-1.035) Urine Protein (Negative) Urine Glucose (UA) (Negative) Urine Ketones (Negative) Urine Blood (Negative) Urine Nitrite (Negative) Urine Bilirubin (Negative) Urine Urobilinogen (<2.0) mg/dL Ur Leukocyte Esterase (Negative) 11/01/23 11/01/23 11/01/23 Range/Units 15:36 15:36 16:14 WBC (3.8-10.6) k/uL RBC (3.80-5.40) m/uL Hgb (11.4-16.0) gm/dL Hct (34.0-46.0) % MCV (80.0-100.0) fL MCH (25.0-35.0) pg MCHC (31.0-37.0) g/dL RDW (11.5-15.5) % Plt Count (150-450) k/uL MPV Neutrophils % % Lymphocytes % % Monocytes % % Eosinophils % % Basophils % % Neutrophils # (1.3-7.7) k/uL Lymphocytes # (1.0-4.8) k/uL Monocytes # (0-1.0) k/uL Eosinophils # (0-0.7) k/uL Basophils # (0-0.2) k/uL Hypochromasia Anisocytosis PT (10.0-12.5) sec INR (<1.2) APTT (22.0-30.0) sec Sodium (137-145) mmol/L Potassium (3.5-5.1) mmol/L Chloride (98-107) mmol/L Carbon Dioxide (22-30) mmol/L Anion Gap mmol/L BUN (7-17) mg/dL Creatinine (0.52-1.04) mg/dL Est GFR (CKD-EPI)AfAm (>60 ml/min/1.73 sqM) Est GFR (CKD-EPI)NonAf (>60 ml/min/1.73 sqM) Glucose (74-99) mg/dL Lactic Ac Sepsis Rflx Y Plasma Lactic Acid Humble 2.1 H* (0.7-2.0) mmol/L Calcium (8.4-10.2) mg/dL Phosphorus (2.5-4.5) mg/dL Magnesium (1.6-2.3) mg/dL Total Bilirubin (0.2-1.3) mg/dL AST (14-36) U/L ALT (4-34) U/L Alkaline Phosphatase (38-126) U/L Troponin I <0.012 (0.000-0.034) ng/mL Total Protein (6.3-8.2) g/dL Albumin (3.5-5.0) g/dL Urine Color Urine Appearance (Clear) Urine pH (5.0-8.0) Ur Specific [place] (1.001-1.035) Urine Protein (Negative) Urine Glucose (UA) (Negative) Urine Ketones (Negative) Urine Blood (Negative) Urine Nitrite (Negative) Urine Bilirubin (Negative) Urine Urobilinogen (<2.0) mg/dL Ur Leukocyte Esterase (Negative) 11/01/23 Range/Units 17:04 WBC (3.8-10.6) k/uL RBC (3.80-5.40) m/uL Hgb (11.4-16.0) gm/dL Hct (34.0-46.0) % MCV (80.0-100.0) fL MCH (25.0-35.0) pg MCHC (31.0-37.0) g/dL RDW (11.5-15.5) % Plt Count (150-450) k/uL MPV Neutrophils % % Lymphocytes % % Monocytes % % Eosinophils % % Basophils % % Neutrophils # (1.3-7.7) k/uL Lymphocytes # (1.0-4.8) k/uL Monocytes # (0-1.0) k/uL Eosinophils # (0-0.7) k/uL Basophils # (0-0.2) k/uL Hypochromasia Anisocytosis PT (10.0-12.5) sec INR (<1.2) APTT (22.0-30.0) sec Sodium (137-145) mmol/L Potassium (3.5-5.1) mmol/L Chloride (98-107) mmol/L Carbon Dioxide (22-30) mmol/L Anion Gap mmol/L BUN (7-17) mg/dL Creatinine (0.52-1.04) mg/dL Est GFR (CKD-EPI)AfAm (>60 ml/min/1.73 sqM) Est GFR (CKD-EPI)NonAf (>60 ml/min/1.73 sqM) Glucose (74-99) mg/dL Lactic Ac Sepsis Rflx Plasma Lactic Acid Humble (0.7-2.0) mmol/L Calcium (8.4-10.2) mg/dL Phosphorus (2.5-4.5) mg/dL Magnesium (1.6-2.3) mg/dL Total Bilirubin (0.2-1.3) mg/dL AST (14-36) U/L ALT (4-34) U/L Alkaline Phosphatase (38-126) U/L Troponin I (0.000-0.034) ng/mL Total Protein (6.3-8.2) g/dL Albumin (3.5-5.0) g/dL Urine Color Colorless Urine Appearance Clear (Clear) Urine pH 5.5 (5.0-8.0) Ur Specific [place] 1.011 (1.001-1.035) Urine Protein Negative (Negative) Urine Glucose (UA) Negative (Negative) Urine Ketones Negative (Negative) Urine Blood Negative (Negative) Urine Nitrite Negative (Negative) Urine Bilirubin Negative (Negative) Urine Urobilinogen <2.0 (<2.0) mg/dL Ur Leukocyte Esterase Negative (Negative) - Radiology Data Radiology results: report reviewed, image reviewed Disposition Clinical Impression: Episode of confusion, Dehydration Disposition: HOME SELF-CARE Instructions (If sedation given, give patient instructions): Dehydration (ED) Additional Instructions: Return to the emergency department with any new, worsening, or concerning symptoms. Try to drink more water. Follow up with your primary care provider in 1-2 days. Is patient prescribed a controlled substance at d/c from ED?: No Referrals: Jas Washburn MD [Primary Care Provider] - 1-2 days Time of Disposition: 17:20
[2023-11-01 15:50] LABS: Anisocytosis Slight; Basophils # (A) 0.1 k/uL (0-0.2); Basophils % (A) 1 %; Eosinophils # (A) 0.3 k/uL (0-0.7); Eosinophils % (A) 3 %; HCT 33.7 % (34.0-46.0); Hypochromasia Slight; Lymphocytes # (A) 2.5 k/uL (1.0-4.8); Lymphocytes % (A) 23 %; MCH 29.7 pg (25.0-35.0); MCHC 32.7 g/dL (31.0-37.0); MCV 90.9 fL (80.0-100.0); Mean Platelet Volume 7.6; Monocytes # (A) 0.5 k/uL (0-1.0); Monocytes % (A) 5 %; Neutrophils # (A) 7.3 k/uL (1.3-7.7); Neutrophils % (A) 68 %; Platelet Count 318 k/uL (150-450); RBC 3.71 m/uL (3.80-5.40); RDW 16.1 % (11.5-15.5); WBC 10.8 k/uL (3.8-10.6)
[2023-11-01 16:07] LABS: ALT 16 U/L (4-34); AST 21 U/L (14-36); African American GFR (CKD) 48 (>60 ml/min/1.73 sqM); Albumin 3.6 g/dL (3.5-5.0); Alkaline Phosphatase 106 U/L (38-126); Anion Gap 7 mmol/L; Blood Urea Nitrogen 33 mg/dL (7-17); Calcium 9.2 mg/dL (8.4-10.2); Carbon Dioxide 24 mmol/L (22-30); Chloride 106 mmol/L (98-107); Glucose 155 mg/dL (74-99); Magnesium 1.8 mg/dL (1.6-2.3); Non-African American GFR(CKD) 42 (>60 ml/min/1.73 sqM); Phosphorus 3.7 mg/dL (2.5-4.5); Potassium 4.2 mmol/L (3.5-5.1); Sodium 137 mmol/L (137-145); Total Bilirubin 0.5 mg/dL (0.2-1.3)
--- NOTE | 2023-11-01 16:07 | XR ---
EXAMINATION TYPE: XR chest 2V DATE OF EXAM: 11/01/2023 4:00 PM CLINICAL INDICATION:Female, 77 years old with history of Weakness; [facility] COMPARISON: Chest radiographs from06/03/2023 TECHNIQUE: XR chest 2V Frontal view of the chest. FINDINGS: Lungs/Pleura: Low lung volumes are present. There is no evidence of pleural effusion, focal consolida tion, or pneumothorax. Pulmonary vascularity: Unremarkable. Heart/mediastinum: Cardiomediastinal silhouette is unremarkable. Musculoskeletal: No acute osseous pathology. IMPRESSION: Low lung volumes with a generalized hazy appearance which could represent atelectasis versus pulmonar y edema correlate with serum BNP.
[2023-11-01 16:27] LABS: INR 1.7 (<1.2); Partial Thromboplastin Time 28.9 sec (22.0-30.0); Prothrombin Time 16.9 sec (10.0-12.5)
--- NOTE | 2023-11-01 16:54 | CT ---
EXAMINATION TYPE: CT brain wo con CT DLP: 1099.5 mGycm, Automated exposure control for dose reduction was used. DATE OF EXAM: 11/01/2023 4:29 PM COMPARISON: 06/03/2023. CLINICAL INDICATION:Female, 77 years old with history of Altered mental status, AMS, TECHNIQUE: Brain: Axial CT images of the brain were obtained with coronal and sagittal reformats created and rev iewed. Contrast used: None. Oral contrast used: None. FINDINGS: Brain: Extra-axial spaces: No abnormal extra-axial fluid collections. Ventricular system: Dilatation in proportion to cerebral atrophy. Cerebral parenchyma: Mineralization of the basal ganglia bilaterally. Cerebral atrophy. No acute intr aparenchymal hemorrhage or mass effect. The frye-white junction is well differentiated. Scattered hy poattenuating areas are seen within the white matter. Cerebellum: Unremarkable. Mass effect: No evidence of midline shift. Intracranial vasculature: Atherosclerotic calcifications of the intracranial vessels. Soft tissues: Normal. Calvarium/osseous structures: No depressed skull fracture. Paranasal sinuses and mastoid air cells: Mild scattered paranasal sinus disease. Visualized orbits: Bilateral aphakia IMPRESSION: 1. No acute intracranial process. 2. Nonspecific white matter changes, likely secondary to chronic small vessel ischemic disease.
[2023-11-01 17:08] LABS: Appearance,Urine Clear (Clear); Bilirubin,Urine Negative (Negative); Blood,Urine Negative (Negative); Color,Urine Colorless; Glucose,Urine (UA) Negative (Negative); Ketones,Urine Negative (Negative); Leukocyte Esterase,Urine Negative (Negative); Nitrite,Urine Negative (Negative); PH, Urine 5.5 (5.0-8.0); Protein,Urine Negative (Negative); Specific Gravity,Urine 1.011 (1.001-1.035); Urobilinogen,Urine <2.0 mg/dL (<2.0)
[2023-11-01 18:19] VITALS: BP 114/69; PULSE 76; RESP 18; TEMP 98.9
== END 2023-11-01 18:19 | disposition home or self-care (01) ==
LOC: EC 14:33
DX: E86.0 Dehydration (principal); R41.0 Disorientation, unspecified; Z87.891 Personal history of nicotine dependence; Z88.8 Allergy status to other drugs, medicaments and biological substances
CPT/HCPCS: 36415; 70450; 71046; 80053; 81003; 83605; 83735; 84100; 84484; 85025; 85610; 85730; 93005; 96360; 96361; 99285

== ENCOUNTER → 2024-07-27 | Outpatient (CLI) | payer MEDICARE ==
--- NOTE | 2024-07-27 14:36 | BD ---
EXAMINATION TYPE: Axial Bone Density DATE OF EXAM: 07/27/2024 CLINICAL HISTORY: 78 years old Female. ICD-10 CODE: R42 DIZZINESS AND GIDDINESS R26.89 OTHER ABNORMA LI , Additional History: Height: 56 in Weight: 206 lbs FRAX RISK QUESTIONS: History of Fracture in Adulthood: rt shoulder fx age 68 HISTORY OF: Surgery to Hip(right): rt hip replacement 2019 MEDICATIONS: Thyroid Medications: yes Which medication: Levothyroxine How Lon+ years EXAM MEASUREMENTS: Bone mineral densitometry was performed using the SCADA Access System. Bone mineral density as measured about the Lumbar spine is: ----- L1-L4(G/cm2): 1.430 T Score Values are as follows: ----- L1: 1.1 ----- L2: 0.9 ----- L3: 3.2 ----- L4: 2.9 ----- L1-L4: 2.1 Z Score Values are as follows: ----- L1: 1.9 ----- L2: 1.8 ----- L3: 4.0 ----- L4: 3.7 ----- L1-L4: 2.9 Bone mineral density has: Decreased -2.7% since study of: 09/13/2018 Bone mineral density about the L hip (g/cm2): 0.845 T Score values are as follows: -----L Neck: -2.1 -----L Total: -1.3 Z Score values are as follows: -----L Neck: -0.7 -----L Total: -0.1 Bone mineral density has: Decreased -19.4% since study of: 09/13/2018 FRAX%s: The graph provided illustrates a 18.5% chance for a major osteoporotic fx and a 4.5% chance f or the hips probability for fx in 10 years time. IMPRESSION: Osteopenia (T Score between -2.5 and -1). There is slightly increased risk of fracture and the patient may be considered for treatment. Re-Screen 2-5 years. NOTE: T-SCORE=SD OF THE YOUNG ADULT MEAN. [facility], , 07/27/2024 2:33 PM
== END | disposition home or self-care (01) ==
LOC: RADBDWWP 13:32
PROVIDERS: ATTEND Family Medicine
DX: M85.89 Other specified disorders of bone density and structure, multiple sites (principal); Z78.0 Asymptomatic menopausal state
CPT/HCPCS: 77080

== ENCOUNTER 2024-10-31 23:45 | Emergency (ER) | payer MEDICARE ==
--- NOTE | 2024-11-01 00:51 | ED ---
General Adult HPI - General Chief complaint: Fall Stated complaint: fall on blood thinners Time Seen by Provider: 11/01/24 00:07 Source: patient, EMS Mode of arrival: wheelchair Limitations: no limitations - History of Present Illness Initial comments: Patient is a 78-year-old female with past medical history of H ablation on Coumadin presenting today for a fall. Patient states this evening she began having loose stools so went to the bathroom to clean herself up, she was bending over to clean off the toilet she lost her balance and fell onto her behind. She was unable to get up however she is usually not able to get up independently. She currently denies any pain. Denies hitting her head. Denies neck pain, back pain, pain in her extremities. Denies injuries. Denies chest pain or shortness of breath. Denies abdominal pain. States stools were dark today and for the last week. She has nausea, vomiting, fevers, leg swelling. She states she has had a mild nonproductive cough for the last 3 to 4 days, and one of her roommates has similar. She states that she typically would not have come to the hospital however her roommates encouraged her to come in due to her cough because they were concerned she has pneumonia. - Related Data Home Medications Medication Instructions Recorded Confirmed Atorvastatin [Lipitor] 20 mg PO HS 06/02/19 11/01/23 Montelukast Sodium [Singulair] 10 mg PO HS 06/02/19 11/01/23 Warfarin [Coumadin] 5 mg PO DAILY 07/24/20 11/01/23 Furosemide [Lasix] 40 mg PO DAILY 06/03/23 11/01/23 Levothyroxine Sodium [Synthroid] 150 mcg PO DAILY 06/03/23 11/01/23 Losartan [Cozaar] 25 mg PO DAILY 06/03/23 11/01/23 Magnesium Oxide [Mag-Ox] 400 mg PO HS 06/03/23 11/01/23 allopurinoL 100 mg PO DAILY 06/03/23 11/01/23 metFORMIN HCL [Glucophage] 500 mg PO BID 06/03/23 11/01/23 Ferrous Sulfate [Feosol] 325 mg PO MOWEFR 11/01/23 11/01/23 Metamucil Gummy 1 cap PO DAILY 11/01/23 11/01/23 Pregabalin [Lyrica] 50 mg PO HS 11/01/23 11/01/23 Allergies Allergy/AdvReac Type Severity Reaction Status Date / Time lisinopril AdvReac Cough Verified 11/01/24 00:02 Review of Systems ROS Statement: Those systems with pertinent positive or pertinent negative responses have been documented in the HPI. ROS Other: All systems not noted in ROS Statement are negative. Past Medical History Past Medical History: Atrial Fibrillation, Asthma, Diabetes Mellitus, Hyperlipidemia, Hypertension, Osteoarthritis (OA), Thyroid Disorder Additional Past Medical History / Comment(s): HAD COVID VACCINE-MODERNA SEP 2020 History of Any Multi-Drug Resistant Organisms: None Reported Past Surgical History: Orthopedic Surgery Additional Past Surgical History / Comment(s): D&C(hysteroscopy,endometrial polyp removed), LEFT HEEL SPUR, LEFT TRIGGER THUMB, colonoscopy w/bx pt stated was neg., BILAT CATARACTS REMOVED WITH LENS IMPLANTS Past Anesthesia/Blood Transfusion Reactions: Motion Sickness, Postoperative Nausea & Vomiting (PONV) Additional Past Anesthesia/Blood Transfusion Reaction / Comment(s): claustrophobia Past Psychological History: No Psychological Hx Reported Smoking Status: Former smoker Past Alcohol Use History: None Reported Past Drug Use History: None Reported - Past Family History Father History Unknown: Yes Additional Family Medical History / Comment(s): Pt was adopted. family Additional Family Medical History / Comment(s): 2 cousins with history of heart problems. Patient unable to quantify further. General Exam - General Exam Comments Initial Comments: PE: CONSTITUTIONAL: [no apparent distress, well appearing] SKIN: [warm, dry, no jaundice, hives or petechiae] EYES:[ pupils are equally round, extraocular movements intact without nystagmus, clear conjunctiva, non-icteric sclera] HENT: [normocephalic, atraumatic, moist mucus membranes, oropharynx clear without exudates] NECK: , [Full range of motion, normal appearance] PULMONARY: [clear to auscultation without wheezes, rhonchi, or rales, normal excursion, no accessory muscle use and no stridor] CARDIOVASCULAR:[ regular rate, rhythm, normal S1 and S2. No appreciated murmurs, rubs or gallops. Strong radial pulses with intact distal perfusion. No lower extremity edema] GASTROINTESTINAL: [soft, active bowel sounds throughout, non-tender, non- distended, no palpable masses, no rebound or guarding. No hepatosplenomegaly] GENITOURINARY: MUSCULOSKELETAL: [Extremities have no gross deformity, no edema, redness, or swelling. No calf swelling, no midline spinal tenderness to palpation, no neck tenderness, no evidence of injury] NEUROLOGIC: [_a/o x 3, GCS 15, normal mentation and speech. Moves all extremities x 4 without motor or sensory deficit] PSYCHIATRIC:[ _normal mood and affect, thought process is clear and linear] Limitations: no limitations Course Vital Signs 11/01/24 11/01/24 11/01/24 00:03 02:00 04:03 Temperature 98.1 F Pulse Rate 63 70 74 Respiratory 16 20 20 Rate Blood Pressure 139/83 157/90 174/96 O2 Sat by Pulse 99 96 99 Oximetry Medical Decision Making - Medical Decision Making Was pt. sent in by a medical professional or institution (, PA, AUTOMATIC TRANSMISSION MECHANIC, urgent care, hospital, or half-way...) When possible be specific @ -[No] Did you speak to anyone other than the patient for history (EMS, parent, family, police, friend...)? What history was obtained from this source @ -[No] Did you review nursing and triage notes (agree or disagree)? Why? @ -[I reviewed nursing and triage notes] Were old charts reviewed (outside hosp., previous admission, EMS record, old EKG, old radiological studies, urgent care reports/EKG's, half-way records)? Report findings @ -[Medical records reviewed]Chart review patient had a recent DEXA scan on 07/27/2024 showed osteopenia with slightly increased fracture risk Differential Diagnosis (chest pain, altered mental status, abdominal pain women, abdominal pain men, vaginal bleeding, weakness, fever, dyspnea, syncope, headache, dizziness, GI bleed, back pain, seizure, CVA, palpatations, mental health, musculoskeletal)? @ -[not applicable] EKG interpreted by me (3pts min.). @ -[As above] X-rays interpreted by me (1pt min.). @ -[None done] CT interpreted by me (1pt min.). @ -[None done] U/S interpreted by me (1pt. min.). @ -[None done] What testing was considered but not performed or refused? (CT, X-rays, U/S, labs)? Why? @ -[None] What meds were considered but not given or refused? Why? @ -[None] Did you discuss the management of the patient with other professionals (professionals i.e. , PA, AUTOMATIC TRANSMISSION MECHANIC, lab, RT, psych nurse, social organization professor, police commanding officer, teacher, lead security officer, case manager specialist)? Give summary @ -[No] Was smoking cessation discussed for >3mins.? @ -[No] Was critical care preformed (if so, how long)? @ -[No] Were there social determinants of health that impacted care today? How? (Homelessness, low income, unemployed, alcoholism, drug addiction, transportation, low edu. Level, literacy, decrease access to med. care, retirement, rehab)? @ -[No] Was there de-escalation of care discussed even if they declined (Discuss DNR or withdrawal of care, Hospice)? @ -[No] What co-morbidities impacted this encounter? (DM, HTN, Smoking, COPD, CAD, Cancer, CVA, ARF, Chemo, Hep., AIDS, mental health diagnosis, sleep apnea, morbid obesity)? @ -[None] Was patient admitted / discharged? Hospital course, mention meds given and route, prescriptions, significant lab abnormalities, going to OR and other per tinent info. @ -[hospital course] pleasant 78-year-old female presenting today for mechanical fall after having diarrhea and trying to clean herself up. Vital signs are stable on arrival. Patient currently denies any complaints of states that her roommate encouraged her to come in because her friend she had pneumonia. States that her stool may have been dark. Will obtain basic labs, Hemoccult testing and chest x-ray as well as Soffen panel. Patient agreeable with plan Labs and imaging reviewed. Grossly within normal limits. Abnormal values not concerning for acute pathology related to presenting complaint.. Updated patient to findings. She is resting comfortably. Discussed with patient plan for discharge from which which she was agreeable. I did discuss with the patient that should he start have any fevers, coughing up thick sputum or blood, difficulty in breathing or leg swelling she should return to the ER immediately. In my medical judgment there is currently no evidence of an immediate life- threatening or surgical condition. Discharge is therefore indicated at this ti me. [Discharge treatment instructions, follow up instructions, and appropriate emergency department return precautions were discussed with the patient and/or medical decision maker. Patient and/or medical decision maker expressed understanding of and agreed with the treatment plan, follow up instructions, and emergency department return precaution. All patient's and/or medical decision maker's questions were answered.] [The patient was advised that a small risk still exists that a serious condition could develop and was therefore instructed to return to the ED for any changes in symptoms, persistent symptoms, inability to obtain proper follow-up or for any further concerns. Patient received verbal and written instructions for this condition.] Undiagnosed new problem with uncertain prognosis? @ -[No] Drug Therapy requiring intensive monitoring for toxicity (Heparin, Nitro, Insulin, Cardizem)? @ -[No] Were any procedures done? @ -[No] Diagnosis/symptom? @Fall, cough Acute, or Chronic, or Acute on Chronic? @ -Acute Uncomplicated (without systemic symptoms) or Complicated (systemic symptoms)? @ -Uncomplicated Side effects of treatment? @ -[No] Exacerbation, Progression, or Severe Exacerbation? @ -[No] Poses a threat to life or bodily function? How? (Chest pain, [place], [place], pneumonia, PE, COPD, DKA, ARF, appy, cholecystitis, CVA, Diverticulitis, Homicidal, Suicidal, threat to staff... and all critical care pts) @ -[No] - Lab Data Result diagrams: 11/01/24 01:03 11/01/24 01:03 Lab Results 11/01/24 11/01/24 11/01/24 Range/Units 01:03 01:03 01:03 WBC 16.72 H (4.50-10.00) 10*3/uL RBC 3.88 L (4.10-5.20) 10*6/uL Hgb 11.8 L (12.0-15.0) g/dL Hct 35.2 L (37.2-46.3) % MCV 90.7 (80.0-97.0) fL MCH 30.4 (27.0-32.0) pg MCHC 33.5 (32.0-37.0) g/dL Plt Count 295 (140-440) 10*3/uL MPV 10.9 (9.5-12.2) fL Immature Gran % (Auto) 0.5 % Neutrophils % 78.4 % Lymphocytes % 13.4 % Monocytes % 6.8 % Eosinophils % 0.5 % Basophils % 0.4 % Immature Gran # 0.09 H (0.00-0.04) 10*3/uL Neutrophils # 13.11 H (1.80-7.70) 10*3/uL Lymphocytes # 2.24 (0.90-5.00) 10*3/uL Monocytes # 1.13 H (0.20-1.00) 10*3/uL Eosinophils # 0.08 (0.04-0.35) 10*3/uL Basophils # 0.07 (0.00-0.10) 10*3/uL PT 27.9 H (10.0-12.5) sec INR 2.8 H (<1.2) APTT 43.7 H (22.0-30.0) sec Sodium 139 (137-145) mmol/L Potassium 4.3 (3.5-5.1) mmol/L Chloride 105 (98-107) mmol/L Carbon Dioxide 24 (22-30) mmol/L Anion Gap 10 mmol/L BUN 33 H (7-17) mg/dL Creatinine 1.08 H (0.52-1.04) mg/dL Est GFR (CKD-EPI)AfAm 57 (>60 ml/min/1.73 sqM) Est GFR (CKD-EPI)NonAf 50 (>60 ml/min/1.73 sqM) Glucose 154 H (74-99) mg/dL Calcium 9.3 (8.4-10.2) mg/dL Total Bilirubin 1.1 (0.2-1.3) mg/dL AST 30 (14-36) U/L ALT 15 (4-34) U/L Alkaline Phosphatase 126 (38-126) U/L Total Protein 6.7 (6.3-8.2) g/dL Albumin 3.7 (3.5-5.0) g/dL Stool Occult Blood (Negative) Influenza Type A (PCR) (Not Detectd) Influenza Type B (PCR) (Not Detectd) RSV (PCR) (Not Detectd) SARS-CoV-2 (PCR) (Not Detectd) 11/01/24 11/01/24 Range/Units 01:03 01:05 WBC (4.50-10.00) 10*3/uL RBC (4.10-5.20) 10*6/uL Hgb (12.0-15.0) g/dL Hct (37.2-46.3) % MCV (80.0-97.0) fL MCH (27.0-32.0) pg MCHC (32.0-37.0) g/dL Plt Count (140-440) 10*3/uL MPV (9.5-12.2) fL Immature Gran % (Auto) % Neutrophils % % Lymphocytes % % Monocytes % % Eosinophils % % Basophils % % Immature Gran # (0.00-0.04) 10*3/uL Neutrophils # (1.80-7.70) 10*3/uL Lymphocytes # (0.90-5.00) 10*3/uL Monocytes # (0.20-1.00) 10*3/uL Eosinophils # (0.04-0.35) 10*3/uL Basophils # (0.00-0.10) 10*3/uL PT (10.0-12.5) sec INR (<1.2) APTT (22.0-30.0) sec Sodium (137-145) mmol/L Potassium (3.5-5.1) mmol/L Chloride (98-107) mmol/L Carbon Dioxide (22-30) mmol/L Anion Gap mmol/L BUN (7-17) mg/dL Creatinine (0.52-1.04) mg/dL Est GFR (CKD-EPI)AfAm (>60 ml/min/1.73 sqM) Est GFR (CKD-EPI)NonAf (>60 ml/min/1.73 sqM) Glucose (74-99) mg/dL Calcium (8.4-10.2) mg/dL Total Bilirubin (0.2-1.3) mg/dL AST (14-36) U/L ALT (4-34) U/L Alkaline Phosphatase (38-126) U/L Total Protein (6.3-8.2) g/dL Albumin (3.5-5.0) g/dL Stool Occult Blood Negative (Negative) Influenza Type A (PCR) Not Detected (Not Detectd) Influenza Type B (PCR) Not Detected (Not Detectd) RSV (PCR) Not Detected (Not Detectd) SARS-CoV-2 (PCR) Not Detected (Not Detectd) Disposition Clinical Impression: Diarrhea, Fall, Cough Disposition: HOME SELF-CARE Condition: Good Instructions (If sedation given, give patient instructions): Acute Diarrhea (ED) Additional Instructions: Every disease is a spectrum and a small chance still exists that a serious condition could develop, for this reason, please monitor yourself closely for new, changing or worsening symptoms, symptoms that persist beyond 72 hours, lightheadedness or dizziness, difficulty in breathing, chest pain, coughing up thick sputum or blood, new abdominal pain fever, inability to tolerate/keep down fluids or your medications, inability to follow up with outpatient providers as instructed and should you experience these symptoms or should you have any further concerns for your wellbeing please return to the ED or call 911 immediately. Please maintain a diet of bland foods for the next 24 to 48 hours until your diarrhea improves. Should you continue to have diarrhea beyond 72 hours please return to the ER immediately. PLEASE call your primary care physician as soon as possible to arrange / discuss plan for followup appointment. Appointment in the next 1-3 days is strongly encouraged if possible. Please have your kidney function monitored closely by your primary care provider. Please have kidney function rechecked within 1 week. PLEASE let us know here before you leave if there is anything further we can do to be of any assistance. Take care and feel Better! Is patient prescribed a controlled substance at d/c from ED?: No Referrals: Americo Dickerson Jr, DO [Primary Care Provider] - 1-2 days
[2024-11-01 01:22] LABS: Basophils # (A) 0.07 10*3/uL (0.00-0.10); Basophils % (A) 0.4 %; Eosinophils # (A) 0.08 10*3/uL (0.04-0.35); Eosinophils % (A) 0.5 %; HCT 35.2 % (37.2-46.3); HGB 11.8 g/dL (12.0-15.0); Lymphocytes # (A) 2.24 10*3/uL (0.90-5.00); Lymphocytes % (A) 13.4 %; MCH 30.4 pg (27.0-32.0); MCHC 33.5 g/dL (32.0-37.0); MCV 90.7 fL (80.0-97.0); Monocytes # (A) 1.13 10*3/uL (0.20-1.00); Monocytes % (A) 6.8 %; Neutrophils # (A) 13.11 10*3/uL (1.80-7.70); Neutrophils % (A) 78.4 %; Platelet Count 295 10*3/uL (140-440); RBC 3.88 10*6/uL (4.10-5.20); RDW 14.1 % (11.5-14.5); WBC 16.72 10*3/uL (4.50-10.00)
[2024-11-01 01:44] LABS: ALT 15 U/L (4-34); African American GFR (CKD) 57 (>60 ml/min/1.73 sqM); Albumin 3.7 g/dL (3.5-5.0); Anion Gap 10 mmol/L; Blood Urea Nitrogen 33 mg/dL (7-17); Calcium 9.3 mg/dL (8.4-10.2); Carbon Dioxide 24 mmol/L (22-30); Chloride 105 mmol/L (98-107); Glucose 154 mg/dL (74-99); Non-African American GFR(CKD) 50 (>60 ml/min/1.73 sqM); Sodium 139 mmol/L (137-145); Total Protein 6.7 g/dL (6.3-8.2)
[2024-11-01 01:58] LABS: Potassium 4.3 mmol/L (3.5-5.1)
[2024-11-01 01:59] LABS: AST 30 U/L (14-36); Alkaline Phosphatase 126 U/L (38-126)
[2024-11-01 02:00] LABS: RSV Not Detected (Not Detectd)
[2024-11-01 02:11] LABS: INR 2.8 (<1.2); Partial Thromboplastin Time 43.7 sec (22.0-30.0); Prothrombin Time 27.9 sec (10.0-12.5)
--- NOTE | 2024-11-01 03:11 | XR ---
EXAM: XR Chest, 2 Views CLINICAL HISTORY: ITS.REASON XR Reason: cough TECHNIQUE: Frontal and lateral views of the chest. COMPARISON: No relevant prior studies available. FINDINGS: Lungs: No consolidation or mass. Pleural space: No effusion. Heart: cardiomegaly. Bones/joints: No acute findings. IMPRESSION: No acute cardiopulmonary process.
[2024-11-01 05:09] VITALS: BP 156/63; PULSE 58; RESP 15; TEMP 98.8
== END 2024-11-01 05:09 | disposition home or self-care (01) ==
LOC: EC 23:45
DX: R05.9 Cough, unspecified (principal); R19.7 Diarrhea, unspecified; Z88.8 Allergy status to other drugs, medicaments and biological substances; Z87.891 Personal history of nicotine dependence; W18.39XA Other fall on same level, initial encounter
CPT/HCPCS: 36415; 71046; 80053; 82272; 85025; 85610; 85730; 87636; 99284